=== PATIENT | male | born 1955 | race Caucasian/White ===

== ENCOUNTER 2023-02-08 12:35 | Outpatient (OUT) | payer OTHER, SELFPAY ==
--- NOTE | 2023-02-08 13:04 | P.CN_ITS ---
Consult Note: HPI Data of Consult Patient: known to practice within the last 3 years Requesting Physician: Karen Castro NP Primary Care Provider: JESÚS GUZMAN Consult Narrative Reason for consult: 3 month follow up Narrative: Erich Lopez a pleasant 67 year old male presents for follow up on chronic upper/mid back pain, has been utilizing tramadol and diclofenac for pain with mild relief. Today rating his pain 4/10 in left thoracic spine/paraspine. cc:: CC: Karen Castro NP Review of Systems ROS Status of ROS 10 or more systems reviewed and unremarkable except as noted in h istory and below Musculoskeletal Reports: back pain Exam Constitutional Documenting provider has reviewed patient's vital signs: yes Common normals: no apparent distress, average body habitus, oriented x3, healthy appearing, alert and well nourished General appearance: cooperative HENMT Common normals: normocephalic, hearing grossly normal bilaterally and moist oral mucous membranes Head and scalp: normocephalic Eye Common normals: PERRL Pupil: PERRL Neck & C-Spine Common normals: full ROM General: normal visual inspection Chest Common normals: inspection of chest normal Respiratory Common normals: normal respiratory effort, no retractions and no use of accessory muscles Back & Pelvis Thoracic spine/upper back: pain with ROM, paraspinal muscle tenderness and other soft tissue findings (trigger point) Other thoracic soft tissue findings laterality: left Lumbar spine/lower back: normal to inspection and lumbar ROM normal Sacroiliac joints: SI joints normal Extremity Common normals: normal to inspection, full ROM and no joint enlargement Neuro Common normals: oriented x3, CN's II-XII intact bilaterally, moves all extr emities, no focal motor deficits, no sensory deficits noted and deep tendon reflexes 2+ bilaterally Sensorium/orientation: alert Gait (neuro): normal gait Motor exam: strength 5/5 throughout and no movement abnormalities noted Other: denies numbness/tinging in upper extremities, no weakness Psych Common normals: mental status grossly normal, thought process normal, cooperative, affect normal, speech normal and activity/motor behavior normal Speech: normal speech Thought process: normal thought process Results Additional Findings Additional findings: I have checked an OARRS report on this patient today and there are no aberrancies noted in the prescribing history.?? A drug screen was completed and reviewed within the last year, and if there has not been a drug screen completed we ordered one today to monitor higher risk, state monitored pain medication use. Assessment and Plan Assessment and Plan (1) Chronic pain syndrome: (2) Thoracic spondylosis: Assessment and Plan: MRI from 2020 shows T3-4 disc bulging and T5-6 disc herniation, patient will think about JAMILAH for pain relief but has a surgical consult next week for pending hernia surgery. (3) Trigger point of thoracic region: Assessment and Plan: palpable trigger point in left thoracic spine, will plan on trigger point injection (4) Chronic prescription opiate use: Assessment and Plan: increase tramadol to 100mg ER BID PRN for pain, ok to take two of 50mg tablets up to BID PRN and refill next script early discussed and prescribed naloxone Plan f/u for TPI consider thoracic JAMILAH (t3-4 JAMILAH) follow up to discuss medication changes in 4-6 weeks
== END 2023-02-08 12:36 | disposition home or self-care (01) ==
PROVIDERS: Visit Provider Nurse Practitioner
DX: M47.814 Spondylosis without myelopathy or radiculopathy, thoracic region (principal); G89.4 Chronic pain syndrome; Z79.899 Other long term (current) drug therapy
CPT/HCPCS: G0463

== ENCOUNTER 2023-04-09 11:22 | Outpatient (OUT) | payer OTHER, SELFPAY ==
--- NOTE | 2023-04-09 11:39 | P.CN_ITS ---
Consult Note: HPI Data of Consult Patient: new to practice Consult date: 04/09/23 Requesting Physician: Mary Jane Gonzales MD Primary Care Provider: JESÚS GUZMAN Consult Narrative Reason for consult: midback pain Narrative: 67yom who presents for assessment. Notes persistence of pain throughout his midback region. Thoracic MRI reviewed from 2020, which shows multiple thoracic disc bulges with thecal sac impingement. Engages in provider directed home exercise program >6 weeks, with limited benefit. Has had trigger point injections in the past, with relief. Utilizes tramadol. Denies adverse medication side effects or loss of bowel or bladder control. cc:: CC: Mary Jane Gonzales MD Review of Systems ROS Status of ROS 10 or more systems reviewed and unremarkable except as noted in history and below Meds Home Medications and Allergies Home Medications Medication Instructions Recorded Confirmed Type naloxone 4 mg/actuation nasal 4 mg intranasal Q3M PRN opioid 02/08/23 Rx spray (Narcan) overdose #2 ea tramadol 100 mg capsule 100 mg PO BID PRN pain #60 caps 03/14/23 Rx 24h,extended release(25-75) tramadol 100 mg tablet,extended 100 mg PO DAILY #60 tabs 03/15/23 Rx release 24 hr Exam Narrative Exam Narrative: Psych-alert and oriented x 3. Attentive and appropriate, constitutionally normal, displays normal mood and affect per situation. There are no obvious deficits in memory, reasoning, or intellect.? Skin-no obvious rashes, bruising, erythema noted to the patient's area of pain.? Extremities- extremities are warm with minimal edema and palpable pulses. Thoracic -tenderness to palpation noted in the thoracic spine and paraspinal musculature. Pain is elicited with flexion, extension, and lateral rotation of the lumbar spine. Range of motion is diminished with these motions. Facet loading maneuvers are positive. Multiples trigger points expressed on palpation.? Sensory-no notable sensory deficits to touch or pinprick in all dermatomal distributions with the exception to decreased sensation to the left T5, 6, 7 dermatomal distribution? Coordination remains intact.? Gait remains non-antalgic. Assessment and Plan Assessment and Plan (1) Thoracic spondylosis: (2) Myofascial pain syndrome: (3) Disc displacement, thoracic: Plan 67yom who presents for assessment. Worsening midback pain, as noted. Imaging reviewed, as noted. Given the worsening of his symptoms, coupled with failure to respond to conservative measures, will have him update his thoracic MRI since his most recent was over 2.5 years ago. He is in agreement. Will proceed with thoracic trigger points, as well. Medications reviewed, no changes. Follow up after imaging. Procedure: Left parathoracic trigger point injection Medications: Bupivacaine 0.25% 6cc, kenalog 80mg Diagnosis: Thoracic myofascial pain syndrome I explained the details of the procedure to the patient including the risks, benefits and alternatives. We had an informed discussion and the patient verbalized understanding and signed the consent form. All questions were answered appropriately.? A time out was performed.The patient was identified, the chart was reviewed, and all allergies were confirmed.? Laterality was conducted and marked.? The left side of the thoracic spine was sterilely prepped times three using alcohol.? A 27 gauge 1 1/2 inch needle was used to inject a total of 6.0 mL of the above medication in the various palpated trigger points after negative a spiration for? heme, CSF, or other bodily fluid.?? Vital signs were monitored before, during, and after the procedure and remained stable at all points.? The patient was discharged with no complications.
== END 2023-04-09 11:23 | disposition home or self-care (01) ==
LOC: PM 11:22
PROVIDERS: Visit Provider Anesthesiology
DX: M47.814 Spondylosis without myelopathy or radiculopathy, thoracic region (principal); M51.24 Other intervertebral disc displacement, thoracic region; M79.18 Myalgia, other site
CPT/HCPCS: 20553

== ENCOUNTER 2023-04-24 13:21 | Outpatient (OUT) | payer OTHER, SELFPAY ==
--- NOTE | 2023-04-24 13:29 | MR_ITS ---
The [address] [address] Patient Name: DORY SCRUGGS MRN: [facility]:[id number] date: 1955 Sex: M Assigned Patient Location: MRI Current Patient Location: MRI Accession/Order Number: [id number] Exam Date: 04/24/2023 13:37 Report Date: 04/24/2023 15:38 At the request of: CONOR MARES Procedure: MR thoracic spine wo con MR thoracic spine wo con, 04/24/2023 1:37 PM EDT INDICATION: Thoracic Stenosis COMPARISON: There is no appropriate prior study for comparison. TECHNIQUE: Multiplanar, multisequential MRI images of thoracic spine were obtained without contrast. FINDINGS: There is normal physiologic thoracic kyphosis. The vertebral heights are preserved. The conus medullaris is at the level of L1. No signal abnormality within the spinal cord is noted. At the level of T3-T4, there is disc bulge. No neuroforaminal narrowing and mild canal stenosis. At the level of T5-T6, there is left lateral disc protrusion. No neuroforaminal narrowing and mild left canal stenosis. MR/MR thoracic spine wo con IMPRESSION: Mild degenerative changes of thoracic spine. Electronically authenticated by: SOPHY HERNANDEZ Date: 04/24/2023 15:38
== END 2023-04-24 13:22 | disposition home or self-care (01) ==
LOC: MRI 13:22
PROVIDERS: Visit Provider Anesthesiology
DX: M48.04 Spinal stenosis, thoracic region (principal)
CPT/HCPCS: 72146

== ENCOUNTER 2023-05-09 12:28 | Outpatient (OUT) | payer OTHER, SELFPAY ==
--- NOTE | 2023-05-09 12:36 | P.CN_ITS ---
Consult Note: HPI Data of Consult Patient: known to practice within the last 3 years Requesting Physician: Karen Castro NP Primary Care Provider: JESÚS GUZMAN Consult Narrative Reason for consult: f/u Narrative: Erich Lopez a pleasant 67 year old male presents for evaluation and management of upper back pain. Since last visit patient has had an MRI of thoracic spine which shows thoracic stenosis. Patient would like to discuss treatment options. cc:: CC: Karen Castro NP Review of Systems ROS Status of ROS 10 or more systems reviewed and unremarkable except as noted in history and below Musculoskeletal Reports: back pain Meds Home Medications and Allergies Home Medications Medication Instructions Recorded Confirmed Type naloxone 4 mg/actuation nasal 4 mg intranasal Q3M PRN opioid 02/08/23 Rx spray (Narcan) overdose #2 ea tramadol 100 mg capsule 100 mg PO BID PRN pain #60 caps 03/14/23 Rx 24h,extended release(25-75) tramadol 100 mg tablet,extended 100 mg PO DAILY #60 tabs 03/15/23 Rx release 24 hr tramadol 50 mg tablet 50 mg PO BID PRN pain #120 tabs 04/25/23 Rx Exam Constitutional Documenting provider has reviewed patient's vital signs: yes Common normals: no apparent distress, oriented x3, healthy appearing, alert and well nourished General appearance: cooperative HENMT Common normals: normocephalic, hearing grossly normal bilaterally and moist oral mucous membranes Head and scalp: normocephalic Eye Common normals: PERRL Pupil: PERRL Neck & C-Spine Common normals: full ROM General: normal visual inspection Chest Common normals: inspection of chest normal Respiratory Common normals: normal respiratory effort, no retractions and no use of accessory muscles Back & Pelvis Thoracic spine/upper back: ROM limited and pain with ROM Back image (male): 1. Extremity Common normals: normal to inspection and full ROM Neuro Common normals: oriented x3, CN's II-XII intact bilaterally, moves all extremities, no focal motor deficits, no sensory deficits noted and deep tendon reflexes 2+ bilaterally Sensorium/orientation: alert Motor exam: strength 5/5 throughout and no movement abnormalities noted Psych Common normals: mental status grossly normal, thought process normal, cooperativ e, affect normal, speech normal and activity/motor behavior normal Speech: normal speech Thought process: normal thought process Results Additional Findings Additional findings: I have checked an OARRS report on this patient today and there are no aberrancies noted in the prescribing history.?? A drug screen was completed and reviewed within the last year, and if there has not been a drug screen completed we ordered one today to monitor higher risk, state monitored pain medication use. As part of providing excellent, safe, comprehensive care, the following was completed at our patient's visit: 1. A medication reconciliation and review to ensure accurate knowledge of current/active medications, including asking our patients to inform us about any [id number] medications or herbal remedies/nutritional supplements/alternative remedies. 2. A review to specifically ensure our patients have had annual screening for: elevated body mass index (BMI), tobacco use, screening for depression, and screening for unhealthy alcohol use. When screening is concerning, patients are provided with education and the specific recommendation to discuss the concerni ng health issue and treatment options with their primary care provider. Assessment and Plan Assessment and Plan (1) Thoracic stenosis: (2) Disc displacement, thoracic: (3) Myofascial pain syndrome: (4) Chronic pain syndrome: (5) Chronic prescription opiate use: Assessment and Plan: I have refilled the patient's opioid prescriptions at the above noted dose and schedule.? I feel these medications are improving the patient's quality of life and allow them to tolerate activities of daily living as well as participate in recreational activity.? The patient does not report intolerable side effects. The patient is NOT opioid naive and non-pharmacologic and non-opioid treatment has failed to significantly relieve the patient's pain and improve functionality. The patient has a diagnosis that is related to a somatic or visceral pain etiology. ? ?? I reviewed with the patient the potential risks and side effects with the use of? opioid medications including but not limited to respiratory depression,? sedation, and even . I verified the patient has access to naloxone should? these effects occur. I advised the patient to avoid the use of any other? sedation substances including alcohol, THC, and benzodiazepines while? taking opioid medications due to the risk of compounding side effects and? detrimental outcomes. I reviewed the [employer], pain treatment agreement, urine? drug screen, and opioid start talking forms. The patient was advised to let? their family know they had Naloxone in case they would need to administer? the medication.? ?? A drug screen was completed within the last year, and no aberrancies were noted regarding their use of controlled substances. The patient understands they are subject to the terms and conditions of the pain contract that they have signed. ? ?? I have checked an OARRS report on this patient today and there are no aberrancies noted in the prescribing history.? Plan left T5-6 TFESI under fluoroscopy, discussed risks vs benefits all questions answered continue current medications f/u 2 weeks after JAMILAH
== END 2023-05-09 12:29 | disposition home or self-care (01) ==
LOC: PM 12:28
PROVIDERS: Visit Provider Nurse Practitioner
DX: M51.24 Other intervertebral disc displacement, thoracic region (principal); M48.04 Spinal stenosis, thoracic region; M79.18 Myalgia, other site; G89.4 Chronic pain syndrome; Z79.891 Long term (current) use of opiate analgesic
CPT/HCPCS: G0463

== ENCOUNTER 2023-05-28 09:46 | Day surgery (SDC) | payer OTHER, SELFPAY ==
[2023-05-28 10:43] VITALS: BP 147/71; PULSE 92; RESP 18; TEMP 36; O2SAT 99
[2023-05-28 11:22] VITALS: BP 150/67; PULSE 98; RESP 18; O2SAT 95
[2023-05-28] MEDS: BUPIVACAINE HCL 0.25% PF 25 MG/10 ML VIAL INJ (11:23)
[2023-05-28] MEDS: LIDOCAINE HCL 2% PF 100 MG/5 ML VIAL INJ (11:23)
[2023-05-28] MEDS: 0.9 % SODIUM CHLORIDE 10 ML INJ (11:23)
[2023-05-28] MEDS: DEXAMETHASONE SOD PHOS 10 MG/ML VIAL INJ (11:23)
--- NOTE | 2023-05-28 11:26 | P.ON_ITS ---
Date of procedure: 05/28/23 Pre-op diagnosis: M54.14 Post-op diagnosis: same as pre-op Procedure: Procedure: Left T5-6 transforaminal epidural steroid injection Medications: Bupivacaine 0.25% 2cc, dexamethasone 10mg The patient was seen and examined in the preoperative holding area.? Informed consent was obtained and placed on the chart.? Patient was brought to the medical procedure unit and placed in the prone position where a timeout was completed verifying the correct patient, procedure site, position, and planned special equipment using sterile aseptic technique.? Under direct fluoroscopic visualization a 25-gauge Quincke tipped spinal needle was advanced to the desig nated neural foramen where contrast dye was injected to show adequate spread.? The needle was inserted at level left T5-6. There was no evidence of vascular or adverse uptake.? Epidural spread was appreciated.? The above-mentioned injectate was then placed in a 1.5 mL aliquot preceded by negative aspiration.? The needle was removed.? The surgery site was covered.? Patient was taken to the postproc edural recovery area and monitored for an appropriate length of time before found suitable for discharge in the accompaniment of a responsible adult. Anesthesia: Local Surgeon: Mary Jane Gonzales Pathology: none sent Condition: stable Disposition: no change
[2023-05-28] MEDS: IOHEXOL 240 MG/ML - 10 ML VIAL INJ (11:27)
[2023-05-28 11:29] VITALS: BP 134/78; PULSE 92; RESP 18; O2SAT 98
== END 2023-05-28 11:31 | disposition home or self-care (01) ==
PROVIDERS: Visit Provider Anesthesiology
DX: M54.14 Radiculopathy, thoracic region (principal)
CPT/HCPCS: 64479; J1100; Q9966

== ENCOUNTER 2023-06-28 13:31 | Outpatient (OUT) | payer OTHER, SELFPAY ==
--- NOTE | 2023-06-28 15:09 | P.CN_ITS ---
Consult Note: HPI Data of Consult Patient: known to practice within the last 3 years Requesting Physician: Karen Castro NP Primary Care Provider: JESÚS GUZMAN Consult Narrative Reason for consult: f/u Narrative: Erich Lopez a pleasant 67 year old male presents for evaluation and management of left sided upper back pain. Patient has failed to respond to thermal facet RFAs at left T5,6 T7,8 and left t5,6 TFESI. Patient continues to have burning sharp pain at left T5,6,7 cc:: CC: Karen Castro NP Review of Systems 2 ROS0 Status of ROS 10 or more systems reviewed and unremark able except as noted in history and below Musculoskeletal Reports: back pain Meds Home Medications and Allergies Home Medications Medication Instructions Recorded Confirmed Type tramadol 100 mg capsule 100 mg PO BID PRN pain #60 caps 03/14/23 05/28/23 Rx 24h,extended release(25-75) atorvastatin 80 mg tablet (Lipitor) 80 mg PO DAILY 05/22/23 05/28/23 History lisinopril 2.5 mg tablet 2.5 mg PO DAILY 05/22/23 05/28/23 History tamsulosin 0.4 mg capsule (Flomax) 0.4 mg PO DAILY 05/28/23 05/28/23 History tramadol 50 mg tablet 50 mg PO BID PRN pain #120 tabs 06/13/23 Rx Allergies Allergy/AdvReac Type Severity Reaction Status Date / Time Penicillins Allergy Verified 05/28/23 10:36 Exam Constitutional Documenting provider has reviewed patient's vital signs: yes Common normals: no apparent distress, oriented x3, healthy appearing, alert and well nourished General appearance: cooperative HENMT Common normals: normocephalic, hearing grossly normal bilaterally and moist oral mucous membranes Head and scalp: normocephalic Eye Common normals: PERRL Pupil: PERRL Neck & C-Spine Common normals: full ROM General: normal visual inspection Chest Common normals: inspection of chest normal Respiratory Common normals: normal respiratory effort, no retractions and no use of accessory muscles Back & Pelvis Thoracic spine/upper back: ROM limited and pain with ROM Back image (male): 2 1. Extremity Common normals: normal to inspection and full ROM Neuro Common normals: oriented x3, CN's II-XII intact bilaterally, moves all extremities, no focal motor deficits, no sensory deficits noted and deep tendon reflexes 2+ bilaterally Sensorium/orientation: alert Motor exam: strength 5/5 throughout and no movement abnormalities noted Psych Common normals: mental status grossly normal, thought process normal, cooperative, affect normal, speech normal and activity/motor behavior normal Speech: normal speech Thought process: normal thought process Assessment and Plan Assessment and Plan (1) Thoracic neuritis: (2) Thoracic stenosis: (3) Disc displacement, thoracic: (4) Myofascial pain syndrome: (5) Thoracic spondylosis: (6) Chronic prescription opiate use: Assessment and Plan: I feel these medications are improving the patient's quality of life and allow them to tolerate activities of daily living as well as participate in recreational activity.? The patient does not report intolerable side effects. The patient is NOT opioid naive and non-pharmacologic and non-opioid treatment has failed to significantly relieve the patient's pain and improve functionality. The patient has a diagnosis that is related to a somatic or visceral pain etiology. ? ?? I reviewed with the patient the potential risks and side effects with the use of? opioid medications including but not limited to respiratory depression,? sedation, and even . I verified the patient has access to naloxone should? these effects occur. I advised the patient to avoid the use of any other? sedation substances including alcohol, THC, and benzodiazepines while? taking opioid medications due to the risk of compounding side effects and? detrimental outcomes. I reviewed the [employer], pain treatment agreement, urine? drug screen, and opioid start talking forms. The patient was advised to let? their family know they had Naloxone in case they would need to administer? the medication.? ?? A drug screen was completed within the last year, and no aberrancies were noted regarding their use of controlled substances. The patient understands they are subject to the terms and conditions of the pain contract that they have signed. ? ?? I have checked an OARRS report on this patient today and there are no aberrancies noted in the prescribing history.? Plan left t5,6,7 intercostal nerve block under fluoroscopy start amitripyline 10mg daily continue tramadol 100mg BID PRN moderate to severe pain utox today f/u 1-2 weeks after injection
== END 2023-06-28 13:32 | disposition home or self-care (01) ==
LOC: PM 13:31
PROVIDERS: Visit Provider Nurse Practitioner
DX: M54.14 Radiculopathy, thoracic region (principal); M48.04 Spinal stenosis, thoracic region; M51.24 Other intervertebral disc displacement, thoracic region; M79.18 Myalgia, other site; M47.814 Spondylosis without myelopathy or radiculopathy, thoracic region; Z79.891 Long term (current) use of opiate analgesic
CPT/HCPCS: G0463

== ENCOUNTER 2023-07-09 06:38 | Day surgery (SDC) | payer OTHER, SELFPAY ==
--- OUTSIDE RECORDS SUMMARY | 2023-07-09 06:41 | XMS_ITS | CCD ---
Author Name Unknown Address [id number] [place] [address] Organization [facility] Care Team Providers Care Utility Lineman Name Role Phone Sushil Valentine Unavailable EDWARDS ., CYRIL Consulting Unavailable ROSIPKO, JESÚS Primary Care Unavailable BERGER ., DR MARCY Blanc Admitting Unavailable BERGER ., DR MARCY Blacn Attending Unavailable GIEDRAITIS, ANDRIUS Admitting Unavailable GIEDRAITIS, ANDRIUS Attending Unavailable ROSIPKO, JESÚS Primary Care Unavailable ROSIPKO, JESÚS Primary Care Unavailable EDWARDS ., CYRIL Attending Unavailable EDWARDS ., CYRIL Admitting Unavailable EDWARDS ., CYRIL Consulting Unavailable ROSIPKO, JESÚS Primary Care Unavailable BERGER ., DR MARCY Blanc Consulting Unavailable BERGER ., DR MARCY Blanc Attending Unavailable BERGER ., DR MARCY Blanc Admitting Unavailable PIERCE COLLINS Consulting Unavailable EDWARDS ., CYRIL Consulting Unavailable ROSIPKO, JESÚS Primary Care Unavailable BERGER ., DR MARCY Blanc Attending Unavailable BERGER ., DR MARCY Blanc Admitting Unavailable EDWARDS ., CYRIL Consulting Unavailable ROSIPKO, JESÚS Primary Care Unavailable BERGER ., DR MARCY Blanc Admitting Unavailable BERGER ., DR MARCY Blanc Attending Unavailable Christian TAPIA, Mary Jane Rust Attending Unavailable Christian TAPIA, Mary Jane Rust Attending Unavailable SERA MCDOWELL I Referring Unavailable NO PCP, NO PCP Primary Care Unavailable Allergies Allergy Classification Reported Allergen(s) Allergy Type Date of Onset Reaction(s) Facility (3 sources) Penicillin G Drug Allergy Unknown [facility] Other (1 source) Penicillin Drug Allergy [facility] Repository (1 source) Penicillins; Translations: [PENICILLINS] Propensity to adverse reactions to drug (disorder) 7 [facility] Repository Medications Current Medications Medication Drug Class(es) Dates Sig (Normalized) Sig (Original) Aspirin (3 sources) Platelet Aggregation Inhibitor, Nonsteroidal Anti-inflammatory Drug Aspirin 325 mg Active atorvastatin 80 mg oral tablet (2 sources) HMG-CoA Reductase Inhibitor take 1 tablet by mouth every twenty-four hours Atorvastatin Calcium 80 MG 1 tablet Orally Once a day Active hydroCHLOROthiazide 12.5 mg / lisinopril 20 mg oral tablet (2 sources) Thiazide Diuretic, Angiotensin Converting Enzyme Inhibitor take 1 tablet by mouth every twenty-four hours Lisinopril-hydroCH LOROthiazide 20-12.5 MG 1 tablet Orally Once a day Active Lisinopril (1 source) Angiotensin Converting Enzyme Inhibitor Lisinopril Active traMADol hydrochloride 50 mg oral tablet (2 sources) Opioid Agonist take 1 tablet by mouth every twenty-four hours traMADol HCl 50 MG 1 tablet as needed Orally Once a day Active Problems Active Problems Problem Classification Problem Date Documented Date Episodic/Chronic Abdominal hernia (2 sources) Hiatal hernia; Translations: [Diaphragmatic hernia without obstruction or gangrene] Episodic Diverticulosis and diverticulitis (2 sources) Diverticular disease of colon; Translations: [Diverticulosis of intestine, part unspecified, without perforation or abscess without bleeding] Chronic Hemorrhoids (2 sources) Hemorrhoids; Translations: [Unspecified hemorrhoids] Episodic Other disorders of stomach and duodenum (4 sources) Other diseases of stomach and duodenum; Translations: [Gastric wall thickening] Onset: 05-16-2021 Resolved: 05-16-2021 Episodic Other nervous system disorders (1 source) Other chronic pain; Translations: [OTHER CHRONIC PAIN] Onset: 03-03-2022 Chronic Other non-traumatic joint disorders (4 sources) Pain in left shoulder; Translations: [PAIN IN LEFT SHOULDER] Onset: 07-27-2022 Episodic Other nutritional; endocrine; and metabolic disorders (3 sources) Abnormal weight loss; Translations: [Abnormal weight loss] Episodic Other screening for suspected conditions (not mental disorders or infectious disease) (1 source) Encounter for screening for malignant neoplasm of prostate; Translations: [Encounter for screening for malignant neoplasm of prostate] Onset: 07-04-2023 Episodic Spondylosis; intervertebral disc disorders; other back problems (11 sources) Spondylosis without myelopathy or radiculopathy, thoracic region; Translations: [Other intervertebral disc degeneration, thoracic region] Onset: 11-15-2021 Chronic Substance-related disorders (1 source) Nicotine dependence, cigarettes, uncomplicated; Translations: [NICOTINE DEPEND CIGARETTES UNCOMP] Onset: 11-17-2021 Chronic Unclassified (1 source) LOW BACK PAIN, UNSPECIFIED; Translations: [LOW BACK PAIN, UNSPECIFIED] Onset: 03-03-2022 Past or Other Problems Problem Classification Problem Date Documented Da te Episodic/Chronic Other connective tissue disease (1 source) Muscle wasting and atrophy, not elsewhere classified, unspecified site; Translations: [MUSCLE WASTING ATROPHY NEC UNS SITE] Onset: 11-17-2021 Episodic Other nutritional; endocrine; and metabolic disorders (3 sources) Abnormal weight loss Onset: 05-16-2021 Resolved: 12-28-2021 Episodic Spondylosis; intervertebral disc disorders; other back problems (1 source) Pain in thoracic spine; Translations: [PAIN IN THORACIC SPINE] Onset: 05-30-2022 Episodic Results Test Name Value Interpretation Reference Range Facility Prostate specific Ag [Mass/V ol]on 07-04-2023 PROSTATIC SPEC ANT 3.72 ng/mL Normal 0.00-4.00 [facility] Comment on above: Result Comment: The method used for this test is [employer] DXI chemiluminescent immunoassay. Values obtained by different assay methods cannot be used interchangeably. Performed By: #### 2 [id number] #### [facility] ([id number]) [address] [place] [address], [address] [place] [address] [facility] 06-02-2021 L ----- Specimen: [id number] Received: 06/02/21 Status: JANEBear Lexa Num: [id number] Spec Type: Surgical Subm Dr: Sushil Valentine MD Tissues: A Duodenum - Biopsy (DUODENAL) B Stomach - Biopsy/Polyp (ANTRUM) C Colon Biopsy (COLITIS BX) Procedures: HE Stain/6, Gross/Micro L4/3 Patient Age/Sex Location Account Attending Physician Efraín Lopez /[facility] [id number] Sushil Valentine MD SPEC NUM: [id number] RECD: 06/02/21 STATUS: ELI LEXA NUM: [id number] JABIER: 06/02/21- [facility] DR: Sushil Valentine MD ENTERED: 06/02/21-[address] [facility] [address]: DARREL TYPE: Surgical DEPT: S ORDERED: HE Stain/6, Gross/Micro L4/3 ORDERED: HE Stain/6, Gross/Micro L4/3 Pathological Diagnosis A. Duodenum, biopsy: - Small intestinal mucosa showing no specific pathologic changes - Preserved villous and crypt architecture - Negative for active B. Stomach, antrum, biopsy: - Mild chronic inactive gastritis - Negative for H. pylori microorganisms C. Colon, biopsy: - Colonic mucosa showing no specific pathologic changes - Negative for microscopic colitis Clinical Information Weight loss, gastric wall thickening Gross Description A. Received in 10% neutral buffered formalin labeled with the patient's name, number and duodenal rule out sprue are 2 go tissue fragments, 0.3 cm each. Entirely submitted in one cassette labeled A1. (SM/JS) B. Received in 10% neutral buffered formalin labeled with the patient's name, number and Specimen: [id number] Received: 06/02/21 Status: ELI Lindquist Num: [id number] Spec Type: Surgical Subm Dr: Sushil Valentine MD Tissues: A Duodenum - Biopsy (DUODENAL) B Stomach - Biopsy/Polyp (ANTRUM) C Colon Biopsy (COLITIS BX) Procedures: HE Stain/6, Gross/Micro L4/3 Patient: JessicaEfraín Jensen [id number] (Continued) Specimen: [id number] Received: 06/02/21 (Continued) Gross Description (Continued) Signed (signature on file) Marcia Knight MD 06/03/21 1726 Specimen: [id number] Received: 06/02/21 Status: ELI Lindquist Num: [id number] Spec Type: Surgical Subm Dr: Sushil Valentine MD Tissues: A Duodenum - Biopsy (DUODENAL) B Stomach - Biopsy/Polyp (ANTRUM) C Colon Biopsy (COLITIS BX) Procedures: HE Stain/6, Gross/Micro L4/3 Patient: Efraín Lopez [id number] (Continued) Specimen: [id number] Received: 06/02/21 (Continued) Gross Description (Continued) antrum rule out H. pylori is a 0.3 cm go tissue fragment. Entirely submitted in one cassette labeled B1. (ATIF/EMERSON) C. Received in 10% neutral buffered formalin labeled with the patient's name, number and biopsies rule out microscopic colitis are 2 go tissue fragments, 0.1 cm and 0.2 cm. Entirely submitted in one cassette labeled C1. (ATIF/[place]ERSON) Microscopic Description A. Two glass slides with H E stained material have been examined. The microscopic findings support the above pathologic diagnosis. B. Two glass slides with H E stained material have been examined. The microscopic findings support the above pathologic diagnosis. Immunohistochemical stains for AE1/AE3 and H. pylori, with appropriate controls, have been requested and examined after reviewing the H E sections. AE1/AE3 is negative for carcinoma cells. H. pylori stain is negative for microorganisms. C. Two glass slides with H E stained material have been examined. The microscopic findings support the above pathologic diagnosis. [id number] The use of one or more reagents in the above tests is regulated as an analyte specific reagent (ASR). The performance characteristics were determined by the Laboratory of [facility]. Immunohistochemistry assays have not been validated on decalcified tissue. Results should be interpreted with caution given the possibility of false negative results on decalcified specimens. They have not been cleared by the US Food and Drug Administration. The FDA has determined that such (more content not included)... Normal [facility] Ammoniaon 05-31-2021 Ammonia (P) [Mass/Vol] ug/dL Low 11-35 [facility] Comment on above: Result Comment: PERF ORMED BY: [place] [address] PATHOLOGIST EARLY [employer]ILDHOOD MARCIA KNIGHT M.D. Performed By: #### A MM, PT, CMP, CBC #### [address] COVID-19 FRon 05-31-2021 SARS-CoV-2 (COVID-19) RNA JESSE+probe Ql (Unsp spec) Negative Normal Negative [facility] Comment on above: Order Comment: Healt hcare Worker?: N Result Comment: Testing for SARS-CoV-2 by RT-PCR This test was developed and its performance characteristics determined by [employer] and validated at the [facility]. This test has not been FDA cleared or approved. This test has been authorized by FDA under an Emergency Use Authorization (EUA). This test has been validated in accordance with the FDA's Guidance Document (Policy for Diagnostics Testing in Laboratories Certified to Perform High Complexity Testing under CLIA prior to Emergency Use Authorization for Coronavirus Disease-2019 during the Public Health Emergency) issued on September 25, 2019. This test is only authorized for the duration of time the declaration that circumstances exist justifying the authorization of the emergency use of in vitro diagnostic tests for detection of SARS-CoV-2 virus and/or diagnosis of COVID-19 infection under section 564(b)(1) of the Act, 21 U.S.C. 360bbb-3(b)(1), unless the authorization is terminated or revoked sooner. PERFORMED BY: [place] [address] PATHOLOGIST [employer]AR[employer]IL[employer] MARCIA KNIGHT M.D. Performed By: #### C OVID 19 [facility] #### [address] Complete Blood Count Auto Di ffon 05-31-2021 Basophils (Bld) [#/Vol] 0.0 10*3/uL Normal 0.0-0.2 [facility] Comment on above: Result Comment: PERF ORMED BY: [place] [address] PATHOLOGIST EARLY [employer]ILDH[employer] MARCIA KNIGHT M.D. Performed By: #### A MM, PT, CMP, CBC #### [address] Basophils/100 WBC (Bld) 0.4 % Normal . [facility] Comment on above: Performed By: #### A MM, PT, CMP, CBC #### [address] Eosinophils (Bld) [#/Vol] 0.1 10*3/uL Normal 0.0-0.45 [facility] Comment on above: Performed By: #### A MM, PT, CMP, CBC #### [address] Eosinophils/100 WBC (Bld) 1.1 % Normal . [facility] Comment on above: Performed By: #### A MM, PT, CMP, CBC #### [address] Erythrocyte distribution width (RBC) [Ratio] 14.3 % Normal 12.0-14.8 [facility] Comment on above: Performed By: #### A MM, PT, CMP, CBC #### [address] Hematocrit (Bld) [Volume fraction] 42.5 % Normal 38.8-50.0 [facility] Comment on above: Performed By: #### A MM, PT, CMP, CBC #### [address] Hemoglobin (Bld) [Mass/Vol] 14.1 g/dL Normal 13.0-17.0 [facility] Comment on above: Performed By: #### A MM, PT, CMP, CBC #### [address] Lymphocytes (Bld) [#/Vol] 1.4 10*3/uL Normal 1.00-4.8 [facility] Comment on above: Performed By: #### A MM, PT, CMP, CBC #### [address] Lymphocytes/100 WBC (Bld) 17.3 % Normal . [facility] Comment on above: Performed By: #### A MM, PT, CMP, CBC #### [address] MCH (RBC) [Entitic mass] 29.6 pg Normal 27.5-35.2 [facility] Comment on above: Performed By: #### A MM, PT, CMP, CBC #### [address] MCV (RBC) [Entitic vol] 89.1 fL Normal 83.5-101 [facility] Comment on above: Performed By: #### A MM, PT, CMP, CBC #### [address] Mean Corpuscular HGB Conc 33.2 g/dL Normal 32.5-35.6 [facility] Comment on above: Performed By: #### A MM, PT, CMP, CBC #### [facility] [address] Monocytes (Bld) [#/Vol] 0.7 10*3/uL Normal 0.0-0.8 [facility] Comment on above: Performed By: #### A MM, PT, CMP, CBC #### [facility] [address] Monocytes/100 WBC (Bld) 9.2 % Normal . [facility] Comment on above: Performed By: #### A MM, PT, CMP, CBC #### [address] Neutrophils (Bld) [#/Vol] 5.8 10*3/uL Normal 1.8-7.7 [facility] Comment on above: Performed By: #### A MM, PT, CMP, CBC #### [address] Neutrophils/100 WBC (Bld) 72.0 % Normal . [facility] Comment on above: Performed By: #### A MM, PT, CMP, CBC #### [place] [address] [place] Nucleated RBC/100 WBC (Bld) [Ratio] 0.0 % Normal 0-0.5 [facility] Comment on above: Performed By: #### A MM, PT, CMP, CBC #### [place] [address] [place] Platelet mean volume (Bld) [Entitic vol] 7.8 fL Normal 6.6-10.1 [facility] Comment on above: Performed By: #### A MM, PT, CMP, CBC #### [facility] [address] [place] [address] [place] Platelets (Bld) [#/Vol] 194 10*3/uL Normal 150-450 [facility] Comment on above: Performed By: #### A MM, PT, CMP, CBC #### [place] [address] [place] RBC (Bld) [#/Vol] 4.77 10*6/uL Normal 3.90-5.60 [facility] Comment on above: Performed By: #### A MM, PT, CMP, CBC #### [address] WBC (Bld) [#/Vol] 8.0 10*3/uL Normal 4.5-11.0 [facility] Comment on above: Performed By: #### A MM, PT, CMP, CBC #### [address] Comprehensive Metabolic Pane amor 05-31-2021 Albumin [Mass/Vol] 4.1 g/dL Normal 3.2-5.5 [facility] Comment on above: Performed By: #### A MM, PT, CMP, CBC #### [address] Albumin/Globulin [Mass ratio] 1.5 {ratio} Normal [facility] Comment on above: Performed By: #### A MM, PT, CMP, CBC #### [address] ALP [Catalytic activity/Vol] 70 U/L Normal 32-92 [facility] Comment on above: Result Comment: PERF ORMED BY: [place] [address] PATHOLOGIST EARLY [employer]ILDHO[employer] MARCIA KNIGHT M.D. Performed By: #### A MM, PT, CMP, CBC #### [address] ALT [Catalytic activity/Vol] 22 U/L Normal 10-60 [facility] Comment on above: Performed By: #### A MM, PT, CMP, CBC #### [address] AST [Catalytic activity/Vol] 20 U/L Normal 10-42 [facility] Comment on above: Performed By: #### A MM, PT, CMP, CBC #### [address] Bilirubin [Mass/Vol] 0.9 mg/dL Normal 0.3-1.2 [facility] Comment on above: Performed By: #### A MM, PT, CMP, CBC #### [address] Calcium [Mass/Vol] 9.5 mg/dL Normal 8.2-10.2 [facility] Comment on above: Performed By: #### A MM, PT, CMP, CBC #### [address] Chloride [Moles/Vol] 102 mmol/L Normal 95-114 [facility] Comment on above: Performed By: #### A MM, PT, CMP, CBC #### [address] CO2 [Moles/Vol] 23.2 mmol/L Normal 22.0-30.0 [facility] Comment on above: Performed By: #### A MM, PT, CMP, CBC #### [address] Creatinine [Mass/Vol] 0.91 mg/dL Normal 0.64-1.27 [facility] Comment on above: Performed By: #### A MM, PT, CMP, CBC #### [address] Estimated GFR ( Corinne > 60 [facility] Comment on above: Result Comment: GFR estimated reference range: According to KDOQI guidelines, <60 ml/min/1.73m2 is sufficient to diagnose a patient with chronic kidney disease. Performed By: #### A MM, PT, CMP, CBC #### [address] Estimated GFR (Non- Am > 60 [facility] Comment on above: Performed By: #### A MM, PT, CMP, CBC #### [address] Globulin (S) [Mass/Vol] 2.8 g/dL Normal [facility] Comment on above: Performed By: #### A MM, PT, CMP, CBC #### [facility] [address] Glucose [Mass/Vol] 101 mg/dL High 70-100 [facility] Comment on above: Result Comment: [facility] Glucose Reference Range is dependent on time and content of last meal. Glucose of more than 200 mg/dL in a nonstressed, ambulatory subject supports the diagnosis of Diabetes Mellitus. ADA recommended reference range Performed By: #### A MM, PT, CMP, CBC #### [address] Potassium [Moles/Vol] 4.2 mmol/L Normal 3.5-5.1 [facility] Comment on above: Performed By: #### A MM, PT, CMP, CBC #### [address] Protein [Mass/Vol] 6.9 g/dL Normal 6.1-7.9 [facility] Comment on above: Performed By: #### A MM, PT, CMP, CBC #### [address] Sodium [Moles/Vol] 136 mmol/L Normal 136-146 [facility] Comment on above: Performed By: #### A MM, PT, CMP, CBC #### [address] Urea nitrogen [Mass/Vol] 15 mg/dL Normal 9-23 [facility] Comment on above: Performed By: #### A MM, PT, CMP, CBC #### [place] [address] [place] Prothrombin Time INRon 05-31 INR Coag (PPP) [Relative time] 1.0 {INR} Normal [facility] Comment on above: Result Comment: INR Therapeutic Range A) Pre- and Peroperative OAT started two weeks before surgery. NOT HIP SURGERY: 1.5 - 2.5 HIP SURGERY: 2 - 3 B) Primary and secondary prevention of venous THROMBOSIS: 2 - 3 C) Active venous thrombosis, pulmonary embolism and prevention of recurrent venous thrombosis: 2 - 3 D) Prevention of arterial thromboembolism including patients with mechanical heart valves: 3 - 4.5 PERFORMED BY: [place] [address] PATHOLOGIST EAR[employer]IL[employer] MARCIA KNIGHT M.D. Performed By: #### A MM, PT, CMP, CBC #### [facility] [address] [place] [address] PT Coag (PPP) [Time] 10.8 s Normal 9.0-12.9 [facility] Comment on above: Performed By: #### A MM, PT, CMP, CBC #### [facility] [address] [place] [address] US liveron 05-31-2021 liver [facility] [place] [address] [place] [address] Ultrasound Report Signed Patient: Efraín Lopez MR#: [id number] : 1955 Acct:[id number] Age/Sex: 65 / M ADM Date: 05/31/21 Loc: Room: Type: [facility] Attending Dr: Sushil Valentine MD Ordering Provider: Sushil Valentine MD Date of Service: 05/31/21 US/US liver: abnormal weight loss,gastric wall thickening Copies to: Sushil Valentine MD LIMITED ABDOMINAL ULTRASOUND - liver CLINICAL HISTORY: Abnormal weight loss. Gastric wall thickening COMPARISON: None The gallbladder is physiologically distended without shadowing calculi, wall thickening or pericholecystic fluid. No intra- or extrahepatic biliary dilatation is evident. The common duct is slightly prominent measuring 6 mm. It is not imaged in its entirety. The liver is normal in echogenicity. No intrahepatic masses are seen. There is appropriate hepatopetal flow within the main portal vein. The pancreas shows no significant sonographic abnormality. Cursory evaluation of the right kidney reveals no hydronephrosis or fluid within Whittington's pouch. Right renal cysts are present with the largest measuring 7.7 cm in greatest dimension US/US liver IMPRESSION: NO CHOLELITHIASIS OR HEPATIC ABNORMALITIES. BORDERLINE PROMINENT COMMON DUCT, UNCERTAIN ETIOLOGY AND SIGNIFICANCE. RIGHT RENAL CYST. Impression dictated by: Marilee Ramirez M.D.05/31/2021 2:24 PM Dictation Location: [facility] Tech: Sophie El Transcribed By: MARCUS 05/31/21 142 Dictated By: Marilee Ramirez MD 05/31/21 142 Signed By: 05/31/21 1424 [facility] Vital Signs Date Time Vital Sign Value Performing Clinician Facility 12-28-2021 12:00-0400 Body height 182.88 cm Sushil Valentine Other [facility] Other 12-28-2021 12:00-0400 Body mass index (BMI) [Ratio] 20.34 kg/m2 Sushil Valentine Other [facility] Other 12-28-2021 12:00-0400 Body weight 68.04 kg Sushil Valentine Other [facility] Other 12-28-2021 12:00-0400 Diastolic blood pressure 71 mm[Hg] Sushil Valentine Other [facility] Other 12-28-2021 12:00-0400 Systolic blood pressure 133 mm[Hg] Sushil Valentine Other [facility] Other 09-27-2021 16:00-0400 Body height 182.88 cm Sushil Valentine Other [facility] Other 09-27-2021 16:00-0400 Body mass index (BMI) [Ratio] 20.34 kg/m2 Sushil Valentine Other [facility] Other 09-27-2021 16:00-0400 Body weight 68.04 kg Sushil Valentine Other [facility] Other 09-27-2021 16:00-0400 Diastolic blood pressure 91 mm[Hg] Sushil Valentine Other [facility] Other 09-27-2021 16:00-0400 Respiratory rate 18 /min Sushil Valentine Other [facility] Other 09-27-2021 16:00-0400 SaO2% (BldA) [Mass fraction] 96 % Sushil Valentine Other [facility] Other 09-27-2021 16:00-0400 Systolic blood pressure 158 mm[Hg] Sushil Valentine Other [facility] Other 05-16-2021 10:30-0500 Body weight 69.4 kg Sushil Valentine Other [facility] Other Encounters Encounter Date Encounter Type Care Provider Facility Start: 07-04-2023 End: 07-05-2023 ambulatory SERA be Start: 05-28-2023 End: 05-29-2023 ambulatory Mary Jane Gonzales MD Facility: [facility] Start: 04-09-2023 End: 04-10-2023 ambulatory Mary Jane Gonzales MD Facility: [facility] Start: 11-10-2022 ambulatory ANDRIUS CHRISTIAN Thompson lity:[facility] Start: 07-27-2022 End: 07-28-2022 ambulatory JESÚS GUZMAN Facility:[facility] Start: 06-27-2022 End: 06-27-2022 ambulatory JESÚS GUZMAN Facility:[facility] Start: 05-25-2022 End: 05-26-2022 ambulatory CYRIL EDWARDS . Facility:[facility] Start: 02-23-2022 End: 02-24-2022 ambulatory CYRIL EDWARDS . Facility:[facility] Start: 12-28-2021 End: 12-28-2021 ambulatory Sushil Valentine Other [facility] Other Start: 12-28-2021 Office outpatient visit 15 minutes Sushil Beardack [facility] Start: 11-15-2021 End: 11-16-2021 ambulatory CYRIL EDWARDS . Facility: Start: 09-27-2021 End: 09-27-2021 ambulatory Sushil Valentine Other [facility] Other Start: 09-27-2021 Office outpatient visit 15 minutes Sushil Serge [facility] Start: 05-16-2021 End: 05-16-2021 ambulatory Sushil Valentine Other [facility] Other Start: 05-16-2021 Office outpatient ne w 45 minutes Suhsil Serge [facility] Payers Date Payer Category Payer Medicare 2020 Unknown [id number] 2020 Unknown [id number] 1958 [facility] [id number] 1955 Unknown [id number] 2.16.84 [id number] 1955 Unknown [id number] 2.16.84 [id number] 1955 Unknown [id number] 2.16.84 [id number] 1955 Unknown [id number] 2.16.84 [id number] 1955 Unknown [id number] 2.16.84 [id number] 1955 Unknown [id number] 2.16.84 [id number] 1955 Unknown [id number] 1955 Unknown [id number] 2.16. [id number] 1955 Unknown [id number] Social History Date Type Detail Facility Sex Assigned At [facility] Consultation note 05-25-2022 Note Date & Type Note Facility 05-25-2022 Note CONSULTATION CONSULTATION DATE: 05/25/2022 HISTORY OF PRESENT ILLNESS: This is a 66-year-old gentleman returning to the [facility] for a three month follow up for his thoracic pain. The patient was last seen on 02/23/2022 which, at that time, he was started on Mobic 15 mg daily. He is currently on tramadol 50 mg t.i.d. The patient had had thoracic medial branch blocks successfully in the past to T5, T6 and T7, T8. However, patient's insurance company at that time denied thoracic radiofrequency ablations. The patient's most recent MRI from July of 2020 shows, at the level of T5 and T6 a focal left parricidal disc herniation which focally effaces the left ventral subarachnoid space. 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 The repeated motions of his upper arms greatly increase his pain. At rest, his pain is 4/10. At work, with movement, his pain will get up to a 9/10. Patient describes that lifting, evening hours and any arm use increases his pain. He denies any vasomotor changes to his upper extremities. Patient's REVIEW OF SYSTEMS / PAST MEDICAL HISTORY / ALLERGIES and IMAGES have been reviewed and noted on the chart. PHYSICAL EXAM: VITAL SIGNS: Blood pressure 129/71, heart rate is 76. Temperature is 97.8. He is 6 and weighs 74.2 kg. GENERAL APPEARANCE: Pleasant, appropriate, no acute distress. 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 Spinal axial pain is reproduced along direct compression along the thoracic facets of T5, T6, T7, T8. Fullness palpated along the facets indicative of facet arthropathy, thoracic spondylosis. Thoracic trapezius muscles are non-spasmodic. MUSCULOSKELETAL: Bilateral upper extremities - Motor is 5/5 with no vasomotor deficits. NEUROLOGICAL: Radicular sensory is intact. +1 bilateral brachioradialis reflexes. DIAGNOSIS: Thoracic spondylosis, thoracic pain, thoracic degenerative disc disease, T5-T6 disc herniation. PLAN: We will again resubmit for radiofrequency ablations starting on the left, subsequently move to the right of T5, T6, T7, T8. We will discontinue the Mobic and start the patient on diclofenac 75 mg b.i.d. U-Tox was collected in the clinic today. Patient agrees to move forward with the procedure, will be followed in the clinic thereafter. [facility] Consultation note 02-23-2022 Note Date & Type Note Facility 02-23-2022 Note CONSULTATION CONSULTATION DATE: 02/23/2022 HISTORY OF PRESENT ILLNESS: This is a 66-year-old gentleman returning to the clinic for a three month follow up for his chronic thoracic pain. The patient had successful medial branch blocks in the past, but due to insurance restrictions, he is unable to move forward with an RFA; therefore, we are medically managing him at this time. He takes tramadol 50 mg t.i.d. which is beneficial to him. Today, he reports his pain 2/10, but states he has been taking it easy with no overt exertion. Activities such as twisting, pushing, pulling, turning, stairs, bending, housework and lifting aggravate his pain. He does not use heat or use. He denies any radicular pain or vasomotor changes. He does take a multivitamin at home. Patient's REVIEW OF SYSTEMS / PAST MEDICAL HISTORY / ALLERGIES and IMAGES have been reviewed and they are noted on the chart. PHYSICAL EXAM: VITAL SIGNS: Blood pressure 148/73, heart rate is 64. Temperature is 98.2. He is 6' tall and weighs 158 pounds. GENERAL APPEARANCE: Pleasant, appropriate, no acute distress. FOCUSED EXAM - BACK: Patient does have an upright kyphotic posture. Reproduction of the spinal axial pain noted to direct compression along the posterior elements of the thoracic facets of T5, T6 and T7, T10. Intercostal pain is noted to compression as well to the left. Paravertebral muscles are taut. MUSCULOSKELETAL: Motor is intact to bilateral upper extremities, 4/5, with good muscle tone. Lower extremities slight muscle atrophy. Patient does not use an assistive device to ambulate. 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 Intact bilateral brachioradialis and triceps reflexes. DIAGNOSIS: Thoracic spondylosis, thoracic degenerative disc disease and chronic lower back pain. PLAN: We will send a refill for tramadol 50 mg t.i.d. He is currently not on any NSAIDs. So, therefore, we will start him on Mobic 15 mg daily. Education was given to the benefits use of heat, as well as multivitamin and magnesium. Patient agrees with the plan of care. Will be followed up in three months' time unless otherwise indicated. [facility] Evaluation note 12-28-2021 Note Date & Type Note Facility 12-28-2021 Evaluation note Encounter Date Diagnosis Assessment Notes Dec, Abnormal weight loss (ICD-10 - R63.4) PT ADVISED TO INCREASE PROTEIN RTO 6 MONTHS [facility] Consultation note 11-15-2021 Note Date & Type Note Facility 11-15-2021 Note CONSULTATION CONSULTATION DATE: 11/15/2021 CHIEF COMPLAINT: Mid back pain. HISTORY OF PRESENT ILLNESS: This is a 65-year-old gentleman who has thoracic pain, thoracic degenerative disc disease, thoracic spondylosis. 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 Unfortunately, [place] will not allow us to proceed with a therapeutic rhizotomy radiofrequency ablation. The patient reports a 2-3/10 pain, a burning sensation. Pushing/pulling activities, standing, walking, lifting aggravate the patient's pain as does bending. The patient is currently managing with tramadol 50 mg two tablets in the morning. He states that he has decreased and takes only two tablets at day. The patient's PAST MEDICAL HISTORY / SURGICAL HISTORY / REVIEW OF SYSTEMS are noted on the chart, along with the MEDICATION LIST / ALLERGIES and RADIOLOGICAL IMAGES. PHYSICAL EXAMINATION GENERAL: Upon physical examination, this is a pleasant, cooperative gentleman, who is accompanied by his . VITAL SIGNS: Stable at 127/57 with a heart rate of 69. At a height of 6', the patient weighs 69 kg. FOCUSED EVALUATION: The patient still has discomfort along the thoracic region. Extension, compression does aggravate; however, also mitigates the patient's pain symptomatology. No hyperpathia, allodynia is noted along the anterior chest wall. The patient is a smoker. IMPRESSION: Current working diagnosis on the patient is thoracic pain, thoracic degenerative disc disease, thoracic spondylosis, tobacco usage, muscle atrophy. PLAN: We will refill the patient's tramadol to 50 mg b.i.d. The patient is to perform extension exercises. The patient is to continue with the Ensure t.i.d. and encouragement was given with regards to decreasing his tobacco usage. The patient and his understand and will be following up in three months. [facility] Signed and Approved by: DR MARCY BERGER . 11/29/2021 11:41:00 [facility] Evaluation note 09-27-2021 Note Date & Type Note Facility 09-27-2021 Evaluation note Encounter Date Diagnosis Assessment Notes Sep, Abnormal weight loss (ICD-10 - R63.4) INCREASE PROTEIN TO 80 GRAMS DAILY DRINK ENSURE/BOOST 3-4 TIMES A DAY RTO 3 MONTHS [facility] Evaluation note 05-16-2021 Note Date & Type Note Facility 05-16-2021 Evaluation note Encounter Date Diagnosis Assessment Notes Apr, Abnormal weight loss (ICD-10 - R63.4) PATIENT STATES 20 POUND WEIGHT LOSS IN 4-6 MONTHS Apr, Gastric wall thickening (ICD-10 - K31.89) [facility] Other History general Narrative - Reported Note Date & Type Note Facility History general Narrative - Reported Type Surgical History hernia [facility] Other History general Narrative - Reported Note Date & Type Note Facility History general Narrative - Reported Type Medical History Hypertension Medical History hyperlipidemia Surgical History hernia [facility] Other Summary Purpose Family History No Family History Records FoundNo Family History Records FoundNo Family History Records FoundNo Family History Records Found Advance Directives No Advanced Directives Records FoundNo Advanced Directives Records FoundNo Advanced Directives Records FoundNo Advanced Directives Records Found Additional Source Comments (unrecognized sect ion and content) No Status Records FoundNo Status Records FoundNo Status Records FoundNo Status Records Found INFORMATION SOURCE (unrecogn ized section and content) DATE CREATED AUTHOR 09/12/2021 [facility] DATE CREATED AUTHOR AUTHOR'S ORGANIZ ATION 10/23/2022 [facility] DATE CREATED AUTHOR AUTHOR'S ORGANIZ ATION 06/08/[address] [facility] DATE CREATED AUTHOR AUTHOR'S ORGANIZ ATION 07/08/2023 [facility] REASON FOR VISIT (unrecogniz ed section and content) Patient referred here by Beth Keller for abnormal weight loss, gastric wall thickening.PT HERE FOR 3 MONTH FOLLOW UP TO ABNORMAL WEIGHT LOSS. PATIENT WAS TO HAVE LABS INCREASE PROTETIN, (LABS IN CHART FOR REVIEW)Patient here for 3 month Follow up to Abnormal weight loss. Patient was to have labs, increase protein FOR RECORDS PERTAINING TO PATIENTS WHO ARE OR HAVE BEEN ENROLLED IN A CHEMICAL DEPENDENCY/SUBSTANCEABUSE PROGRAM, SOME INFORMATION MAY BE OMITTED. This clinical summary was aggregated from multiple sources. Caution should be exercised in using it in the provision of clinical care. This summary normalizes information from multiple sources, and as a consequence, information in this document may materially change the coding, format and clinical context of patient data. In addition, data may be omitted in some cases. CLINICAL DECISIONS SHOULD BE BASED ON THE PRIMARY CLINICAL RECORDS. [employer] provides no warranty or guarantee of the accuracy or completeness of information in this document.
[2023-07-09 07:02] VITALS: BP 117/57; PULSE 99; RESP 16; TEMP 36.5; O2SAT 99
[2023-07-09 07:59] VITALS: BP 157/74; PULSE 92; RESP 18; O2SAT 98
[2023-07-09 08:03] VITALS: BP 158/67; PULSE 85; RESP 18; O2SAT 97
--- NOTE | 2023-07-09 08:04 | W.PM.PROCNOT ---
Date of procedure: 07/09/23 Pre-op diagnosis: Intercostal neuralgia Post-op diagnosis: same as pre-op Procedure: Procedure: Left T5, 6, 7 intercostal nerve block Medications: Bupivacaine 0.25% 8cc, kenalog 80mg After informed consent was obtained, the patient was brought to the medical procedures unit and placed in the prone position.? A timeout was completed verifying the correct patient, procedure site, position, and special equipment.? The left T5 rib was contacted with the needle tip 1 cm lateral to the costotransverse junction and the needle tip was walked caudally.? Omnipaque dye was injected to show adequate spread.? The above-mentioned injectate was placed in 2 mL aliquots and the procedure was repeated at left T6, T7 ribs.? The patient tolerated the procedures well and was found suitable for discharge in the accompaniment of a responsible adult. Anesthesia: Local Surgeon: Mary Jane Gonzales Pathology: none sent Condition: stable Disposition: no change
[2023-07-09] MEDS: IOHEXOL 240 MG/ML - 10 ML VIAL 12 MG INJ (08:05)
[2023-07-09] MEDS: TRIAMCINOLONE ACETONIDE 40 MG/ML VIAL INJ (08:06)
[2023-07-09] MEDS: LIDOCAINE HCL 2% PF 100 MG/5 ML VIAL 2 ML INJ (08:06)
[2023-07-09] MEDS: BUPIVACAINE HCL 0.25% PF 25 MG/10 ML VIAL 9 ML INJ (08:06)
== END 2023-07-09 08:11 | disposition home or self-care (01) ==
PROVIDERS: Visit Provider Anesthesiology
DX: G58.0 Intercostal neuropathy (principal)
CPT/HCPCS: 64420; 64421; J0665; J3301; Q9966

== ENCOUNTER 2023-07-19 13:34 | Outpatient (OUT) | payer OTHER, SELFPAY ==
--- OUTSIDE RECORDS SUMMARY | 2023-07-19 13:38 | XMS_ITS | CCD ---
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 Name Role Phone Sushil Valentine Unavailable EDWARDS ., CYRIL Consulting Unavailable ROSIPKO, JESÚS Primary Care Unavailable BERGER ., DR MARCY Blanc Admitting Unavailable BERGER ., DR MARCY Blanc Attending Unavailable GIEDRAITIS, ANDRIUS Admitting Unavailable GIEDRAITIS, [...] BERGER ., DR MARCY Blanc Attending Unavailable SERA MCDOWELL I Referring Unavailable NO PCP, NO PCP Primary Care Unavailable Gipierceitis , Mary Jane Rust Attending Unavailable Gieditis , Mary Jane Rust Attending Unavailable Gieditis , Mary Jane Rust Attending Unavailable Allergies Allergy Classification Reported Allergen(s) Allergy Type Date of Onset Reaction(s) Facility (3 sources) Penicillin G Drug Allergy Unknown [facility] Other (1 source) Penicillin Drug Allergy [facility] Repository (1 source) Penicillins; Translations: [PENICILLINS] Propensity to adverse reactions to drug (disorder) [facility] Repository Medications Current Medications Medication Drug [...] PROSTATIC SPEC ANT 3.72 ng/mL Normal 0.00-4.00 [facility] Comment on above: Result Comment: The method used for this test is [employer] DXI chemiluminescent immunoassay. Values obtained by different assay methods cannot be used interchangeably. Performed By: #### 2 [id number] #### [facility] ([id number]) [address] [place] [address], [address] [place] [address] [facility] 06-02-2021 L ----- Specimen: [id number] Received: 06/02/21 Status: ELI Lindquist Num: [id number] Spec Type: Surgical Subm Dr: Sushil Valentine MD Tissues: A Duodenum - Biopsy (DUODENAL) B Stomach - Biopsy/Polyp (ANTRUM) C Colon Biopsy (COLITIS BX) Procedures: HE Stain/6, Gross/Micro L4/3 Patient Age/Sex Location Account Attending Physician Efraín Lopez/Chavez [id number] Sushil Valentine MD SPEC NUM: [id number] RECD: 06/02/21 STATUS: ELI LINDQUIST NUM: [id number] JABIER: 06/02/21- DR: Sushil Valentine MD ENTERED: 06/02/21-1249 [facility] DR: DARREL TYPE: Surgical DEPT: S ORDERED: [...] with the patient's name, number and Specimen: [id number] Received: 06/02/21 Status: ELI Lindquist Num: [id number] Spec Type: Surgical Subm Dr: Sushil Valentine MD Tissues: A Duodenum - Biopsy (DUODENAL) B Stomach - Biopsy/Polyp (ANTRUM) C Colon Biopsy (COLITIS BX) Procedures: HE Stain/6, Gross/Micro L4/3 Patient: JessicaEfraín Mikey [id number] (Continued) Specimen: [id number] Received: 06/02/21 (Continued) Gross Description (Continued) Signed (signature on file) Marcia Knight MD 06/03/21 1726 Specimen: [id number] Received: 06/02/21 Status: ELI Lindquist Num: [id number] Spec Type: Surgical Subm Dr: Sushil Valentine MD Tissues: A Duodenum - Biopsy (DUODENAL) B Stomach - Biopsy/Polyp (ANTRUM) C Colon Biopsy (COLITIS BX) Procedures: HE Stain/6, Gross/Micro L4/3 Patient: Efraín Lopez [id number] (Continued) Specimen: [id number] Received: 06/02/21 (Continued) Gross Description (Continued) antrum rule out H. pylori is a 0.3 cm go tissue fragment. Entirely submitted in one cassette labeled B1. (ATIF/[place]) C. Received in 10% neutral buffered formalin labeled with the patient's name, number and biopsies rule out microscopic colitis are 2 go tissue fragments, 0.1 cm and 0.2 cm. Entirely submitted in one cassette labeled C1. (SM/JS) Microscopic Description A. Two glass slides with [...] microscopic findings support the above pathologic diagnosis. [id number], [id number] The use of one or more reagents in the above tests is regulated as an analyte specific reagent (ASR). The performance characteristics were determined by the [facility] of [facility]. Immunohistochemistry assays have not been validated on decalcified tissue. Results should be interpreted with caution given the possibility of false negative results on decalcified specimens. They have not been cleared by the [place] Food and Drug Administration. The FDA has determined that such (more content not included)... Normal [facility] Ammoniaon 05-31-2021 Ammonia (P) [Mass/Vol] ug/dL Low 11-35 [facility] Comment on above: Result Comment: PERF ORMED BY: [place] [address] PATHOLOGIST SMASHER MARCIA KNIGHT M.D. Performed By: #### A MM, PT, CMP, CBC #### [address] COVID-19 FRMCon 05-31-2021 SARS-CoV-2 (COVID-19) RNA JESSE+probe Ql (Unsp spec) Negative Normal Negative [facility] Comment on above: Order Comment: Healt hcare Worker?: N Result Comment: Testing for SARS-CoV-2 by RT-PCR This test was developed and its performance characteristics determined by [employer] ([employer]) and validated at the [facility]. This test has not been FDA cleared [...] is terminated or revoked sooner. PERFORMED BY: [place] [address] PATHOLOGIST SMASHER MARCIA KNIGHT M.D. Performed By: #### C OVID 19 [place] #### [address] Complete Blood Count Auto Di ffon 05-31-2021 Basophils (Bld) [#/Vol] 0.0 10*3/uL Normal 0.0-0.2 [facility] Comment on above: Result Comment: PERF ORMED BY: [place] [address] PATHOLOGIST SMASHER MARCIA KNIGHT M.D. Performed By: #### A MM, PT, CMP, CBC #### [address] Basophils/100 WBC (Bld) 0.4 % Normal . [facility] Comment on above: Performed By: #### A MM, PT, CMP, CBC #### [facility] [address] [place] [address] [place] Eosinophils (Bld) [#/Vol] 0.1 10*3/uL Normal 0.0-0.45 [facility] Comment on above: Performed By: #### A MM, PT, CMP, CBC #### [address] Eosinophils/100 WBC (Bld) 1.1 % Normal . [facility] Comment on above: Performed By: #### A MM, PT, CMP, CBC #### [facility] [address] Erythrocyte distribution width (RBC) [Ratio] 14.3 % Normal 12.0-14.8 [facility] Comment on above: Performed By: #### A MM, PT, CMP, CBC #### [facility] [address] Hematocrit (Bld) [Volume fraction] 42.5 % Normal 38.8-50.0 [facility] Comment on above: Performed By: #### A MM, PT, CMP, CBC #### [address] Hemoglobin (Bld) [Mass/Vol] 14.1 g/dL Normal 13.0-17.0 [facility] Comment on above: Performed By: #### A MM, PT, CMP, CBC #### [address] Lymphocytes (Bld) [#/Vol] 1.4 10*3/uL Normal 1.00-4.8 [facility] Comment on above: Performed By: #### A MM, PT, CMP, CBC #### [address] Lymphocytes/100 WBC (Bld) 17.3 % Normal . [facility] Comment on above: Performed By: #### A MM, PT, CMP, CBC #### [address] MCH (RBC) [Entitic mass] 29.6 pg Normal 27.5-35.2 [facility] Comment on above: Performed By: #### A MM, PT, CMP, CBC #### [address] MCV (RBC) [Entitic vol] 89.1 fL Normal 83.5-101 [facility] Comment on above: Performed By: #### A MM, PT, CMP, CBC #### [address] Mean Corpuscular HGB Conc 33.2 g/dL Normal 32.5-35.6 [facility] Comment on above: Performed By: #### A MM, PT, CMP, CBC #### [facility] [address] [place] [address] Monocytes (Bld) [#/Vol] 0.7 10*3/uL Normal 0.0-0.8 [facility] Comment on above: Performed By: #### A MM, PT, CMP, CBC #### [address] Monocytes/100 WBC (Bld) 9.2 % Normal . [facility] Comment on above: Performed By: #### A MM, PT, CMP, CBC #### [address] Neutrophils (Bld) [#/Vol] 5.8 10*3/uL Normal 1.8-7.7 [facility] Comment on above: Performed By: #### A MM, PT, CMP, CBC #### [address] Neutrophils/100 WBC (Bld) 72.0 % Normal . [facility] Comment on above: Performed By: #### A MM, PT, CMP, CBC #### [address] Nucleated RBC/100 WBC (Bld) [Ratio] 0.0 % Normal 0-0.5 [facility] Comment on above: Performed By: #### A MM, PT, CMP, CBC #### [address] Platelet mean volume (Bld) [Entitic vol] 7.8 fL Normal 6.6-10.1 [facility] Comment on above: Performed By: #### A MM, PT, CMP, CBC #### [address] Platelets (Bld) [#/Vol] 194 10*3/uL Normal 150-450 [facility] Comment on above: Performed By: #### A MM, PT, CMP, CBC #### [place] [address] [place] RBC (Bld) [#/Vol] 4.77 10*6/uL Normal 3.90-5.60 [facility] Comment on above: Performed By: #### A MM, PT, CMP, CBC #### [facility] [address] WBC (Bld) [#/Vol] 8.0 10*3/uL Normal 4.5-11.0 [facility] Comment on above: Performed By: #### A MM, PT, CMP, CBC #### [address] Comprehensive Metabolic Pane amor 05-31-2021 Albumin [Mass/Vol] 4.1 g/dL Normal 3.2-5.5 [facility] Comment on above: Performed By: #### A MM, PT, CMP, CBC #### [address] Albumin/Globulin [Mass ratio] 1.5 {ratio} Normal [facility] Comment on above: Performed By: #### A MM, PT, CMP, CBC #### [address] ALP [Catalytic activity/Vol] 70 U/L Normal 32-92 [facility] Comment on above: Result Comment: PERF ORMED BY: [place] [address] PATHOLOGIST SMASHER MARCIA KNIGHT M.D. Performed By: #### A MM, PT, CMP, CBC #### [address] ALT [Catalytic activity/Vol] 22 U/L Normal 10-60 [facility] Comment on above: Performed By: #### A MM, PT, CMP, CBC #### [address] AST [Catalytic activity/Vol] 20 U/L Normal 10-42 [facility] Comment on above: Performed By: #### A MM, PT, CMP, CBC #### [address] [place] [address] [place] Bilirubin [Mass/Vol] 0.9 mg/dL Normal 0.3-1.2 [facility] Comment on above: Performed By: #### A MM, PT, CMP, CBC #### [facility] [address] Calcium [Mass/Vol] 9.5 mg/dL Normal 8.2-10.2 [facility] Comment on above: Performed By: #### A MM, PT, CMP, CBC #### [address] Chloride [Moles/Vol] 102 mmol/L Normal 95-114 [facility] Comment on above: Performed By: #### A MM, PT, CMP, CBC #### [address] CO2 [Moles/Vol] 23.2 mmol/L Normal 22.0-30.0 [facility] Comment on above: Performed By: #### A MM, PT, CMP, CBC #### [address] Creatinine [Mass/Vol] 0.91 mg/dL Normal 0.64-1.27 [facility] Comment on above: Performed By: #### A MM, PT, CMP, CBC #### [address] Estimated GFR ( Corinne > 60 Normal [facility] Comment on above: Result Comment: GFR estimated reference range: According to KDOQI guidelines, <60 ml/min/1.73m2 is sufficient to diagnose a patient with chronic kidney disease. Performed By: #### A MM, PT, CMP, CBC #### [facility] [address] [place] [address] Estimated GFR (Non- Am > 60 Normal [facility] Comment on above: Performed By: #### A MM, PT, CMP, CBC #### [place] [address] [place] Globulin (S) [Mass/Vol] 2.8 g/dL Normal [facility] Comment on above: Performed By: #### A MM, PT, CMP, CBC #### [facility] [address] Glucose [Mass/Vol] 101 mg/dL High 70-100 [facility] Comment on above: Result Comment: [facility] Glucose Reference Range is dependent on time and content of last meal. Glucose of more than 200 mg/dL in a nonstressed, ambulatory subject supports the diagnosis of Diabetes Mellitus. ADA recommended reference range Performed By: #### A MM, PT, CMP, CBC #### [facility] [address] Potassium [Moles/Vol] 4.2 mmol/L Normal 3.5-5.1 [facility] Comment on above: Performed By: #### A MM, PT, CMP, CBC #### [facility] [address] Protein [Mass/Vol] 6.9 g/dL Normal 6.1-7.9 [facility] Comment on above: Performed By: #### A MM, PT, CMP, CBC #### [facility] [address] Sodium [Moles/Vol] 136 mmol/L Normal 136-146 [facility] Comment on above: Performed By: #### A MM, PT, CMP, CBC #### [facility] [address] [place] [address] [place] Urea nitrogen [Mass/Vol] 15 mg/dL Normal 9-23 [facility] Comment on above: Performed By: #### A MM, PT, CMP, CBC #### [facility] [address] [place] [address] [place] Prothrombin Time INRon 05-31 INR Coag (PPP) [Relative time] 1.0 {INR} Normal [facility] Comment on above: Result Comment: INR Therapeutic [...] heart valves: 3 - 4.5 PERFORMED BY: [place] [address] PATHOLOGIST SMASHER MARCIA KNIGHT M.D. Performed By: #### A MM, PT, CMP, CBC #### [facility] [address] [place] [address] PT Coag (PPP) [Time] 10.8 s Normal 9.0-12.9 [facility] Comment on above: Performed By: #### A MM, PT, CMP, CBC #### [address] [place] liveron 05-31-2021 liver [facility] [place] [address] [place] [address] Ultrasound Report Signed Patient: Efraín Lopez MR#: [id number] : 1955 Acct:[id number] Age/Sex: 65 / M ADM Date: 05/31/21 Loc: Room: Type: [facility] Attending Dr: Sushil Valentine MD Ordering Provider: [...] Marilee Ramirez M.D.05/31/2021 2:24 PM Dictation Location: [place] [address] Tech: Sophie El Transcribed By: MACRUS 05/31/21 142 Dictated By: Marilee Ramirez MD 05/31/211420 Signed By: 05/31/21 1424 [facility] Vital Signs Date Time Vital Sign Value Performing Clinician Facility 12-28-2021 12:00-0400 Body height 182.88 cm Sushil Valentine Other [facility] Other 12-28-2021 12:00-0400 Body mass index (BMI) [Ratio] 20.34 kg/m2 Sushil Valentine Other [facility] Other 12-28-2021 12:00-0400 Body weight 68.04 kg Sushil Valentine Other [facility] Other 12-28-2021 12:00-0400 Diastolic blood pressure 71 mm[Hg] Sushil Valentine Other [facility] Other 12-28-2021 12:00-0400 Systolic blood pressure 133 mm[Hg] Sushil Valentine Other [facility] Other 09-27-2021 16:00-0400 Body height 182.88 cm Sushil Valentine Other [facility] Other 09-27-2021 16:00-0400 Body mass index (BMI) [Ratio] 20.34 kg/m2 Sushil Valentine Other [facility] Other 09-27-2021 16:00-0400 Body weight 68.04 kg Sushil Valentine Other [facility] Other 09-27-2021 16:00-0400 Diastolic blood pressure 91 mm[Hg] Sushil Valentine Other [facility] Other 09-27-2021 16:00-0400 Respiratory rate 18 /min Sushil Valentine Other [facility] Other 09-27-2021 16:00-0400 SaO2% (BldA) [Mass fraction] 96 % Sushil Valentine Other [facility] Other 09-27-2021 16:00-0400 Systolic blood pressure 158 mm[Hg] Sushil Valentine Other [facility] Other 05-16-2021 10:30-0500 Body weight 69.4 kg Sushil Valentine Other [facility] Other Encounters Encounter Date Encounter Type Care Provider Facility Start: 07-09-2023 End: 07-10-2023 ambulatory Mary Jane Gonzales MD [facility]: [facility] Start: 07-04-2023 End: 07-05-2023 ambulatory SERA be Start: 05-28-2023 End: 05-29-2023 ambulatory Mary Jane Gonzales MD Facility: [facility] Start: 04-09-2023 End: 04-10-2023 ambulatory Mary Jane Gonzales MD Facility: [facility] Start: 11-10-2022 ambulatory CARYUS SUZAN [facility] Start: 07-27-2022 End: 07-28-2022 ambulatory JESÚS GUZMAN Facility:[facility] Start: 06-27-2022 End: 06-27-2022 ambulatory JESÚS GUZMAN Facility:[facility] Start: 05-25-2022 End: 05-26-2022 ambulatory CYRIL Otero Facility:[facility] Start: 02-23-2022 End: 02-24-2022 ambulatory CYRIL EDWARDS . Facility:[facility] Start: 12-28-2021 End: 12-28-2021 ambulatory Sushil Valentine Other [facility] Other Start: 12-28-2021 Office outpatient visit 15 minutes Sushil Valentine [facility] Start: 11-15-2021 End: 11-16-2021 ambulatory CYRIL EDWARDS . Facility:[facility] Start: 09-27-2021 End: 09-27-2021 ambulatory Sushil Valentine Other [facility] Other Start: 09-27-2021 Office outpatient visit 15 minutes Sushil Valentine [facility] Start: 05-16-2021 End: 05-16-2021 ambulatory Sushil Valentine Other [facility] Other Start: 05-16-2021 Office outpatient ne w 45 minutes Sushil Valentine [facility] Payers Date Payer Category Payer Medicare 2020 Unknown [id number] 2020 Unknown [id number] [facility] [id number] 1955 Unknown [id number] .16.84 [id number] 1955 Unknown [id number] .16.84 0.1.267743.3.579.2.593 1955 Unknown [id number] .16.84 [id number] 1955 Unknown [id number] .16.84 0.1.822095.3.579.2.593 1955 Unknown [id number] .16.84 [id number] 1956 Unknown [id number] 2.16.84 0.1.706881.3.579.2.593 1955 Unknown [id number] 2.16.84 0.1.455342.3.579.2.1286 1955 Unknown [id number] 2.16. [id number] 1955 Unknown [id number] 2.16. [id number] 1955 Unknown [id number] 2.16. [id number] Social History Date Type Detail Facility Sex Assigned At [facility] Other Consultation note 05-25-2022 Note Date & [...] subarachnoid space. 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 The repeated motions of his upper [...] be followed in the clinic thereafter. [facility] Consultation note 02-23-2022 Note Date & Type [...] three months' time unless otherwise indicated. [facility] Evaluation note 12-28-2021 Note Date & Type Note Facility 12-28-2021 Evaluation note Encounter Date Diagnosis Assessment Notes Dec, Abnormal weight loss (ICD-10 - R63.4) PT ADVISED TO INCREASE PROTEIN RTO 6 MONTHS [facility] Other Consultation note 11-15-2021 Note Date & Type Note Facility 11-15-2021 Note CONSULTATION CONSULTATION DATE: 11/15/2021 CHIEF COMPLAINT: Mid back pain. HISTORY OF PRESENT ILLNESS: This is a 65-year-old gentleman who has thoracic pain, thoracic degenerative disc disease, thoracic spondylosis. 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 Unfortunately, [place] will not allow us to proceed with [...] will be following up in three months. [facility] Signed and Approved by: DR MARCY BERGER . 11/29/2021 11:41:00 [facility] Evaluation note 09-27-2021 Note Date & Type Note Facility 09-27-2021 Evaluation note Encounter Date Diagnosis Assessment Notes Sep, Abnormal weight loss (ICD-10 - R63.4) INCREASE PROTEIN TO 80 GRAMS DAILY DRINK ENSURE/BOOST 3-4 TIMES A DAY RTO 3 MONTHS [facility] Other Evaluation note 05-16-2021 Note Date & Type Note Facility 05-16-2021 Evaluation note Encounter Date Diagnosis Assessment Notes Apr, Abnormal weight loss (ICD-10 - R63.4) PATIENT STATES 20 POUND WEIGHT LOSS IN 4-6 MONTHS Apr, Gastric wall thickening (ICD-10 - K31.89) [facility] Other History general Narrative - Reported Note Date & Type Note Facility History general Narrative - Reported Type Surgical History hernia [facility] Other History general Narrative - Reported Note Date & Type Note Facility History general Narrative - Reported Type Medical History Hypertension Medical History hyperlipidemia Surgical History hernia [facility] Other Summary Purpose Family History No Family [...] section and content) DATE CREATED AUTHOR 09/12/2021 [facility] DATE CREATED AUTHOR AUTHOR'S ORGANIZ ATION 10/23/2022 [facility] DATE CREATED AUTHOR AUTHOR'S ORGANIZ ATION 07/08/2023 [facility] DATE CREATED AUTHOR AUTHOR'S ORGANIZ ATION 07/18/2023 [facility] REASON FOR VISIT (unrecogniz ed section [...] BE BASED ON THE PRIMARY CLINICAL RECORDS. [facility]. provides no warranty or guarantee of the accuracy or completeness of information in this document.
--- NOTE | 2023-07-19 14:07 | PM.CN ---
Consult Note: HPI Data of Consult Patient: known to practice within the last 3 years Requesting Physician: Karen Castro NP Primary Care Provider: JESÚS GUZMAN Consult Narrative Reason for consult: f/u Narrative: Erich Lopez a pleasant 67 year old male presents for evaluation and management of left sided upper back pain. Patient reporting pain 1-2/10 sore, very tolerable at this time. Recent left T5 T6 intercostal nerve block providing 50% ongoing improvement in pain. Patient finding benefit to current medication regimen, no side effects with amitriptyline 10mg and tramadol 50-100mg BID PRN pain cc:: CC: Karen Castro NP Review of Systems ROS Status of ROS 10 or more systems reviewed and unremarkable except as noted in history and below Musculoskeletal Reports: back pain [facility] Medical History (Updated 07/05/23 @ 08:52 by Lisset Martinez) Low back pain ?M54.50 - Low back pain, unspecified (ICD-10) High cholesterol ?E78.00 - Pure hypercholesterolemia, unspecified (ICD-10) Hypertension ?I10 - Essential (primary) hypertension (ICD-10) Surgical History H/O hernia repair ?Z98.890 - Other specified postprocedural states (ICD-10) ?Z87.19 - Personal history of other diseases of the digestive system (ICD-10) Meds Home Medications and Allergies Home Medications Medication Instructions Recorded Confirmed Type tramadol 100 mg capsule 100 mg PO BID PRN pain #60 caps 03/14/23 07/09/23 Rx 24h,extended release(25-75) atorvastatin 80 mg tablet (Lipitor) 80 mg PO DAILY 05/22/23 07/09/23 History lisinopril 2.5 mg tablet 2.5 mg PO DAILY 05/22/23 07/09/23 History tamsulosin 0.4 mg capsule (Flomax) 0.4 mg PO DAILY 05/28/23 07/09/23 History tramadol 50 mg tablet 50 mg PO BID PRN pain #120 tabs 06/13/23 07/09/23 Rx Allergies Allergy/AdvReac Type Severity Reaction Status Date / Time Penicillins Allergy Verified 07/09/23 07:00 Exam Constitutional Documenting provider has reviewed patient's vital signs: yes Common normals: no apparent distress, oriented x3, healthy appearing, alert and well nourished General appearance: cooperative HENOK Common normals: normocephalic, hearing grossly normal bilaterally and moist oral mucous membranes Head and scalp: normocephalic Eye Common normals: PERRL Pupil: PERRL Neck & C-Spine Common normals: full ROM General: normal visual inspection Chest Common normals: inspection of chest normal Respiratory Common normals: normal respiratory effort, no retractions and no use of accessory muscles Back & Pelvis Thoracic spine/upper back: thoracic ROM normal Other: mild pain in left thoracic spine Extremity Common normals: normal to inspection and full ROM Neuro Common normals: oriented x3, CN's II-XII intact bilaterally, moves all extremities, no focal motor deficits, no sensory deficits noted and deep tendon reflexes 2+ bilaterally Sensorium/orientation: alert Motor exam: strength 5/5 throughout and no movement abnormalities noted Psych Common normals: mental status grossly normal, thought process normal, cooperative, affect normal, speech normal and activity/motor behavior normal Speech: normal speech Thought process: normal thought process Assessment and Plan Assessment and Plan (1) Thoracic neuritis: (2) Thoracic stenosis: (3) Disc displacement, thoracic: (4) Myofascial pain syndrome: (5) Thoracic spondylosis: (6) Chronic prescription opiate use: Assessment and Plan: I feel these medications are improving the patient's quality of life and allow them to tolerate activities of daily living as well as participate in recreational activity.? The patient does not report intolerable side effects. The patient is NOT opioid naive and non-pharmacologic and non-opioid treatment has failed to significantly relieve the patient's pain and improve functionality. The patient has a diagnosis that is related to a somatic or visceral pain etiology. ? ?? I reviewed with the patient the potential risks and side effects with the use of? opioid medications including but not limited to respiratory depression,? sedation, and even . I verified the patient has access to naloxone should? these effects occur. I advised the patient to avoid the use of any other? sedation substances including alcohol, THC, and benzodiazepines while? taking opioid medications due to the risk of compounding side effects and? detrimental outcomes. I reviewed the [employer], pain treatment agreement, urine? drug screen, and opioid start talking forms. The patient was advised to let? their family know they had Naloxone in case they would need to administer? the medication.? ?? A drug screen was completed within the last year, and no aberrancies were noted regarding their use of controlled substances. The patient understands they are subject to the terms and conditions of the pain contract that they have signed. ? ?? I have checked an [place] report on this patient today and there are no aberrancies noted in the prescribing history.? Plan update UTOX today continue current medications, tolerating well without side effect f/u 3 months, sooner if needed
== END 2023-07-19 13:35 | disposition home or self-care (01) ==
LOC: PM 13:34
PROVIDERS: Visit Provider Nurse Practitioner
DX: M47.24 Other spondylosis with radiculopathy, thoracic region (principal); M48.04 Spinal stenosis, thoracic region; M51.14 Intervertebral disc disorders with radiculopathy, thoracic region; M79.18 Myalgia, other site; Z79.899 Other long term (current) drug therapy
CPT/HCPCS: G0463

== ENCOUNTER 2023-10-11 12:49 | Outpatient (OUT) | payer OTHER, SELFPAY ==
--- OUTSIDE RECORDS SUMMARY | 2023-10-11 13:12 | XMS_ITS | CCD ---
Author Organization [facility] Care Team Providers Care Pellet Post Inspector Name Role Phone Sushil Valentine Unavailable EDWARDS [...] NO PCP, NO PCP Primary Care Unavailable Christian TAPIA, Mary Jane Rust Attending Unavailable Christian TAPIA, Andleonora Rust Attending Unavailable Christian TAPIA, Andleonora Rust Attending Unavailable No Pcp, No Pcp Primary Care Provider Unavailabl e Allergies Allergy Classification Reported Allergen(s) Allergy Type Date of Onset Reaction(s) Facility (3 sources) Penicillin G Drug Allergy Unknown [facility] Other (1 source) Penicillin Drug Allergy [facility] Repository (2 sources) Penicillins; Translations: [PENICILLINS] Propensity to adverse reactions to drug (disorder) 7 Hives [facility] Medications Current Medications Medication Drug Class(es) Dates Sig (Normalized) Sig (Original) aspirin 325 mg oral tablet (4 sources) Platelet Aggregation Inhibitor, Nonsteroidal Anti-inflammatory Drug take 1 tablet by mouth in the morning aspirin 325 mg tablet Take 1 tablet (325 mg total) by mouth in the morning. 0 Active Aspirin 325 mg A ctive atorvastatin 80 mg oral tablet (3 sources) HMG-CoA Reductase Inhibitor take 1 tablet by mouth in the morning atorvastatin (LIPITOR) 80 mg tablet Take 1 tablet (80 mg total) by mouth in the morning. 0 Active hydroCHLOROthiazide 12.5 mg / lisinopril 20 mg oral tablet (3 sources) Thiazide Diuretic, Angiotensin Converting Enzyme Inhibitor take 1 tablet by mouth once in the morning lisinopril-hydrochlo rothiazide (PRINZIDE,ZESTORETIC ) 20-12.5 mg per tablet Take 1 tablet by mouth in the morning. 0 Active take 1 tablet by silvio th every twenty-four hours Lisinopril-hydroCHLOROthiazide 20-12.5 M G 1 tablet Orally Once a day Active Lisinopril (1 source) Angiotensin Converting Enzyme Inhibitor Lisinopril Active naloxone hydrochloride 40 mg/ml nasal spray (1 source) Opioid Antagonist Start: 3 naloxone (NARCAN) 4 mg/actuation spray,non-aerosol nasal spray Please see attached for detailed directions 0 02/08/2023 Active tamsulosin hydrochloride 0.4 mg oral capsule (2 sources) alpha-Adrenergic Dominick Start: 3 End: 4 take 1 capsule by mouth once daily tamsulosin (FLOMAX) 0.4 mg capsule TAKE 1 CAPSULE (0.4 MG TOTAL) BY MOUTH NIGHTLY FOR 180 DAYS. 90 capsule 1 09/26/2023 03/24/2024 Active traMADol hydrochloride 50 mg oral tablet (3 sources) Opioid Agonist take 1 tablet by mouth three times daily as needed for pain traMADoL (ULTRAM) 50 mg tablet Take 1 tablet (50 mg total) by mouth 3 (three) times a day as needed for pain. 0 Active take 1 tablet by silvio th every twenty-four hours traMADol HCl 50 MG 1 tablet as needed Orally Once a day Active Problems Active Problems Problem Classification Problem Date Documented Date Episodic/Chronic Abdominal hernia (2 sources) Hiatal hernia; Translations: [Diaphragmatic hernia without obstruction or gangrene] Episodic Diverticulosis and diverticulitis (2 sources) Diverticular disease of colon; Translations: [Diverticulosis of intestine, part unspecified, without perforation or abscess without bleeding] Chronic Essential hypertension (1 source) Essential hypertension; Translations: [Essential (primary) hypertension] Onset: 08-22-2021 03-10-2023 Chronic Hemorrhoids (2 sources) Hemorrhoids; Translations: [Unspecified hemorrhoids] Episodic Occlusion or stenosis of precerebral arteries (1 source) Bilateral stenosis of carotid arteries; Translations: [Occlusion and stenosis of bilateral carotid arteries] Onset: 01-31-2021 01-31-2021 Chronic Other disorders of stomach and duodenum (4 [...] thoracic region] Onset: 11-15-2021 Chronic Substance-related disorders (2 sources) Nicotine dependence, cigarettes, uncomplicated; Translations: [Cigarette smoker ] Onset: 08-22-2021 08-22-2021 Chronic Unclassified (1 source) LOW BACK PAIN, UNSPECIFIED; Translations: [LOW BACK PAIN, UNSPECIFIED] Onset: 03-03-2022 Past or Other Problems Problem Classification Problem Date Documented Date Episodic/Chronic Abdominal pain (1 source) Postoperative abdominal pain; Translations: [Unspecified abdominal pain] Onset: 03-10-2023 03-10-2023 Episodic Acute and unspecified renal failure (1 source) Acute renal failure syndrome; Translations: [Acute kidney failure, unspecified] Onset: 03-10-2023 03-10-2023 Episodic Genitourinary symptoms and ill-defined conditions (1 source) Retention of urine; Translations: [Retention of urine, unspecified] Onset: 03-10-2023 04-18-2023 Episodic Mood disorders (1 source) Mood disorders Onset: 03-10-2023 03-10-2023 Other circulatory disease (1 source) Carotid bruit; Translations: [Other specified symptoms and signs involving the circulatory and respiratory systems] Onset: 01-31-2021 01-31-2021 Episodic Other connective tissue disease (1 source) Muscle [...] PROSTATIC SPEC ANT 3.72 ng/mL Normal 0.00-4.00 [facility] Comment on above: Result Comment: The method used for this test is Paul Johnny DXI chemiluminescent immunoassay. Values obtained by different assay methods cannot be used interchangeably. Performed By: #### 2 [id number] #### [facility] ([id number]) [address] [place] [address], [address] [place] [address] Brent 06-02-2021 L ----- Specimen: [id number] Received: 06/02/21 Status: ELI Lindquist Num: [id number] Spec Type: Surgical Subm Dr: Sushil Valentine MD Tissues: A Duodenum - Biopsy (DUODENAL) B Stomach - Biopsy/Polyp (ANTRUM) C Colon Biopsy (COLITIS BX) Procedures: HE Stain/6, Gross/Micro L4/3 Patient Age/Sex Location Account Attending Physician Efraín Lopez/Chavez [id number] Sushil Valentine MD SPEC NUM: [id number] RECD: 06/02/21 STATUS: ELI ESTRADABetty NUM: [id number] JABIER: 06/02/21- DR: Sushil Valentine MD ENTERED: 06/02/21-[address]: SPEC TYPE: Surgical DEPT: S ORDERED: HE Stain/6, [...] Entirely submitted in one cassette labeled A1. (ATIF/EMERSON) B. Received in 10% neutral buffered formalin labeled with the patient's name, number and Specimen: [id number] Received: 06/02/21 Status: ELI Estradabetty Num: [id number] Spec Type: Surgical Subm Dr: Sushil Valentine MD Tissues: A Duodenum - Biopsy (DUODENAL) B Stomach - Biopsy/Polyp (ANTRUM) C Colon Biopsy (COLITIS BX) Procedures: HE Stain/6, Gross/Micro L4/3 Patient: Efraín Lopez [id number] (Continued) Specimen: [id number] Received: 06/02/21 (Continued) Gross Description (Continued) Signed (signature on file) Marcia Knight MD 06/03/21 1726 Specimen: [id number] Received: 06/02/21 Status: ELI Lindquist Num: [id number] Spec Type: Surgical Subm Dr: Sushil Valentine MD Tissues: A Duodenum - Biopsy (DUODENAL) B Stomach - Biopsy/Polyp (ANTRUM) C Colon Biopsy (COLITIS BX) Procedures: HE Stain/6, Gross/Micro L4/3 Patient: Efraín Lopez [id number] (Continued) Specimen: [id number] Received: 06/02/21 (Continued) Gross Description (Continued) antrum [...] microscopic findings support the above pathologic diagnosis. [id number], [id number] The use of one or more reagents in the above tests is regulated as an analyte specific reagent (ASR). The performance characteristics were determined by the Laboratory of [facility]. Immunohistochemistry assays have not been validated on decalcified tissue. Results should be interpreted with caution given the possibility of false negative results on decalcified specimens. They have not been cleared by the [place] Food and Drug Administration. The FDA has determined that such (more content not included)... Normal [facility] Ammoniaon 05-31-2021 Ammonia (P) [Mass/Vol] ug/dL Low 11-35 [facility] Comment on above: Result Comment: PERF ORMED BY: [place] [address] PATHOLOGIST MACHINE SAND MIXER MARCIA KNIGHT M.D. Performed By: #### A MM, PT, CMP, CBC #### [address] COVID-19 FRMCon 05-31-2021 SARS-CoV-2 (COVID-19) RNA JESSE+probe Ql (Unsp spec) Negative Normal Negative [facility] Comment on above: Order Comment: Healt hcare Worker?: N Result Comment: Testing for SARS-CoV-2 by RT-PCR This test was developed and its performance characteristics determined by [employer] ([facility]) and validated at the [facility]. This test has not been FDA [...] is terminated or revoked sooner. PERFORMED BY: [place] [address] PATHOLOGIST MACHINE SAND MIXER MARCIA KNIGHT M.D. Performed By: #### C OVID 19 [facility] #### [address] Complete Blood Count Auto Di ffon 05-31-2021 Basophils (Bld) [#/Vol] 0.0 10*3/uL Normal 0.0-0.2 [facility] Comment on above: Result Comment: PERF ORMED BY: [place] [address] PATHOLOGIST MACHINE SAND MIXER MARCIA KNIGHT M.D. Performed By: #### A MM, PT, CMP, CBC #### [address] Basophils/100 WBC (Bld) 0.4 % Normal . [facility] Comment on above: Performed By: #### A MM, PT, CMP, CBC #### [place] [address] [place] Eosinophils (Bld) [#/Vol] 0.1 10*3/uL Normal 0.0-0.45 [facility] Comment on above: Performed By: #### A MM, PT, CMP, CBC #### [address] Eosinophils/100 WBC (Bld) 1.1 % Normal . [facility] Comment on above: Performed By: #### A MM, PT, CMP, CBC #### [address] Erythrocyte distribution width (RBC) [Ratio] 14.3 % Normal 12.0-14.8 [facility] Comment on above: Performed By: #### A MM, PT, CMP, CBC #### [address] Hematocrit (Bld) [Volume fraction] 42.5 % Normal 38.8-50.0 [facility] Comment on above: Performed By: #### A MM, PT, CMP, CBC #### [address] Hemoglobin (Bld) [Mass/Vol] 14.1 g/dL Normal 13.0-17.0 [facility] Comment on above: Performed By: #### A MM, PT, CMP, CBC #### [address] Lymphocytes (Bld) [#/Vol] 1.4 10*3/uL Normal 1.00-4.8 [facility] Comment on above: Performed By: #### A MM, PT, CMP, CBC #### [address] Lymphocytes/100 WBC (Bld) 17.3 % Normal . [facility] Comment on above: Performed By: #### A MM, PT, CMP, CBC #### [address] MCH (RBC) [Entitic mass] 29.6 pg Normal 27.5-35.2 [facility] Comment on above: Performed By: #### A MM, PT, CMP, CBC #### [address] MCV (RBC) [Entitic vol] 89.1 fL Normal 83.5-101 [facility] Comment on above: Performed By: #### A MM, PT, CMP, CBC #### [address] Mean Corpuscular HGB Conc 33.2 g/dL Normal 32.5-35.6 [facility] Comment on above: Performed By: #### A MM, PT, CMP, CBC #### [place] [address] [place] Monocytes (Bld) [#/Vol] 0.7 10*3/uL Normal 0.0-0.8 [facility] Comment on above: Performed By: #### A MM, PT, CMP, CBC #### [place] [address] [place] Monocytes/100 WBC (Bld) 9.2 % Normal . [facility] Comment on above: Performed By: #### A MM, PT, CMP, CBC #### [address] Neutrophils (Bld) [#/Vol] 5.8 10*3/uL Normal 1.8-7.7 [facility] Comment on above: Performed By: #### A MM, PT, CMP, CBC #### [place] [address] [place] Neutrophils/100 WBC (Bld) 72.0 % Normal . [facility] Comment on above: Performed By: #### A MM, PT, CMP, CBC #### [place] [address] [place] Nucleated RBC/100 WBC (Bld) [Ratio] 0.0 % Normal 0-0.5 [facility] Comment on above: Performed By: #### A MM, PT, CMP, CBC #### [place] [address] [place] Platelet mean volume (Bld) [Entitic vol] 7.8 fL Normal 6.6-10.1 [facility] Comment on above: Performed By: #### A MM, PT, CMP, CBC #### [place] [address] [place] Platelets (Bld) [#/Vol] 194 10*3/uL Normal 150-450 [facility] Comment on above: Performed By: #### A MM, PT, CMP, CBC #### [address] RBC (Bld) [#/Vol] 4.77 10*6/uL Normal 3.90-5.60 [facility] Comment on above: Performed By: #### A MM, PT, CMP, CBC #### [address] WBC (Bld) [#/Vol] 8.0 10*3/uL Normal 4.5-11.0 [facility] Comment on above: Performed By: #### A MM, PT, CMP, CBC #### [address] Comprehensive Metabolic Pane brent 05-31-2021 Albumin [Mass/Vol] 4.1 g/dL Normal 3.2-5.5 [facility] Comment on above: Performed By: #### A MM, PT, CMP, CBC #### [address] Albumin/Globulin [Mass ratio] 1.5 {ratio} Normal [facility] Comment on above: Performed By: #### A MM, PT, CMP, CBC #### [address] ALP [Catalytic activity/Vol] 70 U/L Normal 32-92 [facility] Comment on above: Result Comment: PERF ORMED BY: [place] [address] PATHOLOGIST MACHINE SAND MIXER MARCIA KNIGHT M.D. Performed By: #### A MM, PT, CMP, CBC #### [address] ALT [Catalytic activity/Vol] 22 U/L Normal 10-60 [facility] Comment on above: Performed By: #### A MM, PT, CMP, CBC #### [address] AST [Catalytic activity/Vol] 20 U/L Normal 10-42 [facility] Comment on above: Performed By: #### A MM, PT, CMP, CBC #### [address] Bilirubin [Mass/Vol] 0.9 mg/dL Normal 0.3-1.2 [facility] Comment on above: Performed By: #### A MM, PT, CMP, CBC #### [address] Calcium [Mass/Vol] 9.5 mg/dL Normal 8.2-10.2 [facility] Comment on above: Performed By: #### A MM, PT, CMP, CBC #### [address] Chloride [Moles/Vol] 102 mmol/L Normal 95-114 [facility] Comment on above: Performed By: #### A MM, PT, CMP, CBC #### [address] CO2 [Moles/Vol] 23.2 mmol/L Normal 22.0-30.0 [facility] Comment on above: Performed By: #### A MM, PT, CMP, CBC #### [address] Creatinine [Mass/Vol] 0.91 mg/dL Normal 0.64-1.27 [facility] Comment on above: Performed By: #### A MM, PT, CMP, CBC #### [address] Estimated GFR ( Corinne > 60 Normal [facility] Comment on above: Result Comment: GFR estimated reference range: According to KDOQI guidelines, <60 ml/min/1.73m2 is sufficient to diagnose a patient with chronic kidney disease. Performed By: #### A MM, PT, CMP, CBC #### [address] Estimated GFR (Non- Am > 60 Normal [facility] Comment on above: Performed By: #### A MM, PT, CMP, CBC #### [address] [place] [address] [place] Globulin (S) [Mass/Vol] 2.8 g/dL Normal [facility] Comment on above: Performed By: #### A MM, PT, CMP, CBC #### [address] Glucose [Mass/Vol] 101 mg/dL High 70-100 [facility] Comment on above: Result Comment: Pfeifer Glucose Reference Range is dependent on time and content of last meal. Glucose of more than 200 mg/dL in a nonstressed, ambulatory subject supports the diagnosis of Diabetes Mellitus. ADA recommended reference range Performed By: #### A MM, PT, CMP, CBC #### [address] Potassium [Moles/Vol] 4.2 mmol/L Normal 3.5-5.1 [facility] Comment on above: Performed By: #### A MM, PT, CMP, CBC #### [address] Protein [Mass/Vol] 6.9 g/dL Normal 6.1-7.9 [facility] Comment on above: Performed By: #### A MM, PT, CMP, CBC #### [address] Sodium [Moles/Vol] 136 mmol/L Normal 136-146 [facility] Comment on above: Performed By: #### A MM, PT, CMP, CBC #### [address] Urea nitrogen [Mass/Vol] 15 mg/dL Normal 9-23 [facility] Comment on above: Performed By: #### A MM, PT, CMP, CBC #### [place] [address] [place] Prothrombin Time INRon 05-31 INR Coag (PPP) [Relative time] 1.0 {INR} Normal [facility] Comment on above: Result Comment: INR [...] heart valves: 3 - 4.5 PERFORMED BY: [place] [address] PATHOLOGIST MACHINE SAND MIXER MARCIA KNIGHT M.D. Performed By: #### A MM, PT, CMP, CBC #### [facility] [address] [place] [address] PT Coag (PPP) [Time] 10.8 s Normal 9.0-12.9 [facility] Comment on above: Performed By: #### A MM, PT, CMP, CBC #### [place] [id number] [facility] US liveron 05-31-[address] [facility] [place] [address] [place] [address] Ultrasound Report Signed Patient: Efraín Lopez MR#: [id number] : 1955 Acct:[id number] Age/Sex: 65 / M ADM Date: 05/31/21 Loc: Room: Type: [facility] Attending Dr: Sushil Valentine MD Ordering Provider: [...] Marilee Ramirez M.D.05/31/2021 2:24 PM Dictation Location: [place] [address] Tech: Sophie El Transcribed By: MARCUS 05/31/21 142 Dictated By: Marilee Ramirez MD 05/31/211420 Signed By: 05/31/21 142 [facility] Vital Signs Date Time Vital Sign Value Performing Clinician Facility 12-28-2021 12:00-0400 Body height 182.88 cm Sushil Valentine Other [facility] Other 12-28-2021 12:00-0400 Body mass index (BMI) [Ratio] 20.34 kg/m2 Sushil Valentine Other [facility] Other 12-28-2021 12:00-0400 Body weight 68.04 kg Sushil Valentine Other [facility] Other 12-28-2021 12:00-0400 Diastolic blood pressure 71 mm[Hg] Sushil Valentine Other [facility] Other 12-28-2021 12:00-0400 Systolic blood pressure 133 mm[Hg] Sushil Valentine Other [facility] Other 09-27-2021 16:00-0400 Body height 182.88 cm Sushil Valentine Other [facility] Other 09-27-2021 16:00-0400 Body mass index (BMI) [Ratio] 20.34 kg/m2 Sushil Valentine Other [facility] Other 09-27-2021 16:00-0400 Body weight 68.04 kg Sushil Valentine Other [facility] Other 09-27-2021 16:00-0400 Diastolic blood pressure 91 mm[Hg] Sushil Valentine Other [facility] Other 09-27-2021 16:00-0400 Respiratory rate 18 /min Sushil Valentine Other [facility] Other 09-27-2021 16:00-0400 SaO2% (BldA) [Mass fraction] 96 % Sushil Valentine Other [facility] Other 09-27-2021 16:00-0400 Systolic blood pressure 158 mm[Hg] Sushil Valentine Other [facility] Other 05-16-2021 10:30-0500 Body weight 69.4 kg Sushil Valentine Other [facility] Other Encounters Encounter Date Encounter Type Care Provider Facility Start: 09-26-2023 Ary yun PA Work Phone: [facility] Start: 07-09-2023 End: 07-10-2023 ambulatory Mary Jane Gonzales MD Facility: [facility] Start: 07-04-2023 End: 07-05-2023 ambulatory SERA be Start: 05-28-2023 End: 05-29-2023 ambulatory Mary Jane Gonzales MD Facility: [facility] Start: 04-09-2023 End: 04-10-2023 ambulatory Andlanceus Barrera Gonzales MD Facility: [facility] Start: 11-10-2022 ambulatory ANDRIUS GIEDRAITIS Faci lity:[facility] Start: 07-27-2022 End: 07-28-2022 ambulatory JESÚS ROSIPKO Facility:[facility] Start: 06-27-2022 End: 06-27-2022 ambulatory JESÚS DICKERSONIPKO Facility:[facility] Start: 05-25-2022 End: 05-26-2022 ambulatory CYRIL EDWARDS . Facility:[facility] Start: 02-23-2022 End: 02-24-2022 ambulatory CYRIL EDWARDS . Facility:[facility] Start: 12-28-2021 End: 12-28-2021 ambulatory Sushil Valentine Other [facility] Other Start: 12-28-2021 Office outpatient visit 15 minutes Sushil Serge [facility] Start: 11-15-2021 End: 11-16-2021 ambulatory CYRIL EDWARDS . Facility:[facility] Start: 09-27-2021 End: 09-27-2021 ambulatory Sushil Valentine Other [facility] Other Start: 09-27-2021 Office outpatient visit 15 minutes Sushil Riceormack [facility] Start: 05-16-2021 End: 05-16-2021 ambulatory Sushil Valentine Other [facility] Other Start: 05-16-2021 Office outpatient ne w 45 minutes Sushil Serge [facility] Procedures Date Procedure Procedure Detail Performing Clinician Start: 03-10-2023 Adult depression screening assessment Sera SHEARER Work Phone: Plan of Treatment Date Care Activity Detail Author Start: 04-18-2024 Adult BMI Screening Adult BMI Screening [facility] Start: 04-18-2024 Tobacco Screening Tobacco Screening [facility] Start: 04-15-2024 End: 04-15-2024 Patient encounter procedure 04/15/2024 2:45 PM EDT Office Visit [facility] [address] [place] [id number] Paul Gordon MD [address] [place] [id number] [facility] Start: 03-10-2024 Depression Screening Depression Screening [facility] Start: 02-24-2024 Influenza vaccination Influenza Vaccine [facility] Start: 04-22-2023 Administration of varicella zoster vaccine Zoster (Shingles) Vaccine (2 of 2) [facility] Start: 02-23-2023 COVID-19 Vaccine ( season) COVID-19 Vaccine () [facility] Start: 2021 Fall Risk Screening Fall Risk Screening [facility] Start: 12-15-1975 DTaP,Tdap and Td Vaccines (1 - Tdap) DTaP,Tdap and Td Vaccines (1 - Tdap) [facility] Start: 1955 Medicare Annual Wellness Visit Medicare Annual Wellness Visit [facility] Start: 1955 Tobacco Counseling Tobacco Counseling [facility] Immunizations Immunization Date Immunization Notes Care Provider Fa cility 02-25-2023 influenza virus vaccine, unspecified formulation Sera SHEARER Work Phone: [facility] 02-25-2023 zoster vaccine, unspecified formulation Sera SHEARER Work Phone: [facility] Payers Date Payer Category Payer Medicare 2021 Unknown [employer]AGE [id number] 2021-Present [phone] [address] [place] [address] [id number] 2020 Unknown [id number] 2020 Unknown [id number] 1958 Rust [id number] 1955 Unknown [id number] .593 1955 Unknown [id number] .593 1955 Unknown [id number] [id number] .593 1955 Unknown [id number] [id number] .593 1955 Unknown [id number] [id number] .593 1955 Unknown [id number] [id number] .593 1955 Unknown [id number] [id number] .1286 1955 Unknown [id number] [id number] .196 1955 Unknown [id number] [id number] .196 1955 Unknown [id number] .196 Social History Date Type Detail Facility Start: 03-10-2023 End: 04-16-2023 Sex Assigned At [facility] Start: 02-14-2023 Tobacco smoking stat [facility] Smokes tobacco daily [facility] History of tobacco use Cigarette Smoker P [facility] Start: 02-14-2023 End: 03-10-2023 Cigarettes smoked current (pack per day) - Reported 1 [facility] Start: 02-14-2023 Tobacco use and exposure Smoke less tobacco non-user [facility] Start: 04-18-2023 Alcohol intake Ex-drinker (finding) [facility] Do you belong to any clubs or organizations such as episcopalian groups, unions, fraternal or athletic groups, or school groups? Yes [facility] Are you now , , , , never or living with a partner? [facility] How often to you hav e a drink containing alcohol? 4 or more times a week [facility] How many standard dr inks containing alcohol do you have on a typical day? 3 or 4 [facility] How often do you hav e 6 or more drinks on 1 occasion? Never [facility] How hard is it for y ou to pay for the very basics like food, housing, medical care, and heating Not hard at all [facility] Do you feel stress - tense, restless, nervous, or anxious, or unable to sleep at night because your mind is troubled all the time - these days [OSQ] Not at all [facility] Start: 1955 Sex Assigned At Not on file P xiao qu wu you [facility] Medical Equipment Procedure Code Equipment Code Equipment Origin al Text Equipment Identifier Dates Mesh 1in Med Pp Srgpro Nabsb Knit Plg Srg Strl Clr Hrn Rpl [id number] - Ssm-02 - [id number])[facility]-02, [id number] [facility] Start: 03-06-2023 Consultation note 05-25-2022 Note Date & Type [...] subarachnoid space. 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 The [...] be followed in the clinic thereafter. [facility] Consultation note 02-23-2022 Note Date & Type [...] three months' time unless otherwise indicated. [facility] Evaluation note 12-28-2021 Note Date & Type Note Facility 12-28-2021 Evaluation note Encounter Date Diagnosis Assessment Notes Dec, Abnormal weight loss (ICD-10 - R63.4) PT ADVISED TO INCREASE PROTEIN RTO 6 MONTHS [facility] Other Consultation note 11-15-2021 Note Date & Type Note Facility 11-15-2021 Note CONSULTATION CONSULTATION DATE: 11/15/2021 CHIEF COMPLAINT: Mid back pain. HISTORY OF PRESENT ILLNESS: This is a 65-year-old gentleman who has thoracic pain, thoracic degenerative disc disease, thoracic spondylosis. 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 Unfortunately, [facility] will not allow us to proceed with [...] will be following up in three months. [facility] Signed and Approved by: DR MARCY BERGER . 11/29/2021 11:41:00 [facility] Evaluation note 09-27-2021 Note Date & Type Note Facility 09-27-2021 Evaluation note Encounter Date Diagnosis Assessment Notes Sep, Abnormal weight loss (ICD-10 - R63.4) INCREASE PROTEIN TO 80 GRAMS DAILY DRINK ENSURE/BOOST 3-4 TIMES A DAY RTO 3 MONTHS [facility] Other Evaluation note 05-16-2021 Note Date & Type Note Facility 05-16-2021 Evaluation note Encounter Date Diagnosis Assessment Notes Apr, Abnormal weight loss (ICD-10 - R63.4) PATIENT STATES 20 POUND WEIGHT LOSS IN 4-6 MONTHS Apr, Gastric wall thickening (ICD-10 - K31.89) [facility] Other History general Narrative - Reported Note Date & Type Note Facility History general Narrative - Reported Type Surgical History hernia [facility] Other History general Narrative - Reported Note Date & Type Note Facility History general Narrative - Reported Type Medical History Hypertension Medical History hyperlipidemia Surgical History hernia [facility] Other Instructions Note Date & Type Note Facility Instructions Not on filedocumented in this en counter [facility] Summary Purpose Family History No Family History Records FoundNo Family History Records FoundNo Family History Records FoundNo Family History Records Found Advance Directives Documents on File Type Date Recorded 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 Expl anation Durable Power of Veneer Drier Tailer 03/28/2023 12:39 PM Living Will 03/28/2023 12:38 PM Latest Code Status on File Code Status Date Activated Date Inactivated Comments Full Code 03/10/2023 8:50 AM 03/10/2023 5:50 PM Additional Source Comments (unrecognized sect ion and content) No Status Records FoundNo Status Records FoundNo Status Records FoundNo Status Records Found INFORMATION SOURCE (unrecogn ized section and content) DATE CREATED AUTHOR 09/12/2021 [facility] DATE CREATED AUTHOR AUTHOR'S ORGANIZ ATION 10/23/2022 [facility] DATE CREATED AUTHOR AUTHOR'S ORGANIZ ATION 07/08/2023 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 [employer] provides no warranty or guarantee of the accuracy or completeness of information in this document.
--- NOTE | 2023-10-11 13:36 | PM.CN ---
Consult Note: HPI Data of Consult Patient: known to practice within the last 3 years Requesting Physician: Karen Castro NP Primary Care Provider: JESÚS GUZMAN Consult Narrative Reason for consult: f/u Narrative: Erich Lopez a pleasant 67 year old male presents for evaluation and management of left sided upper back pain. Patient reporting pain 4/10 sore. Previous left T5 T6 intercostal nerve block improved pain for 3 weeks per pt. Patient stopped amitriptyline 10mg as he did not find benefit. Continues to utilize tramadol 50-100mg BID PRN moderate to severe pain without side effects. cc:: CC: Karen Castro NP Review of Systems ROS Status of ROS 10 or more systems reviewed and unremarkable except as noted in history and below Musculoskeletal Reports: back pain PFSH PFS Medical History (Updated 07/05/23 @ 08:52 by Lisset Martinez) Low back pain ?M54.50 - Low back pain, unspecified (ICD-10) High cholesterol ?E78.00 - Pure hypercholesterolemia, unspecified (ICD-10) Hypertension ?I10 - Essential (primary) hypertension (ICD-10) Surgical History H/O hernia repair ?Z98.890 - Other specified postprocedural states (ICD-10) ?Z87.19 - Personal history of other diseases of the digestive system (ICD-10) Meds Home Medications and Allergies Home Medications ?Medication ?Instructions ?Recorded ?Confirmed ?Type tramadol 100 mg capsule 100 mg PO BID PRN pain #60 caps 03/14/23 07/09/23 Rx 24h,extended release(25-75) atorvastatin 80 mg tablet (Lipitor) 80 mg PO DAILY 05/22/23 07/09/23 History lisinopril 2.5 mg tablet 2.5 mg PO DAILY 05/22/23 07/09/23 History tamsulosin 0.4 mg capsule (Flomax) 0.4 mg PO DAILY 05/28/23 07/09/23 History tramadol 50 mg tablet 50 mg PO BID PRN pain #120 tabs 06/13/23 07/09/23 Rx Allergies Allergy/AdvReac Type Severity Reaction Status Date / Time Penicillins Allergy Verified 07/09/23 07:00 Exam Constitutional Documenting provider has reviewed patient's vital signs: yes Common normals: no apparent distress, oriented x3, healthy appearing, alert and well nourished General appearance: cooperative HENMT Common normals: normocephalic, hearing grossly normal bilaterally and moist oral mucous membranes Head and scalp: normocephalic Eye Common normals: PERRL Pupil: PERRL Neck & C-Spine Common normals: full ROM General: normal visual inspection Chest Common normals: inspection of chest normal Respiratory Common normals: normal respiratory effort, no retractions and no use of accessory muscles Back & Pelvis Thoracic spine/upper back: thoracic ROM normal and pain with ROM Other: mild pain in left thoracic spine Extremity Common normals: normal to inspection and full ROM Neuro Common normals: oriented x3, CN's II-XII intact bilaterally, moves all extremities, no focal motor deficits, no sensory deficits noted and deep tendon reflexes 2+ bilaterally Sensorium/orientation: alert Motor exam: strength 5/5 throughout and no movement abnormalities noted Psych Common normals: mental status grossly normal, thought process normal, cooperative, affect normal, speech normal and activity/motor behavior normal Speech: normal speech Thought process: normal thought process Assessment and Plan Assessment and Plan (1) Thoracic neuritis: (2) Thoracic stenosis: (3) Disc displacement, thoracic: (4) Myofascial pain syndrome: (5) Thoracic spondylosis: (6) Chronic prescription opiate use: Assessment and Plan: I feel these medications are improving the patient's quality of life and allow them to tolerate activities of daily living as well as participate in recreational activity.? The patient does not report intolerable side effects. The patient is NOT opioid naive and non-pharmacologic and non-opioid treatment has failed to significantly relieve the patient's pain and improve functionality. The patient has a diagnosis that is related to a somatic or visceral pain etiology. ? ?? I reviewed with the patient the potential risks and side effects with the use of? opioid medications including but not limited to respiratory depression,? sedation, and even . I verified the patient has access to naloxone should? these effects occur. I advised the patient to avoid the use of any other? sedation substances including alcohol, THC, and benzodiazepines while? taking opioid medications due to the risk of compounding side effects and? detrimental outcomes. I reviewed the HAND SHOE CUTTER, pain treatment agreement, urine? drug screen, and opioid start talking forms. The patient was advised to let? their family know they had Naloxone in case they would need to administer? the medication.? The patient was advised that U.S. Food and Drug Administration (FDA) is warning that respiratory depression may occur in patients using gabapentin (Neurontin, Gralise, Horizant) or pregabalin (Lyrica, Lyrica CR) who have respiratory risk factors. These include the use of opioid pain medicines and other drugs that depress the central nervous system, and conditions such as chronic obstructive pulmonary disease (COPD) that reduce lung function. The elderly are also at higher risk.? ?? A drug screen was completed within the last year, and no aberrancies were noted regarding their use of controlled substances. The patient understands they are subject to the terms and conditions of the pain contract that they have signed. ? ?? I have checked an OARRS report on this patient today and there are no aberrancies noted in the prescribing history.? Plan patient stopped nortriptyline 10mg as he did not find benefit start gabapentin 300mg HS 1 month supply, pt to call to discuss response continue tramadol 50-100mg BID PRN moderate to severe pain f/u 3 months
== END 2023-10-11 12:50 | disposition home or self-care (01) ==
LOC: PM 12:50
PROVIDERS: Visit Provider Nurse Practitioner
DX: M47.24 Other spondylosis with radiculopathy, thoracic region (principal); M48.04 Spinal stenosis, thoracic region; M51.14 Intervertebral disc disorders with radiculopathy, thoracic region; M79.18 Myalgia, other site; Z79.899 Other long term (current) drug therapy
CPT/HCPCS: G0463

== ENCOUNTER 2024-01-09 13:19 | Outpatient (OUT) | payer OTHER, SELFPAY ==
--- NOTE | 2024-01-09 13:29 | P.CN_ITS ---
Consult Note: HPI Data of Consult Patient: known to practice within the last 3 years Requesting Physician: Karen Castro NP Primary Care Provider: JESÚS GUZMAN Consult Narrative Reason for consult: f/u Narrative: Erich Lopez a pleasant 67 year old male presents for evaluation and management of left sided upper back pain. Patient reporting pain 4/10 stinging burning. Previous left T5 T6 intercostal nerve block improved pain >50% for 3 weeks per pt.Patient stopped amitriptyline 10mg as he did not find benefit. Continues to utilize tramadol 50-100mg BID PRN moderate to severe pain without side effects. At last visit we started gabapentin 300mg HS which pt thought caused blurred vision so we stopped, however pt continues to have blurred vision and is going to see his eye dr. cc:: CC: Karen Castro NP Review of Systems ROS Status of ROS 10 or more systems reviewed and unremark able except as noted in history and below Musculoskeletal Reports: back pain PFSH PFS Medical History (Updated 07/05/23 @ 08:52 by Lisset Martinez) Low back pain ?M54.50 - Low back pain, unspecified (ICD-10) High cholesterol ?E78.00 - Pure hypercholesterolemia, unspecified (ICD-10) Hypertension ?I10 - Essential (primary) hypertension (ICD-10) Surgical History H/O hernia repair ?Z98.890 - Other specified postprocedural states (ICD-10) ?Z87.19 - Personal history of other diseases of the digestive system (ICD-10) Meds Home Medications and Allergies Home Medications ?Medication ?Instructions ?Recorded ?Confirmed ?Type tramadol 100 mg capsule 100 mg PO BID PRN pain #60 caps 03/14/23 07/09/23 Rx 24h,extended release(25-75) atorvastatin 80 mg tablet (Lipitor) 80 mg PO DAILY 05/22/23 07/09/23 History lisinopril 2.5 mg tablet 2.5 mg PO DAILY 05/22/23 07/09/23 History tamsulosin 0.4 mg capsule (Flomax) 0.4 mg PO DAILY 05/28/23 07/09/23 History tramadol 50 mg tablet 50 mg PO BID PRN pain #120 tabs 06/13/23 07/09/23 Rx tramadol 50 mg tablet 100 mg (2 x 50 mg) PO BID PRN pain 10/17/23 Rx #120 tabs tramadol 50 mg tablet 100 mg (2 x 50 mg) PO BID PRN pain 11/21/23 Rx #120 tabs tramadol 50 mg tablet 100 mg (2 x 50 mg) PO BID PRN pain 12/26/23 Rx #120 tabs Allergies Allergy/AdvReac Type Severity Reaction Status Date / Time Penicillins Allergy Verified 07/09/23 07:00 Exam Constitutional Documenting provider has reviewed patient's vital signs: yes Common normals: no apparent distress, oriented x3, healthy appearing, alert and well nourished General appearance: cooperative HENMT Common normals: normocephalic, hearing grossly normal bilaterally and moist oral mucous membranes Head and scalp: normocephalic Eye Common normals: PERRL Pupil: PERRL Neck & C-Spine Common normals: full ROM General: normal visual inspection Chest Common normals: inspection of chest normal Respiratory Common normals: normal respiratory effort, no retractions and no use of accessory muscles Back & Pelvis Thoracic spine/upper back: thoracic ROM normal and pain with ROM Other: mild pain in left thoracic spine Extremity Common normals: normal to inspection and full ROM Neuro Common normals: oriented x3, CN's II-XII intact bilaterally, moves all extremities, no focal motor deficits, no sensory deficits noted and deep tendon reflexes 2+ bilaterally Sensorium/orientation: alert Motor exam: strength 5/5 throughout and no movement abnormalities noted Psych Common normals: mental status grossly normal, thought process normal, cooperative, affect normal, speech normal and activity/motor behavior normal Speech: normal speech Thought process: normal thought process Results Additional Findings Additional findings: If on a controlled substance or opioids, I have checked an [place]ARRS report on this patient and there are no aberrancies noted in the prescribing history.??If on a controlled substance or opioid a drug screen was completed and reviewed within the last year, and if there has not been a drug screen completed we ordered one today to monitor higher risk, state monitored pain medication use. As part of providing excellent, safe, comprehensive care, the following was completed at our patient's visit: 1. A medication reconciliation and review to ensure accurate knowledge of current/active medications, including asking our patients to inform us about any [id number] medications or herbal remedies/nutritional supplements/alternative remedies. 2. A review to specifically ensure our patients have had annual screening for screening for depression, screening for tobacco use, and screening for unhealthy alcohol use. For concerning screenings had a discussion with the patient, provided patient education, and recommended follow-up with primary care provider when appropriate. If patient noted with a risk of falling, they received education on strength, gait, and balance training to prevent future risk of falling. Assessment and Plan Assessment and Plan (1) Thoracic neuritis: (2) Thoracic stenosis: (3) Disc displacement, thoracic: (4) Myofascial pain syndrome: (5) Thoracic spondylosis: (6) Chronic prescription opiate use: Assessment and Plan: I feel these medications are improving the patient's quality of life and allow them to tolerate activities of daily living as well as participate in recreational activity.? The patient does not report intolerable side effects. The patient is NOT opioid naive and non-pharmacologic and non-opioid treatment has failed to significantly relieve the patient's pain and improve functionality. The patient has a diagnosis that is related to a somatic or visceral pain etiology. ? ?? I reviewed with the patient the potential risks and side effects with the use of? opioid medications including but not limited to respiratory depression,? sedation, and even . I verified the patient has access to naloxone should? these effects occur. I advised the patient to avoid the use of any other? sedation substances including alcohol, THC, and benzodiazepines while? taking opioid medications due to the risk of compounding side effects and? detrimental outcomes. I reviewed the INSURANCE LICENSING SUPERVISOR, pain treatment agreement, urine? drug screen, and opioid start talking forms. The patient was advised to let? their family know they had Naloxone in case they would need to administer? the medication.? The patient was advised that U.S. Food and Drug Administration (FDA) is warning that respiratory depression may occur in patients using gabapentin (Neurontin, Gralise, Horizant) or pregabalin (Lyrica, Lyrica CR) who have respiratory risk factors. These include the use of opioid pain medicines and other drugs that depress the central nervous system, and conditions such as chronic obstructive pulmonary disease (COPD) that reduce lung function. The elderly are also at higher risk.? ?? A drug screen was completed within the last year, and no aberrancies were noted regarding their use of controlled substances. The patient understands they are subject to the terms and conditions of the pain contract that they have signed. ? ?? I have checked an OARRS report on this patient today and there are no aberrancies noted in the prescribing history.? Plan patient stopped nortriptyline 10mg as he did not find benefit restart gabapentin 300mg HS 1 month supply, pt to call to discuss response. we will increase to BID if tolerating well but no improvement continue tramadol 50-100mg BID PRN moderate to severe pain f/u 3 months
== END 2024-01-09 13:20 | disposition home or self-care (01) ==
LOC: PM 13:19
PROVIDERS: Visit Provider Nurse Practitioner
DX: M54.14 Radiculopathy, thoracic region (principal); M47.814 Spondylosis without myelopathy or radiculopathy, thoracic region; M51.24 Other intervertebral disc displacement, thoracic region; M79.18 Myalgia, other site; M48.04 Spinal stenosis, thoracic region; Z79.891 Long term (current) use of opiate analgesic
CPT/HCPCS: G0463

== ENCOUNTER 2024-04-23 14:13 | Outpatient (OUT) | payer OTHER, SELFPAY ==
--- OUTSIDE RECORDS SUMMARY | 2024-04-23 14:24 | XMS_ITS | CCD ---
Author Organization [facility] Care Team Providers Care Customer Support Associate Name Role Phone Sushil Valentine Unavailable [phone] EDWARDS ., CYRIL Consulting Unavailable ROSIPKO, JESÚS Primary Care Unavailable BERGER ., DR MARCY Blanc Admitting Unavailable BERGER ., DR MARCY Blanc Attending Unavailable GIEDRAITIS, ANDRI Admitting Unavailable GIEDRAITIS, ANDFLAQUITO Attending Unavailable ROSIPKO, JESÚS Primary Care Unavailable [...] BERGER ., DR MARCY Blanc Attending Unavailable Gimargarito TAPIA, Mary Jane Rust Attending Unavailable Christian TAPIA, Mary Jane Rust Attending Unavailable Gimargarito TAPIA, Mary Jane Rust Attending Unavailable No Pcp, No Pcp Primary Care Provider Unavailabl e Alfred, Jesús K Unavailable Unavailable Shona Elliott MD Primary Care Provider Pump EQUIP TECH, Angeles Unavailable Unavailable Shona Elliott MD Primary Care Provider Shona Elliott MD Primary Care Provider Lluvia RN, Crystal Unavailable PUMP, ANGELES Attending Unavailable PUMP, ANGELES Referring Unavailable PUMP, ANGELES Referring Unavailable PUMP, ANGELES Attending Unavailable PUMP, ANGELES Attending Unavailable CARLI STEWART Attending Unavailable CARLI STEWART Attending Unavailable SERA MCDOWELL I Referring Unavailable NO PCP, NO PCP Primary Care Unavailable SHONA ELLIOTT Primary Care Unavailable FARRUKH PHELAN Attending Unavailable SHONA ELLIOTT Primary Care Unavailable CHARIS MARIE Attending Unavailable HELDER WILDER Admitting Unavailable CARDIOLOGY, [facility] Consulting Unavailable SERA MCDOWELL I Referring Unavailable SHONA ELLIOTT Primary Care Unavailable ROB SHARMA Attending Unavailable ROB SHARMA Referring Unavailable SHONA ELLIOTT B Primary Care Unavailable SHONA ELLIOTT B Referring Unavailable EARL, SHONA Rose Primary Care Unavailable Allergies Allergy Classification Reported Allergen(s) Allergy Type Date of Onset Reaction(s) Facility (5 sources) Penicillin G Drug Allergy 3 Unknown [facility] (1 source) Penicillin Drug Allergy [facility] Repository (5 sources) Penicillins; Translations: [PENICILLINS] Propensity to adverse reactions to drug 7 Hives, Other (See Comments) [facility] Medications Current Medications Medication Drug Class(es) Dates Sig (Normalized) Sig (Original) apixaban 5 mg oral tablet (5 sources) Factor Xa Inhibitor Start: 03-23-2024 take 1 tablet by mouth in the morning, then take 1 tablet by mouth at bedtime apixaban (ELIQUIS) 5 mg tablet Take 1 tablet (5 mg total) by mouth in the morning and 1 tablet (5 mg total) before bedtime. 60 tablet 03/23/2024 Active aspirin 325 mg oral tablet (4 sources) Platelet Aggregation Inhibitor, Nonsteroidal Anti-inflammatory Drug take 1 tablet by mouth in the morning aspirin 325 mg tablet Take 1 tablet (325 mg total) by mouth in the morning. 0 Active Aspirin 325 mg A ctive atorvastatin 80 mg oral tablet (8 sources) HMG-CoA Reductase Inhibitor Start: 02-20-2024 take 1 tablet by mouth once daily atorvastatin (Lipitor) 80 MG tablet Indications: Mixed hyperlipidemia (CMS/HCC) TAKE 1 TABLET BY MOUTH EVERY DAY 90 tablet 3 02/20/2024 Active cholecalciferol 0.05 mg oral tablet (4 sources) Vitamin D take 1 tablet by mouth in the morning cholecalciferol, vitamin D3, 2,000 units tablet Take 1 tablet (2,000 Units total) by mouth in the morning. Active take 1 tablet by mouth once galilea y cholecalciferol (Vitamin D-3) 50 MCG (1999 UT) tablet Take 2,000 Units by mouth Daily Active gabapentin 300 mg oral capsule (4 sources) Anti-epileptic Agent Start: 01-09-2024 take 1 capsule by mouth once daily at bedtime gabapentin (Neurontin) 300 MG capsule TAKE 1 CAPSULE BY MOUTH EVERYDAY AT BEDTIME 01/09/2024 Active hydroCHLOROthiazide 12.5 mg / lisinopril 20 mg oral tablet (5 sources) Thiazide Diuretic, Angiotensin Converting Enzyme Inhibitor Start: 02-20-2024 take 1 tablet by mouth once daily lisinopril-hydro CHLOROthiazide 20-12.5 MG tablet Indications: Primary hypertension (CMS/HCC) TAKE 1 TABLET BY MOUTH EVERY DAY 90 tablet 3 02/20/2024 Active take 1 tablet by silvio th once in the morning lisinopril-hydrochlorothiazide (PRINZIDE ,ZESTORETIC) 20-12.5 mg per tablet Take 1 tablet by mouth in the morning. 0 Active take 1 tablet by silvio th every twenty-four hours Lisinopril-hydroCHLOROthiazide 20-12.5 M G 1 tablet Orally Once a day Active Lisinopril (1 source) Angiotensin Converting Enzyme Inhibitor Lisinopril Active metoprolol tartrate 25 mg oral tablet (4 sources) beta-Adrenergic Dominick Start: 4 End: 4 take 1 tablet by mouth in the morning, then take 1 tablet by mouth at bedtime metoprolol tartrate (LOPRESSOR) 25 mg tablet Take 1 tablet (25 mg total) by mouth in the morning and 1 tablet (25 mg total) before bedtime. Do all this for 30 days. 60 tablet 03/23/2024 04/22/2024 Active naloxone hydrochloride 40 mg/ml nasal spray (1 source) Opioid Antagonist Start: 3 naloxone (NARCAN) 4 mg/actuation spray,non-aerosol nasal spray Please see attached for detailed directions 0 02/08/2023 Active tamsulosin hydrochloride 0.4 mg oral capsule (7 sources) alpha-Adrenergic Dominick Start: 3 End: 4 take 1 capsule by mouth once daily tamsulosin (FLOMAX) 0.4 mg capsule Take 1 capsule (0.4 mg total) by mouth nightly. 90 capsule 3 04/15/2024 Active traMADol hydrochloride 50 mg oral tablet (8 sources) Opioid Agonist take 1 tablet by mouth three times daily as needed for pain traMADoL (ULTRAM) 50 mg tablet Take 1 tablet (50 mg total) by mouth 3 (three) times a day as needed for pain. Active take 1 tablet by silvio th every twenty-four hours traMADol HCl 50 MG 1 tablet as needed Orally Once a day Active Problems Active Problems Problem Classification Problem Date Documented Da te Episodic/Chronic Abdominal hernia (2 sources) Hiatal hernia; Translations: [Diaphragmatic hernia without obstruction or gangrene] Episodic Adjustment disorders (2 sources) Family tension; Translations: [Reaction to severe stress, unspecified] Onset: 12-27-2022 12-27-2022 Chronic Cardiac dysrhythmias (6 sources) Atrial flutter; Translations: [Unspecified atrial flutter] Onset: 03-22-2024 03-24-2024 Chronic Chronic kidney disease (5 sources) Chronic kidney disease stage 3A ; Translations: [Stage 3a chronic kidney disease (HCC)] Onset: 12-27-2022 12-27-2022 Chronic Conduction disorders (3 sources) Right bundle branch block; Translations: [Unspecified right bundle-branch block] Onset: 03-24-2024 03-24-2024 Chronic Coronary atherosclerosis and other heart disease (3 sources) Calcification of coronary artery; Translations: [Atherosclerotic heart disease of [place] coronary artery without angina pectoris] Onset: 03-24-2024 03-24-2024 Chronic Disorders of lipid metabolism (5 sources) Mixed hyperlipidemia; Translations: [Mixed hyperlipidemia] Onset: 12-27-2022 12-27-2022 Chronic Diverticulosis and diverticulitis (4 sources) Diverticular disease of colon; Translations: [Diverticulosis of intestine, part unspecified, without perforation or abscess without bleeding] Onset: 12-27-2022 12-27-2022 Chronic Essential hypertension (6 sources) Essential hypertension; Translations: [Essential (primary) hypertension] Onset: 08-22-2021 03-10-2023 Chronic Hemorrhoids (2 sources) Hemorrhoids; Translations: [Unspecified hemorrhoids] Episodic Nonspecific chest pain (7 sources) Chest pain; Translations: [Chest pain, unspecified] Onset: 03-21-2024 03-22-2024 Episodic Occlusion or stenosis of precerebral arteries (6 sources) Bilateral stenosis of carotid arteries; Translations: [Occlusion and stenosis of bilateral carotid arteries] Onset: 01-31-2021 01-31-2021 Chronic Other disorders of stomach and duodenum (4 sources) Other diseases of stomach and duodenum; Translations: [Gastric wall thickening] Onset: 05-16-2021 Resolved: 05-16-2021 Episodic Other lower respiratory disease (3 sources) Nodule of lung; Translations: [Solitary pulmonary nodule] Onset: 03-24-2024 03-24-2024 Episodic Other male genital disorders (2 sources) Male erectile dysfunction, unspecified; Translations: [Impotence of organic origin] Onset: 12-27-2022 12-27-2022 Chronic Other nervous system disorders (1 source) Other chronic pain; Translations: [OTHER CHRONIC PAIN] Onset: 03-03-2022 Chronic Other non-traumatic joint disorders (4 sources) Pain in left shoulder; Translations: [PAIN IN LEFT SHOULDER] Onset: 07-27-2022 Episodic Other nutritional; endocrine; and metabolic disorders (3 sources) Abnormal weight loss; Translations: [Abnormal weight loss] Episodic Other screening for suspected conditions (not mental disorders or infectious disease) (7 sources) Full blood count abnormal; Translations: [Other specified abnormal findings of blood chemistry] Onset: 12-27-2022 12-27-2022 Episodic Spondylosis; intervertebral disc disorders; other back problems (15 sources) Spondylosis without myelopathy or radiculopathy, thoracic region; Translations: [Other intervertebral disc degeneration, thoracic region] Onset: 11-15-2021 Chronic Substance-related disorders (7 sources) Nicotine dependence, cigarettes, uncomplicated; Translations: [Cigarette smoker ] Onset: 08-22-2021 08-22-2021 Chronic Unclassified (1 source) LOW BACK PAIN, UNSPECIFIED; Translations: [LOW BACK PAIN, UNSPECIFIED] Onset: 03-03-2022 Past or Other Problems Problem Classification Problem Date Documented Date Episodic/Chronic Abdominal pain (6 sources) Postoperative abdominal pain; Translations: [Unspecified abdominal pain] Onset: 03-10-2023 Resolved: 11-21-2023 03-10-2023 Episodic Acute and unspecified renal failure (6 sources) Acute renal failure syndrome; Translations: [Acute kidney failure, unspecified] Onset: 03-10-2023 Resolved: 11-21-2023 03-10-2023 Episodic Diabetes mellitus without complication (7 sources) Hyperglycemia; Translations: [Hyperglycemia, unspecified] Onset: 12-27-2022 12-27-2022 Episodic Genitourinary symptoms and ill-defined conditions (7 sources) Retention of urine; Translations: [Retention of urine, unspecified] Onset: 03-10-2023 Resolved: 11-21-2023 04-18-2023 Episodic Mood disorders (4 sources) Mood disorders Onset: 03-10-2023 03-10-2023 Other and unspecified benign neoplasm (2 sources) Polyp ; Translations: [Benign neoplasm, unspecified site] Onset: 12-27-2022 12-27-2022 Episodic Other and unspecified benign neoplasm (1 source) Tubular adenoma ; Translations: [Benign neoplasm, unspecified site] Onset: 12-27-2022 04-23-2024 Episodic Other circulatory disease (6 sources) Carotid bruit; Translations: [Other specified symptoms and signs involving the circulatory and respiratory systems] Onset: 01-31-2021 01-31-2021 Episodic Other connective tissue disease (1 source) Muscle wasting and atrophy, not elsewhere classified, unspecified site; Translations: [MUSCLE WASTING ATROPHY NEC UNS SITE] Onset: 11-17-2021 Episodic Other diseases of kidney and ureters (2 sources) Cyst of kidney; Translations: [Cyst of kidney, acquired] Onset: 12-27-2022 12-27-2022 Episodic Other disorders of stomach and duodenum (2 sources) Disorder of stomach; Translations: [Other diseases of stomach and duodenum] Onset: 12-27-2022 12-27-2022 Episodic Other nervous system disorders (2 sources) Carpal tunnel syndrome of right wrist; Translations: [Carpal tunnel syndrome, right upper limb] Onset: 12-27-2022 Resolved: 11-21-2023 11-21-2023 Chronic Other nutritional; endocrine; and metabolic disorders (3 sources) Abnormal weight loss Onset: 05-16-2021 Resolved: 12-28-2021 Episodic Other nutritional; endocrine; and metabolic disorders (2 sources) Unexplained weight loss ; Translations: [Abnormal weight loss] Onset: 12-27-2022 Resolved: 11-21-2023 11-21-2023 Episodic Other screening for suspected conditions (not mental disorders or infectious disease) (2 sources) Radiology result abnormal; Translations: [Abnormal findings on diagnostic imaging of other specified body structures] Onset: 12-27-2022 Resolved: 01-10-2024 01-10-2024 Chronic Spondylosis; intervertebral disc disorders; other back problems (3 sources) Pain in thoracic spine; Translations: [Spasm of back muscles] Onset: 05-30-2022 12-27-2022 Episodic Viral infection (2 sources) Disease caused by 2019-nCoV; Translations: [COVID-19] Onset: 12-27-2022 Resolved: 11-21-2023 11-21-2023 Episodic Results Test Name Value Interpretation Reference Range Facility US RETROPERITONEAL COMPLETEo n 04-22-2024 US RETROPERITONEAL COMPLETE US RETROPERITONEAL COMPLETE US RETROPERITONEAL COMPLETE Clinical history:Abnormal finding on diagnostic imaging of right kidney renal mass. Abnormal CT Comparison: None. Findings: Real-time sonographic evaluation of the kidneys and bladder performed. ] Measures 11.8 x 9.8 x 6.8 cm. Left kidney measures 11.2 x 6.0 x 6.8 cm. No renal collecting system dilatation. There is a right renal cyst measuring 1.0 x 1.8 x 2.4 cm with a single thin septation. The spleen is noted to have multiple calcified granulomas. Urinary bladder is unremarkable. 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 No additional follow-up imaging recommended. No renal collecting system dilatation. Finalized by Scooter Hector MD on 04/22/2024 3:42 PM Normal [facility] Prostate specific Ag [Mass/V ol]on 04-12-2024 PROSTATIC SPEC ANT 4.57 ng/mL High 0.00-4.00 [facility] Comment on above: Result Comment: The method used for this test is Paul Johnny DXI chemiluminescent immunoassay. Values obtained by different assay methods cannot be used interchangeably. Performed By: #### 2 857-1 ####[facility] ([id number] [facility], [address] [place] [address] CBC AND AUTO DIFFon 03-23-20 24 ABSOLUTE BASOPHIL 0.0 X10E9/L Normal 0.0-0.2 [facility] Comment on above: Performed By: #### C DENA CBCA, ####[facility] ([id number])[address] [place] [address] [place] [address] ABSOLUTE NEUTROPHIL 5.6 X10E9/L Normal 1.5-6.6 [facility] Comment on above: Performed By: #### C DENA CBCMikey, ####[facility] ([id number])[address] [place] [address] 481[address] Basophils/100 WBC (Bld) 0.5 % Normal [facility] Comment on above: Performed By: #### C DENA CBCMikey, ####[facility] ([id number])[address] [place] [address] Eosinophils (Bld) [#/Vol] 0.2 10*3/uL Normal 0.0-0.4 [facility] Comment on above: Performed By: #### C DENA CBCMikey, ####[facility] ([id number])[address] [place] [address] 92313 Eosinophils/100 WBC (Bld) 2.0 % Normal [facility] Comment on above: Performed By: #### C DENA CBCMikey, ####[facility] ([id number])[address] [place] [address] Erythrocyte distribution width (RBC) [Ratio] 14.7 % Normal 11.5-15.0 [facility] Comment on above: Performed By: #### C DENA CBCA, ####[facility] ([id number])[address] [place] [address] 10209 Hematocrit (Bld) [Volume fraction] 32.6 % Low 39-49 [facility] Comment on above: Performed By: #### C DENA, CBCA, ####[facility] ([id number])[address] [place] [address] Hemoglobin (Bld) [Mass/Vol] 11.1 g/dL Low 13.0-17.0 [facility] Comment on above: Performed By: #### C DENA, CBCA, ####[facility] ([id number])[address] [place] [address] 24933 Lymphocytes (Bld) [#/Vol] 1.2 10*3/uL Normal 1.0-3.5 [facility] Comment on above: Performed By: #### C DENA, CBCA, ####[facility] ([id number])[address] [place] [address] 82953 Lymphocytes/100 WBC (Bld) 15.3 % Normal [facility] Comment on above: Performed By: #### C DENA, CBCA, ####[facility] ([id number])[address] [place] [address]80 MCH (RBC) [Entitic mass] 29.3 pg Normal 27-34 [facility] Comment on above: Performed By: #### C DENA, CBCA, ####[facility] ([id number])[address] [place] [address] 60679 MCHC (RBC) [Mass/Vol] 33.9 g/dL Normal 32-36 [facility] Comment on above: Performed By: #### C DENA, CBCA, ####[facility] ([id number])[address] [place] [address]3685 MCV (RBC) [Entitic vol] 86 fL Normal 80-100 [facility] Comment on above: Performed By: #### C DENA, CBCA, ####[facility] ([id number])[address] [place] [address] 57198 Monocytes (Bld) [#/Vol] 1.0 10*3/uL High 0-0.9 [facility] Comment on above: Performed By: #### C DENA, CBCA, ####[facility] ([id number])[address] [place] [address] 69951 Monocytes/100 WBC (Bld) 12.7 % Normal [facility] Comment on above: Performed By: #### C DENA, CBCA, ####[facility] ([id number])[address] [place] [address] 63066 Neutrophils/100 WBC (Bld) 69.5 % Normal [facility] Comment on above: Performed By: #### C DENA, CBCA, ####[facility] ([id number])[address] [place] [address] [place] [address] Platelet mean volume (Bld) [Entitic vol] 9.6 fL Normal 7-12 [facility] Comment on above: Performed By: #### C DENA, CBCA, ####[facility] ([id number])[address] [place] [address] Platelets (Bld) [#/Vol] 126 10*3/uL Low 150-450 [facility] Comment on above: Performed By: #### C DENA, CBCA, ####[facility] ([id number])[address] [place] [address] 65418 RBC COUNT 3.78 X10E12/L Low 4.10-5.70 [facility] Comment on above: Performed By: #### C DENA, CBCA, ####[facility] ([id number])[address] [place] [address] [place] [address] WBC (Bld) [#/Vol] 8.1 10*3/uL Normal 4.0-11.0 [facility] Comment on above: Performed By: #### C PATRICK FERNANDES, ####[facility] ([id number])[address] [place] [address] [place] [address] COMPREHENSIVE METABOLIC PANE Brent 03-23-2024 Albumin [Mass/Vol] 3.5 g/dL Normal 3.2-5.3 [facility] Comment on above: Performed By: #### C PATRICK FERNANDES, ####[facility] ([id number])[address] [place] [address] [place] [address] ALP [Catalytic activity/Vol] 68 U/L Normal 39-130 [facility] Comment on above: Performed By: #### C PATRICK FERNANDES, ####[facility] ([id number])[address] [place] [address] 61572 ALT [Catalytic activity/Vol] 17 U/L Normal 0-40 [facility] Comment on above: Performed By: #### C PATRICK FERNANDES, ####[facility] ([id number])[address] [place] [address] 72845 Anion gap [Moles/Vol] 9 mmol/L Normal 5-15 [facility] Comment on above: Performed By: #### C PATRICK FERNANDES, ####[facility] ([id number])[address] [place] [address] 37184 AST [Catalytic activity/Vol] 16 U/L Normal 0-41 [facility] Comment on above: Performed By: #### C PATRICK FERNANDES, ####[facility] ([id number])[address] [place] [address] 68545 Bilirubin [Mass/Vol] 0.9 mg/dL Normal 0.3-1.2 [facility] Comment on above: Performed By: #### C PATRICK FERNANDES, ####[facility] ([id number])[address] [place] [address] 58916 Calcium [Mass/Vol] 9.0 mg/dL Normal 8.5-10.5 [facility] Comment on above: Performed By: #### C PATRICK FERNANDES, ####[facility] ([id number])[address] [place] [address] 54482 Chloride [Moles/Vol] 107 mmol/L Normal 98-109 [facility] Comment on above: Performed By: #### C PATRICK FERNANDES, ####[facility] ([id number])[address] [place] [address] 00552 CO2 [Moles/Vol] 22 mmol/L Normal 22-32 [facility] Comment on above: Performed By: #### C PATRICK FERNANDES, ####[facility] ([id number])[address] [place] [address] 73969 Creatinine [Mass/Vol] 1.09 mg/dL Normal 0.70-1.20 [facility] Comment on above: Result Comment: METH OD TRACEABLE TO IDMS STANDARD Performed By: #### C PATRICK FERNANDES, ####[facility] ([id number])[address] [place] [address] 09381 GFR/1.73 sq M.predicted among non-blacks MDRD (S/P/Bld) [Vol rate/Area] 74 mL/min/{1.73_m2} Normal >59 [facility] Comment on above: Result Comment: Reported eGFR is based on the CKD-EPI 2020 equation that does not use a race coefficient. Performed By: #### C PATRICK FERNANDES, ####[facility] ([id number])[address] [place] [address], [place] [address] Glucose [Mass/Vol] 105 mg/dL High 65-99 [facility] Comment on above: Performed By: #### C PATRICK FERNANDES, ####[facility] ([id number])[address] [place] [address] [place] [address] Potassium [Moles/Vol] 4.2 mmol/L Normal 3.5-5.0 [facility] Comment on above: Performed By: #### C PATRICK FERNANDES, ####[facility] ([id number])[address] [place] [address] 11032 Protein [Mass/Vol] 6.4 g/dL Normal 6.0-8.0 [facility] Comment on above: Performed By: #### C PATRICK FERNANDES, ####[facility] ([id number])[address] [place] [address] [place] [address] Sodium [Moles/Vol] 138 mmol/L Normal 134-146 [facility] Comment on above: Performed By: #### C PATRICK FERNANDES, ####[facility] ([id number])[address] [place] [address] [place] [address] Urea nitrogen [Mass/Vol] 35 mg/dL High 5-27 [facility] Comment on above: Performed By: #### C PATRICK FERNANDES, ####[facility] ([id number])[address] [place] [address] [place] [address] MAGNESIUMon 03-23-2024 Magnesium [Mass/Vol] 2.0 mg/dL Normal 1.8-2.6 [facility] Comment on above: Performed By: #### C PATRICK FERNANDES, ####[facility] ([id number])[address] [place] [address] CBC AND AUTO DIFFon 03-22-20 24 ABSOLUTE BASOPHIL 0.0 X10E9/L Normal 0.0-0.2 [facility] Comment on above: Performed By: #### 1 23-9, 3040-3, CMP, 48649-4, CBCA #### [facility] ([id number]) [address] [place] [address] ABSOLUTE NEUTROPHIL 8.1 X10E9/L High 1.5-6.6 [facility] Comment on above: Performed By: #### 1 9122-9, 0-3, [facility], 08129-1, CBCA #### [facility] ([id number]) [address] [place] [address] 67061 Basophils/100 WBC (Bld) 0.1 % Normal [facility] Comment on above: Performed By: #### 1 9122-9, 0-3, [facility], 06849-9, CBCA #### [facility] ([id number]) [address] [place] [address] 24321 Eosinophils (Bld) [#/Vol] 0.0 10*3/uL Normal 0.0-0.4 [facility] Comment on above: Performed By: #### 1 9122-9, 3040-3, [facility], 15468-0, CBCA #### [facility] ([id number]) [address] [place] [address]806 Eosinophils/100 WBC (Bld) 0.1 % Normal [facility] Comment on above: Performed By: #### 1 9122-9, 3040-3, [facility], 21088-4, CBCA #### [facility] ([id number]) [address] [place] [address] 65555 Erythrocyte distribution width (RBC) [Ratio] 14.6 % Normal 11.5-15.0 [facility] Comment on above: Performed By: #### 1 9122-9, 3040-3, CMP, 97424-6, CBCA #### [facility] ([id number]) [address] [place] [address] 10577 Hematocrit (Bld) [Volume fraction] 35.7 % Low 39-49 [facility] Comment on above: Performed By: #### 1 9122-9, 3040-3, CMP, 84867-5, CBCA #### [facility] ([id number]) [address] [place] [address] 75586 Hemoglobin (Bld) [Mass/Vol] 12.1 g/dL Low 13.0-17.0 [facility] Comment on above: Performed By: #### 1 9122-9, 3040-3, CMP, 96566-1, CBCA #### [facility] ([id number]) [address] [place] [address] 48762 Lymphocytes (Bld) [#/Vol] 0.9 10*3/uL Low 1.0-3.5 [facility] Comment on above: Performed By: #### 1 9122-9, 3040-3, [facility], 09947-5, CBCA #### [facility] ([id number]) [address] [place] [address] 70435 Lymphocytes/100 WBC (Bld) 8.9 % Normal [facility] Comment on above: Performed By: #### 1 9122-9, 3040-3, CMP, 58330-7, CBCA #### [facility] ([id number]) [address] [place] [address] 66239 MCH (RBC) [Entitic mass] 29.3 pg Normal 27-34 [facility] Comment on above: Performed By: #### 1 9122-9, 3040-3, CMP, 55764-9, CBCA #### [facility] ([id number]) [address] [place] [address] 25082 MCHC (RBC) [Mass/Vol] 34.0 g/dL Normal 32-36 [facility] Comment on above: Performed By: #### 1 9123-9, 3040-3, CMP, 96814-5, CBCA #### [facility] ([id number]) [address] [place] [address] 91584 MCV (RBC) [Entitic vol] 86 fL Normal 80-100 [facility] Comment on above: Performed By: #### 1 9123-9, 3040-3, CMP, 50197-3, CBCA #### [facility] ([id number]) [address] [place] [address] 93741 Monocytes (Bld) [#/Vol] 1.3 10*3/uL High 0-0.9 [facility] Comment on above: Performed By: #### 1 23-9, 3040-3, CMP, 42782-5, CBCA #### [facility] ([id number]) [address] [place] [address] 15763 Monocytes/100 WBC (Bld) 12.8 % Normal [facility] Comment on above: Performed By: #### 1 9123-9, 3040-3, CMP, 64673-3, CBCA #### [facility] ([id number]) [address] [place] [address] 48585 Neutrophils/100 WBC (Bld) 78.1 % Normal [facility] Comment on above: Performed By: #### 1 9123-9, 3040-3, CMP, 68346-5, CBCA #### [facility] ([id number]) [address] [place] [address] 23420 Platelet mean volume (Bld) [Entitic vol] 9.3 fL Normal 7-12 [facility] Comment on above: Performed By: #### 1 9123-9, 3040-3, CMP, 03326-5, CBCA #### [facility] ([id number]) [address] [place] [address] 00660 Platelets (Bld) [#/Vol] 141 10*3/uL Low 150-450 [facility] Comment on above: Performed By: #### 1 23-9, 3040-3, CMP, 58270-4, CBCA #### [facility] ([id number]) [address] [place] [address] 25013 RBC COUNT 4.14 X10E12/L Normal 4.10-5.70 [facility] Comment on above: Performed By: #### 1 23-9, 3040-3, CMP, 06771-3, CBCA #### [facility] ([id number]) [address] [place] [address] 81845 WBC (Bld) [#/Vol] 10.4 10*3/uL Normal 4.0-11.0 [facility] Comment on above: Performed By: #### 1 23-9, 3040-3, CMP, 74506-8, CBCA #### [facility] ([id number]) [address] [place] [address] 15305 COMPREHENSIVE METABOLIC PANE Brent 03-22-2024 Albumin [Mass/Vol] 4.3 g/dL Normal 3.2-5.3 [facility] Comment on above: Performed By: #### 1 9123-9, 3040-3, CMP, 90152-0, CBCA #### [facility] ([id number]) [address] [place] [address] 35940 ALP [Catalytic activity/Vol] 87 U/L Normal 39-130 [facility] Comment on above: Performed By: #### 1 9123-9, 3040-3, CMP, 65565-8, CBCA #### [facility] ([id number]) [address] [place] [address] 23995 ALT [Catalytic activity/Vol] 20 U/L Normal 0-40 [facility] Comment on above: Performed By: #### 1 9122-9, 3040-3, CMP, 77123-3, CBCA #### [facility] ([id number]) [address] [place] [address] 03128 Anion gap [Moles/Vol] 9 mmol/L Normal 5-15 [facility] Comment on above: Performed By: #### 1 9122-9, 3040-3, CMP, 95595-2, CBCA #### [facility] ([id number]) [address] [place] [address] 84162 AST [Catalytic activity/Vol] 19 U/L Normal 0-41 [facility] Comment on above: Performed By: #### 1 9122-9, 3040-3, CMP, 68592-6, CBCA #### [facility] ([id number]) [address] [place] [address] 11722 Bilirubin [Mass/Vol] 0.9 mg/dL Normal 0.3-1.2 [facility] Comment on above: Performed By: #### 1 9122-9, 3040-3, CMP, 70632-5, CBCA #### [facility] ([id number]) [address] [place] [address] 71207 Calcium [Mass/Vol] 9.5 mg/dL Normal 8.5-10.5 [facility] Comment on above: Performed By: #### 1 91-9, 3040-3, CMP, 68453-9, CBCA #### [facility] ([id number]) [address] [place] [address] 14761 Chloride [Moles/Vol] 105 mmol/L Normal 98-109 [facility] Comment on above: Performed By: #### 1 9123-9, 3040-3, [facility], 10486-5, CBCA #### [facility] ([id number]) [address] [place] [address] 90091 CO2 [Moles/Vol] 23 mmol/L Normal 22-32 [facility] Comment on above: Performed By: #### 1 9122-9, 0-3, [facility], 26744-3, CBCA #### [facility] ([id number]) [address] [place] [address] 41402 Creatinine [Mass/Vol] 1.25 mg/dL High 0.70-1.20 [facility] Comment on above: Result Comment: METH OD TRACEABLE TO IDMS STANDARD Performed By: #### 1 9122-9, 0-3, [facility], 23226-4, CBCA #### [facility] ([id number]) [address] [place] [address] 20838 GFR/1.73 sq M.predicted among non-blacks MDRD (S/P/Bld) [Vol rate/Area] 63 mL/min/{1.73_m2} Normal >59 [facility] Comment on above: Result Comment: Reported eGFR is based on the CKD-EPI 2020 equation that does not use a race coefficient. Performed By: #### 1 91-9, 0-3, [facility], 97545-1, CBCA #### [facility] ([id number]) [address] [place] [address] 94017 Glucose [Mass/Vol] 118 mg/dL High 65-99 [facility] Comment on above: Performed By: #### 1 91-9, 3040-3, [facility], 93073-5, CBCA #### [facility] ([id number]) [address] [place] [address] 45307 Potassium [Moles/Vol] 4.2 mmol/L Normal 3.5-5.0 [facility] Comment on above: Performed By: #### 1 9123-9, 3040-3, CMP, 52596-0, CBCA #### [facility] ([id number]) [address] [place] [address] 46665 Protein [Mass/Vol] 7.3 g/dL Normal 6.0-8.0 [facility] Comment on above: Performed By: #### 1 9123-9, 3040-3, CMP, 00286-7, CBCA #### [facility] ([id number]) [address] [place] [address] 25015 Sodium [Moles/Vol] 137 mmol/L Normal 134-146 [facility] Comment on above: Performed By: #### 1 9123-9, 3040-3, CMP, 39523-2, CBCA #### [facility] ([id number]) [address] [place] [address] 82944 Urea nitrogen [Mass/Vol] 41 mg/dL High 5-27 [facility] Comment on above: Performed By: #### 1 9123-9, 3040-3, CMP, 47228-9, CBCA #### [facility] ([id number]) [address] [place] [address]A CHESTon 03-22-[address] CTA CHEST CLINICAL INFORMATION: Acute aortic syndrome (AAS) suspected; chest pain, smoker new afib COMPARISON: Chest radiograph obtained yesterday. PROCEDURE: Routine CT pulmonary angiogram obtained after the uncomplicated intravenous administration of contrast. 3-D maximum intensity projection coronal and sagittal reformatted images generated and reviewed. All CT scans at this facility use dose modulation, iterative reconstruction, and/or weight based dosing when appropriate to reduce radiation dose to as low as reasonably achievable. FINDINGS: Centrilobular emphysema with scarring. There are right lung pulmonary nodules measuring up to 4 mm, twelve-month follow-up CT could be performed, given patient's history of smoking CT lung screening could be helpful. No effusions. Abnormal appearance of the right kidney with possible collecting system dilatation, consider ultrasound. Severe atherosclerotic calcifications in the aorta without dissection or aneurysm. Severe coronary artery calcifications. 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 This is incompletely assessed. No definite acute pulmonary embolism, pulmonary arteries are of normal caliber. No lymphadenopathy. Calcified lymph nodes. Degenerative changes. IMPRESSION: * No evidence of acute aortic abnormality. * No visualized acute pulmonary embolism. * Emphysematous changes and pulmonary nodules as above. * Please see above for further details and additional follow-up recommendations. Finalized by Costa Arthur MD on 03/22/2024 11:33 AM Normal [facility] LIPASEon 03-22-2024 Lipase [Catalytic activity/Vol] 24 U/L Normal 17-40 [facility] Comment on above: Performed By: #### 1 9123-9, 3040-3, CMP, 24239-0, CBCA #### [facility] ([id number]) [address] [place] [address] 22046 MAGNESIUMon 03-22-2024 Magnesium [Mass/Vol] 1.9 mg/dL Normal 1.8-2.6 [facility] Comment on above: Performed By: #### 1 9123-9, 3040-3, CMP, 99236-0, CBCA ####[facility] ([id number])[address] [place] [address] 91931 SARS/FLU A+B/RSV by NAAT/Mol ecularon 03-22-2024 SARS/FLU A+B/RSV by NAAT/Molecular FLU A PCR Negative (qualifier value) FLU B PCR Negative (qualifier value) RSV by PCR Negative (qualifier value) SARS CoV 2 Not detected (qualifier value) NOTE The Xpert Xpress SARS-CoV-2/Flu/RSV Plus test is a rapid, multiplexed real-time RT-PCR test intended for the simultaneous qualitative detection and differentiation of SARS-CoV-2, influenza A, influenza B and respiratory syncytial virus (RSV) viral RNA from individuals suspected of respiratory viral infection consistent with COVID-19 by their healthcare provider. This test has not been validated in asymptomatic patients. The Xpert Xpress SARS-CoV-2 test is intended for use by qualified and trained operators who are performing tests using either [employer] or [email or web address] systems and is limited to laboratories that meet the CLIA requirements to perform high and moderate complexity tests. The Xpert Xpress SARS-CoV-2/Flu/RSV Plus is only for use under the Food and Drug Administration's Emergency Use Authorization. Results are for the simultaneous detection and differentiation of SARS-CoV-2, influenza A, influenza B and RSV nucleic acids in clinical specimens. SARS-CoV-2, influenza A, influenza B and RSV RNA identified by this test are generally detectable in upper respiratory samples during the acute phase of infection. Positive results are indicative of the presence of the identified virus, but do not rule out bacterial infection or co-infection with other pathogens not detected by this test. Clinical correlation with patient history and other diagnostic information is necessary to determine patient infection status. The agent detected may not be the definite cause of disease. Negative results do not preclude SARS-CoV-2, influenza A, influenza B and RSV infection and should not be used as the sole basis for treatment or other patient management decisions. Negative results must be combined with clinical observations, patient history and epidemiological information. An Invalid result may occur with specimen-associated inhibition unable to be resolved with specimen repeat. Fact Sheet for Healthcare Providers: https://www.fda.gov/medi a/741038/download Fact Sheet for Patients: https://www.fda.gov/medi a/351460/download Normal [facility] Comment on above: Performed By: #### C OVFLR ####[facility] ([id number])[address] [place] [address] 99102 Troponin I.cardiac High sens itivity method [Mass/Vol]on 03-22-2024 1 HOUR TROP I, HIGH SENSITIVITY 5 ng/L Normal <21 [facility] Comment on above: Performed By: #### 8 9579-7 ####[facility] ([id number])[address] [place] [address] 65518 TROPONIN I, HIGH SENSITIVITY 4 ng/L Normal <21 [facility] Comment on above: Performed By: #### 1 9123-9, 3040-3, CMP, 24477-6, CBCA ####[facility] ([id number])[address] [place] [address] 02031 BASIC METABOLIC PANLon 03-21 Anion gap [Moles/Vol] 8 mmol/L Normal 5-15 [facility] Comment on above: Performed By: #### [place], 75805-4, 86406-2, CBCA #### [facility] ([id number]) [address] [place] [address] 09470 Calcium [Mass/Vol] 9.1 mg/dL Normal 8.5-10.5 [facility] Comment on above: Performed By: #### [place], 65829-9, 74824-3, CBCA #### [facility] ([id number]) [address] [place] [address] 04647 Chloride [Moles/Vol] 104 mmol/L Normal 98-109 [facility] Comment on above: Performed By: #### [place], 17908-8, 17522-4, CBCA #### [facility] ([id number]) [address] [place] [address] 46314 CO2 [Moles/Vol] 24 mmol/L Normal 22-32 [facility] Comment on above: Performed By: #### [place], 93801-0, 24651-2, CBCA #### [facility] ([id number]) [address] [place] [address] 58592 Creatinine [Mass/Vol] 1.51 mg/dL High 0.70-1.20 [facility] Comment on above: Result Comment: METH OD TRACEABLE TO IDMS STANDARD Performed By: #### [place], 28705-7, 33563-9, CBCA #### [facility] ([id number]) [address] [place] [address] 55346 GFR/1.73 sq M.predicted among non-blacks MDRD (S/P/Bld) [Vol rate/Area] 50 mL/min/{1.73_m2} Low >59 [facility] Comment on above: Result Comment: Reported eGFR is based on the CKD-EPI 2020 equation that does not use a race coefficient. Performed By: #### B DENA, 95740-6, 79899-0, CBCA #### [facility] ([id number]) [address] [place] [address] 83919 Glucose [Mass/Vol] 110 mg/dL High 65-99 [facility] Comment on above: Performed By: #### Rose FERNANDES, 33931-5, 39420-5, CBCA #### [facility] ([id number]) [address] [place] [address] 09867 Potassium [Moles/Vol] 4.2 mmol/L Normal 3.5-5.0 [facility] Comment on above: Performed By: #### Rose FERNANDES, 53760-6, 50535-3, CBCA #### [facility] ([id number]) [address] [place] [address] 94278 Sodium [Moles/Vol] 136 mmol/L Normal 134-146 [facility] Comment on above: Performed By: #### Rose FERNANDES, 96727-9, 93030-5, CBCA #### [facility] ([id number]) [address] [place] [address] 24766 Urea nitrogen [Mass/Vol] 52 mg/dL High 5-27 [facility] Comment on above: Performed By: #### Rose FERNANDES, 46169-8, 43973-8, CBCA #### [facility] ([id number]) [address] [place] [address] 05127 CBC AND AUTO DIFFon 03-21-20 24 ABSOLUTE BASOPHIL 0.0 X10E9/L Normal 0.0-0.2 [facility] Comment on above: Performed By: #### B DENA, 67505-6, 12012-3, CBCA #### [facility] ([id number]) [address] [place] [address] 70833 ABSOLUTE NEUTROPHIL 5.5 X10E9/L Normal 1.5-6.6 [facility] Comment on above: Performed By: #### Rose FERNANDES, 29479-1, 31756-5, CBCA #### [facility] ([id number]) [address] [place] [address] 14842 Basophils/100 WBC (Bld) 0.3 % Normal [facility] Comment on above: Performed By: #### Rose FERNANDES, 03959-4, 40309-6, CBCA #### [facility] ([id number]) [address] [place] [address] 05226 Eosinophils (Bld) [#/Vol] 0.3 10*3/uL Normal 0.0-0.4 [facility] Comment on above: Performed By: #### Rose FERNANDES, 04185-5, 34374-8, CBCA #### [facility] ([id number]) [address] [place] [address] 63969 Eosinophils/100 WBC (Bld) 3.1 % Normal [facility] Comment on above: Performed By: #### B DENA, 60141-7, 90087-0, CBCA #### [facility] ([id number]) [address] [place] [address] 36532 Erythrocyte distribution width (RBC) [Ratio] 14.5 % Normal 11.5-15.0 [facility] Comment on above: Performed By: #### B DENA, 23610-6, 14254-4, CBCA #### [facility] ([id number]) [address] [place] [address] 12341 Hematocrit (Bld) [Volume fraction] 32.6 % Low 39-49 [facility] Comment on above: Performed By: #### B DENA, 07272-4, 32075-9, CBCA #### [facility] ([id number]) [address] [place] [address] 63117 Hemoglobin (Bld) [Mass/Vol] 11.1 g/dL Low 13.0-17.0 [facility] Comment on above: Performed By: #### Rose FERNANDES, 44891-1, 67908-4, CBCA #### [facility] ([id number]) [address] [place] [address] 57147 Lymphocytes (Bld) [#/Vol] 1.6 10*3/uL Normal 1.0-3.5 [facility] Comment on above: Performed By: #### Rose FERNANDES, 08393-1, 76923-0, CBCA #### [facility] ([id number]) [address] [place] [address] 36056 Lymphocytes/100 WBC (Bld) 19.1 % Normal [facility] Comment on above: Performed By: #### Rose FERNANDES, 95385-1, 58944-3, CBCA #### [facility] ([id number]) [address] [place] [address] 72373 MCH (RBC) [Entitic mass] 29.7 pg Normal 27-34 [facility] Comment on above: Performed By: #### B DENA, 59846-3, 86191-3, CBCA #### [facility] ([id number]) [address] [place] [address] 51573 MCHC (RBC) [Mass/Vol] 34.2 g/dL Normal 32-36 [facility] Comment on above: Performed By: #### Rose FERNANDES, 04324-5, 91882-8, CBCA #### [facility] ([id number]) [address] [place] [address], [place] [address] MCV (RBC) [Entitic vol] 87 fL Normal 80-100 [facility] Comment on above: Performed By: #### Rose FERNANDES, 78885-3, 25786-8, CBCA #### [facility] ([id number]) [address] [place] [address] 68378 Monocytes (Bld) [#/Vol] 1.1 10*3/uL High 0-0.9 [facility] Comment on above: Performed By: #### Rose FERNANDES, 62664-3, 55975-5, CBCA #### [facility] ([id number]) [address] [place] [address] 76633 Monocytes/100 WBC (Bld) 13.1 % Normal [facility] Comment on above: Performed By: #### Rose FERNANDES, 80757-5, 72826-5, CBCA #### [facility] ([id number]) [address] [place] [address] 65801 Neutrophils/100 WBC (Bld) 64.4 % Normal [facility] Comment on above: Performed By: #### Rose FERNANDES, 03585-5, 80325-4, CBCA #### [facility] ([id number]) [address] [place] [address] 54922 Platelet mean volume (Bld) [Entitic vol] 9.4 fL Normal 7-12 [facility] Comment on above: Performed By: #### Rose FERNANDES, 81263-5, 16011-5, CBCA #### [facility] ([id number]) [address] [place] [address] 23386 Platelets (Bld) [#/Vol] 140 10*3/uL Low 150-450 [facility] Comment on above: Performed By: #### Rose FERNANDES, 34360-4, 44557-3, CBCA #### [facility] ([id number]) [address] [place] [address] 46670 RBC COUNT 3.75 X10E12/L Low 4.10-5.70 [facility] Comment on above: Performed By: #### B DENA, 29967-4, 28010-9, CBCA #### [facility] ([id number]) [address] [place] [address] 75882 WBC (Bld) [#/Vol] 8.6 10*3/uL Normal 4.0-11.0 [facility] Comment on above: Performed By: #### B DENA, 83981-5, 43854-0, CBCA #### [facility] ([id number]) [address] [place] [address] 50178 Fibrin D-dimer DDU (PPP) [Ma ss/Vol]on 03-21-2024 D DIMER 187 ng/mL DDU Normal <255 [facility] Comment on above: Result Comment: Results <255 ng/mL DDU: The presence of a VTE can safely be excluded with a negative D-Dimer result and Wells score. A negative result doesn't exclude the possibility of DIC. The test be repeated along with other diagnostic tests if the patient's symptoms persist or worsen. [email or web address] Performed By: #### B DENA, 97374-0, 38060-6, CBCA #### [facility] ([id number]) [address] [place] [address] 52823 Troponin I.cardiac High sens itivity method [Mass/Vol]on 03-21-2024 1 HOUR TROP I, HIGH SENSITIVITY 4 ng/L Normal <21 [facility] Comment on above: Performed By: #### 8 9579-7 #### [facility] ([id number]) [address] [place] [address] 42327 TROPONIN I, HIGH SENSITIVITY 5 ng/L Normal <21 [facility] Comment on above: Performed By: #### B , 71104-3, 33162-5, CBCA #### [facility] ([id number]) [address] [place] [address], [place] [address] XR CHEST 1 VWon 03-21-2024 XR CHEST 1 VW XR CHEST 1 VW XR CHEST 1 VW HISTORY: Chest pain COMPARISON: None FINDINGS: Patient is rotated to the left. Perceived dextroconvex thoracic curvature possibly secondary to positioning. Multilevel thoracic spinal degenerative change. No pleural effusion, pneumothorax, or focal consolidative process. Cardiomediastinal silhouette appears nonenlarged. IMPRESSION: * No evidence for acute pulmonary process. Approved by Resident: Micheal Valladares MD on 03/21/2024 8:19 PM I, Andrea Thapa MD have personally reviewed the image(s) and agree with and/or edited the report Finalized by Andrea Thapa MD on 03/21/2024 8:51 PM Normal [facility] CT LUNG SCREENING LOW DOSEon 12-06-2023 CT LUNG SCREENING LOW DOSE This is a summary report. The complete report is available in the patient's medical record. If you cannot access the medical record, please contact the sending organization for a detailed fax or copy. LOW DOSE CT IMAGING OF THE CHEST WITHOUT INTRAVENOUS CONTRAST MEDIUM. HISTORY: Tobacco use. TECHNICAL FACTORS: Without IV contrast axial helical 1.25mm slice thickness low dose images of the chest performed for lung cancer screening. FINDINGS: No suspicious lung nodule, mass, or consolidation. No pleural or pericardial effusion. 2 mm calcified granuloma right lower lobe superior segment. Severe centrilobular emphysema. No pleural plaques. No significant mediastinal or hilar lymphadenopathy. Densely calcified 8 mm subcarinal lymph node. IMPRESSION: Lung Rads: LUNGRADS 2 - Benign Several mm calcified granulomas right lower lobe, left upper lobe. Follow-up Recommendation: LDCT 1 Year Lung Rads categories Category 0: Incomplete Additional Imaging Categories 1 & 2: Negative/Benign Continue annual screening Category 3: Probable benign 6 month f/u CT Chest wo Category 3s: Clinically significant or potentially clinically significant findings Category 4A/B Suspicious 4A: [address] Chest wo; PET/CT when > 8mm solid nodule component exists 4B: Chest w/ contrast; PET/CT and/or biopsy All CT scans at this facility use dose modulation, iterative reconstruction, and/or weight based dosing when appropriate to reduce radiation dose to as low as reasonably achievable. TRANSCRIBED BY: ELECTRONICALLY SIGNED BY: David Bowen MD Normal Not Available [facility] US ABDOMINAL AORTA ANUE RYSM AAA SCREENINGon 12-06-2023 VAS US ABDOMINAL AORTA ANUERYSM AAA SCREENING FINDINGS: Proximal Aorta 1.4 x 2.8 cm Mid Aorta 1.8 x 2.3 cm Distal Aorta 1.9 x 2.5 cm Right Common Iliac 12 x 13 mm Left Common Iliac 10 x 13 mm No aneurysmal dilatation is identified. No neighboring fluid collections are seen. IMPRESSION: No significant aneurysmal formation. TRANSCRIBED BY: ELECTRONICALLY SIGNED BY: David Bowen MD Normal Not Available [facility] US CAROTID ARTERY DUPLE X BILATERALon 12-06-2023 [facility] US CAROTID ARTERY DUPLEX BILATERAL FINDINGS: Right (% stenosis) Left (% stenosis) 103 normal ICA Peak Systolic Velocity (cm/sec) 0.8 ICA/CCA Systolic Ratio Left (% stenosis) 101 normal ICA Peak Systolic Velocity (cm/sec) 0.9 ICA/CCA Systolic Ratio BILATERAL CAROTID SYSTEMS: Diffuse heterogeneous, soft echogenic plaque throughout both common carotid bulb and proximal internal and external carotid arteries. intimal thickening and plaque formation is present No significant stenosis is present based on visual inspection or velocity and ratio values. Both vertebral arteries have normal cephalad-directed flow. IMPRESSION: Estimated range of stenosis*: Mild, not hemodynamically significant. *COMMENT: These estimates represent a median value within a 95% confidence interval range. They represent percent diameter ICA stenosis derived from regression curve analysis using the NASCET method and Doppler ultrasound velocities. Please note with high-grade stenosis (greater than 95%), an actual reduction in velocity will occur. Reference: David Barrera. carotid ultrasound, in RAD CLIN NA, 39 (3), Oct, 2000. TRANSCRIBED BY: ELECTRONICALLY SIGNED BY: David Bowen MD Normal Not Available Prostate specific Ag [Mass/V ol]on 07-04-2023 PROSTATIC SPEC ANT 3.72 ng/mL Normal 0.00-4.00 [facility] Comment on above: Result Comment: The method used for this test is [employer] DXI chemiluminescent immunoassay. Values obtained by different assay methods cannot be used interchangeably. Performed By: #### 2 [id number] #### [facility] ([id number]) [address], [address] [place] [address] Brent 06-02-2021 L ---- Specimen: [id number] Received: 06/02/21 Status: ELI Lindquist Num: [id number] Spec Type: Surgical Subm Dr: Sushil Valentine MD Tissues: A Duodenum - Biopsy (DUODENAL) B Stomach - Biopsy/Polyp (ANTRUM) C Colon Biopsy (COLITIS BX) Procedures: HE Stain/6, Gross/Micro L4/3 Patient Age/Sex Location Account Attending Physician Efraín Lopez/Chavez [id number] Sushil Valentine MD SPEC NUM: [id number] RECD: 06/02/21 STATUS: ELI LINDQUIST NUM: [id number] JABIER: 06/02/21- DR: Sushil Valentine MD ENTERED: 06/02/21 [facility] DR: SPEC TYPE: Surgical DEPT: S ORDERED: [...] with the patient's name, number and Specimen: [id number] Received: 06/02/21 Status: ELI Lindquist Num: [id number] Spec Type: Surgical Subm Dr: Sushil Valentine MD Tissues: A Duodenum - Biopsy (DUODENAL) B Stomach - Biopsy/Polyp (ANTRUM) C Colon Biopsy (COLITIS BX) Procedures: HE Stain/6, Gross/Micro L4/3 Patient: JessicaEfraín Jensen [id number] (Continued) Specimen: [id number] Received: 06/02/21 (Continued) Gross Description (Continued) Signed (signature on file) Marcia Knight MD 06/03/21 1726 Specimen: [id number] Received: 06/02/21 Status: ELI Lindquist Num: [id number] Spec Type: Surgical Subm Dr: Sushil Valentine MD Tissues: A Duodenum - Biopsy (DUODENAL) B Stomach - Biopsy/Polyp (ANTRUM) C Colon Biopsy (COLITIS BX) Procedures: HE Stain/6, Gross/Micro L4/3 Patient: Efraín Lopez [id number] (Continued) Specimen: [id number] Received: 06/02/21 (Continued) Gross Description (Continued) antrum rule out H. pylori is a 0.3 cm go tissue fragment. Entirely submitted in one cassette labeled B1. (/) C. Received in 10% neutral buffered formalin labeled with the patient's name, number and biopsies rule out microscopic colitis are 2 go tissue fragments, 0.1 cm and 0.2 cm. Entirely submitted in one cassette labeled C1. (/JS) Microscopic Description A. Two glass slides with [...] microscopic findings support the above pathologic diagnosis. 24156, 89134 The use of one or more reagents in the above tests is regulated as an analyte specific reagent (ASR). The performance characteristics were determined by the Laboratory of [facility]. Immunohistochemistry assays have not been validated on decalcified tissue. Results should be interpreted with caution given the possibility of false negative results on decalcified specimens. They have not been cleared by the [place] Food and Drug Administration. The FDA has determined that such (more content not included)... Normal [facility] Ammoniaon 05-31-2021 Ammonia (P) [Mass/Vol] ug/dL Low 11-35 [facility] Comment on above: Result Comment: PERF ORMED BY: [facility] [place] [address] PATHOLOGIST MUCK FARMER MARCIA KNIGHT M.D. Performed By: #### A MM, PT, CMP, CBC #### [facility] [address] [id number] [facility] COVID-19 FRon 05-31-2021 SARS-CoV-2 (COVID-19) RNA JESSE+probe Ql (Unsp spec) Negative Normal Negative [facility] Comment on above: Order Comment: Healt hcare Worker?: N Result Comment: Testing for SARS-CoV-2 by RT-PCR This test was developed and its performance characteristics determined by [employer]) and validated at the [facility]. This test has not been FDA [...] is terminated or revoked sooner. PERFORMED BY: [place] [address] PATHOLOGIST MUCK FARMER MARCIA KNIGHT M.D. Performed By: #### C OVID 19 [facility] [place] #### [place] [id number] [facility] Complete Blood Count Auto Di ffon 05-31-2021 Basophils (Bld) [#/Vol] 0.0 10*3/uL Normal 0.0-0.2 [facility] Comment on above: Result Comment: PERF ORMED BY: [place] [address] PATHOLOGIST MUCK FARMER MARCIA KNIGHT M.D. Performed By: #### A MM, PT, CMP, CBC #### [facility] [address] [place] [address] [place] Basophils/100 WBC (Bld) 0.4 % Normal . [facility] Comment on above: Performed By: #### A MM, PT, CMP, CBC #### [facility] [address] Eosinophils (Bld) [#/Vol] 0.1 10*3/uL Normal 0.0-0.45 [facility] Comment on above: Performed By: #### A MM, PT, CMP, CBC #### [place] [address] [place] Eosinophils/100 WBC (Bld) 1.1 % Normal . [facility] Comment on above: Performed By: #### A MM, PT, CMP, CBC #### [address] Erythrocyte distribution width (RBC) [Ratio] 14.3 % Normal 12.0-14.8 [facility] Comment on above: Performed By: #### A MM, PT, CMP, CBC #### [address] Hematocrit (Bld) [Volume fraction] 42.5 % Normal 38.8-50.0 [facility] Comment on above: Performed By: #### A MM, PT, CMP, CBC #### [place] [address] [place] Hemoglobin (Bld) [Mass/Vol] 14.1 g/dL Normal 13.0-17.0 [facility] Comment on above: Performed By: #### A MM, PT, CMP, CBC #### [facility] [address] [place] [address] [place] Lymphocytes (Bld) [#/Vol] 1.4 10*3/uL Normal 1.00-4.8 [facility] Comment on above: Performed By: #### A MM, PT, CMP, CBC #### [place] [address] [place] Lymphocytes/100 WBC (Bld) 17.3 % Normal . [facility] Comment on above: Performed By: #### A MM, PT, CMP, CBC #### [address] MCH (RBC) [Entitic mass] 29.6 pg Normal 27.5-35.2 [facility] Comment on above: Performed By: #### A MM, PT, CMP, CBC #### [address] MCV (RBC) [Entitic vol] 89.1 fL Normal 83.5-101 [facility] Comment on above: Performed By: #### A MM, PT, CMP, CBC #### [address] Mean Corpuscular HGB Conc 33.2 g/dL Normal 32.5-35.6 [facility] Comment on above: Performed By: #### A MM, PT, CMP, CBC #### [address] Monocytes (Bld) [#/Vol] 0.7 10*3/uL Normal 0.0-0.8 [facility] Comment on above: Performed By: #### A MM, PT, CMP, CBC #### [address] Monocytes/100 WBC (Bld) 9.2 % Normal . [facility] Comment on above: Performed By: #### A MM, PT, CMP, CBC #### [address] Neutrophils (Bld) [#/Vol] 5.8 10*3/uL Normal 1.8-7.7 [facility] Comment on above: Performed By: #### A MM, PT, CMP, CBC #### [address] Neutrophils/100 WBC (Bld) 72.0 % Normal . [facility] Comment on above: Performed By: #### A MM, PT, CMP, CBC #### [address] Nucleated RBC/100 WBC (Bld) [Ratio] 0.0 % Normal 0-0.5 [facility] Comment on above: Performed By: #### A MM, PT, CMP, CBC #### [address] Platelet mean volume (Bld) [Entitic vol] 7.8 fL Normal 6.6-10.1 [facility] Comment on above: Performed By: #### A MM, PT, CMP, CBC #### [address] Platelets (Bld) [#/Vol] 194 10*3/uL Normal 150-450 [facility] Comment on above: Performed By: #### A MM, PT, CMP, CBC #### [address] RBC (Bld) [#/Vol] 4.77 10*6/uL Normal 3.90-5.60 [facility] Comment on above: Performed By: #### A MM, PT, CMP, CBC #### [address] WBC (Bld) [#/Vol] 8.0 10*3/uL Normal 4.5-11.0 [facility] Comment on above: Performed By: #### A MM, PT, CMP, CBC #### [address] Comprehensive Metabolic Pane brent 05-31-2021 Albumin [Mass/Vol] 4.1 g/dL Normal 3.2-5.5 [facility] Comment on above: Performed By: #### A MM, PT, CMP, CBC #### [address] Albumin/Globulin [Mass ratio] 1.5 {ratio} Normal [facility] Comment on above: Performed By: #### A MM, PT, CMP, CBC #### [address] ALP [Catalytic activity/Vol] 70 U/L Normal 32-92 [facility] Comment on above: Result Comment: PERF ORMED BY: [place] [address] PATHOLOGIST MUCK FARMER MARCIA KNIGHT M.D. Performed By: #### A MM, PT, CMP, CBC #### [facility] [address] [place] [address] [place] ALT [Catalytic activity/Vol] 22 U/L Normal 10-60 [facility] Comment on above: Performed By: #### A MM, PT, CMP, CBC #### [facility] [address] AST [Catalytic activity/Vol] 20 U/L Normal 10-42 [facility] Comment on above: Performed By: #### A MM, PT, CMP, CBC #### [facility] [address] [place] [address] Bilirubin [Mass/Vol] 0.9 mg/dL Normal 0.3-1.2 [facility] Comment on above: Performed By: #### A MM, PT, CMP, CBC #### [facility] [address] [place] [address] [place] Calcium [Mass/Vol] 9.5 mg/dL Normal 8.2-10.2 [facility] Comment on above: Performed By: #### A MM, PT, CMP, CBC #### [facility] [address] [place] [address] [place] Chloride [Moles/Vol] 102 mmol/L Normal 95-114 [facility] Comment on above: Performed By: #### A MM, PT, CMP, CBC #### [facility] [address] [place] [address] [place] CO2 [Moles/Vol] 23.2 mmol/L Normal 22.0-30.0 [facility] Comment on above: Performed By: #### A MM, PT, CMP, CBC #### [facility] [address] [place] [address] [place] Creatinine [Mass/Vol] 0.91 mg/dL Normal 0.64-1.27 [facility] Comment on above: Performed By: #### A MM, PT, CMP, CBC #### [facility] [address] Estimated GFR ( Corinne > 60 Normal [facility] Comment on above: Result Comment: GFR estimated reference range: According to KDOQI guidelines, <60 ml/min/1.73m2 is sufficient to diagnose a patient with chronic kidney disease. Performed By: #### A MM, PT, CMP, CBC #### [address] Estimated GFR (Non- Am > 60 Normal [facility] Comment on above: Performed By: #### A MM, PT, CMP, CBC #### [address] Globulin (S) [Mass/Vol] 2.8 g/dL Normal [facility] Comment on above: Performed By: #### A MM, PT, CMP, CBC #### [address] Glucose [Mass/Vol] 101 mg/dL High 70-100 [facility] Comment on above: Result Comment: [place] Glucose Reference Range is dependent on time and content of last meal. Glucose of more than 200 mg/dL in a nonstressed, ambulatory subject supports the diagnosis of Diabetes Mellitus. ADA recommended reference range Performed By: #### A MM, PT, CMP, CBC #### [address] Potassium [Moles/Vol] 4.2 mmol/L Normal 3.5-5.1 [facility] Comment on above: Performed By: #### A MM, PT, CMP, CBC #### [address] Protein [Mass/Vol] 6.9 g/dL Normal 6.1-7.9 [facility] Comment on above: Performed By: #### A MM, PT, CMP, CBC #### [address] Sodium [Moles/Vol] 136 mmol/L Normal 136-146 [facility] Comment on above: Performed By: #### A MM, PT, CMP, CBC #### [facility] [address] [place] [address] Urea nitrogen [Mass/Vol] 15 mg/dL Normal 9-23 [facility] Comment on above: Performed By: #### A MM, PT, CMP, CBC #### [facility] [address] [place] [address] Prothrombin Time INRon 05-31 INR Coag (PPP) [Relative time] 1.0 {INR} Normal [facility] Comment on above: Result Comment: INR [...] heart valves: 3 - 4.5 PERFORMED BY: [place] [address] PATHOLOGIST MUCK FARMER MARCIA KNIGHT M.D. Performed By: #### A MM, PT, CMP, CBC #### [address] PT Coag (PPP) [Time] 10.8 s Normal 9.0-12.9 [facility] Comment on above: Performed By: #### A MM, PT, CMP, CBC #### [address] US liveron 05-31-2021 US liver [facility] [place] [address] Ultrasound Report Signed Patient: Efraín Lopez MR#: [id number] : 1955 Acct:[id number] Age/Sex: 65 / M ADM Date: 05/31/21 Loc: Room: Type: [facility] CLI Attending Dr: Sushil Valentine MD Ordering Provider: [...] Marilee Ramirez M.D.05/31/2021 2:24 PM Dictation Location: [place] [address] Tech: Sophie El Transcribed By: MARCUS 05/31/21 1424 Dictated By: Marilee Ramirez MD 05/31/21 142 Signed By: 05/31/21 1424 [facility] Vital Signs Date Time Vital Sign Value Performing Clinician Facility 04-15-2024 14:35-0400 Body height 182.9 cm Luanne Gordon MD Work Phone: [facility] 04-15-2024 14:35-0400 Body mass index (BMI) [Ratio] 20.07 kg/m2 Luanne Gordon MD Work Phone: [facility] 04-15-2024 14:35-0400 Body weight 67.13 kg Luanne Gordon MD Work Phone: [facility] 04-15-2024 14:35-0400 Diastolic blood pressure 74 mm[Hg] Luanne Gordon MD Work Phone: [facility] 04-15-2024 14:35-0400 Heart rate 102 /min Luanne Gordon MD Work Phone: [facility] 04-15-2024 14:35-0400 Systolic blood pressure 120 mm[Hg] Luanne Gordon MD Work Phone: [employer] 12-28-2021 12:00-0400 Body height 182.88 cm Sushil Serge Other [employer] Other 12-28-2021 12:00-0400 Body mass index (BMI) [Ratio] 20.34 kg/m2 Sushil Serge Other [employer] Other 12-28-2021 12:00-0400 Body weight 68.04 kg Sushil Serge Other [employer] Other 12-28-2021 12:00-0400 Diastolic blood pressure 71 mm[Hg] Sushil Valentine Other [employer] Other 12-28-2021 12:00-0400 Systolic blood pressure 133 mm[Hg] Sushil Serge Other [employer] Other 09-27-2021 16:00-0400 Body height 182.88 cm Sushil Serge Other [employer] Other 09-27-2021 16:00-0400 Body mass index (BMI) [Ratio] 20.34 kg/m2 Sushil Serge Other [employer] Other 09-27-2021 16:00-0400 Body weight 68.04 kg Sushil Valentine Other [employer] Other 09-27-2021 16:00-0400 Diastolic blood pressure 91 mm[Hg] Sushil Valentine Other [employer] Other 04-05-2022 16:00-0400 Respiratory rate 18 /min Sushil Valentine Other [employer] Other 09-27-2021 16:00-0400 SaO2% (BldA) [Mass fraction] 96 % Sushil Valentine Other [employer] Other 09-27-2021 16:00-0400 Systolic blood pressure 158 mm[Hg] Sushil Valentine Other [employer] Other 05-16-2021 10:30-0500 Body weight 69.4 kg Sushil Valentine Other [employer] Other Encounters Encounter Date Encounter Type Care Provider Facility Start: 04-23-2024 End: 04-23-2024 Chart abstracting Arnoldo Sorenson MD Work Phone: [facility] Start: 04-22-2024 End: 04-22-2024 ambulatory SHONA ELLIOTT [facility] Start: 04-15-2024 End: 04-15-2024 Office outpatient visit 25 minutes Luanne Gordon MD Work Phone: [facility] Comment on above: Elevated PSA (Primar y Dx); Urinary retention Start: 04-14-2024 End: 04-14-2024 Bamboo flowsheet Carli Stewart EQUIP TECH Work Phone: [facility] Start: 04-14-2024 End: 04-14-2024 Bamboo flowsheet Carli Stewart EQUIP TECH Work Phone: [facility] Start: 04-14-2024 End: 04-14-2024 ambulatory CARLI STEWART Not Available Start: 04-12-2024 End: 04-12-2024 ambulatory SERA MCDOWELL [facility] Start: 04-11-2024 End: 04-11-2024 Telephone encounter Rhiannon Mansfield LPN [facility] Start: 03-31-2024 End: 03-31-2024 Telephone encounter Shona Elliott MD Work Phone: [facility] Start: 03-24-2024 End: 03-24-2024 ambulatory CARLI STEWART Not Available Start: 03-22-2024 End: 03-23-2024 ambulatory SHONA ELLIOTT [facility] Start: 03-21-2024 End: 03-21-2024 [facility] Start: 02-11-2024 End: 02-11-2024 ambulatory ANGELES PUMP Not Available Start: 01-10-2024 End: 01-10-2024 ambulatory ANGELES PUMP Not Available Start: 12-06-2023 End: 12-06-2023 ambulatory ANGELES PUMP Not Available Start: 11-21-2023 End: 11-21-2023 ambulatory ANGELES PUMP Not Available Start: 09-26-2023 Refill Sera SHEARER Work Phone: [facility] Start: 07-09-2023 End: 07-10-2023 ambulatory Bangus Shandaytsolitario Gonzales MD Facility: [facility] Start: 07-04-2023 End: 07-04-2023 ambulatory SERA MCDOWELL [facility] Start: 05-28-2023 End: 05-29-2023 ambulatory Bangus Shandaytautas Christian TAPIA Facility: [facility] Start: 04-09-2023 End: 04-10-2023 ambulatory Andlanecus Shandaytautas Jhonnyitis Facility:[facility] Start: 11-10-2022 ambulatory ANDRIUS GIEDRAITIS Jay lity:[facility] Start: 07-27-2022 End: 07-28-2022 ambulatory JESÚS SIMON Facility:[facility] Start: 06-27-2022 End: 06-27-2022 ambulatory JESÚS SIMON Facility:[facility] Start: 05-25-2022 End: 05-26-2022 ambulatory CYRIL Otero Facility:[facility] Start: 02-23-2022 End: 02-24-2022 ambulatory CYRIL EDWARDS . Facility:[facility] Start: 12-28-2021 End: 12-28-2021 ambulatory Sushil Valentine Other [employer] Other Start: 12-28-2021 Office outpatient visit 15 minutes Sushil Valentine [facility] Start: 11-15-2021 End: 11-16-2021 ambulatory CYRIL EDWARDS . Facility:[facility] Start: 09-27-2021 End: 09-27-2021 ambulatory Sushil Valentine Other [employer] Other Start: 09-27-2021 Office outpatient visit 15 minutes Sushil Serge [facility] Start: 05-16-2021 End: 05-16-2021 ambulatory Sushil Valentine Other [employer] Other Start: 05-16-2021 Office outpatient ne w 45 minutes Sushil Valentine [facility] G[facility] Procedures Date Procedure Procedure Detail Performing Clinician Start: 03-10-2023 Adult depression scr eening assessment Sera SHEARER Work Phone: Start: 05-31-2017 Colonoscopy Shona del real MD Work Phone: Plan of Treatment Date Care Activity Detail Author Start: 05-31-2027 Screening for malignant neoplasm of colon [facility] Start: 04-15-2025 Adult BMI Screening Adult BMI Screening [facility] Start: 04-15-2025 Tobacco Screening Tobacco Screening [facility] Start: 03-22-2025 Adult BMI Screening Adult BMI Screening [facility] Start: 03-22-2025 Tobacco Screening Tobacco Screening [facility] Start: 02-14-2025 Screening for malignant neoplasm of colon [facility]OB[facility] Start: 01-09-2025 Medicare Annual Wellness (AWV) Medicare Annual Wellness (AWV) [facility] Start: 06-10-2024 End: 06-10-2024 Patient encounter procedure 06/10/2024 1:45 PM EST Office Visit [facility] [address] [address] Luanne Gordon MD [address] [place] [address] [facility] Start: 05-16-2024 End: 04-15-2025 Prostatic specific antigen, diagnostic Prostatic specific antigen, diagnostic Lab Routine Elevated PSA Expected: 05/16/2024 (Approximate), Expires: 04/15/2025 [facility] Work Phone: Comment on above: Expected: 05/16/2024 (Approximate), Expi res: 04/15/2025 Start: 05-01-2024 End: 05-01-2024 Patient encounter procedure 05/01/2024 9:45 AM EST Office Visit [facility] [address] [place] [address] Farrukh Phelan MD [address] [place] [address] Arnoldo Sorenson MD [address] [place] [address] [facility] Start: 04-22-2024 End: 04-22-2024 Patient encounter procedure 04/22/2024 8:30 AM EDT Appointment [facility] [address] [place] [id number] Rob Sharma, HOG WORKER-NETWORK AND THREAT SUPPORT SPECIALIST [address] [place] [address] [facility] Start: 04-18-2024 Adult BMI Screening Adult BMI Screening [facility] Start: 04-18-2024 Tobacco Screening Tobacco Screening [facility] Start: 04-15-2024 End: 04-15-2024 Patient encounter procedure 04/15/2024 2:45 PM EDT [facility] [address] [place] [address] [place] [address] Luanne Gordon MD [facility] [place] [address] [facility] Start: 04-14-2024 End: 04-14-2024 Patient encounter procedure [facility] Comment on above: Atrial flutter, unspecified type (CMS/HC C) (Primary Dx); Primary hypertension (CMS/HCC); Coronary artery calcification (CMS/HCC); Stage 3a chronic kidney disease (HCC) (CMS/HCC); Mixed hyperlipidemia (CMS/HCC); RBBB (right bundle branch block); Pulmonary nodule, right; Cigarette smoker; Abnormal complete blood count; Bilateral carotid artery stenosis; Hyperglycemia Start: 03-10-2024 Depression Screening [facility] Start: 02-24-2024 COVID-19 Vaccine ( season) COVID-19 Vaccine ( season) [facility] Start: 02-24-2024 COVID-19 Vaccine ( season) COVID-19 Vaccine ( season) [facility] Start: 02-24-2024 Influenza vaccination [facility] Start: 04-22-2023 Administration of varicella zoster vaccine Zoster (Shingles) Vaccine (2 of 2) [facility] Start: 02-23-2023 COVID-19 Vaccine ( season) COVID-19 Vaccine ( season) [facility] Start: 2021 Abdominal aortic aneurysm screening Abdominal Aortic Aneurysm (AAA) Screen [facility] Start: 2021 Fall Risk Screening Fall Risk Screening [facility] [employer] s tem Start: 12-15-1975 DTaP,Tdap and Td Vaccines (1 - Tdap) DTaP,Tdap and Td Vaccines (1 - Tdap) [facility] Start: 1955 Medicare Annual Wellness Visit Medicare Annual Wellness Visit [facility] Start: 1955 Screening for malignant neoplasm of colon [facility] Start: 1955 Tobacco Counseling Tobacco Counseling [facility] tem Immunizations Immunization Date Immunization Notes Care Provider Emre marte 01-10-2024 Pneumococcal Conjuga te PCV 20 Shona Elliott MD Work Phone: [facility] 02-25-2023 Influenza, Seasonal, Quadrivalent, Adjuvanted Shona Elliott MD Work Phone: [facility] 02-25-2023 zoster vaccine recombinant Shona Elliott MD Work Phone: [facility] 02-25-2023 influenza virus vaccine, unspecified formulation Sera SHEARER Work Phone: [facility] 02-25-2023 zoster vaccine, unspecified formulation Sera SHEARER Work Phone: [facility] 04-23-2022 Influenza, Seasonal, Quadrivalent, Adjuvanted Shona Elliott MD Work Phone: [facility] 04-28-2021 influenza, injectabl e, quadrivalent, preservative free Shona Elliott MD Work Phone: [facility] 10-12-2020 Pfizer Purple Cap SARS-CoV-2 Vaccination Shona Elliott MD Work Phone: [facility] 09-20-2020 Pfizer Purple Cap SARS-CoV-2 Vaccination Shona Elliott MD Work Phone: [facility] 05-05-2020 influenza, injectabl e, quadrivalent, preservative free Shona Elliott MD Work Phone: [facility] Payers Date Payer Category Payer Medicare 2021 Medicare (Managed Care) [employer] [id number] 2021 Medicare HMO [employer] M [employer] ADVANTAGE [id number] 2021 Unknown [id number] [id number]. [id number] 2020 Unknown [id number] 2.16.840.1.045906.19 2020 Unknown [id number] 1959 Blue Cross Blue Shield [id number] 2.16.840.1.838768.19 1955 Unknown [id number] 2.16.840.1.296441.3.579. 2.593 1956 Unknown [id number] 2.16.840.1.268666.3.579. 2.593 1956 Unknown [id number] 2.16.840.1.207068.3.579. 2.593 1956 Unknown [id number] 2.16.840.1.732826.3.579. 2.593 1956 Unknown [id number] 2.16.840.1.145762.3.579. 2.593 1956 Unknown [id number] 2.16.840.1.408030.3.579. 2.593 1956 Unknown [id number] 2.16.840.1.418840.3.579. 2.196 1956 Unknown [id number] 2.16.840.1.574515.3.579. 2.196 1956 Unknown [id number] 2.16.840.1.694661.3.579. 2.196 1956 Unknown [id number] 2.16.840.1.806278.3.579. 2.1258 1956 Unknown [id number] 2.16.840.1.343407.3.579. 2.1258 1956 Unknown [id number] 2.16.840.1.029582.3.579. 2.1258 1956 Unknown [id number] 2.16.840.1.915924.3.579. 2.1258 1956 Unknown [id number] 2.16840.1.981615.3.579. 2.1258 1956 Unknown [id number] 2.16840.1.226178.3.579. 2.1258 1956 Unknown [id number] 2.16840.1.980488.3.579. 2.1258 1956 Unknown [id number] 2.16840.1.824806.3.579. 2.1258 1956 Unknown [id number] 2.16840.1.462843.3.579. 2.128 1956 Unknown [id number] 2.16840.1.480570.3.579. 2.1285 1956 Unknown [id number] 2.16840.1.378122.3.579. 2.1285 1956 Unknown [id number] 2.16840.1.214257.3.579. 2.1285 1956 Unknown [id number] 2.16840.1.399710.3.579. 2.1285 1956 Unknown [id number] 2.16.840.1.829830.3.579. 2.1286 Social History Date Type Detail Facility Start: 03-10-2023 End: 04-15-2024 Sex Assigned At [facility] Start: 06-25-1979 End: 03-22-2024 Tobacco smoking status NHIS Smokes tobacco daily [facility] Start: 06-25-1974 History of tobacco use Cigarette Smo ker [facility] Start: 02-14-2023 End: 03-10-2023 Cigarettes smoked current (pack per day) - Reported 1 [facility] Start: 02-14-2023 End: 03-22-2024 Tobacco use and exposure Smokeless tobacco non-user [facility] Start: 04-18-2023 End: 04-15-2024 Alcohol intake Ex-drinker (finding) [facility] Do you belong to any clubs or organizations such as adventist groups, unions, fraternal or athletic groups, or school groups? Yes [facility] Are you now , , , , never or living with a partner? [facility] How often to you hav e a drink containing alcohol? 4 or more times a week [facility] How many standard dr inks containing alcohol do you have on a typical day? 3 or 4 [facility] How often do you hav e 6 or more drinks on 1 occasion? Never [facility] How hard is it for y ou to pay for the very basics like food, housing, medical care, and heating Not hard at all [facility] Do you feel stress - tense, restless, nervous, or anxious, or unable to sleep at night because your mind is troubled all the time - these days [OSQ] Not at all [facility] Start: 1955 Sex Assigned At Not on file [facility] History of tobacco use Passive smoker [facility] Within the last year , have you been afraid of your partner or ex-partner? No [facility] How often to you hav e a drink containing alcohol? Monthly or less [facility] How many standard dr inks containing alcohol do you have on a typical day? 1 or 2 [facility] (I/We) worried whealeksandar er (my/our) food would run out before (I/we) got money to buy more. Never true [facility] Start: 12-25-2022 Tobacco Comment Smokes 5 mins after waking up [facility] Start: 12-25-2022 Alcohol Comment caffeine: 1-2 cups per day [facility] Start: 01-28-2015 Sex Male (finding) [facility] Medical Equipment Procedure Code Equipment Code Equipment Origin al Text Equipment Identifier Dates Mesh 1in Med Pp Srgpro Nabsb Knit Plg Srg Strl Clr Hrn Rpl [id number] - [id number] - [id number])[facility], [id number] [facility] Start: 03-06-2023 Clinical Notes 05-16-2021 to 04-15-2024 Luanne Gordon MD - 04/15/2024 2:45 PM EDTAddendum Note - Luanne Gordon MD - 04/15/2024 2:45 PM EDTAddendum Note - Luanne Gordon MD - 04/15/2024 2:45 PM EDT Note Date & Type Note Facility 04-15-2024 History of Presen t illness Narrative Images from the original note were not included. [address] [place] [id number] Patient: Erich Jensen August Date of : 1955 Encounter Date: 04/15/2024 History of Present Illness: The patient is a 68 y.o. male, an established patient, and is here for follow-up. He previously saw our PA after having urinary retention after hernia surgery in 2022. He is maintained on tamsulosin. Had passed a void trial. Reports he is continuing to do well with the use of the medication. He had a normal PSA as outlined below. A routine PSA was checked and found to be just above normal at 4.57. No family history of prostate issues. No UTIs.. Summary of old records: Urinalysis today: No results for input(s): EXTPOCURCO , EXTPOCURCH , EXTPOCAPP , EXTPOCURBS , EXTPOCURBIL , EXTPOCUKET , EXTPOCUSPG , EXTPOCUHGB , EXTPOCUPRO , EXTPOCUURO , EXTPOCULEU , EXTPOCUNIT , EXTPOCUWBC , EXTPOCUBLD , EXTPOCURBC , EXTPOCUCRY , EXTPOCUBAC , EXTPOCUTREP , EXTPOCUPH in the last 72 hours. Last BUN and creatinine: Lab Results Component Value Date BUN 35 (H) 03/23/2024 Lab Results Component Value Date CREATININE 1.09 03/23/2024 Last PSA: Lab Results Component Value Date PSA 4.57 (H) 04/12/2024 PSA 3.72 07/04/2023 PSA 3.6 10/03/2014 No results found for: PROSTATICSP Additional Lab/Culture results: None Imaging Reviewed during this Office Visit: None (Results were independently reviewed by physician and radiology report verified) Past Medical, Family, and Social History Update: The following portions of the patient's history were reviewed and updated as appropriate: allergies, current medications, past family history, past medical history, past social history, past surgical history and problem list. Past Medical History: Diagnosis Date Back pain Hyperlipidemia Hypertension Visual impairment glasses Past Surgical History: Procedure Laterality Date COLONOSCOPY AND POLYPECTOMY 05/31/2017 Performed by Brennan Ball MD at [facility] HERNIA REPAIR Right inguinal REPAIR HERNIA INGUINAL Left 03/06/2023 Performed by Scooter Ortez DO at [facility] Family History Problem Relation Age of Onset Heart disease Mother No Known Problems Father Current Outpatient Medications Medication Sig Dispense Refill apixaban (ELIQUIS) 5 mg tablet Take 1 tablet (5 mg total) by mouth in the morning and 1 tablet (5 mg total) before bedtime. 60 tablet 0 atorvastatin (LIPITOR) 80 mg tablet Take 1 tablet (80 mg total) by mouth nightly. cholecalciferol, vitamin D3, 2,000 units tablet Take 1 tablet (2,000 Units total) by mouth in the morning. gabapentin (NEURONTIN) 300 mg capsule Take 1 capsule (300 mg total) by mouth once daily at bedtime. metoprolol tartrate (LOPRESSOR) 25 mg tablet Take 1 tablet (25 mg total) by mouth in the morning and 1 tablet (25 mg total) before bedtime. Do all this for 30 days. 60 tablet 0 tamsulosin (FLOMAX) 0.4 mg capsule Take 1 capsule (0.4 mg total) by mouth nightly. traMADoL (ULTRAM) 50 mg tablet Take 1 tablet (50 mg total) by mouth 3 (three) times a day as needed for pain. No current facility-administered medications for this visit. (All medications reviewed and updated by provider since last office visit or hospitalization) Allergies: Penicillins Tobacco History: Social History Tobacco Use Smoking Status Every Day Current packs/day: 1.00 Average packs/day: 1 pack/day for 79.8 years (79.8 ttl pk-yrs) Types: Cigarettes Start date: 1979 Smokeless Tobacco Never (If patient a smoker, smoking cessation counseling offered) Social History: Social History Substance and Sexual Activity Alcohol Use Not Currently Alcohol/week: 27.0 standard drinks of alcohol Types: 27 Cans of beer per week Review of Systems: General: Negative for chills and fever. Cardiovascular: Negative for chest pain and shortness of breath. Gastrointestinal: Negative for constipation, diarrhea, nausea, and vomitting. Physical Exam: BP 120/74 Pulse 102 Ht 182.9 cm (6') Wt 67.1 kg (148 lb) BMI 20.07 kg/m Assessment and Plan: Nader was seen today for follow-up. Diagnoses and all orders for this visit: Elevated PSA Urinary retention Problem List Genitourinary Urinary retention Overview 03/21/23: Retention following left inguinal hernia repair. We will continue with Flomax, could increased to 0.8 mg if needed. Void trial next week. Doing well on Flomax 0.4 mg nightly. Other Elevated PSA - Primary Overview 04/15/2024: Elevated PSA of 4.57. Discussed findings with he and his . Plan to recheck his PSA in about a month. If it remains elevated would recommend 3 antonio MRI to evaluate for targetable lesions. Follow-up: Luanne Gordon MD This note was created with the assistance of a speech recognition program. While intending to generate a timely document that accurately reflects the content of the visit, no guarantee can be provided that every grammatical or spelling mistake has been or will be identified or corrected. Thank you for your understanding. documented in this encounter [facility] 04-15-2024 Miscellaneous Notes Addended by: LUANNE GORDON on: 04/15/2024 02:48 PM Modules accepted: Orders documented in this encounter [facility] 04-15-2024 Note Addended by: LUANNE EDMONDSON on: 04/15/2024 02:48 PM Modules accepted: Orders [facility] 04-11-2024 Miscellaneous Notes Formattin g of this note might be different from the original. Contacted the Pt. To remind him to get his PSA drawn for his appt with MD Brien on Sunday. Pt. Stated he would get that done. documented in this encounter [facility] 04-11-2024 Telephone encount er Note Contacted the Pt. To remind him to get his PSA drawn for his appt with MD Brien on Sunday. Pt. Stated he would get that done. [facility] 03-31-2024 Telephone encount er Note Patient left a voicemail saying he forgot to take his heart medication today at 9am and wants to know if he should take it now, or if he will be ok to skip today and take it tomorrow. Please advise. Thank you [facility] 03-31-2024 Miscellaneous Notes Formattin g of this note might be different from the original. Patient left a voicemail saying he forgot to take his heart medication today at 9am and wants to know if he should take it now, or if he will be ok to skip today and take it tomorrow. Please advise. Thank you documented in this encounter [facility] 05-25-2022 Note CONSULTATION CONSULTATION DATE: 05/25/2022 HISTORY [...] subarachnoid space. 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 The repeated motions of his upper [...] be followed in the clinic thereafter. [facility] 02-23-2022 Note CONSULTATION CONSULTATION DATE: 02/23/2022 HISTORY [...] three months' time unless otherwise indicated. [facility] 12-28-2021 Evaluation note Encounter Date Diagnosis Assessment Notes Dec, Abnormal weight loss (ICD-10 - R63.4) PT ADVISED TO INCREASE PROTEIN RTO 6 MONTHS [employer] Other 05-24-2022 NoteCONSULTATION CONSULTATION DATE: 11/15/2021 CHIEF COMPLAINT: Mid back pain. HISTORY OF PRESENT ILLNESS: This is a 65-year-old gentleman who has thoracic pain, thoracic degenerative disc disease, thoracic spondylosis. 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 Unfortunately, [place] will not allow us to proceed with [...] will be following up in three months. [facility] Signed and Approved by: DR MARCY BERGER . 11/29/2021 11:41:00[facility]04-05-2022 Evaluation note* Encounter Date Diagnosis Assessment Notes Treatment Notes Treatment Clinical Notes Sep, Abnormal weight loss (ICD-10 - R63.4) INCREASE PROTEIN TO 80 GRAMS DAILY DRINK ENSURE/BOOST 3-4 TIMES A DAY RTO 3 MONTHS [employer] Other 11-22-2021 Evaluation note* Encounter Date Diagnosis Assessment Notes Treatment Notes Treatment Clinical Notes Apr, Abnormal weight loss (ICD-10 - R63.4) PATIENT STATES 20 POUND WEIGHT LOSS IN 4-6 MONTHS Apr, Gastric wall thickening (ICD-10 - K31.89) [facility] Other Evaluation note* Diagnosis Urinary retention- Primary Unspecified retention of urine Urinary retention- Primary Unspecified retention of urine Prostate cancer screening Special screening for malignant neoplasm of prostate Elevated PSA- Primary Elevated prostate specific antigen (PSA) Urinary retention Unspecified retention of urine [facility]* Type Description Date Surgical History hernia [facility] Other History general Narrative - Reported* Type Description Date Medical History Hypertension Medical History hyperlipidemia Surgical History hernia [facility] Other InstructionsNot on filedocumented in this encounter [facility] filedocumented in this encounter [facility] filedocumented in this encounter [facility] filedocumented in this encounter [facility] Summary Purpose Family History No Family History Records FoundNo Family History Records FoundNo Family History Records FoundNo Family History Records FoundNo Family History Records Found Advance Directives Documents on File Type Date 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 03/28/2023 12:39 PM Living Will 03/28/2023 12:38 PM Latest Code Status on File Code Status Date Activated Date Inactivated Comments Full Code 03/10/2023 8:50 AM 03/10/2023 5:50 PM Date Activated Date Inactivated Comments 03/22/2024 1:08 PM 03/23/2024 3:16 PM Date Activated Date Inactivated Comments 03/10/2023 8:50 AM 03/10/2023 5:50 PM Additional Source Comments (unrecognized sect ion and content) No Status Records FoundNo Status Records FoundNo Status Records FoundNo Status Records FoundNo Status Records Found INFORMATION SOURCE (unrecogn ized section and content) DATE CREATED AUTHOR 09/12/2021 [facility] DATE CREATED AUTHOR AUTHOR'S ORGANIZ ATION 10/23/[address] [facility] DATE CREATED AUTHOR AUTHOR'S ORGANIZ ATION 07/18/2023 [facility] DATE CREATED AUTHOR AUTHOR'S ORGANIZ ATION 04/16/2024 [facility] EPIC DATE CREATED AUTHOR AUTHOR'S ORGANIZ ATION 04/23/2024 [facility] REASON FOR VISIT (unrecogniz ed section and content) Reason Comments Med Refill Reason Comments Follow-up Care Teams (unrecognized sec tion and content) Customer Support Associate Relationship Specialty Start Date End Date No Pcp, [place] [address] PCP - General Family Medicine 07/04/23 Customer Support Associate Relationship Specialty Start Date End Date Jesús Simon PCP - [facility] 11/23/21 Shona Elliott MD [address] [facility] [place] [address] PCP - General Family Medicine 11/21/23 Angeles Montes NP [address] [place] [address] Family Medicine 11/21/23 Customer Support Associate Relationship Specialty Start Date End Date Shona Elliott MD [address] [facility] [place] [address] PCP - General Family Medicine 03/21/24 Customer Support Associate Relationship Specialty Start Date End Date Jesús Simon PCP - [facility] 11/23/21 Shona Elliott MD [address] [facility] [place] [address] PCP - General Family Medicine 11/21/23 Angeles Montes NP [address] [place] [address] Family Medicine 11/21/23 Nasrin Teixeira, RN [address] [place] [address] Registered Nurse Family Medicine 03/31/24 Customer Support Associate Relationship Specialty Start Date End Date Shona Elliott MD [address] [place] [address] PCP - General Family Medicine 03/21/24 Customer Support Associate Relationship Specialty Start Date End Date Shona Elliott MD [address] [facility] [place], [place] [id number] PCP - General Family Medicine 03/21/24 FOR RECORDS PERTAINING TO PATIENTS WHO ARE [...] BE BASED ON THE PRIMARY CLINICAL RECORDS. [facility]. provides no warranty or guarantee of the accuracy or completeness of information in this document.
--- NOTE | 2024-04-23 14:56 | P.CN_ITS ---
Consult Note: HPI Data of Consult Patient: known to practice within the last 3 years Requesting Physician: Karen Castro NP Primary Care Provider: JESÚS GUZMAN Consult Narrative Reason for consult: f/u Narrative: Erich Lopez a pleasant 67 year old male presents for evaluation and management of left sided upper back pain. Patient reporting pain 1/10 stinging burning. Previous left T5 T6 intercostal nerve block improved pain >50% for 3 weeks per pt. Patient restarted amitriptyline 10mg HS. Continues to utilize tramadol 50- 100mg BID PRN moderate to severe pain without side effects. utilizing gabapentin 300mg HS with benefit. now on eliquis cannot take NSAIDs. cc:: CC: Karen Castro NP Review of Systems ROS Status of ROS 10 or more systems reviewed and unremark able except as noted in history and below Musculoskeletal Reports: back pain PFSH PFS Medical History (Updated 07/05/23 @ 08:52 by Lisset Martinez) Low back pain ?M54.50 - Low back pain, unspecified (ICD-10) High cholesterol ?E78.00 - Pure hypercholesterolemia, unspecified (ICD-10) Hypertension ?I10 - Essential (primary) hypertension (ICD-10) Surgical History H/O hernia repair ?Z98.890 - Other specified postprocedural states (ICD-10) ?Z87.19 - Personal history of other diseases of the digestive system (ICD-10) Meds Home Medications and Allergies Home Medications ?Medication ?Instructions ?Recorded ?Confirmed ?Type tramadol 100 mg capsule 100 mg PO BID PRN pain #60 caps 03/14/23 07/09/23 Rx 24h,extended release(25-75) atorvastatin 80 mg tablet (Lipitor) 80 mg PO DAILY 05/22/23 07/09/23 History lisinopril 2.5 mg tablet 2.5 mg PO DAILY 05/22/23 07/09/23 History tamsulosin 0.4 mg capsule (Flomax) 0.4 mg PO DAILY 05/28/23 07/09/23 History tramadol 50 mg tablet 50 mg PO BID PRN pain #120 tabs 06/13/23 07/09/23 Rx tramadol 50 mg tablet 100 mg (2 x 50 mg) PO BID PRN pain 10/17/23 Rx #120 tabs tramadol 50 mg tablet 100 mg (2 x 50 mg) PO BID PRN pain 11/21/23 Rx #120 tabs tramadol 50 mg tablet 100 mg (2 x 50 mg) PO BID PRN pain 12/26/23 Rx #120 tabs gabapentin 300 mg capsule 300 mg PO DAILY 01/09/24 01/09/24 History tramadol 50 mg tablet 100 mg (2 x 50 mg) PO BID PRN pain 02/05/24 Rx #120 tabs gabapentin 300 mg capsule 300 mg PO .qhs #30 caps 03/12/24 Rx tramadol 50 mg tablet 100 mg (2 x 50 mg) PO BID PRN pain 03/12/24 Rx #120 tabs Allergies Allergy/AdvReac Type Severity Reaction Status Date / Time Penicillins Allergy Verified 07/09/23 07:00 Exam Constitutional Documenting provider has reviewed patient's vital signs: yes Common normals: no apparent distress, oriented x3, healthy appearing, alert and well nourished General appearance: cooperative HENMT Common normals: normocephalic, hearing grossly normal bilaterally and moist oral mucous membranes Head and scalp: normocephalic Eye Common normals: PERRL Pupil: PERRL Neck & C-Spine Common normals: full ROM General: normal visual inspection Chest Common normals: inspection of chest normal Respiratory Common normals: normal respiratory effort, no retractions and no use of accessory muscles Back & Pelvis Thoracic spine/upper back: thoracic ROM normal and pain with ROM Other: mild pain in left thoracic spine Extremity Common normals: normal to inspection and full ROM Neuro Common normals: oriented x3, CN's II-XII intact bilaterally, moves all extremities, no focal motor deficits, no sensory deficits noted and deep tendon reflexes 2+ bilaterally Sensorium/orientation: alert Motor exam: strength 5/5 throughout and no movement abnormalities noted Psych Common normals: mental status grossly normal, thought process normal, cooperative, affect normal, speech normal and activity/motor behavior normal Speech: normal speech Thought process: normal thought process Results Additional Findings Additional findings: If on a controlled substance or opioids, I have checked an OARRS report on this patient and there are no aberrancies noted in the prescribing history.??If on a controlled substance or opioid a drug screen was completed and reviewed within the last year, and if there has not been a drug screen completed we ordered one today to monitor higher risk, state monitored pain medication use. As part of providing excellent, safe, comprehensive care, the following was completed at our patient's visit: 1. A medication reconciliation and review to ensure accurate knowledge of current/active medications, including asking our patients to inform us about any [id number]-nkp-[id number] medications or herbal remedies/nutritional supplements/alternative remedies. 2. A review to specifically ensure our patients have had annual screening for screening for depression, screening for tobacco use, and screening for unhealthy alcohol use. For concerning screenings had a discussion with the patient, provided patient education, and recommended follow-up with primary care provider when appropriate. If patient noted with a risk of falling, they received education on strength, gait, and balance training to prevent future risk of falling. Assessment and Plan Assessment and Plan (1) Thoracic neuritis: (2) Thoracic stenosis: (3) Disc displacement, thoracic: (4) Myofascial pain syndrome: (5) Thoracic spondylosis: (6) Chronic prescription opiate use: Assessment and Plan: continues to report moderate benefit and functional improvement without side effects. LANIE 26% Plan continue current medications f/u 3 months
== END 2024-04-23 14:14 | disposition home or self-care (01) ==
LOC: PM 14:13
PROVIDERS: Visit Provider Nurse Practitioner
DX: M54.14 Radiculopathy, thoracic region (principal); M48.04 Spinal stenosis, thoracic region; M51.24 Other intervertebral disc displacement, thoracic region; M79.18 Myalgia, other site; Z79.891 Long term (current) use of opiate analgesic
CPT/HCPCS: G0463

== ENCOUNTER 2024-07-23 14:01 | Outpatient (OUT) | payer MEDICARE, SELFPAY ==
--- NOTE | 2024-07-23 14:26 | P.CN_ITS ---
Consult Note: HPI Data of Consult Patient: known to practice within the last 3 years Requesting Physician: Karen Castro NP Primary Care Provider: JESÚS GUZMAN Consult Narrative Reason for consult: f/u Narrative: Erich Lopez a pleasant 67 year old male presents for evaluation and management of left sided upper back pain. Patient reporting pain 2-3/10 aching, increasing to 5-6/10. pt utilizing gabapentin 300mg HS< amitriptyline 10mg once daily, and tramadol 50-100mg BID PRN moderate to severe pain. Pain well controlled since last visit, functional score stable at 26%. denies falls or injury. continues to f/u with cardiology, on eliquis cannot take NSAIDs. cc:: CC: Karen Castro NP Review of Systems ROS Status of ROS 10 or more systems reviewed and unremark able except as noted in history and below Musculoskeletal Reports: [facility] Medical History (Updated 07/05/23 @ 08:52 by Lisset Martinez) Low back pain ?M54.50 - Low back pain, unspecified (ICD-10) High cholesterol ?E78.00 - Pure hypercholesterolemia, unspecified (ICD-10) Hypertension ?I10 - Essential (primary) hypertension (ICD-10) Surgical History H/O hernia repair ?Z98.890 - Other specified postprocedural states (ICD-10) ?Z87.19 - Personal history of other diseases of the digestive system (ICD-10) Meds Home Medications and Allergies Home Medications ?Medication ?Instructions ?Recorded ?Confirmed ?Type atorvastatin 80 mg tablet (Lipitor) 80 mg PO DAILY 05/22/23 07/09/23 History lisinopril 2.5 mg tablet 2.5 mg PO DAILY 05/22/23 07/09/23 History tamsulosin 0.4 mg capsule (Flomax) 0.4 mg PO DAILY 05/28/23 07/09/23 History gabapentin 300 mg capsule 300 mg PO .hs #30 caps 05/14/24 Rx tramadol 50 mg tablet See Rx Instructions .Route 05/14/24 Rx .COMPLEX PRN pain #120 tabs naloxone 4 mg/actuation nasal 4 mg intranasal Q3M PRN opioid 05/16/24 Rx spray (Narcan) overdose #2 ea tramadol 50 mg tablet 100 mg (2 x 50 mg) PO BID PRN pain 06/12/24 Rx #120 tabs gabapentin 300 mg capsule 300 mg PO .hs #30 caps 07/14/24 Rx tramadol 50 mg tablet See Rx Instructions .Route 07/14/24 Rx .COMPLEX PRN pain #120 tabs Allergies Allergy/AdvReac Type Severity Reaction Status Date / Time Penicillins Allergy Verified 07/09/23 07:00 Exam Constitutional Documenting provider has reviewed patient's vital signs: yes Common normals: no apparent distress, oriented x3, healthy appearing, alert and well nourished General appearance: cooperative HENMT Common normals: normocephalic, hearing grossly normal bilaterally and moist oral mucous membranes Head and scalp: normocephalic Eye Common normals: PERRL Pupil: PERRL Neck & C-Spine Common normals: full ROM General: normal visual inspection Chest Common normals: inspection of chest normal Respiratory Common normals: normal respiratory effort, no retractions and no use of accessory muscles Back & Pelvis Thoracic spine/upper back: pain with ROM, thoracic spinal tenderness and paraspinal muscle tenderness; no paraspinal muscle spasm Neuro Common normals: oriented x3, CN's II-XII intact bilaterally, moves all extremities, no focal motor deficits, no sensory deficits noted and deep tendon reflexes 2+ bilaterally Sensorium/orientation: alert Motor exam: strength 5/5 throughout and no movement abnormalities noted Psych Common normals: mental status grossly normal, thought process normal, cooperative, affect normal, speech normal and activity/motor behavior normal Speech: normal speech Thought process: normal thought process Results Additional Findings Additional findings: If on a controlled substance or opioids, I have checked an OARRS report on this patient and there are no aberrancies noted in the prescribing history.??If on a controlled substance or opioid a drug screen was completed and reviewed within the last year, and if there has not been a drug screen completed we ordered one today to monitor higher risk, state monitored pain medication use. As part of providing excellent, safe, comprehensive care, the following was completed at our patient's visit: 1. A medication reconciliation and review to ensure accurate knowledge of current/active medications, including asking our patients to inform us about any [id number] medications or herbal remedies/nutritional supplements/alt ernative remedies. 2. A review to specifically ensure our patients have had annual screening for screening for depression, screening for tobacco use, and screening for unhealthy alcohol use. For concerning screenings had a discussion with the patient, provided patient education, and recommended follow-up with primary care provider when appropriate. If patient noted with a risk of falling, they received education on strength, gait, and balance training to prevent future risk of falling. Portions of this note may have been carried over from the previous visit and updated as appropriate. Please note this office utilizes paper charting in addition to the electronic medical record. A list of current medications, vitals, and PMH is available there as the clinical staff outside of myself do not have access to [employer] charting during the clinic day operations. As part of providing quality comprehensive care the current medications, vitals, and PMH were reviewed in the paper chart. Assessment and Plan Assessment and Plan (1) Thoracic neuritis: (2) Thoracic spondylosis: (3) Chronic prescription opiate use: Assessment and Plan: I feel these medications are improving the patient's quality of life and allow them to tolerate activities of daily living as well as participate in recreational activity.? The patient does not report intolerable side effects. The patient is NOT opioid naive and non-pharmacologic and non-opioid treatment has failed to significantly relieve the patient's pain and improve functionality. The patient has a diagnosis that is related to a somatic or visceral pain etiology. ? ?? I reviewed with the patient the potential risks and side effects with the use of? opioid medications including but not limited to respiratory depression,? sedation, and even . Within the last 12 months I have verified the patient has access to naloxone should? these effects occur. The patient was advised to let? their family know they had Naloxone in case they would need to administer? the medication. I advised the patient to avoid the use of any other? sedation substances including alcohol, THC, and benzodiazepines while? taking opioid medications due to the risk of compounding side effects and? detrimental outcomes. within the last 12 months I have reviewed the SHOT CORE DRILL OPERATOR HELPER, pain treatment agreement and urine drug screen.? ?? A drug screen was completed within the last year, and no aberrancies were noted regarding their use of controlled substances. The patient understands they are subject to the terms and conditions of the pain contract that they have signed. ? ?? I have checked an OARRS report on this patient today and there are no aberrancies noted in the prescribing history.? Plan continue current medications, risks vs benefits reviewed and denies side effects continue HEP as tolerated ASSEMBLER SKYLIGHTS reviewed and signed, update UDS f/u 3 months, sooner if needed
--- OUTSIDE RECORDS SUMMARY | 2024-07-23 14:26 | XMS_ITS | CCD ---
Author Organization [facility] Care Team Providers Care House Detective Name Role Phone Sushil Sorto Unavailable [phone] EDWARDS ., CYRIL Consulting Unavailable ROSIPKO, JESÚS [...] ., DR MARCY Blanc Admitting Unavailable PIERCE CLOLINS Consulting Unavailable EDWARDS ., CYRIL Consulting Unavailable ROSIPKO, JESÚS Primary Care Unavailable BERGER ., DR MARCY Blanc Attending Unavailable BERGER ., DR MARCY Blanc Admitting Unavailable EDWARDS ., CYRIL Consulting Unavailable ROSIPKO, JESÚS Primary Care Unavailable BERGER ., DR MARCY Blanc Admitting Unavailable BERGER ., DR MARCY Blanc Attending Unavailable Gimargarito TAPIA, Mary Jane Rust Attending Unavailable Christian TAPIA, Andleonora Rust Attending Unavailable Gimargarito TAPIA, Andleonora Rust Attending Unavailable No Pcp, No Pcp Primary Care Provider Unavailabl e Jesús Simon Unavailable Unavailable Shona Elliott MD Primary Care Provider Pump WIND [employer]URBINE PERFORMANCE ENGINEER, Angeles Unavailable Unavailable Shona Elliott MD Primary Care Provider Shona Elliott MD Primary Care Provider Lluvia RN, Crystal Unavailable Alfred WIND TURBINE PERFORMANCE ENGINEERJesús Unavailable DESIREE NIEVES Attending Unavailable FARRUKH PHELAN Referring Unavailable WONDERLY, SHONA B Primary Care Unavailable PUMP, ANGELES Attending Unavailable PUMP, ANGELES Referring Unavailable PUMP, ANGELES Referring Unavailable PUMP, ANGELES Attending Unavailable PUMP, ANGELES Attending Unavailable CARLI STEWART Attending Unavailable CARLI STEWART Attending Unavailable PASCALE NAVARRO Attending Unavailable SERA MCDOWELL I Referring Unavailable NO PCP, NO PCP Primary Care Unavailable WONDERLY, SHONA B Primary Care Unavailable GOLFARRUKH ALVARADO Attending Unavailable WONDERLY, SHONA B Primary Care Unavailable CHRAIS MARIE Attending Unavailable HELDER WILDER Admitting Unavailable CARDIOLOGY, [facility] Consulting Unavailable SERA MCDOWELL I Referring Unavailable WONDERLY, SHONA B Primary Care Unavailable ROB SAAVEDRA Attending Unavailable ROB SAAVEDRA Referring Unavailable WONDERLY, SHONA B Primary Care Unavailable WONDERLY, SHONA B Referring Unavailable WONDERLY, SHONA B Primary Care Unavailable DESIREE NIEVES Referring Unavailable WONDERLY, SHONA B Primary Care Unavailable DESIREE NIEVES Attending Unavailable VIKYDESIREE Blanc Referring Unavailable WONDERLY, SHONA B Primary Care Unavailable VIKYDESIREE Blanc Attending Unavailable VIKYDESIREE Blanc Referring Unavailable WONDERLY, SHONA B Primary Care Unavailable VIKYDESIREE Blanc Attending Unavailable VIKYDESIREE Blanc Referring Unavailable WONDERLY, SHONA B Primary Care Unavailable SHAKIR SMITH Attending Unavailable WONDERLY, SHONA B Referring Unavailable WONDERLY, SHONA B Primary Care Unavailable WONDERLY, SHONA B Primary Care Unavailable ALTHEA HE Attending Unavailable ASHLEY DURAN Attending Unavailable WONDERLY, SHONA B Referring Unavailable WONDERLY, SHONA B Primary Care Unavailable TEE DODSON Attending Unavailable WONDERLY, SHONA B Referring Unavailable WONDERLY, SHONA B Primary Care Unavailable Wonderly Shona TAPIA Primary Care Provider Allergies Allergy Classification Reported Allergen(s) Allergy Type Date of Onset Reaction(s) Facility (19 sources) Penicillin G Drug Allergy 3 Unknown [facility] Healthcare (1 source) Penicillin Drug Allergy [facility] Repository (16 sources) Penicillins; Translations: [PENICILLINS] Propensity to adverse reactions to drug 7 Hives, Other (See Comments) [facility] Medications Current Medications Medication Drug Class(es) Dates Sig (Normalized) Sig (Original) apixaban 5 mg oral tablet (20 sources) Factor Xa Inhibitor Start: 03-23-2024 End: 05-19-2024 take 1 tablet by mouth in the morning apixaban (Eliquis) 5 MG tablet Take 5 mg by mouth in the morning and 5 mg in the evening. 03/23/2024 Active atorvastatin 80 mg oral tablet (20 sources) HMG-CoA Reductase Inhibitor Start: 02-23-2023 End: 02-20-2024 take 1 tablet by mouth once daily atorvastatin (Lipitor) 80 MG tablet Indications: Mixed hyperlipidemia (CMS/HCC) TAKE 1 TABLET BY MOUTH EVERY DAY 90 tablet 3 02/20/2024 Active cholecalciferol 0.05 mg oral tablet (20 sources) Vitamin D take 1 tablet by mouth once daily cholecalciferol (Vitamin D-3) 50 MCG (2000 UT) tablet Take 2,000 Units by mouth Daily Active take 1 tablet by mouth in the mo rning cholecalciferol, vitamin D3, 2,000 units tablet Take 1 tablet (2,000 Units total) by mouth in the morning. Active gabapentin 300 mg oral capsule (20 sources) Anti-epileptic Agent Start: 01-09-2024 take 1 capsule by mouth once daily at bedtime gabapentin (Neurontin) 300 MG capsule TAKE 1 CAPSULE BY MOUTH EVERYDAY AT BEDTIME 01/09/2024 Active hydroCHLOROthiazide 12.5 mg / lisinopril 20 mg oral tablet (14 sources) Thiazide Diuretic, Angiotensin Converting Enzyme Inhibitor Start: 02-23-2023 End: 04-14-2024 take 1 tablet by mouth once daily [...] Active metoprolol tartrate 25 mg oral tablet (20 sources) beta-Adrenergic Ari Start: End: take 1 tablet by mouth in the morning metoprolol tartrate (Lopressor) 25 MG tablet Take 25 mg by mouth in the morning and 25 mg in the evening. 05/19/2024 Active Start: 03-23-2024 End: 04-22-2024 take 1 tablet by mouth in the morning metoprolol tartrate (Lopressor) 25 MG tablet Take 25 mg by mouth in the morning and 25 mg in the evening. 03/23/2024 04/22/2024 naloxone hydrochloride 40 mg/ml nasal spray (1 source) Opioid Antagonist Start: 02-08-2023 naloxone (NARCAN) 4 mg/actuation spray,non-aerosol nasal spray Please see attached for detailed directions 0 02/08/2023 Active tamsulosin hydrochloride 0.4 mg oral capsule (20 sources) alpha-Adrenergic Air Start: 09-26-2023 End: 03-24-2024 take 1 capsule by mouth every twenty-four hours at bedtime tamsulosin (Flomax) 0.4 MG 24 hr capsule Take 0.4 mg by mouth at bedtime 09/26/2023 03/24/2024 Active Start: 04-04-2023 End: 04-15-2024 take 1 capsule by mouth once daily tamsulosin (Flomax) 0.4 MG 24 hr capsule TAKE 1 CAPSULE BY MOUTH NIGHTLY FOR 180 DAYS. 01/02/2024 Active traMADol hydrochloride 50 mg oral tablet (20 sources) Opioid Agonist take 1 tablet by mouth three times daily as needed traMADol (Ultram) 50 MG tablet Take 50 mg by mouth 3 (three) times a day as needed. Active take 1 tablet by silvio th every twenty-four hours traMADol HCl 50 MG 1 tablet as needed Orally Once a day Active Completed/Discontinued Medications Medication Drug Class(es) Dates Sig (Normalized) Sig (Original) aspirin 325 mg oral tablet (10 sources) Platelet Aggregation Inhibitor, Nonsteroidal Anti-inflammatory Drug End: 03-24-2024 aspirin 325 MG tablet 1 (one) time each day at the same time 03/24/2024 Discontinued (Stop taking at discharge) Aspirin 325 mg A ctive Problems Active Problems Problem Classification Problem Date Documented Da te Episodic/Chronic Abdominal hernia (12 sources) Hiatal hernia; Translations: [Diaphragmatic hernia without obstruction or gangrene] Onset: 04-23-2024 04-23-2024 Episodic Adjustment disorders (16 sources) Family tension; Translations: [Reaction to severe stress, unspecified] Onset: 12-27-2022 12-27-2022 Chronic Cardiac dysrhythmias (20 sources) Atrial flutter; Translations: [Unspecified atrial flutter] Onset: 03-22-2024 03-24-2024 Chronic Chronic kidney disease (20 sources) Chronic kidney disease stage 3A ; Translations: [Stage 3a chronic kidney disease (HCC)] Onset: 12-27-2022 12-27-2022 Chronic Chronic kidney disease (1 source) Chronic kidney disease; Translations: [Chronic kidney disease, stage 3a] Onset: 03-22-2024 Chronic obstructive pulmonary disease and bronchiectasis (2 sources) Pulmonary emphysema; Translations: [Other emphysema] 07-23-2024 Chronic Conduction disorders (20 sources) Right bundle branch block; Translations: [Unspecified right bundle-branch block] Onset: 03-24-2024 03-24-2024 Chronic Coronary atherosclerosis and other heart disease (20 sources) Calcification of coronary artery; Translations: [Atherosclerotic heart disease of [place] coronary artery without angina pectoris] Onset: 03-24-2024 03-24-2024 Chronic Diabetes mellitus without complication (20 sources) Hyperglycemia; Translations: [Hyperglycemia, unspecified] Onset: 12-27-2022 12-27-2022 Episodic Disorders of lipid metabolism (20 sources) Mixed hyperlipidemia; Translations: [Mixed hyperlipidemia] Onset: 12-27-2022 12-27-2022 Chronic Diverticulosis and diverticulitis (20 sources) Diverticular disease of colon; Translations: [Diverticulosis of intestine, part unspecified, without perforation or abscess without bleeding] Onset: 12-27-2022 12-27-2022 Chronic Essential hypertension (20 sources) Essential hypertension; Translations: [Essential (primary) hypertension] Onset: 08-22-2021 03-10-2023 Chronic Hemorrhoids (10 sources) Hemorrhoids; Translations: [Unspecified hemorrhoids] Onset: 04-23-2024 04-23-2024 Episodic Occlusion or stenosis of precerebral arteries (20 sources) Bilateral stenosis of carotid arteries; Translations: [Occlusion and stenosis of bilateral carotid arteries] Onset: 01-31-2021 1 Chronic Other and unspecified benign neoplasm (20 sources) Tubular adenoma ; Translations: [Benign neoplasm, unspecified site] Onset: 12-27-2022 04-23-2024 Episodic Other diseases of kidney and ureters (18 sources) Cyst of kidney; Translations: [Cyst of kidney, acquired] Onset: 12-27-2022 12-27-2022 Episodic Other disorders of stomach and duodenum (4 sources) Other diseases of stomach and duodenum; Translations: [Gastric wall thickening] Onset: 05-16-2021 Resolved: 05-16-2021 Episodic Other lower respiratory disease (20 sources) Nodule of lung; Translations: [Solitary pulmonary nodule] Onset: 03-24-2024 03-24-2024 Episodic Other male genital disorders (18 sources) Male erectile dysfunction, unspecified; Translations: [Impotence [...] conditions (not mental disorders or infectious disease) (20 sources) Full blood count abnormal; Translations: [Other specified abnormal findings of blood chemistry] Onset: 12-27-2022 12-27-2022 Episodic Spondylosis; intervertebral disc disorders; other back problems (20 sources) Spondylosis without myelopathy or radiculopathy, thoracic region; Translations: [Other intervertebral disc degeneration, thoracic region] Onset: 11-15-2021 Chronic Substance-related disorders (20 sources) Nicotine dependence, cigarettes, uncomplicated; Translations: [Cigarette smoker ] Onset: 08-22-2021 08-22-2021 Chronic Unclassified (1 source) LOW BACK PAIN, UNSPECIFIED; Translations: [LOW BACK PAIN, UNSPECIFIED] Onset: 03-03-2022 Past or Other Problems Problem Classification Problem Date Documented Date Episodic/Chronic Abdominal pain (20 sources) Postoperative abdominal pain; Translations: [Unspecified abdominal pain] Onset: 03-10-2023 Resolved: 11-21-2023 03-10-2023 Episodic Acute and unspecified renal failure (20 sources) Acute renal failure syndrome; Translations: [Acute kidney failure, unspecified] Onset: 03-10-2023 Resolved: 11-21-2023 03-10-2023 Episodic Deficiency and other anemia (1 source) Iron deficiency anemia secondary to inadequate dietary iron intake; Translations: [Other iron deficiency anemias] 02-18-2024 Episodic Genitourinary symptoms and ill-defined conditions (20 sources) Retention of urine; Translations: [Retention of urine, unspecified] Onset: 03-10-2023 Resolved: 11-21-2023 04-18-2023 Episodic Mood disorders (13 sources) Mood disorders Onset: 03-10-2023 03-10-2023 Nonspecific chest pain (20 sources) Chest pain; Translations: [Chest pain, unspecified] Onset: 03-21-2024 03-22-2024 Episodic Other and unspecified benign neoplasm (8 sources) Polyp ; Translations: [Benign neoplasm, unspecified site] Onset: 12-27-2022 12-27-2022 Episodic Other circulatory disease (20 sources) Carotid bruit; Translations: [Other specified symptoms and signs involving the circulatory and respiratory systems] Onset: 01-31-2021 01-31-2021 Episodic Other connective tissue disease (1 source) Muscle wasting and atrophy, not elsewhere classified, unspecified site; Translations: [MUSCLE WASTING ATROPHY NEC UNS SITE] Onset: 11-17-2021 Episodic Other disorders of stomach and duodenum (16 sources) Disorder of stomach; Translations: [Other diseases of stomach and duodenum] Onset: 12-27-2022 12-27-2022 Episodic Other nervous system disorders (16 sources) Carpal tunnel syndrome of right wrist; Translations: [Carpal tunnel syndrome, right upper limb] Onset: 12-27-2022 Resolved: 11-21-2023 11-21-2023 Chronic Other nutritional; endocrine; and metabolic disorders (3 sources) Abnormal weight loss Onset: 05-16-2021 Resolved: 12-28-2021 Episodic Other nutritional; endocrine; and metabolic disorders (16 sources) Unexplained weight loss ; Translations: [Abnormal weight loss] Onset: 12-27-2022 Resolved: 11-21-2023 11-21-2023 Episodic Other nutritional; endocrine; and metabolic disorders (2 sources) Weight loss; Translations: [Abnormal weight loss] 02-11-2024 Episodic Other screening for suspected conditions (not mental disorders or infectious disease) (16 sources) Radiology result abnormal; Translations: [Abnormal findings on diagnostic imaging of other specified body structures] Onset: 12-27-2022 Resolved: 01-10-2024 01-10-2024 Chronic Spondylosis; intervertebral disc disorders; other back problems (17 sources) Pain in thoracic spine; Translations: [Spasm of back muscles] Onset: 05-30-2022 12-27-2022 Episodic Viral infection (16 sources) Disease caused by 2019-nCoV; Translations: [COVID-19] Onset: 12-27-2022 Resolved: 11-21-2023 11-21-2023 Episodic Results Test Name Value Interpretation Reference Range Facility HbA1c (Bld) [Mass fraction]o n 07-22-2024 [facility] - Hematology and Cell countson 07-22-2024 HbA1c (Bld) [Mass fraction] 6.1 % [facility] POCT EKGon 07-02-2024 [facility] POCT EKGon 06-26-2024 [facility] CBC AND AUTO DIFFon 06-15-20 ABSOLUTE BASOPHIL 0.1 X10E9/L Normal 0.0-0.2 [facility] Comment on above: Performed By: #### C JASKARAN, 28260-7, BMP, 90920-0 #### [facility] ([id number]) [address] [place] [address] 74867 ABSOLUTE NEUTROPHIL 8.9 X10E9/L High 1.5-6.6 [facility] Comment on above: Performed By: #### C JASKARAN, 14151-5, BMP, 37746-9 #### [facility] ([id number]) [address] [place] [address] 73673 Basophils/100 WBC (Bld) 0.7 % Normal [facility] Comment on above: Performed By: #### C BCA, 18623-6, BMP, 04011-0 #### [facility] ([id number]) [address] [place] [address] 02892 Eosinophils (Bld) [#/Vol] 0.0 10*3/uL Normal 0.0-0.4 [facility] Comment on above: Performed By: #### Nasima JESSICA, 53768-3, BMP, 77479-7 #### [facility] ([id number]) [address] [place] [address] 01958 Eosinophils/100 WBC (Bld) 0.3 % Normal [facility] Comment on above: Performed By: #### Nasima JESSICA, 87477-2, BMP, 88966-1 #### [facility] ([id number]) [address] [place] [address] 38141 Erythrocyte distribution width (RBC) [Ratio] 14.4 % Normal 11.5-15.0 [facility] Comment on above: Performed By: #### Nasima JESSICA, 98398-0, BMP, 85097-8 #### [facility] ([id number]) [address] [place] [address] 44743 Hematocrit (Bld) [Volume fraction] 39.7 % Normal 39-49 [facility] Comment on above: Performed By: #### Nasima JESSICA, 48674-6, BMP, 38559-4 #### [facility] ([id number]) [address] [place] [address] 25289 Hemoglobin (Bld) [Mass/Vol] 13.5 g/dL Normal 13.0-17.0 [facility] Comment on above: Performed By: #### Nasima JESSICA, 56593-5, BMP, 89632-0 #### [facility] ([id number]) [address] [place] [address] 70562 Lymphocytes (Bld) [#/Vol] 0.8 10*3/uL Low 1.0-3.5 [facility] Comment on above: Performed By: #### Nasima JESSICA, 98174-0, BMP, 82432-1 #### [facility] ([id number]) [address] [place] [address] 20866 Lymphocytes/100 WBC (Bld) 7.0 % Normal [facility] Comment on above: Performed By: #### Nasima JESSICA, 28760-5, BMP, 90377-1 #### [facility] ([id number]) [address] [place] [address] 72592 MCH (RBC) [Entitic mass] 29.2 pg Normal 27-34 [facility] Comment on above: Performed By: #### Nasima JESSICA, 76829-5, BMP, 75758-5 #### [facility] ([id number]) [address] [place] [address] 40493 MCHC (RBC) [Mass/Vol] 34.1 g/dL Normal 32-36 [facility] Comment on above: Performed By: #### Nasima JESSICA, 47898-0, BMP, 04407-3 #### [facility] ([id number]) [address] [place] [address] 08601 MCV (RBC) [Entitic vol] 86 fL Normal 80-100 [facility] Comment on above: Performed By: #### Nasima JESSICA, 06889-0, BMP, 62121-4 #### [facility] ([id number]) [address] [place] [address] 12705 Monocytes (Bld) [#/Vol] 1.2 10*3/uL High 0-0.9 [facility] Comment on above: Performed By: #### Nasima JESSICA, 52815-8, BMP, 96996-3 #### [facility] ([id number]) [address] [place] [address] 87753 Monocytes/100 WBC (Bld) 10.7 % Normal [facility] Comment on above: Performed By: #### Nasima JESSICA, 73316-6, BMP, 01703-3 #### [facility] ([id number]) [address] [place] [address] 47813 Neutrophils/100 WBC (Bld) 81.3 % Normal [facility] Comment on above: Performed By: #### Nasima JESSICA, 05186-9, BMP, 24017-2 #### [facility] ([id number]) [address] [place] [address] 27264 Platelet mean volume (Bld) [Entitic vol] 9.1 fL Normal 7-12 [facility] Comment on above: Performed By: #### Nasima JESSICA, 09237-7, BMP, 73546-5 #### [facility] ([id number]) [address] [place] [address] 47477 Platelets (Bld) [#/Vol] 165 10*3/uL Normal 150-450 [facility] Comment on above: Performed By: #### Nasima JESSICA, 13236-7, BMP, 80036-8 #### [facility] ([id number]) [address] [place] [address] 18289 RBC COUNT 4.64 X10E12/L Normal 4.10-5.70 [facility] Comment on above: Performed By: #### Nasima JESSICA, 84350-7, BMP, 08592-7 #### [facility] ([id number]) [address] [place] [address] 04631 WBC (Bld) [#/Vol] 11.0 10*3/uL Normal 4.0-11.0 [facility] Comment on above: Performed By: #### Nasima JESSICA, 12758-3, BMP, 93160-8 #### [facility] ([id number]) [address] [place] [address] 31115 COMPREHENSIVE METABOLIC PANE [facility] 06-15-2024 Albumin [Mass/Vol] 3.8 g/dL Normal 3.2-5.3 [facility] Comment on above: Performed By: #### Nasima JESSICA, 17019-9, BMP, 85609-6 #### [facility] ([id number]) [address] [place] [address] 22799 ALP [Catalytic activity/Vol] 70 U/L Normal 39-130 [facility] Comment on above: Performed By: #### Nasima JESSICA, 30608-6, BMP, 84077-2 #### [facility] ([id number]) [address] [place] [address] 42847 ALT [Catalytic activity/Vol] 18 U/L Normal 0-40 [facility] Comment on above: Performed By: #### Nasima JESSICA, 31948-4, BMP, 33035-4 #### [facility] ([id number]) [address] [place] [address] 18078 Anion gap [Moles/Vol] 12 mmol/L Normal 5-15 [facility] Comment on above: Performed By: #### Nasima JESSICA, 70371-7, BMP, 67641-6 #### [facility] ([id number]) [address] [place] [address] 07541 AST [Catalytic activity/Vol] 19 U/L Normal 0-41 [facility] Comment on above: Performed By: #### Nasima JESSICA, 55104-7, BMP, 12552-7 #### [facility] ([id number]) [address] [place] [address] 01826 Bilirubin [Mass/Vol] 0.8 mg/dL Normal 0.3-1.2 [facility] Comment on above: Performed By: #### Nasima JESSICA, 63758-9, BMP, 70689-0 #### [facility] ([id number]) [address] [place] [address] 48461 Calcium [Mass/Vol] 8.7 mg/dL Normal 8.5-10.5 [facility] Comment on above: Performed By: #### C JASKARAN, 28102-4, BMP, 09305-4 #### [facility] ([id number]) [address] [place] [address] 26782 Chloride [Moles/Vol] 103 mmol/L Normal 98-109 [facility] Comment on above: Performed By: #### C JASKARAN, 59572-4, BMP, 45798-1 #### [facility] ([id number]) [address] [place] [address] 33757 CO2 [Moles/Vol] 21 mmol/L Low 22-32 [facility] Comment on above: Performed By: #### C JASKARAN, 70186-0, BMP, 04745-3 #### [facility] ([id number]) [address] [place] [address] 15073 Creatinine [Mass/Vol] 1.09 mg/dL Normal 0.70-1.20 [facility] Comment on above: Result Comment: METH OD TRACEABLE TO IDMS STANDARD Performed By: #### C JASKARAN, 19881-6, BMP, 29790-2 #### [facility] ([id number]) [address] [place] [address] 20665 GFR/1.73 sq M.predicted among non-blacks MDRD (S/P/Bld) [Vol rate/Area] 74 mL/min/{1.73_m2} Normal >59 [facility] Comment on above: Result Comment: Reported eGFR is based on the CKD-EPI 2020 equation that does not use a race coefficient. Performed By: #### C JASKARAN, 72687-5, BMP, 85699-9 #### [facility] ([id number]) [address] [place] [address] 63438 Glucose [Mass/Vol] 129 mg/dL High 65-99 [facility] Comment on above: Performed By: #### C BCA, 06936-7, BMP, 77910-4 #### [facility] ([id number]) [address] [place] [address] 06791 Potassium [Moles/Vol] 3.9 mmol/L Normal 3.5-5.0 [facility] Comment on above: Performed By: #### C BCA, 27937-0, BMP, 31835-7 #### [facility] ([id number]) [address] [place] [address] 47250 Protein [Mass/Vol] 7.1 g/dL Normal 6.0-8.0 [facility] Comment on above: Performed By: #### C BCA, 55501-2, BMP, 46924-4 #### [facility] ([id number]) [address] [place] [address] 84128 Sodium [Moles/Vol] 136 mmol/L Normal 134-146 [facility] Comment on above: Performed By: #### C BCA, 91944-5, BMP, 64046-9 #### [facility] ([id number]) [address] [place] [address] 40013 Urea nitrogen [Mass/Vol] 26 mg/dL Normal 5-27 [facility] Comment on above: Performed By: #### C BCA, 63509-2, BMP, 03518-7 #### [facility] ([id number]) [address] [place] [address] 91110 MAGNESIUMon 06-15-2024 Magnesium [Mass/Vol] 1.9 mg/dL Normal 1.8-2.6 [facility] Comment on above: Performed By: #### C BCA, 12668-3, BMP, 27224-3 #### [facility] ([id number]) [address] [place] [address] 93957 Troponin I.cardiac High sens itivity method [Mass/Vol]on 06-15-2024 1 HOUR TROP I, HIGH SENSITIVITY 3 ng/L Normal <21 [facility] Comment on above: Performed By: #### C JASKARAN, 53914-3, BMP, 49260-8 #### [facility] ([id number]) [address] [place] [address] 47910 TROPONIN I, HIGH SENSITIVITY 3 ng/L Normal <21 [facility] Comment on above: Performed By: #### C JASKARAN, 40949-3, BEHZAD, 30255-2 #### [facility] ([id number]) [address] [place] [address] 76366 XR CHEST 1 VWon 06-15-2024 XR CHEST 1 VW XR CHEST 1 VW XR CHEST 1 VW 06/15/2024 6:23 AM INDICATION: chest pain COMPARISON: 03/21/2024 TECHNIQUE: AP portable upright view the chest was obtained. FINDINGS: The lungs are clear. There is no pneumothorax. There is no pleural effusion. The cardiomediastinal silhouette is unremarkable. No acute osseous abnormalities. IMPRESSION: No acute cardiopulmonary process. Finalized by Scooter Moore on 06/15/2024 6:29 AM Normal [facility] Prostate specific Ag [Mass/V ol]on 05-15-2024 PROSTATIC SPEC ANT 3.30 ng/mL Normal 0.00-4.00 [facility] Comment on above: Result Comment: The method used for this test is Paul Johnny DXI chemiluminescent immunoassay. Values obtained by different assay methods cannot be used interchangeably. Performed By: #### C JASKARAN, 67233-1, BEHZAD, 38491-9 #### [facility] ([id number]) [address] [place] [address] 38568 THYROID PROFILEon 05-15-2024 Free T4 [Mass/Vol] 0.80 ng/dL Normal 0.61-1.60 [facility] Comment on above: Performed By: #### C JASKARAN, 61996-1, BMP, 09226-7 #### [facility] ([id number]) [address] [place] [address] 99093 TSH 1.90 uIU/mL Normal 0.49-4.67 [facility] Comment on above: Performed By: #### C BCA, 49542-8, BMP, 24253-9 #### [facility] ([id number]) [address] [place] [address] US RETROPERITONEAL COMPLETEo n 04-22-2024 US RETROPERITONEAL [...] Hector MD on 04/22/2024 3:42 PM Normal [facility] Prostate specific Ag [Mass/V ol]on 04-12-2024 PROSTATIC SPEC ANT 4.57 ng/mL High 0.00-4.00 [facility] Comment on above: Result Comment: The method used for this test is Paul Beaumont DXI chemiluminescent immunoassay. Values obtained by different assay methods cannot be used interchangeably. Performed By: #### 2 857-1 ####[facility] ([id number])[address], [address] [place] [address] 27519 CBC AND AUTO DIFFon 03-23-20 24 ABSOLUTE BASOPHIL 0.0 X10E9/L Normal 0.0-0.2 [facility] Comment on above: Performed By: #### 1 9123-9, CBCA, CMP ####[facility] ([id number])[address], [place] [address] ABSOLUTE NEUTROPHIL 5.6 X10E9/L Normal 1.5-6.6 [facility] Comment on above: Performed By: #### 1 9123-9, CBCA, CMP ####[facility] ([id number])[address] [place] [address] 47451 Basophils/100 WBC (Bld) 0.5 % Normal [facility] Comment on above: Performed By: #### 1 9123-9, CBCA, CMP ####[facility] ([id number])[address] [place] [address] 43633 Eosinophils (Bld) [#/Vol] 0.2 10*3/uL Normal 0.0-0.4 [facility] Comment on above: Performed By: #### 1 9123-9, CBCA, CMP ####[facility] ([id number])[address] [place] [address] 51066 Eosinophils/100 WBC (Bld) 2.0 % Normal [facility] Comment on above: Performed By: #### 1 9123-9, CBCA, CMP ####[facility] ([id number])[address] [place] [address] 01078 Erythrocyte distribution width (RBC) [Ratio] 14.7 % Normal 11.5-15.0 [facility] Comment on above: Performed By: #### 1 9123-9, CBCA, CMP ####[facility] ([id number])[address] [place] [address] 42774 Hematocrit (Bld) [Volume fraction] 32.6 % Low 39-49 [facility] Comment on above: Performed By: #### 1 9123-9, CBCA, CMP ####[facility] ([id number])[address] [place] [address] 07813 Hemoglobin (Bld) [Mass/Vol] 11.1 g/dL Low 13.0-17.0 [facility] Comment on above: Performed By: #### 1 9123-9, CBCA, CMP ####[facility] ([id number])[address] [place] [address] 08070 Lymphocytes (Bld) [#/Vol] 1.2 10*3/uL Normal 1.0-3.5 [facility] Comment on above: Performed By: #### 1 9123-9, CBCA, CMP ####[facility] ([id number])[address] [place] [address] 98243 Lymphocytes/100 WBC (Bld) 15.3 % Normal [facility] Comment on above: Performed By: #### 1 9123-9, CBCA, CMP ####[facility] ([id number])[address] [place] [address] 90742 MCH (RBC) [Entitic mass] 29.3 pg Normal 27-34 [facility] Comment on above: Performed By: #### 1 9123-9, CBCA, CMP ####[facility] ([id number])[address] [place] [address] 73577 MCHC (RBC) [Mass/Vol] 33.9 g/dL Normal 32-36 [facility] Comment on above: Performed By: #### 1 9123-9, CBCA, CMP ####[facility] ([id number])[address] [place] [address] 33646 MCV (RBC) [Entitic vol] 86 fL Normal 80-100 [facility] Comment on above: Performed By: #### 1 9123-9, CBCA, CMP ####[facility] ([id number])[address] [place] [address] 13891 Monocytes (Bld) [#/Vol] 1.0 10*3/uL High 0-0.9 [facility] Comment on above: Performed By: #### 1 9123-9, CBCA, CMP ####[facility] ([id number])[address] [place] [address] 91261 Monocytes/100 WBC (Bld) 12.7 % Normal [facility] Comment on above: Performed By: #### 1 9123-9, CBCA, CMP ####[facility] ([id number])[address] [place] [address] 45874 Neutrophils/100 WBC (Bld) 69.5 % Normal [facility] Comment on above: Performed By: #### 1 9123-9, CBCA, CMP ####[facility] ([id number])[address] [place] [address] 80255 Platelet mean volume (Bld) [Entitic vol] 9.6 fL Normal 7-12 [facility] Comment on above: Performed By: #### 1 9123-9, CBCA, CMP ####[facility] ([id number])[address] [place] [address] 86560 Platelets (Bld) [#/Vol] 126 10*3/uL Low 150-450 [facility] Comment on above: Performed By: #### 1 9123-9, CBCA, CMP ####[facility] ([id number])[address] [place] [address] 14947 RBC COUNT 3.78 X10E12/L Low 4.10-5.70 [facility] Comment on above: Performed By: #### 1 9123-9, CBCA, CMP ####[facility] ([id number])[address] [place] [address] 52650 WBC (Bld) [#/Vol] 8.1 10*3/uL Normal 4.0-11.0 [facility] Comment on above: Performed By: #### 1 9123-9, CBCA, CMP ####[facility] ([id number])[address] [place] [address], [place] [address] COMPREHENSIVE METABOLIC PANE Brent 03-23-2024 Albumin [Mass/Vol] 3.5 g/dL Normal 3.2-5.3 [facility] Comment on above: Performed By: #### 1 9123-9, CBCA, CMP ####[facility] ([id number])[address] [place] [address] [place] [address] ALP [Catalytic activity/Vol] 68 U/L Normal 39-130 [facility] Comment on above: Performed By: #### 1 9123-9, CBCA, CMP ####[facility] ([id number])[address] [place] [address] 23260 ALT [Catalytic activity/Vol] 17 U/L Normal 0-40 [facility] Comment on above: Performed By: #### 1 9123-9, CBCA, CMP ####[facility] ([id number])[address] [place] [address] [place] [address] Anion gap [Moles/Vol] 9 mmol/L Normal 5-15 [facility] Comment on above: Performed By: #### 1 9123-9, CBCA, CMP ####[facility] ([id number])[address] [place] [address] 86820 AST [Catalytic activity/Vol] 16 U/L Normal 0-41 [facility] Comment on above: Performed By: #### 1 9123-9, CBCA, CMP ####[facility] ([id number])[address] [place] [address] 57852 Bilirubin [Mass/Vol] 0.9 mg/dL Normal 0.3-1.2 [facility] Comment on above: Performed By: #### 1 9123-9, CBCA, CMP ####[facility] ([id number])[address] [place] [address] 36574 Calcium [Mass/Vol] 9.0 mg/dL Normal 8.5-10.5 [facility] Comment on above: Performed By: #### 1 9123-9PATRICK, CMP ####[facility] ([id number])[address] [place] [address] 98552 Chloride [Moles/Vol] 107 mmol/L Normal 98-109 [facility] Comment on above: Performed By: #### 1 9123-9, PATRICK, CMP ####[facility] ([id number])[address] [place] [address] 85050 CO2 [Moles/Vol] 22 mmol/L Normal 22-32 [facility] Comment on above: Performed By: #### 1 9123-9PATRICK, CMP ####[facility] ([id number])[address] [place] [address] 65491 Creatinine [Mass/Vol] 1.09 mg/dL Normal 0.70-1.20 [facility] Comment on above: Result Comment: METH OD TRACEABLE TO IDMS STANDARD Performed By: #### 1 9123-9PATRICK, CMP ####[facility] ([id number])[address] [place] [address] 14869 GFR/1.73 sq M.predicted among non-blacks MDRD (S/P/Bld) [Vol rate/Area] 74 mL/min/{1.73_m2} Normal >59 [facility] Comment on above: Result Comment: Reported eGFR is based on the CKD-EPI 2021 equation that does not use a race coefficient. Performed By: #### 1 9123-9, PATRICK, CMP ####[facility] ([id number])[address] [place] [address] 48287 Glucose [Mass/Vol] 105 mg/dL High 65-99 [facility] Comment on above: Performed By: #### 1 9123-9, PATRICK, CMP ####[facility] ([id number])[address] [place] [address] 65317 Potassium [Moles/Vol] 4.2 mmol/L Normal 3.5-5.0 [facility] Comment on above: Performed By: #### 1 9123-9, CBCA, CMP ####[facility] ([id number])[address] [place] [address] 88367 Protein [Mass/Vol] 6.4 g/dL Normal 6.0-8.0 [facility] Comment on above: Performed By: #### 1 9123-9, CBCA, CMP ####[facility] ([id number])[address] [place] [address] 10099 Sodium [Moles/Vol] 138 mmol/L Normal 134-146 [facility] Comment on above: Performed By: #### 1 9123-9, CBCA, CMP ####[facility] ([id number])[address] [place] [address] 78174 Urea nitrogen [Mass/Vol] 35 mg/dL High 5-27 [facility] Comment on above: Performed By: #### 1 9123-9, CBCA, CMP ####[facility] ([id number])[address] [place] [address] 83044 MAGNESIUMon 03-23-2024 Magnesium [Mass/Vol] 2.0 mg/dL Normal 1.8-2.6 [facility] Comment on above: Performed By: #### 1 9123-9, CBCA, CMP ####[facility] ([id number])[address] [place] [address] 12002 CBC AND AUTO DIFFon 03-22-20 24 ABSOLUTE BASOPHIL 0.0 X10E9/L Normal 0.0-0.2 [facility] Comment on above: Performed By: #### C BCA, CMP, 3040-3, 77125-3, 02031-5 #### [facility] ([id number]) [address] [place] [address] 62351 ABSOLUTE NEUTROPHIL 8.1 X10E9/L High 1.5-6.6 [facility] Comment on above: Performed By: #### C BCA, CMP, 3040-3, 33979-6, 14622-2 #### [facility] ([id number]) [address] [place] [address] 53824 Basophils/100 WBC (Bld) 0.1 % Normal [facility] Comment on above: Performed By: #### C BCA, CMP, 3040-3, , 61034-8 #### [facility] ([id number]) [address] [place] [address] 89263 Eosinophils (Bld) [#/Vol] 0.0 10*3/uL Normal 0.0-0.4 [facility] Comment on above: Performed By: #### C BCA, CMP, 3040-3, , 09935-1 #### [facility] ([id number]) [address] [place] [address] 14948 Eosinophils/100 WBC (Bld) 0.1 % Normal [facility] Comment on above: Performed By: #### C BCA, CMP, 3040-3, , 15936-3 #### [facility] ([id number]) [address] [place] [address] 04873 Erythrocyte distribution width (RBC) [Ratio] 14.6 % Normal 11.5-15.0 [facility] Comment on above: Performed By: #### C BCA, CMP, 3040-3, , 73448-7 #### [facility] ([id number]) [address] [place] [address] 37525 Hematocrit (Bld) [Volume fraction] 35.7 % Low 39-49 [facility] Comment on above: Performed By: #### C BCA, CMP, 3040-3, 29493-1, 06740-3 #### [facility] ([id number]) [address] [place] [address] 28379 Hemoglobin (Bld) [Mass/Vol] 12.1 g/dL Low 13.0-17.0 [facility] Comment on above: Performed By: #### C BCA, CMP, 3040-3, 57667-4, 29995-7 #### [facility] ([id number]) [address] [place] [address] 20575 Lymphocytes (Bld) [#/Vol] 0.9 10*3/uL Low 1.0-3.5 [facility] Comment on above: Performed By: #### C BCA, CMP, 3040-3, , 71898-4 #### [facility] ([id number]) [address] [place] [address] 61443 Lymphocytes/100 WBC (Bld) 8.9 % Normal [facility] Comment on above: Performed By: #### C BCA, CMP, 3040-3, , 73087-3 #### [facility] ([id number]) [address] [place] [address] 88372 MCH (RBC) [Entitic mass] 29.3 pg Normal 27-34 [facility] Comment on above: Performed By: #### C BCA, CMP, 3040-3, , 83867-7 #### [facility] ([id number]) [address] [place] [address] 33139 MCHC (RBC) [Mass/Vol] 34.0 g/dL Normal 32-36 [facility] Comment on above: Performed By: #### C BCA, CMP, 3040-3, 53343-5, 47892-4 #### [facility] ([id number]) [address] [place] [address] [place] [address] MCV (RBC) [Entitic vol] 86 fL Normal 80-100 [facility] Comment on above: Performed By: #### C BCA, CMP, 3040-3, , 99815-0 #### [facility] ([id number]) [address] [place] [address] 54677 Monocytes (Bld) [#/Vol] 1.3 10*3/uL High 0-0.9 [facility] Comment on above: Performed By: #### C JASKARAN, CMP, 0-3, , 56618-2 #### [facility] ([id number]) [address] [place] [address] 05723 Monocytes/100 WBC (Bld) 12.8 % Normal [facility] Comment on above: Performed By: #### Nasima JESSICA, CMP, 0-3, , 81991-0 #### [facility] ([id number]) [address] [place] [address] 33980 Neutrophils/100 WBC (Bld) 78.1 % Normal [facility] Comment on above: Performed By: #### C JASKARAN, CMP, 0-3, , 18646-2 #### [facility] ([id number]) [address] [place] [address] [place] [address] Platelet mean volume (Bld) [Entitic vol] 9.3 fL Normal 7-12 [facility] Comment on above: Performed By: #### C BCA, CMP, 0-3, , 90704-3 #### [facility] ([id number]) [address] [place] [address] 97583 Platelets (Bld) [#/Vol] 141 10*3/uL Low 150-450 [facility] Comment on above: Performed By: #### C BCA, CMP, 3040-3, 44146-0, 20366-8 #### [facility] ([id number]) [address] [place] [address] 40499 RBC COUNT 4.14 X10E12/L Normal 4.10-5.70 [facility] Comment on above: Performed By: #### C BCA, CMP, 3040-3, 49047-3, 29205-2 #### [facility] ([id number]) [address] [place] [address] 94806 WBC (Bld) [#/Vol] 10.4 10*3/uL Normal 4.0-11.0 [facility] Comment on above: Performed By: #### C BCA, CMP, 3040-3, 14627-1, 38039-0 #### [facility] ([id number]) [address] [place] [address] 00123 COMPREHENSIVE METABOLIC PANE [facility] 03-22-2024 Albumin [Mass/Vol] 4.3 g/dL Normal 3.2-5.3 [facility] Comment on above: Performed By: #### C BCA, CMP, 3040-3, 73572-3, 85114-5 #### [facility] ([id number]) [address] [place] [address] 03859 ALP [Catalytic activity/Vol] 87 U/L Normal 39-130 [facility] Comment on above: Performed By: #### C BCA, CMP, 3040-3, 29103-7, 21629-3 #### [facility] ([id number]) [address] [place] [address] 08343 ALT [Catalytic activity/Vol] 20 U/L Normal 0-40 [facility] Comment on above: Performed By: #### C BCA, CMP, 3040-3, 08992-9, 78915-1 #### [facility] ([id number]) [address] [place] [address] Anion gap [Moles/Vol] 9 mmol/L Normal 5-15 [facility] Comment on above: Performed By: #### C BCA, CMP, 3040-3, , 51745-8 #### [facility] ([id number]) [address] [place] [address] 33974 AST [Catalytic activity/Vol] 19 U/L Normal 0-41 [facility] Comment on above: Performed By: #### C BCA, CMP, 3040-3, , 35700-7 #### [facility] ([id number]) [address] [place] [address] 07271 Bilirubin [Mass/Vol] 0.9 mg/dL Normal 0.3-1.2 [facility] Comment on above: Performed By: #### C BCA, CMP, 3040-3, , 50271-8 #### [facility] ([id number]) [address] [place] [address] 97802 Calcium [Mass/Vol] 9.5 mg/dL Normal 8.5-10.5 [facility] Comment on above: Performed By: #### C BCA, CMP, 3040-3, , 79758-6 #### [facility] ([id number]) [address] [place] [address] 72192 Chloride [Moles/Vol] 105 mmol/L Normal 98-109 [facility] Comment on above: Performed By: #### C BCA, CMP, 3040-3, , 58834-7 #### [facility] ([id number]) [address] [place] [address] 71530 CO2 [Moles/Vol] 23 mmol/L Normal 22-32 [facility] Comment on above: Performed By: #### C BCA, CMP, 3040-3, , 57724-4 #### [facility] ([id number]) [address] [place] [address] 77312 Creatinine [Mass/Vol] 1.25 mg/dL High 0.70-1.20 [facility] Comment on above: Result Comment: METH OD TRACEABLE TO IDMS STANDARD Performed By: #### C GIULIANA JESSICA, 3039-3, , 64610-9 #### [facility] ([id number]) [address] [place] [address] 77438 GFR/1.73 sq M.predicted among non-blacks MDRD (S/P/Bld) [Vol rate/Area] 63 mL/min/{1.73_m2} Normal >59 [facility] Comment on above: Result Comment: Reported eGFR is based on the CKD-EPI 2020 equation that does not use a race coefficient. Performed By: #### C GIULIANA JESSICA, 3, , 00499-1 #### [facility] ([id number]) [address] [place] [address] 93595 Glucose [Mass/Vol] 118 mg/dL High 65-99 [facility] Comment on above: Performed By: #### C GIULIANA JESSICA, 3039-08, , 38230-6 #### [facility] ([id number]) [address] [place] [address] 25991 Potassium [Moles/Vol] 4.2 mmol/L Normal 3.5-5.0 [facility] Comment on above: Performed By: #### C JASKARAN, CMP, 3, , 57826-4 #### [facility] ([id number]) [address] [place] [address] 11682 Protein [Mass/Vol] 7.3 g/dL Normal 6.0-8.0 [facility] Comment on above: Performed By: #### C JASKARAN CMP, 3040-3, 82285-1, 68849-4 #### [facility] ([id number]) [address] [place] [address] Sodium [Moles/Vol] 137 mmol/L Normal 134-146 [facility] Comment on above: Performed By: #### C BCA, CMP, 3040-3, 87197-5, 95587-0 #### [facility] ([id number]) [address] [place] [address] Urea nitrogen [Mass/Vol] 41 mg/dL High 5-27 [facility] Comment on above: Performed By: #### C BCA, CMP, 3040-3, 73510-0, 00102-0 #### [facility] ([id number]) [address] [place] [address] CT CTA CHESTon 03-22-2024 CT CTA CHEST [...] Arthur MD on 03/22/2024 11:33 AM Normal [facility] LIPASEon 03-22-2024 Lipase [Catalytic activity/Vol] 24 U/L Normal 17-40 [facility] Comment on above: Performed By: #### C BCA, CMP, 3040-3, 82096-0, 19510-8 #### [facility] ([id number]) [address] [place] [address] 14603 MAGNESIUMon 03-22-2024 Magnesium [Mass/Vol] 1.9 mg/dL Normal 1.8-2.6 [facility] Comment on above: Performed By: #### C BCA, CMP, 3040-3, 27272-9, 48584-6 ####[facility] ([id number])[address] [place] [address] 59614 SARS/FLU A+B/RSV by NAAT/Mol ecularon 03-22-2024 SARS/FLU [...] operators who are performing tests using either gumi or Protein [employer] systems and is limited to laboratories that [...] repeat. Fact Sheet for Healthcare Providers: https://www.fda.gov/medi a/576500/download Fact Sheet for Patients: https://www.fda.gov/medi a/401137/download Normal [facility] Comment on above: Performed By: #### C OVFLR ####[facility] ([id number])[address] [place] [address] 31205 Troponin I.cardiac High sens itivity method [Mass/Vol]on 03-22-2024 1 HOUR TROP I, HIGH SENSITIVITY 5 ng/L Normal <21 [facility] Comment on above: Performed By: #### 8 9579-7 ####[facility] ([id number])[address] [place] [address] 60841 TROPONIN I, HIGH SENSITIVITY 4 ng/L Normal <21 [facility] Comment on above: Performed By: #### C BCA, CMP, 3040-3, 32378-7, 00280-3 ####[facility] ([id number])[address] [place] [address] 81500 BASIC METABOLIC PANLon 03-21 Anion gap [Moles/Vol] 8 mmol/L Normal 5-15 [facility] Comment on above: Performed By: #### C BCA, 03460-6, BMP, 58721-3 #### [facility] ([id number]) [address] [place] [address] 40095 Calcium [Mass/Vol] 9.1 mg/dL Normal 8.5-10.5 [facility] Comment on above: Performed By: #### C BCA, 08607-8, BMP, 02022-6 #### [facility] ([id number]) [address] [place] [address] 57286 Chloride [Moles/Vol] 104 mmol/L Normal 98-109 [facility] Comment on above: Performed By: #### C BCA, 61908-5, BMP, 93903-1 #### [facility] ([id number]) [address] [place] [address] 25196 CO2 [Moles/Vol] 24 mmol/L Normal 22-32 [facility] Comment on above: Performed By: #### C BCA, 16687-5, BMP, 30215-9 #### [facility] ([id number]) [address] [place] [address] 01702 Creatinine [Mass/Vol] 1.51 mg/dL High 0.70-1.20 [facility] Comment on above: Result Comment: METH OD TRACEABLE TO IDMS STANDARD Performed By: #### C BCA, 82303-4, BMP, 20546-6 #### [facility] ([id number]) [address] [place] [address] 80955 GFR/1.73 sq M.predicted among non-blacks MDRD (S/P/Bld) [Vol rate/Area] 50 mL/min/{1.73_m2} Low >59 [facility] Comment on above: Result Comment: Reported eGFR is based on the CKD-EPI 2020 equation that does not use a race coefficient. Performed By: #### C BCA, 82747-2, BMP, 14077-4 #### [facility] ([id number]) [address] [place] [address] 88766 Glucose [Mass/Vol] 110 mg/dL High 65-99 [facility] Comment on above: Performed By: #### Nasima JESSICA, 10693-5, BMP, 13294-6 #### [facility] ([id number]) [address] [place] [address] 99569 Potassium [Moles/Vol] 4.2 mmol/L Normal 3.5-5.0 [facility] Comment on above: Performed By: #### Nasima JESSICA, 61204-5, BMP, 45507-4 #### [facility] ([id number]) [address] [place] [address] 66226 Sodium [Moles/Vol] 136 mmol/L Normal 134-146 [facility] Comment on above: Performed By: #### Nasima JESSICA, 26128-5, BMP, 25536-6 #### [facility] ([id number]) [address] [place] [address] 49191 Urea nitrogen [Mass/Vol] 52 mg/dL High 5-27 [facility] Comment on above: Performed By: #### Nasima JESSICA, 35292-7, BMP, 46018-1 #### [facility] ([id number]) [address] [place] [address] 72554 CBC AND AUTO DIFFon 03-21-20 24 ABSOLUTE BASOPHIL 0.0 X10E9/L Normal 0.0-0.2 [facility] Comment on above: Performed By: #### Nasima BCA, 83576-7, BMP, 39094-3 #### [facility] ([id number]) [address] [place] [address] 72201 ABSOLUTE NEUTROPHIL 5.5 X10E9/L Normal 1.5-6.6 [facility] Comment on above: Performed By: #### Nasima JESSICA, 44234-8, BMP, 83565-5 #### [facility] ([id number]) [address] [place] [address] 25373 Basophils/100 WBC (Bld) 0.3 % Normal [facility] Comment on above: Performed By: #### Nasima JESSICA, 15085-5, BMP, 02583-5 #### [facility] ([id number]) [address] [place] [address] 20720 Eosinophils (Bld) [#/Vol] 0.3 10*3/uL Normal 0.0-0.4 [facility] Comment on above: Performed By: #### Nasima JESSICA, 35616-5, BMP, 83682-0 #### [facility] ([id number]) [address] [place] [address] 54692 Eosinophils/100 WBC (Bld) 3.1 % Normal [facility] Comment on above: Performed By: #### Nasima JESSICA, 61429-6, BMP, 26322-9 #### [facility] ([id number]) [address] [place] [address] 93473 Erythrocyte distribution width (RBC) [Ratio] 14.5 % Normal 11.5-15.0 [facility] Comment on above: Performed By: #### Nasima JESSICA, 85913-1, BMP, 37685-8 #### [facility] ([id number]) [address] [place] [address] 56736 Hematocrit (Bld) [Volume fraction] 32.6 % Low 39-49 [facility] Comment on above: Performed By: #### Nasima JESSICA, 56921-1, BMP, 30240-9 #### [facility] ([id number]) [address] [place] [address] 17562 Hemoglobin (Bld) [Mass/Vol] 11.1 g/dL Low 13.0-17.0 [facility] Comment on above: Performed By: #### Nasima JESSICA, 59415-2, BMP, 79201-2 #### [facility] ([id number]) [address] [place] [address] 41029 Lymphocytes (Bld) [#/Vol] 1.6 10*3/uL Normal 1.0-3.5 [facility] Comment on above: Performed By: #### Nasima JESSICA, 78053-8, BMP, 54017-4 #### [facility] ([id number]) [address] [place] [address] 78087 Lymphocytes/100 WBC (Bld) 19.1 % Normal [facility] Comment on above: Performed By: #### Nasima JESSICA, 29849-4, BMP, 82446-9 #### [facility] ([id number]) [address] [place] [address] 98202 MCH (RBC) [Entitic mass] 29.7 pg Normal 27-34 [facility] Comment on above: Performed By: #### Nasima JESSICA, 50777-3, BMP, 11558-6 #### [facility] ([id number]) [address] [place] [address] 20309 MCHC (RBC) [Mass/Vol] 34.2 g/dL Normal 32-36 [facility] Comment on above: Performed By: #### Nasima JESSICA, 66633-7, BMP, 31097-8 #### [facility] ([id number]) [address] [place] [address] 65655 MCV (RBC) [Entitic vol] 87 fL Normal 80-100 [facility] Comment on above: Performed By: #### Nasima JESSICA, 53621-1, BMP, 52171-8 #### [facility] ([id number]) [address] [place] [address] 43328 Monocytes (Bld) [#/Vol] 1.1 10*3/uL High 0-0.9 [facility] Comment on above: Performed By: #### Nasima JESSICA, 16802-2, BMP, 37326-7 #### [facility] ([id number]) [address] [place] [address] 97427 Monocytes/100 WBC (Bld) 13.1 % Normal [facility] Comment on above: Performed By: #### Nasima JESSICA, 46037-5, BMP, 58923-2 #### [facility] ([id number]) [address] [place] [address] 12181 Neutrophils/100 WBC (Bld) 64.4 % Normal [facility] Comment on above: Performed By: #### Nasima JESSICA, 85828-0, BMP, 56073-6 #### [facility] ([id number]) [address] [place] [address] 49451 Platelet mean volume (Bld) [Entitic vol] 9.4 fL Normal 7-12 [facility] Comment on above: Performed By: #### Nasima JESSICA, 80732-1, BMP, 24825-9 #### [facility] ([id number]) [address] [place] [address] 93946 Platelets (Bld) [#/Vol] 140 10*3/uL Low 150-450 [facility] Comment on above: Performed By: #### Nasima JESSICA, 63375-1, BMP, 27214-4 #### [facility] ([id number]) [address] [place] [address] 06540 RBC COUNT 3.75 X10E12/L Low 4.10-5.70 [facility] Comment on above: Performed By: #### Nasima JESSICA, 06108-6, BMP, 57445-6 #### [facility] ([id number]) [address] [place] [address] 43315 WBC (Bld) [#/Vol] 8.6 10*3/uL Normal 4.0-11.0 [facility] Comment on above: Performed By: #### Nasima JESSICA, 07966-8, BMP, 00479-4 #### [facility] ([id number]) [address] [place] [address] 91984 Fibrin D-dimer DDU (PPP) [Ma ss/Vol]on 03-21-2024 D DIMER 187 ng/mL DDU Normal <255 [facility] Comment on above: Result Comment: Results <255 ng/mL DDU: The presence of a VTE can safely be excluded with a negative D-Dimer result and Wells score. A negative result doesn't exclude the possibility of DIC. The test be repeated along with other diagnostic tests if the patient's symptoms persist or worsen. [email or web address] Performed By: #### C JASKARAN, 37003-2, [facility], 50097-7 #### [facility] ([id number]) [address] [place] [address] 97225 Troponin I.cardiac High sens itivity method [Mass/Vol]on 03-21-2024 1 HOUR TROP I, HIGH SENSITIVITY 4 ng/L Normal <21 [facility] Comment on above: Performed By: #### 8 9579-7 #### [facility] ([id number]) [address] [place] [address] 05038 TROPONIN I, HIGH SENSITIVITY 5 ng/L Normal <21 [facility] Comment on above: Performed By: #### C JASKARAN, 96606-5, [facility], 97630-1 #### [facility] ([id number]) [address] [place] [address] 60187 XR CHEST 1 VWon 03-21-2024 XR CHEST [...] Valladares MD on 03/21/2024 8:19 PM I, Desiree Thapa MD have personally reviewed the image(s) and agree with and/or edited the report Finalized by Desiree Thapa MD on 03/21/2024 8:51 PM Normal [facility] Urinalysis macro (dipstick) panel (U)on 02-11-2024 Bilirubin, UA Negative Negative - 4(70) +++ mg/dL [facility] Blood, UA Positive Negative - 50 Yo/mcL [facility] Comment on above: trace Clarity, UA Clear [facility] Color, UA Yellow [facility] Glucose, UA Negative Negative - 2000(110) ++++ mg/dL [facility] Ketones, UA Negative Negative - 160(16) ++++ mg/dL [facility] Leukocytes, UA Negative Negative - 500+++ Abdulaziz/mcL [facility] Nitrite, UA Negative Negative - Positive [facility] pH, UA 5.0 5 - 9 [facility] Protein, UA Negative Negative - 2000(20) ++++ mg/dL [facility] Spec Grav, UA 1.015 1 - 1.03 [facility] Urobilinogen, UA 1.0 0.2 - 12 mg/dL [facility] CT LUNG SCREENING LOW DOSEon 12-06-2023 CT [...] BY: David Bowen MD Normal Not Available [facility] US ABDOMINAL AORTA ANUE RYSM AAA SCREENINGon 12-06-2023 [facility] US ABDOMINAL AORTA ANUERYSM AAA SCREENING FINDINGS: [...] BY: David Bowen MD Normal Not Available [facility] US CAROTID ARTERY DUPLE X BILATERALon 12-06-2023 [facility] US CAROTID ARTERY DUPLEX BILATERAL FINDINGS: Right [...] SPEC ANT 3.72 ng/mL Normal 0.00-4.00 [facility] Comment on above: Result Comment: The method used for this test is Paul Johnny DXI chemiluminescent immunoassay. Values obtained by different assay methods cannot be used interchangeably. Performed By: #### 2 857-1 #### [facility] ([id number]) [address], [address] [place] [address] [facility] 06-02-2021 L ---- Specimen: [id number] Received: 06/02/21 Status: ELI Lexa Num: [id number] Spec Type: Surgical Subm Dr: Sushil Sorto MD Tissues: A Duodenum - Biopsy (DUODENAL) B Stomach - Biopsy/Polyp (ANTRUM) C Colon Biopsy (COLITIS BX) Procedures: HE Stain/6, Gross/Micro L4/3 Patient Age/Sex Location Account Attending Physician Efraín Lopez/Chavez [id number] Sushil Sorto MD SPEC NUM: [id number] RECD: 06/02/21 STATUS: ELI NATALIE NUM: [id number] JABIER: 06/02/21 DR: Sushil Sorto MD ENTERED: 06/02/[address] [facility] [address]: SPEC TYPE: Surgical DEPT: S ORDERED: [...] with the patient's name, number and Specimen: [id number] Received: 06/02/21 Status: ELI Lexa Num: [id number] Spec Type: Surgical Subm Dr: Sushil Sorto MD Tissues: A Duodenum - Biopsy (DUODENAL) B Stomach - Biopsy/Polyp (ANTRUM) C Colon Biopsy (COLITIS BX) Procedures: HE Stain/6, Gross/Micro L4/3 Patient: Efraín Lopez [id number] (Continued) Specimen: [id number] Received: 06/02/21 (Continued) Gross Description (Continued) Signed (signature on file) Marcia Knight MD 06/03/21 1726 Specimen: [id number] Received: 06/02/21 Status: ELI Lindquist Num: [id number] Spec Type: Surgical Subm Dr: Sushil Sorto MD Tissues: A Duodenum - Biopsy (DUODENAL) B Stomach - Biopsy/Polyp (ANTRUM) C Colon Biopsy (COLITIS BX) Procedures: HE Stain/6, Gross/Micro L4/3 Patient: Efraín Lopez [id number] (Continued) Specimen: [id number] Received: 06/02/21 (Continued) Gross Description (Continued) antrum [...] microscopic findings support the above pathologic diagnosis. 90342, 83544 The use of one or more reagents in the above tests is regulated as an analyte specific reagent (ASR). The performance characteristics were determined by the [facility] of [facility]. Immunohistochemistry assays have not been validated on decalcified tissue. Results should be interpreted with caution given the possibility of false negative results on decalcified specimens. They have not been cleared by the [place] Food and Drug Administration. The FDA has determined that such (more content not included)... Normal [facility] Ammoniaon 05-31-2021 Ammonia (P) [Mass/Vol] ug/dL Low 11-35 [facility] Comment on above: Result Comment: PERF ORMED BY: [address] [place] [address] PATHOLOGIST FRONT OFFICE ATTENDANT MARCIA KNIGHT M.D. Performed By: #### A MM, PT, CMP, CBC #### [facility] [id number] [facility] COVID-19 FRMCon 05-31-2021 SARS-CoV-2 (COVID-19) RNA JESSE+probe Ql (Unsp spec) Negative Normal Negative [facility] Comment on above: Order Comment: Healt hcare Worker?: N Result Comment: Testing for SARS-CoV-2 by RT-PCR This test was developed and its performance characteristics determined by [employer] and validated at the [facility]. This test has not been FDA [...] is terminated or revoked sooner. PERFORMED BY: [facility] [address] [place] [address] PATHOLOGIST FRONT OFFICE ATTENDANT MARCIA KNIGHT M.D. Performed By: #### C OVID 19 [facility] #### [facility] [address] [place], [place] [id number] [facility] Complete Blood Count Auto Di ffon 05-31-2021 Basophils (Bld) [#/Vol] 0.0 10*3/uL Normal 0.0-0.2 [facility] Comment on above: Result Comment: PERF ORMED BY: [place] [address] PATHOLOGIST FRONT OFFICE ATTENDANT MARCIA KNIGHT M.D. Performed By: #### A MM, PT, CMP, CBC #### [address] Basophils/100 WBC (Bld) 0.4 % Normal . [facility] Comment on above: Performed By: #### A MM, PT, CMP, CBC #### [address] Eosinophils (Bld) [#/Vol] 0.1 10*3/uL Normal 0.0-0.45 [facility] Comment on above: Performed By: #### A MM, PT, CMP, CBC #### [address] Eosinophils/100 WBC (Bld) 1.1 % Normal . [facility] Comment on above: Performed By: #### A MM, PT, CMP, CBC #### [address] Erythrocyte distribution width (RBC) [Ratio] 14.3 % Normal 12.0-14.8 [facility] Comment on above: Performed By: #### A MM, PT, CMP, CBC #### [address] Hematocrit (Bld) [Volume fraction] 42.5 % Normal 38.8-50.0 [facility] Comment on above: Performed By: #### A MM, PT, CMP, CBC #### [address] Hemoglobin (Bld) [Mass/Vol] 14.1 g/dL Normal 13.0-17.0 [facility] Comment on above: Performed By: #### A MM, PT, CMP, CBC #### [address] Lymphocytes (Bld) [#/Vol] 1.4 10*3/uL Normal 1.00-4.8 [facility] Comment on above: Performed By: #### A MM, PT, CMP, CBC #### [address] Lymphocytes/100 WBC (Bld) 17.3 % Normal . [facility] Comment on above: Performed By: #### A MM, PT, CMP, CBC #### [facility] [address] MCH (RBC) [Entitic mass] 29.6 pg Normal 27.5-35.2 [facility] Comment on above: Performed By: #### A MM, PT, CMP, CBC #### [address] MCV (RBC) [Entitic vol] 89.1 fL Normal 83.5-101 [facility] Comment on above: Performed By: #### A MM, PT, CMP, CBC #### [address] Mean Corpuscular HGB Conc 33.2 g/dL Normal 32.5-35.6 [facility] Comment on above: Performed By: #### A MM, PT, CMP, CBC #### [place] [address] [place] Monocytes (Bld) [#/Vol] 0.7 10*3/uL Normal 0.0-0.8 [facility] Comment on above: Performed By: #### A MM, PT, CMP, CBC #### [place] [address] [place] Monocytes/100 WBC (Bld) 9.2 % Normal . [facility] Comment on above: Performed By: #### A MM, PT, CMP, CBC #### [place] [address] [place] Neutrophils (Bld) [#/Vol] 5.8 10*3/uL Normal 1.8-7.7 [facility] Comment on above: Performed By: #### A MM, PT, CMP, CBC #### [place] [address] [place] Neutrophils/100 WBC (Bld) 72.0 % Normal . [facility] Comment on above: Performed By: #### A MM, PT, CMP, CBC #### [address] Nucleated RBC/100 WBC (Bld) [Ratio] 0.0 % Normal 0-0.5 [facility] Comment on above: Performed By: #### A MM, PT, CMP, CBC #### [address] Platelet mean volume (Bld) [Entitic vol] 7.8 fL Normal 6.6-10.1 [facility] Comment on above: Performed By: #### A MM, PT, CMP, CBC #### [address] Platelets (Bld) [#/Vol] 194 10*3/uL Normal 150-450 [facility] Comment on above: Performed By: #### A MM, PT, CMP, CBC #### [address] RBC (Bld) [#/Vol] 4.77 10*6/uL Normal 3.90-5.60 [facility] Comment on above: Performed By: #### A MM, PT, CMP, CBC #### [address] WBC (Bld) [#/Vol] 8.0 10*3/uL Normal 4.5-11.0 [facility] Comment on above: Performed By: #### A MM, PT, CMP, CBC #### [address] Comprehensive Metabolic Pane brent 05-31-2021 Albumin [Mass/Vol] 4.1 g/dL Normal 3.2-5.5 [facility] Comment on above: Performed By: #### A MM, PT, CMP, CBC #### [address] Albumin/Globulin [Mass ratio] 1.5 {ratio} Normal [facility] Comment on above: Performed By: #### A MM, PT, CMP, CBC #### [facility] [address] ALP [Catalytic activity/Vol] 70 U/L Normal 32-92 [facility] Comment on above: Result Comment: PERF ORMED BY: [place] [address] PATHOLOGIST FRONT OFFICE ATTENDANT MARCIA KNIGHT M.D. Performed By: #### A MM, PT, CMP, CBC #### [facility] [address] ALT [Catalytic activity/Vol] 22 U/L Normal 10-60 [facility] Comment on above: Performed By: #### A MM, PT, CMP, CBC #### [address] AST [Catalytic activity/Vol] 20 U/L Normal 10-42 [facility] Comment on above: Performed By: #### A MM, PT, CMP, CBC #### [address] Bilirubin [Mass/Vol] 0.9 mg/dL Normal 0.3-1.2 [facility] Comment on above: Performed By: #### A MM, PT, CMP, CBC #### [place] [address] [place] Calcium [Mass/Vol] 9.5 mg/dL Normal 8.2-10.2 [facility] Comment on above: Performed By: #### A MM, PT, CMP, CBC #### [facility] [address] [place] [address] [place] Chloride [Moles/Vol] 102 mmol/L Normal 95-114 [facility] Comment on above: Performed By: #### A MM, PT, CMP, CBC #### [facility] [address] [place] [address] [place] CO2 [Moles/Vol] 23.2 mmol/L Normal 22.0-30.0 [facility] Comment on above: Performed By: #### A MM, PT, CMP, CBC #### [facility] [address] Creatinine [Mass/Vol] 0.91 mg/dL Normal 0.64-1.27 [facility] Comment on above: Performed By: #### A MM, PT, CMP, CBC #### [facility] [address] Estimated GFR ( Corinne > 60 Normal [facility] Comment on above: Result Comment: GFR estimated reference range: According to KDOQI guidelines, <60 ml/min/1.73m2 is sufficient to diagnose a patient with chronic kidney disease. Performed By: #### A MM, PT, CMP, CBC #### [facility] [address] Estimated GFR (Non- Am > 60 Normal [facility] Comment on above: Performed By: #### A MM, PT, CMP, CBC #### [facility] [address] Globulin (S) [Mass/Vol] 2.8 g/dL Normal [facility] Comment on above: Performed By: #### A MM, PT, CMP, CBC #### [address] Glucose [Mass/Vol] 101 mg/dL High 70-100 [facility] Comment on above: Result Comment: [place] Glucose Reference Range is dependent on time and content of last meal. Glucose of more than 200 mg/dL in a nonstressed, ambulatory subject supports the diagnosis of Diabetes Mellitus. ADA recommended reference range Performed By: #### A MM, PT, CMP, CBC #### [facility] [address] Potassium [Moles/Vol] 4.2 mmol/L Normal 3.5-5.1 [facility] Comment on above: Performed By: #### A MM, PT, CMP, CBC #### [facility] [address] Protein [Mass/Vol] 6.9 g/dL Normal 6.1-7.9 [facility] Comment on above: Performed By: #### A MM, PT, CMP, CBC #### [facility] [address] Sodium [Moles/Vol] 136 mmol/L Normal 136-146 [facility] Comment on above: Performed By: #### A MM, PT, CMP, CBC #### [facility] [address] Urea nitrogen [Mass/Vol] 15 mg/dL Normal 9-23 [facility] Comment on above: Performed By: #### A MM, PT, CMP, CBC #### [facility] [address] Prothrombin Time INRon 05-31 INR Coag (PPP) [Relative time] 1.0 {INR} Normal [facility] Comment on above: Result Comment: INR [...] heart valves: 3 - 4.5 PERFORMED BY: [place] [address] PATHOLOGIST FRONT OFFICE ATTENDANT MARCIA KNIGHT M.D. Performed By: #### A MM, PT, CMP, CBC #### [facility] [address] [place] [address] PT Coag (PPP) [Time] 10.8 s Normal 9.0-12.9 [facility] Comment on above: Performed By: #### A MM, PT, CMP, CBC #### [facility] [address] [place] [address] US liveron 05-31-2021 US liver [facility] Main [place] [address] [place] [address] Ultrasound Report Signed Patient: Efraín Lopez MR#: [id number] 353 : [id number] Acct:[id number] Age/Sex: 65 / M ADM Date: 05/31/21 Loc: Room: Type: [facility] Attending Dr: Sushil Sorto MD Ordering Provider: Sushil Sorto MD Date of Service: 05/31/21 US/US liver: abnormal weight loss,gastric wall thickening Copies to: Sushil Sorto MD LIMITED ABDOMINAL ULTRASOUND - liver CLINICAL [...] Marilee Ramirez M.D.05/31/2021 2:24 PM Dictation Location: [place] [address] Tech: Sophie Nikko Transcribed By: MARCUS 05/31/21 142 Dictated By: Marilee Ramirez MD 05/31/211420 Signed By: 05/31/21 1424 [facility] Vital Signs Date Time Vital Sign Value Performing Clinician Facility 07-22-2024 14:01-0500 Body mass index (BMI) [Ratio] 21.56 kg/m2 Carli Stewart NP Work Phone: [facility] 07-22-2024 14:01-0500 Body weight 69.13 kg Carli Stewart NP Work Phone: [facility] 07-22-2024 14:01-0500 Diastolic blood pressure 70 mm[Hg] Carli Stewart NP Work Phone: [facility] 07-22-2024 14:01-0500 Heart rate 88 /min Carli Stewart NP Work Phone: [facility] 07-22-2024 14:01-0500 Systolic blood pressure 124 mm[Hg] Carli Stewart LISBET Work Phone: [facility] 07-02-2024 07:24-0500 Body height 182.9 cm Tee Dodson ELECTRONIC TYPESETTING MACHINE OPERATOR-[employer] Work Phone: [facility] [email or web address] [facility] 07-02-2024 07:24-0500 Body mass index (BMI) [Ratio] 21.02 kg/m2 Tee Dodson ELECTRONIC TYPESETTING MACHINE OPERATOR-[employer] Work Phone: [facility] [email or web address] [facility] 07-02-2024 07:24-0500 Body weight 70.31 kg Tee Dodson ELECTRONIC TYPESETTING MACHINE OPERATOR-[employer] Work Phone: [facility] [email or web address] [facility] 07-02-2024 07:24-0500 Diastolic blood pressure 60 mm[Hg] Tee Dodson ELECTRONIC TYPESETTING MACHINE OPERATOR-[employer] Work Phone: [facility] [email or web address] [facility] 07-02-2024 07:24-0500 Heart rate 73 /min Tee Dodson ELECTRONIC TYPESETTING MACHINE OPERATOR-[employer] Work Phone: [facility] [email or web address] [facility] 07-02-2024 07:24-0500 SaO2% (BldA) [Mass fraction] 99 % Tee Dodson ELECTRONIC TYPESETTING MACHINE OPERATOR-[employer] Work Phone: [facility] [email or web address] [facility] 07-02-2024 07:24-0500 Systolic blood pressure 132 mm[Hg] Tee Dodson ELECTRONIC TYPESETTING MACHINE OPERATOR-[employer] Work Phone: [facility] [email or web address] [facility] 06-26-2024 14:44-0500 Body height 182.9 cm [facility] 06-26-2024 14:44-0500 Body mass index (BMI) [Ratio] 20.75 kg/m2 Ashley Duran [facility] 06-26-2024 14:44-0500 Body weight 69.4 kg Ashley [facility]an [facility] 06-26-2024 14:44-0500 Diastolic blood pressure 76 mm[Hg] Ashley Duran MD Work Phone: [facility] 06-26-2024 14:44-0500 Heart rate 90 /min Ashley Duran MD Work Phone: [facility] 06-26-2024 14:44-0500 SaO2% (BldA) [Mass fraction] 99 % Ashley Duran MD Work Phone: [facility] 06-26-2024 14:44-0500 Systolic blood pressure 126 mm[Hg] Ashley Duran MD Work Phone: [facility] 06-17-2024 08:54-0500 Heart rate 104 /min Pascale Navarro NP Work Phone: [facility] Comment on above: has not taken metoprolol yet this mello davies 06-17-2024 08:54-0500 SaO2% (BldA) [Mass fraction] 96 % Pascale Navarro NP Work Phone: [facility] Comment on above: on room air 06-17-2024 08:34-0500 Body mass index (BMI) [Ratio] 21.22 kg/m2 Pascale Navarro NP Work Phone: [facility] 06-17-2024 08:34-0500 Body weight 68.04 kg Pascale Navarro NP Work Phone: [facility] 06-17-2024 08:34-0500 Diastolic blood pressure 70 mm[Hg] Pascale Navarro [employer] PERFORMANCE ENGINEER Work Phone: [facility] 06-17-2024 08:34-0500 Systolic blood pressure 136 mm[Hg] Pascale Navarro NP Work Phone: [facility] 05-26-2024 11:45-0500 Body height 182.9 cm Shakir Smith MD Work Phone: [facility] 05-26-2024 11:45-0500 Body mass index (BMI) [Ratio] 20.86 kg/m2 Shakir Smith MD Work Phone: [facility] [email or web address] [facility] 05-26-2024 11:45-0500 Body weight 69.76 kg Shakir Smith MD Work Phone: [facility] [email or web address] [facility] 05-26-2024 11:45-0500 Diastolic blood pressure 78 mm[Hg] Shakir Smith MD Work Phone: [facility] 05-26-2024 11:45-0500 Heart rate 80 /min Shakir Smith MD Work Phone: [facility] 05-26-2024 11:45-0500 SaO2% (BldA) [Mass fraction] 100 % Shakir Smith MD Work Phone: [facility] 05-26-2024 11:45-0500 Systolic blood pressure 142 mm[Hg] Shakir Smith MD Work Phone: [facility] 05-02-2024 14:03-0500 Body mass index (BMI) [Ratio] 20.07 kg/m2 Desiree Nieves MD Work Phone: [facility] 05-02-2024 14:03-0500 Body weight 67.13 kg Desiree Nieves MD Work Phone: [facility] 05-02-2024 14:03-0500 Diastolic blood pressure 70 mm[Hg] Desiree Nieves MD Work Phone: [facility] [email or web address] [facility] 05-02-2024 14:03-0500 Heart rate 80 /min Desiree Nieves MD Work Phone: [facility] 05-02-2024 14:03-0500 Systolic blood pressure 120 mm[Hg] Desiree Nieves MD Work Phone: [facility] [email or web address] [facility] 04-15-2024 14:35-0400 Body height 182.9 cm Luanne Gordon MD Work Phone: [facility] [email or web address] [facility] 04-15-2024 14:35-0400 Body mass index (BMI) [Ratio] 20.07 kg/m2 Luanne Gordon MD Work Phone: [facility] 04-15-2024 14:35-0400 Body weight 67.13 kg Luanne Gordon MD Work Phone: [facility] 04-15-2024 14:35-0400 Diastolic blood pressure 74 mm[Hg] Luanne Gordon MD Work Phone: [facility] 04-15-2024 14:35-0400 Heart rate 102 /min Luanne Gordon MD Work Phone: [facility] 04-15-2024 14:35-0400 Systolic blood pressure 120 mm[Hg] Luanne Gordon MD Work Phone: [facility] 04-14-2024 13:05-0400 Body mass index (BMI) [Ratio] 20.99 kg/m2 Carli Terry [employer] PERFORMAN[employer] ENGINEER Work Phone: [facility] 04-14-2024 13:05-0400 Body weight 67.31 kg Carli Terry [employer] PERFORMANCE ENGINEER Work Phone: [facility] 04-14-2024 13:05-0400 Diastolic blood pressure 54 mm[Hg] Carli Terry [employer] PERFORMANCE ENGINEER Work Phone: [facility] 04-14-2024 13:05-0400 Heart rate 80 /min Carli Terry [employer] PERFORMANCE ENGINEER Work Phone: [facility] 04-14-2024 13:05-0400 Systolic blood pressure 110 mm[Hg] Carli Terry [employer] PERFORMANCE ENGINEER Work Phone: [facility] 03-24-2024 13:39-0400 Body mass index (BMI) [Ratio] 20.74 kg/m2 Carli Terry [employer] PERFORMANCE ENGINEER Work Phone: [facility] 03-24-2024 13:39-0400 Body weight 66.5 kg Carli Terry [employer] PERFORMANCE ENGINEER Work Phone: [facility] 03-24-2024 13:39-0400 Diastolic blood pressure 58 mm[Hg] Carli Terry [employer] PERFORMANCE ENGINEER Work Phone: [facility] 03-24-2024 13:39-0400 Heart rate 84 /min Carli Stewart [employer] PERFORMAN[employer] ENGINEER Work Phone: [facility] 03-24-2024 13:39-0400 SaO2% (BldA) [Mass fraction] 99 % Carli Stewart [employer] PERFORMAN[employer] ENGINEER Work Phone: [facility] Comment on above: room air, resting 03-24-2024 13:39-0400 Systolic blood pressure 106 mm[Hg] Carli Stewart [employer] PERFORMAN[employer] ENGINEER Work Phone: [facility] 02-11-2024 14:41-0400 Body mass index (BMI) [Ratio] 21.44 kg/m2 Angeles Pump [employer] PERFORMANCE ENGINEER Work Phone: [facility] 02-11-2024 14:41-0400 Body weight 68.77 kg Angeles Pump [employer] PERFORMANCE ENGINEER Work Phone: [facility] 02-11-2024 14:41-0400 Diastolic blood pressure 54 mm[Hg] Angeles Pump [employer] PERFORMANCE ENGINEER Work Phone: [facility] 02-11-2024 14:41-0400 Heart rate 80 /min Angeles Pump [employer] PERFORMANCE ENGINEER Work Phone: [facility] Comment on above: pulse irreg 02-11-2024 14:41-0400 Systolic blood pressure 104 mm[Hg] Angeles Pump [employer] PERFORMAN[employer] ENGINEER Work Phone: [facility] 12-28-2021 12:00-0400 Body height 182.88 cm Sushil Sorto Other [employer] Other 12-28-2021 12:00-0400 Body mass index (BMI) [Ratio] 20.34 kg/m2 Sushil Sorto Other [employer] Other 12-28-2021 12:00-0400 Body weight 68.04 kg Sushil Sorto Other [employer] Other 12-28-2021 12:00-0400 Diastolic blood pressure 71 mm[Hg] Sushil Sorto Other [employer] Other 12-28-2021 12:00-0400 Systolic blood pressure 133 mm[Hg] Sushil Sorto Other [employer] Other 09-27-2021 16:00-0400 Body height 182.88 cm Sushil Sorto Other [employer] Other 09-27-2021 16:00-0400 Body mass index (BMI) [Ratio] 20.34 kg/m2 Sushil Sorto Other [employer] Other 09-27-2021 16:00-0400 Body weight 68.04 kg Sushil Sorto Other [employer] Other 09-27-2021 16:00-0400 Diastolic blood pressure 91 mm[Hg] Sushil Sorto Other [employer] Other 09-27-2021 16:00-0400 Respiratory rate 18 /min Sushil Sorto Other [employer] Other 09-27-2021 16:00-0400 SaO2% (BldA) [Mass fraction] 96 % Sushil Sorto Other [employer] Other 09-27-2021 16:00-0400 Systolic blood pressure 158 mm[Hg] Sushil Serge Other [employer] Other 05-16-2021 10:30-0500 Body weight 69.4 kg Sushil Serge Other [employer] Other Encounters Encounter Date Encounter Type Care Provider Facility Start: 07-22-2024 End: 07-22-2024 Office outpatient visit 25 minutes Carli Stewart [employer] ENGINE[employer] Work Phone: [facility] Comment on above: Atrial flutter, unsp ecified type (CMS/HCC) (Primary Dx); Coronary artery calcification (CMS/HCC); Stage 3a chronic kidney disease (HCC) (CMS/HCC); Primary hypertension (CMS/HCC); Mixed hyperlipidemia (CMS/HCC); Other emphysema (CMS/HCC); RBBB (right bundle branch block); Prediabetes; Bilateral carotid artery stenosis; Degeneration of intervertebral disc of thoracolumbar region; Degeneration of intervertebral disc of lumbar region with discogenic back pain; Hyperglycemia; Tubular adenoma; Cigarette smoker; Abnormal complete blood count; Sigmoid diverticulosis; Other male erectile dysfunction; Renal cyst; Pulmonary nodule, right; Hiatal hernia Start: 07-02-2024 End: 07-02-2024 Office outpatient visit 25 minutes Tee STONE Work Phone: [facility] Comment on above: Typical atrial flutt er (CMS-HCC) (Primary Dx); RBBB (right bundle branch block); Stage 3a chronic kidney disease (CMS-HCC); Mixed hyperlipidemia Start: 07-02-2024 End: 07-02-2024 ambulatory TEE DODSON [facility] Start: 07-01-2024 End: 07-01-2024 [facility] Start: 06-26-2024 End: 06-26-2024 Office outpatient visit 15 minutes Ashley Duran MD Work Phone: [facility] Comment on above: Typical atrial flutt er ([facility]-HCC) (Primary Dx); Primary hypertension; Mixed hyperlipidemia Start: 06-26-2024 End: 06-26-2024 ambulatory ASHLEY DURAN [facility] Start: 06-24-2024 End: 06-24-2024 Telephone encounter Betty Rodriguez CMA [facility] Start: 06-17-2024 End: 06-17-2024 Bamboo flowsheet Pascale Navarro [employer] Work Phone: [facility] Start: 06-17-2024 End: 06-17-2024 Bamboo flowsheet Pascale Navarro [employer] PER[employer]MAN[employer] ENGINEER Work Phone: [facility] Start: 06-17-2024 End: 06-17-2024 Office outpatient visit 25 minutes Pascale Navarro [employer] ENGINEER Work Phone: [facility] Comment on above: Other chest pain (Pr imary Dx); Primary hypertension (CMS/HCC); Coronary artery calcification (CMS/HCC); Atrial flutter, unspecified type (CMS/HCC); Cigarette smoker; Mixed hyperlipidemia (CMS/HCC) Start: 06-17-2024 End: 06-17-2024 ambulatory PASCALE NAVARRO Not Available Start: 06-15-2024 End: 06-15-2024 Emergency department patient visit SHONA ELLIOTT [facility] Start: 06-02-2024 End: 07-11-2024 Telephone encounter Mandeep Carmona CMA [facility] Start: 05-26-2024 End: 05-26-2024 Office outpatient visit 25 minutes Shakir Smith MD Work Phone: [facility] Comment on above: Typical atrial flutt er (CMS-HCC) (Primary Dx); Coronary artery calcification; RBBB (right bundle branch block) Start: 05-26-2024 End: 05-26-2024 ambulatory SHAKIR SMITH [facility] Start: 05-21-2024 End: 05-21-2024 ambulatory [facility] Start: 05-21-2024 End: 05-21-2024 ambulatory [facility] Start: 05-19-2024 End: 05-19-2024 Refill Huyen Helms RN [facility] Comment on above: Med Refill Start: 05-15-2024 End: 05-15-2024 ambulatory [facility] Start: 05-02-2024 End: 05-02-2024 Office outpatient visit 15 minutes Farrukh Phelan MD Work Phone: [facility] Comment on above: Bilateral carotid ar sonali stenosis (Primary Dx); Atrial flutter, unspecified type (CMS-HCC) Start: 05-02-2024 End: 05-02-2024 ambulatory DESIREE NIEVES [facility] Start: 04-30-2024 End: 04-30-2024 Telephone encounter Natalie Rangel CMA [facility] Start: 04-23-2024 End: 04-23-2024 Chart abstracting Arnoldo Sorenson MD Work Phone: [facility] Start: 04-23-2024 End: 04-23-2024 Telephone encounter Carli Stewart NP Work Phone: [facility] Start: 04-22-2024 End: 04-22-2024 ambulatory SHONA ELLIOTT [facility] Start: 04-15-2024 End: 04-15-2024 Office outpatient visit 25 minutes Luanne Gordon MD Work Phone: [facility] Comment on above: Elevated PSA (Primar y Dx); Urinary retention Start: 04-14-2024 End: 04-14-2024 Bamboo flowsheet Carli Stewart [employer] PER[employer]MAN[employer] ENGINEER Work Phone: [facility] Start: 04-14-2024 End: 04-14-2024 Bamboo flowsheet Carli Stewart [employer] PERFORMAN[employer] ENGINEER Work Phone: [facility] Start: 04-14-2024 End: 04-14-2024 Office outpatient visit 25 minutes Carli Stewart NP Work Phone: [facility] Comment on above: Atrial flutter, unsp ecified type (CMS/HCC) (Primary Dx); Primary hypertension (CMS/HCC); Coronary artery calcification (CMS/HCC); Stage 3a chronic kidney disease (HCC) (CMS/HCC); Chest pain, unspecified type; Mixed hyperlipidemia (CMS/HCC); RBBB (right bundle branch block); Pulmonary nodule, right; Cigarette smoker; Abnormal complete blood count; Bilateral carotid artery stenosis; Hyperglycemia; Abnormal finding on diagnostic imaging of right kidney; Tubular adenoma Start: 04-14-2024 End: 04-14-2024 ambulatory CALRI STEWART Not Available Start: 04-12-2024 End: 04-12-2024 ambulatory SERA MCDOWELL [facility] Start: 04-11-2024 End: 04-11-2024 Telephone encounter Rhiannon Mansfield LPN [facility] Start: 03-31-2024 End: 03-31-2024 Telephone encounter Shona Elliott MD Work Phone: [facility] Start: 03-24-2024 End: 03-24-2024 Office outpatient visit 40 minutes Carli Stewart [employer] ENGINEER Work Phone: [facility] Comment on above: Atrial flutter, unsp ecified type (CMS/HCC) (Primary Dx); Chest pain, unspecified type; Primary hypertension (CMS/HCC); Coronary artery calcification (CMS/HCC); Mixed hyperlipidemia (CMS/HCC); Stage 3a chronic kidney disease (HCC) (CMS/HCC); Cigarette smoker; Bilateral carotid artery stenosis; Prediabetes; Pulmonary nodule, right; RBBB (right bundle branch block) Start: 03-24-2024 End: 03-24-2024 ambulatory CARLI STEWART Not Available Start: 03-22-2024 End: 03-23-2024 ambulatory [facility] Start: 03-21-2024 End: 03-21-2024 Emergency department patient visit [facility] Start: 02-20-2024 End: 02-20-2024 Refill Felisha Keller DO Work Phone: [facility] Comment on above: Mixed hyperlipidemia (CMS/HCC); Primary hypertension (CMS/HCC) Start: 02-18-2024 End: 02-18-2024 Orders Only Angeles Pump [employer] PERFORMAN[employer] ENGINEER Work Phone: [facility] Comment on above: Iron deficiency anem ia secondary to inadequate dietary iron intake (Primary Dx) Start: 02-11-2024 End: 02-11-2024 ambulatory ANGELES PUMP Not Available Start: 02-11-2024 End: 02-11-2024 Office outpatient visit 25 minutes Angeles Pump [employer] PER[employer]MAN[employer] ENGINEER Work Phone: [facility] Comment on above: Weight loss (Primary Dx); Abnormal complete blood count; Elevated PSA; Hematuria, unspecified type Start: 01-10-2024 End: 01-10-2024 ambulatory ANGELES PUMP Not Available Start: 12-06-2023 End: 12-06-2023 ambulatory ANGELES PUMP Not Available Start: 11-21-2023 End: 11-21-2023 ambulatory ANGELES PUMP Not Available Start: 09-26-2023 Refill Sera yun PA Work Phone: [facility] Start: 07-09-2023 End: 07-10-2023 ambulatory [facility] Start: 07-04-2023 End: 07-04-2023 ambulatory SERA MCDOWELL [facility] Start: 05-28-2023 End: 05-29-2023 ambulatory Mary Jane Gonzales MD [facility] Start: 04-09-2023 End: 04-10-2023 ambulatory Mary Jane Gonzales MD Facility:[facility] Start: 11-10-2022 ambulatory ANDRIUS GIEDRADYAN Faci lity:[facility] Start: 07-27-2022 End: 07-28-2022 ambulatory JESÚS SIMON Facility:[facility] Start: 06-27-2022 End: 06-27-2022 ambulatory JESÚS SIMON Facility:[facility] Start: 05-25-2022 End: 05-26-2022 ambulatory CYRIL EDWARDS . Facility:[facility] Start: 02-23-2022 End: 02-24-2022 ambulatory CYRIL EDWARDS . Facility:[facility] Start: 12-28-2021 End: 12-28-2021 ambulatory Sushil Sorto Other [employer] Other Start: 12-28-2021 Office outpatient vi sit 15 minutes Sushil Sorto [facility] Start: 11-15-2021 End: 11-16-2021 ambulatory CYRIL EDWARDS . Facility: Start: 09-27-2021 End: 09-27-2021 ambulatory Sushil Sorto Other [employer] Other Start: 09-27-2021 Office outpatient vi sit 15 minutes Sushil Beardack [facility] Start: 05-16-2021 End: 05-16-2021 ambulatory Sushil Sorto Other [employer] Other Start: 05-16-2021 Office outpatient ne w 45 minutes Sushil Sorto [facility] Procedures Date Procedure Procedure Detail Performing Clinician Start: 07-22-2024 Hemoglobin glycosyla afshan a1c Carli Stewart [employer] PER[employer] ENGINEER Work Phone: Start: 07-02-2024 Ecg routine ecg w/le ast 12 lds w/i&r Tee Dodson ELECTRONIC TYPESETTING MACHINE OPERATOR-[employer] Work Phone: Start: 06-26-2024 Ecg routine ecg w/le ast 12 lds w/i&r Ashley Duran MD Work Phone: Start: 05-26-2024 Follow-up visit Follow-up SHAKIR SMITH Start: 02-11-2024 Urnls dip stick/tabl et rgnt non-auto w/o micrscp Angeles Pump [employer] PER[employer]MAN[employer] ENGINEER Work Phone: Start: 03-10-2023 Adult depression scr eening assessment Sera SHEARER Work Phone: Start: 06-02-2021 Colonoscopy Carli Stewart NP Work Phone: Start: 05-31-2017 Colonoscopy Angeles Pump [employer] PER[employer]MANCE ENGINEER Work Phone: Plan of Treatment Date Care Activity Detail Author Start: 06-02-2031 Screening for malignant neoplasm of colon [facility] Start: 05-31-2027 Screening for malignant neoplasm of colon [facility] Start: 07-02-2025 Adult BMI Screening Adult BMI Screening [facility] Start: 07-02-2025 Tobacco Screening Tobacco Screening [facility] Start: 06-26-2025 Adult BMI Screening Adult BMI Screening [facility] Start: 06-26-2025 Tobacco Screening Tobacco Screening [facility] Start: 06-15-2025 Adult BMI Screening Adult BMI Screening [facility] Start: 06-15-2025 Tobacco Screening Tobacco Screening [facility] Start: 05-26-2025 Adult BMI Screening Adult BMI Screening [facility] Start: 05-26-2025 Tobacco Screening Tobacco Screening [facility] Start: 05-02-2025 Adult BMI Screening Adult BMI Screening [facility] Start: 04-15-2025 Adult BMI Screening Adult BMI Screening [facility] Start: 04-15-2025 Tobacco Screening Tobacco Screening [facility] Start: 04-14-2025 End: 04-14-2025 Patient encounter procedure 04/14/2025 2:15 PM EDT Office Visit [facility] [address] [place] [address] [place] [id number] Luanne Gordon MD [address] [place] [address] [facility] Start: 03-22-2025 Adult BMI Screening Adult BMI Screening [facility] Start: 03-22-2025 Tobacco Screening Tobacco Screening [facility] Start: 02-14-2025 Screening for malignant neoplasm of colon [facility] Start: 01-20-2025 End: 01-20-2025 Patient encounter procedure 01/20/2025 1:00 PM EDT Office Visit [facility] [address] [place] [address] Pascale Navarro NP [address] [place], [place] [id number] [facility] Start: 01-09-2025 Medicare Annual Wellness (AWV) Medicare Annual Wellness (AWV) [facility] Start: 08-12-2024 Influenza vaccination Influenza Vaccine (#1) [facility] Comment on above: Postponed from 02/24/2024 (Patient Refus ed) Start: 07-15-2024 End: 07-15-2024 Patient encounter procedure 07/15/2024 1:00 PM EST Office Visit [facility] [address] [place] [id number] Carli Stewart NP [address] [place] [facility] [place] [address] [facility] Start: 07-02-2024 End: 07-02-2024 Patient encounter procedure 07/02/2024 7:30 AM EST Office Visit [facility] [address] [place] [address] Tee Dodson, ELECTRONIC TYPESETTING MACHINE OPERATOR-[employer] [address] [place] [address] [facility] Start: 06-26-2024 End: 06-26-2024 Patient encounter procedure 06/26/2024 2:30 PM EST Office Visit [facility] [address] [place] [address] Ashley Duran MD [address] [place] [address] [facility] Start: 06-17-2024 End: 06-17-2024 Patient encounter procedure 06/17/2024 8:30 AM EST Office Visit [facility] [address] [place] [facility] [place] [phone] Pascale Navarro NP [address] [place] [facility] [place] [address] [facility] Comment on above: Arrived Start: 06-10-2024 End: 06-10-2024 Patient encounter procedure 06/10/2024 1:45 PM EST Office Visit [facility] [address] [place] [address] [place] [address] Luanne Gordon MD [address] [place], [place] [id number] [facility] Start: 05-21-2024 End: 05-21-2024 Patient encounter procedure [facility] Start: 05-16-2024 End: 04-15-2025 Prostatic specific antigen, diagnostic Prostatic specific antigen, diagnostic Lab Routine Elevated PSA Expected: 05/16/2024 (Approximate), Expires: 04/15/2025 [facility] Work Phone: Comment on above: Expected: 05/16/2024 (Approximate), Expi res: 04/15/2025 Start: 05-02-2024 End: 05-02-2025 NM Heart Perfusion W stress and W radionuclide IV Nuc stress [facility] Routine Atrial flutter, unspecified type ([facility]-HCC) Bilateral carotid artery stenosis Expected: 05/02/2024, Expires: 05/02/2025 [facility] Work Phone: Comment on above: Expected: 05/02/2024, Expires: Start: 05-01-2024 End: 05-01-2024 Patient encounter procedure 05/01/2024 9:45 AM EST Office Visit [facility] [address] [place] [address] Farrukh Phelan MD [address] [place] [address] Arnoldo Sorenson MD [address] [place] [address] [facility] Start: 04-22-2024 End: 04-22-2024 Patient encounter procedure 04/22/2024 8:30 AM EDT Appointment [facility] Cardi[facility] [address] [place] [address] Rob Saavedra, ELECTRONIC TYPESETTING MACHINE OPERATOR-[employer] [address] [place] [address] [facility] Start: 04-18-2024 Adult BMI Screening Adult BMI Screening [facility] Start: 04-18-2024 Tobacco Screening Tobacco Screening [facility] Start: 04-15-2024 End: 04-15-2024 Patient encounter procedure 04/15/2024 2:45 PM EDT Office Visit [facility] [address] [place] [address] [place] [address] Luanne Gordon MD [facility] [place] [address] [facility] Start: 04-14-2024 End: 04-14-2025 US Kidney US renal complete Imaging Routine Abnormal finding on diagnostic imaging of right kidney Expected: 04/14/2024, Expires: 04/14/2025 [employer] Work Phone: Comment on above: Expected: 04/14/2024, Expires: Start: 04-14-2024 End: 04-14-2024 Patient encounter procedure [facility] Comment on above: Atrial flutter, unspecified type (CMS/HC C) (Primary Dx); Primary hypertension (CMS/HCC); Coronary artery calcification (CMS/HCC); Stage 3a chronic kidney disease (HCC) (CMS/HCC); Mixed hyperlipidemia (CMS/HCC); RBBB (right bundle branch block); Pulmonary nodule, right; Cigarette smoker; Abnormal complete blood count; Bilateral carotid artery stenosis; Hyperglycemia Start: 03-20-2024 End: 02-17-2025 CBC W Auto Differential panel - Blood CBC and differential Lab Routine Iron deficiency anemia secondary to inadequate dietary iron intake Expected: 03/20/2024 (Approximate), Expires: 02/17/2025 [employer] Work Phone: Comment on above: Expected: 03/20/2024 (Approximate), Expi res: 02/17/2025 Start: 03-10-2024 Depression Screening Depression Screening [facility] Start: 02-24-2024 COVID-19 Vaccine ( season) COVID-19 Vaccine ( season) [facility] Start: 02-24-2024 COVID-19 Vaccine () COVID-19 Vaccine () [facility] Start: 02-24-2024 Influenza vaccination [facility] Start: 02-11-2024 End: 02-10-2025 Bacteria identified in Urine by Culture Urine culture (clean catch) Microbiology Routine Hematuria, unspecified type Expected: 02/11/2024 (Approximate), Expires: 02/10/2025 [facility] Comment on above: Expected: 02/11/2024 (Approximate), Expi res: 02/10/2025 Start: 02-11-2024 End: 02-10-2025 CBC W Auto Differential panel - Blood CBC and differential Lab Routine Weight loss Abnormal complete blood count Expected: 02/11/2024 (Approximate), Expires: 02/10/2025 [facility] Work Phone: Comment on above: Expected: 02/11/2024 (Approximate), Expi res: 02/10/2025 Start: 02-11-2024 End: 02-10-2025 Prostate specific Ag [Mass/volume] in Serum or Plasma PSA Lab Routine Elevated PSA Expected: 02/11/2024 (Approximate), Expires: 02/10/2025 [facility] Comment on above: Expected: 02/11/2024 (Approximate), Expi res: 02/10/2025 Start: 04-22-2023 Administration of varicella zoster vaccine Zoster (Shingles) Vaccine (2 of 2) [facility] Start: 02-23-2023 COVID-19 Vaccine ( season) COVID-19 Vaccine ( season) [facility] Start: 2021 Abdominal aortic aneurysm screening Abdominal Aortic Aneurysm (AAA) Screen [facility] Start: 2021 Fall Risk Screening Fall Risk Screening [facility] Start: 12-15-1975 DTaP,Tdap and Td Vaccines (1 - Tdap) DTaP,Tdap and Td Vaccines (1 - Tdap) [facility] Start: 1956 Medicare Annual Wellness Visit Medicare Annual Wellness Visit [facility] Start: 1955 Screening for malignant neoplasm of colon [facility] Start: 1956 Tobacco Counseling Tobacco Counseling [facility] End: 05-02-2025 Thyroid profile includes TSH FT4 Thyroid profile includes TSH FT4 Lab Routine Atrial flutter, unspecified type ([facility]-H[facility]) Bilateral carotid artery stenosis 1 Occurrences starting 05/02/2024 until 05/02/2025 [facility] Comment on above: 1 Occurrences starting 05/02/2024 until 05/02/2025 Immunizations Immunization Date Immunization Notes Care Provider Fa estuardo 01-10-2024 Pneumococcal Conjuga te PCV 20 [place] Pump [employer] Work Phone: [facility] 02-25-2023 Influenza, Seasonal, Quadrivalent, Adjuvanted [place] [employer] Work Phone: [facility] 02-25-2023 zoster vaccine recombinant [place] [employer] Work Phone: [facility] 02-25-2023 influenza virus vaccine, unspecified formulation Sera SHEARER Work Phone: [facility] 02-25-2023 zoster vaccine, unspecified formulation Sera SHEARER Work Phone: [facility] 04-23-2022 Influenza, Seasonal, Quadrivalent, Adjuvanted [place] [employer] Work Phone: [facility] 04-28-2021 influenza, injectabl e, quadrivalent, preservative free [place] [employer] Work Phone: [facility] 10-12-2020 Pfizer Purple Cap SARS-CoV-2 Vaccination [place] [employer] Work Phone: [facility] 09-20-2020 Pfizer Purple Cap SARS-CoV-2 Vaccination [place] [employer] Work Phone: [facility] 05-05-2020 influenza, injectabl e, quadrivalent, preservative free [place] [employer] Work Phone: [facility] Healthcare Payers Date Payer Category Payer Unknown [id number] 2022 Medicare 2021 Medicare (Managed Care) 1.2. [id number] 315 2021 Medicare HMO [id number] 2021 Unknown [id number]. [id number] 2020 Unknown [id number] 2.16.840 .1.460671.19 2020 Unknown [id number] 1959 Blue Cross Blue [facility] [id number] 2.16.840.1.049155.19 1956 Unknown [id number] 2.16.84 0.1.487595.3.579.2.593 1955 Unknown [id number] 2.16.84 0.1.164390.3.579.2.593 1956 Unknown [id number] 2.16.84 0.1.380867.3.579.2.593 1956 Unknown [id number] 2.16.84 0.1.541834.3.579.2.593 1956 Unknown [id number] 2.16.84 0.1.223209.3.579.2.593 1956 Unknown [id number] 2.16.84 0.1.039484.3.579.2.593 1956 Unknown [id number] 2.16. 840.1.853421.3.579.2.196 1956 Unknown [id number] 2.16. 840.1.523109.3.579.2.196 1956 Unknown [id number] 2.16. 840.1.956008.3.579.2.196 1956 Unknown [id number] 2.16.8 40.1.738039.3.579.2.1286 1956 Unknown [id number] 2.16.84 0.1.318186.3.579.2.9 1956 Unknown [id number] 2.16.84 0.1.039885.3.579.2.1259 1956 Unknown [id number] 2.16.84 0.1.536181.3.579.2.1258 1956 Unknown [id number] 2.16.84 0.1.725746.3.579.2.1258 1956 Unknown [id number] 2.16.84 0.1.525068.3.579.2.1258 1956 Unknown [id number] 2.16.84 0.1.028428.3.579.2.1259 1956 Unknown [id number] 2.16.84 0.1.533260.3.579.2.1258 1956 Unknown [id number] 2.16.84 0.1.172623.3.579.2.9 1956 Unknown [id number] 2.16.84 0.1.571112.3.579.2.1258 1956 Unknown [id number] 2.16. 840.1.106450.3.579.2.1286 1956 Unknown [id number] 2.16. 840.1.997287.3.579.2.128 1956 Unknown [id number] 2.16.8 40.1.963369.3.579.2.1286 1956 Unknown [id number] 2.16.8 40.1.102197.3.579.2.128 1956 Unknown [id number] 2.16.8 40.1.613545.3.579.2.1285 1956 Unknown [id number] 2.16.8 40.1.716299.3.579.2.1285 1956 Unknown [id number] 2.16.8 40.1.119528.3.579.2.1285 1956 Unknown [id number] 2.16.8 40.1.998494.3.579.2.128 1956 Unknown [id number] 2.16.8 40.1.089212.3.579.2.1285 1956 Unknown [id number] 2.16.8 40.1.259620.3.579.2.1285 1956 Unknown [id number] 2.16.8 40.1.257462.3.579.2.1285 1956 Unknown [id number] 2.16.8 40.1.057478.3.579.2.128 1956 Unknown [id number] 2.16.8 40.1.554650.3.579.2.1285 1956 Unknown [id number] 2.16.8 40.1.366266.3.579.2.1285 1956 Unknown [id number] 2.16.84 0.1.089627.3.579.2.1286 Social History Date Type Detail Facility Start: 12-27-2022 End: 03-10-2023 Sex Assigned At [facility] Start: 06-25-1974 End: 11-21-2023 Tobacco smoking status NHIS Smokes tobacco daily [facility] Start: 06-25-1974 History of tobacco use Cigarette Smo ker [facility] Start: 12-27-2022 End: 02-14-2023 Cigarettes smoked current (pack per day) - Reported 1 [facility] Start: 02-14-2023 End: 11-21-2023 Tobacco use and exposure Smokeless tobacco non-user [facility] Start: 04-18-2023 End: 07-22-2024 Alcohol intake Ex-drinker (finding) [facility] Do you belong to any clubs or organizations such as tenriism groups, unions, fraternal or athletic groups, or school groups? Yes [facility] Are you now , , , , never or living with a partner? [facility] How often to you hav e a drink containing alcohol? 4 or more times a week [facility] How many standard dr inks containing alcohol do you have on a typical day? 3 or 4 [facility] How often do you hav e 6 or more drinks on 1 occasion? Never [facility] How hard is it for y ou to pay for the very basics like food, housing, medical care, and heating Not hard at all [facility] Do you feel stress - tense, restless, nervous, or anxious, or unable to sleep at night because your mind is troubled all the time - these days [OSQ] Not at all [facility] Start: 1955 Sex Assigned At Not on file P [facility] History of tobacco use Passive smoker [facility] Within the last year , have you been afraid of your partner or ex-partner? No [facility] How often to you hav e a drink containing alcohol? Monthly or less [facility] How many standard dr inks containing alcohol do you have on a typical day? 1 or 2 [facility] (I/We) worried wheth er (my/our) food would run out before (I/we) got money to buy more. Never true [facility] Start: 12-25-2022 Tobacco Comment Smokes 5 mins after waking up [facility] Start: 12-25-2022 Alcohol Comment caffeine: 1-2 cups per day [facility] Start: 01-28-2015 Sex Male (finding) [facility] Medical Equipment Procedure Code Equipment Code Equipment Origin al Text Equipment Identifier Dates Mesh 1in Med Pp Srgpro Nabsb Knit Plg Srg Strl Clr Hrn Rpl [id number] - Ssm-02 - [id number])[facility]-02, [id number] FDA Start: 03-06-2023 Clinical Notes 05-16-2021 to 07-23-2024 Note Date & Type Note Facility 07-23-2024 Evaluation note Diagnosis Atrial flutter, unspecified type (CMS/HCC)- Primary Coronary artery calcification (CMS/HCC) Stage 3a chronic kidney disease (HCC) (CMS/HCC) Primary hypertension (CMS/HCC) Unspecified essential hypertension Mixed hyperlipidemia (CMS/HCC) Mixed hyperlipidemia Other emphysema (CMS/HCC) Other emphysema RBBB (right bundle branch block) Right bundle branch block Prediabetes Other abnormal glucose Bilateral carotid artery stenosis Occlusion and stenosis of carotid artery without mention of cerebral infarction Degeneration of intervertebral disc of thoracolumbar region Degeneration of intervertebral disc of lumbar region with discogenic back pain Hyperglycemia Other abnormal glucose Tubular adenoma Benign neoplasm of unspecified site Cigarette smoker Tobacco use disorder Abnormal complete blood count Other abnormal blood chemistry Sigmoid diverticulosis Other male erectile dysfunction Renal cyst Unspecified congenital cystic kidney disease Pulmonary nodule, right Other diseases of lung, not elsewhere classified Hiatal hernia Diaphragmatic hernia without mention of obstruction or gangrene documented in this encounter [id number] History of Present illness Narrative* Carli Stewart, [employer] - 07/22/2024 2:00 PM EST Images from the original note were not included. Subjective Patient ID: Erich Lopez is a 68 y.o. male who presents for Hypertension. Hypertension Associated symptoms include chest pain and shortness of breath. Pertinent negatives include no headaches. HPI: Was in the ER 06/15/24 with chest pain. See prior note. He saw Cardioogy 3 weeks ago, did EKGthen. They discussed doing an ablation.. Was told could be Jul or August when they do it. He has notheard from them about date yet. I enc him to call them if he doesn't hear anything by next week. Hehad a Gurinderiscan. No chest pain now but has occ. Slight fatigue. No SOB today, but occ when active. Still smoking 1PPD. Has thought about quitting, but not ready yet. Not taking Lisinopril-hydrochlorothiazide or Baby ASA anymore, he is taking Eliquis and Metoprolol. Also Gabapentin for nerves in my back . Tramadol usually just in AM from Pain Clinic-has appt today tomorrow. Pt rates pain 4-5/10 before Tramadol. 1-2/10 when good. Not watching sweets Review of Systems Constitutional: Positive for fatigue. Negative for appetite change, chills and fever. Slight fatigue depends on activity HENT: WNL Respiratory: Positive for cough and shortness of breath. Negative for chest tightness. Rare [employer] cough. See HPI Cardiovascular: Positive for chest pain. See See Gastrointestinal: Negative for abdominal pain and blood in stool. No change in bowels, no GERD Genitourinary: Negative for difficulty urinating and dysuria. Sees Urology yearly March, Flomax helps. PSA was good at last visit Musculoskeletal: Negative for arthralgias. Skin: Negative for rash. Neurological: Negative for dizziness, light-headedness and headaches. Psychiatric/Behavioral: Sleeping is good. Mood is ok 01/10/2024 3:27 PM 02/11/2024 2:41 PM 03/24/2024 1:39 PM 04/14/2024 1:05 PM 06/17/2024 8:34 AM 06/17/2024 8:54 AM 07/22/2024 2:01 PM Vitals BMI 20.62 kg/m2 21.44 kg/m2 20.74 kg/m2 20.99 kg/m2 21.22 kg/m2 21.56 kg/m2 BSA (m2) 1.81 m2 1.85 m2 1.82 m2 1.83 m2 1.84 m2 1.85 m2 Systolic 120 104 106 110 136 124 Diastolic 60 54 58 54 70 70 Heart Rate 68 80 84 80 84 104 88 SpO2 99 % 96 % Height (in) 5' 10.5 Weight (lb) 145.8 151.6 146.6 148.4 150 152.4 Visit Report Report Report Report Report Report Report Report Objective Physical Exam Vitals and nursing note reviewed. Constitutional: General: He is not in acute distress. HENT: Ears: Comments: Sl-mod cerumen, enc to have pt let the shower water get in ear and bend over Nose: Nose normal. No rhinorrhea. Mouth/Throat: Mouth: Mucous membranes are moist. Pharynx: Oropharynx is clear. No posterior oropharyngeal erythema. Eyes: Extraocular Movements: Extraocular movements intact. Neck: Vascular: No carotid bruit. Cardiovascular: Rate and Rhythm: Normal rate and regular rhythm. Comments: No edema Pulmonary: Effort: Pulmonary effort is normal. Breath sounds: Normal breath sounds. Comments: No cough during appt Abdominal: General: Bowel sounds are normal. Palpations: Abdomen is soft. Tenderness: There is no abdominal tenderness. Musculoskeletal: Comments: Normal gait Lymphadenopathy: Cervical: No cervical adenopathy. Skin: General: Skin is warm. Findings: No rash. Neurological: Mental Status: He is alert and oriented to person, place, and time. Psychiatric: Comments: Calm and cooperative, well groomed. Here alone today I have reviewed and reconciled the history and medication list with the patient today. Assessment/Plan Diagnoses and all orders for this visit: Atrial flutter, unspecified type (CMS/HCC) Comments: Sees Cardiology. On Eliquis. Echo 2023 Coronary artery calcification (CMS/HCC) Comments: Severve atheroscleroic calcifications in the aorta noted on CT Angiogram. Pt is on 80mg of statin, enc no smoking. Sees cardiology. Pt will call Cardiology next week if he doesn't hear about date forablation by then Stage 3a chronic kidney disease (HCC) (CMS/HCC) Comments: Last BUN 26, Crea 1.09, GFR 74 (was 74, 63, 50) Primary hypertension (CMS/HCC) Comments: lisinopril-HCTZ on hold Mixed hyperlipidemia (CMS/HCC) Comments: Last LDL 40 in December. On statin Other emphysema: (CMS/HCC): Noted on CT of lung RBBB (right bundle branch block) Comments: noted on EKG, sees [facility] Prediabetes Comments: Last Glucose 129 (prior 105, 118). HgbA1c 6.1 today (5.9- 6 months ago). Enc to watch sweets, starches Orders: - POCT glycosylated hemoglobin (Hb A1C) docked device Bilateral carotid artery stenosis Comments: 12/16 mild, no significant stenosis Degeneration of intervertebral disc of thoracolumbar region Comments: Sees Pain clinic. not too bad today Degeneration of intervertebral disc of lumbar region with discogenic back pain: Sees pain clinic Hyperglycemia: See above Tubular adenoma Comments: Last colonoscopy 2020- pt was told to repeat in 5 years Cigarette smoker Comments: strongly enc no smoking, pt not ready to quit Abnormal complete blood count: Recent CBC WML, except Neutrophls and monocytes sl elevated, lymphocytes sl decreased Sigmoid diverticulosis: No abdominal pain Other male erectile dysfunction Comments: Sees Urology Renal cyst: Sees Urology. Renal U/S 04/17 Pulmonary nodule, right: CT of lung 12/16 Hiatal hernia Pt prefers F/U 6 months for Medicare Wellness after 01/19/25-will plan to do lab at appt, sooner if concerns documented in this encounterColumbia Regional [id number] History of Present illness Narrative* Tee Dodson, [employer] - 07/02/2024 7:30 AM EST Erich Jensen August Date of visit: 07/02/2024 Date of : 1955 Age: 68 y.o. Patient Active Problem List Diagnosis Bilateral carotid artery stenosis Right carotid bruit Primary hypertension Cigarette smoker Postoperative abdominal pain Urinary retention Acute kidney injury (CMS-HCC) Chest pain Mixed hyperlipidemia Prediabetes Atrial flutter (CMS-HCC) Stage 3a chronic kidney disease (CMS-HCC) Elevated PSA Coronary artery calcification Pulmonary nodule, right RBBB (right bundle branch block) Tubular adenoma Allergies Allergen Reactions Penicillins Hives and Other (See Comments) Current Outpatient Medications Medication Sig Dispense Refill apixaban (ELIQUIS) 5 mg tablet Take 1 tablet (5 mg total) by mouth in the morning and 1 tablet (5 mg total) before bedtime. 180 tablet 1 atorvastatin (LIPITOR) 80 mg tablet Take 1 [...] 1 tablet (25 mg total) before bedtime. 180 tablet 2 tamsulosin (FLOMAX) 0.4 mg capsule Take 1 capsule (0.4 mg total) by mouth nightly. 90 capsule 3 traMADoL (ULTRAM) 50 mg tablet Take 1 tablet (50 mg total) by mouth 3 (three) times a day as neededfor pain. No current facility-administered medications for this visit. Chief Complaint Patient presents with Follow-up DISCUSS AFIB PER LLD AND S/P CDVN History of Present Illness Erich Lopez is a 68-year-old gentleman accompanied with his spouse today on follow-up post cardioversion for newly diagnosed atrial flutter. Prior testing including echocardiogram with the EF of 50-55%, mild MR, TR with RVSP of 4 1 mmHg, this was in March. Stress test in April noting moderate to large fixed defect apical to basal inferior/inferoseptal region. He was initially diagnosed with atrial flutter symptomatic with chest discomfort in April. Appropriately placed on beta-rai and blood thinner. This led to cardioversion 05/29/2024. Patient believes this may have lasted a week or so. He woke up 1 morning feeling palpitations/chest discomfort warranted revisit to the ER 06/15/2024. Patient states he received medications for rate control strategy. He had followed up last week with general cardiology noting atrial flutter on EKG. On follow-up today, discussion of recurrent rhythm and options including ablation. Patient is agreeable to ablation as more of a long-term fix for this rhythm issue though I did discuss potential of antiarrhythmics and repeat cardioversion. Patient understands there may be a delay in coordinating for ablation.Otherwise he is compliant to medications. I did advise him to take an additional beta-ari if henotices increased palpitations that have been sporadic. Past Medical History: Diagnosis Date Back pain Hyperlipidemia Hypertension Visual impairment glasses No data recorded No data recorded No data recorded Past Surgical History: Procedure Laterality Date COLONOSCOPY AND POLYPECTOMY 05/31/2017 Performed by Brennan Ball MD at [facility] HERNIA REPAIR Right inguinal REPAIR HERNIA INGUINAL Left 03/06/2023 Performed by Scooter Ortez DO at [facility] Family History Problem Relation Age of Onset Heart disease Mother No Known Problems Father Social History Socioeconomic History Marital status: Spouse name: Not on file Number of children: Not on file Years of education: Not on file Highest education level: Not on file Occupational History Not on file Tobacco Use Smoking status: Every Day Current packs/day: 1.00 Average packs/day: 1 pack/day for 80.0 years (80.0 ttl pk-yrs) Types: Cigarettes Start date: 1979 Smokeless tobacco: Never Vaping Use Vaping status: Never Used Substance and Sexual Activity Alcohol use: Not Currently Alcohol/week: 27.0 standard drinks of alcohol Types: 27 Cans of beer per week Drug use: Not Currently Sexual activity: Yes Partners: Female Other Topics Concern Caffeine Use Yes Social History Narrative Not on file Social Drivers of Health Financial Resource Strain: Low Risk (03/10/2023) Overall Financial Resource Strain (CARDIA) Difficulty of Paying Living Expenses: Not hard at all Food Insecurity: No Food Insecurity (07/02/2024) Hunger Screening Food Insecurity - Worry: Never True Food Insecurity - Inability: Never True Transportation Needs: No Transportation Needs (03/22/2024) PRAPARE - Transportation Lack of Transportation (Medical): No Lack of Transportation (Non-Medical): No Physical Activity: Sufficiently Active (03/10/2023) Exercise Vital Sign Days of Exercise per Week: 7 days Minutes of Exercise per Session: 30 min Stress: No Stress Concern Present (03/10/2023) [place] [employer] Occup[employer] - Occupational Stress Questionnaire Feeling of Stress : Not at all Social Connections: Moderately Integrated (03/10/2023) Social Connection and Isolation Panel [NHANES] Frequency of Communication with Friends and Family: Twice a week Frequency of Social Gatherings with Friends and Family: Twice a week Attends Christianity Services: Never Active Member of Clubs or Organizations: Yes Attends Club or Organization Meetings: Never Marital Status: Recent Concern: Social Connections - Moderately Isolated (12/27/2022) Received from [facility] Healthcare, [facility] Social Connection and Isolation Panel [NHANES] Frequency of Communication with Friends and Family: More than three times a week Frequency of Social Gatherings with Friends and Family: More than three times a week Attends Christianity Services: Never Active Member of Clubs or Organizations: No Attends Club or Organization Meetings: Never Marital Status: Interpersonal Safety: Not At Risk (03/22/2024) Humiliation, Afraid, Rape, and Kick questionnaire Fear of Current or Ex-Partner: No Emotionally Abused: No Physically Abused: No Sexually Abused: No Housing Instability: Low Risk (03/22/2024) Housing Instability Housing Instability: No Review of Systems Review of Systems Constitutional: Negative. HENT: Negative. Eyes: Negative. Respiratory: Negative. Hematologic/Lymphatic: Bruises/bleeds easily. Skin: Negative. Musculoskeletal: Negative. Gastrointestinal: Negative. Neurological: Negative. Psychiatric/Behavioral: Negative. Allergic/Immunologic: Negative. CARDIOVASCULAR: Please review HPI. Physical Examination General appearance: Alert, oriented and cooperative. In no acute distress. Skin: Warm and dry to touch. Head: Normocephalic, without obvious abnormality, atraumatic. Ears, Nose, Mouth, Throat: Throat clear without erythema or exudate. Dentition intact. Eyes: Conjunctivae unremarkable, EOM intact. Neck: No JVD, No carotid bruit. Neck supple, trachea midline. Respiratory: Clear to auscultation bilaterally, no use of accessory muscles. Cardiovascular: RRR with normal S1 and S2 with no murmurs. Gastrointestinal: Soft, non-tender. Bowel sounds normal. Musculoskeletal: No peripheral edema. Neurologic: Oriented to time, person and place, affect appropriate. No focal/major motor defects noted. Psychiatric: Appropriate mood, memory and judgement. VITAL SIGNS: BP 132/60 (BP Site: Left Arm, BP Postition: Sitting) Pulse 73 Ht 182.9 cm (6') Wt 70.3 kg (155 lb) SpO2 99% BMI 21.02 kg/m No orders of the defined types were placed in this encounter. There are no discontinued medications. IMPRESSIONS/PLAN 1. Typical atrial flutter (CMS-HCC) - POCT EKG 2. RBBB (right bundle branch block) 3. Stage 3a chronic kidney disease (CMS-HCC) 4. Mixed hyperlipidemia 1. Typical atrial flutter. Initially diagnosed in April. S/p cardioversion 05/29/2024. Recurrentrhythm. Pending coordination for ablation 2. EF 50-55% with mild MR, TR 3. Nuclear stress test with fixed defect. 4. Hyperlipidemia. Statin therapy continue 5. CKD stage 3 though his creatinine trend has improved over the last several months. Current creatinine 1.0 Pending plan for ablation Patient seen while Dr. Clark was immediately available in the office suite TODAYS ORDERS Orders Placed This Encounter Procedures POCT EKG FOLLOW UP Return for Next scheduled follow up post ablation. PCP: Shona Elliott MD Referring Physician: Shona Elliott MD [address] [place] [address] CHASE Holloway 07/02/24 0802 documented in this encounterCincinnati Children's Hospital Medical CenterSticher [facility] [id number] Instructions* Patient Instructions* Natalie Rangel [facility] - 07/02/2024 7:30 AM EST Are You Ready To Kick The Habit? Free Tobacco Cessation Resources [facility] Services [facility] provide all employees with free tobacco cessation services that include: Counseling to understand nicotine addiction Education about medications that can help you successfully quit Assistance with developing a plan to quit Call to set up an individual appointment or find out when group classes will be held: [facility]: [phone] [facility]: [phone] [facility]: [phone] [facility]: [phone] Quit Smoking Action Plan and Resources [facility] offers an eight-week, online smoking cessation plan to all [facility] employees, regardless of whether [employer] is your medical insurance provider. Go to [email or web address] and click the Health Risk Assessment and Resources link to get started. In the [employer] menu, click Action Plans instead of Health Risk Assessment to access the Quit Smoking Action Plan. Additional smoking cessation resources are also available to all [facility] employees on the [employer] web page at [email or web address]. [employer] Tobacco Cessation Program If [employer] is your medical insurance provider, there are more free resources available to you, including: No copays or deductibles on local tobacco cessation counseling services to help you quit Prescription assistance for tobacco cessation medications to help you quit For details about the tobacco cessation program available to [employer] members, go to www.[employer] (Search: Tobacco Cessation Program). [place] Tobacco Quit Line 7-880-BSOZ-NOW ( ) is a toll-free, telephonic service that helps [place] residents quit smoking and using tobacco. It is staffed by experts who tailor a quit plan for you and provide you with advice. [place] Tobacco Quit Line 5-008-VMRF-NOW ( ) is a toll-free, telephonic service that helps [place] residents quit smoking and using tobacco. It is staffed by experts who tailor a quit plan for you and provide you with advice. Two weeks of nicotine replacement therapy may be provided at no charge, if needed. Additional Resources These national organizations also offer free information and resources to help you quit tobacco: [place] [employer]--www.cancer.org/healthy/stayawayfromtobacco [place] Heart Association--www.heart.org (Search: Quit Smoking) Centers for Disease Control and Prevention--www.cdc.gov/tobacco [place] Lung Association--www.lungusa.org [facility] Miscellaneous Notes* Telephone Encounter - Natalie Rangel CMA - 07/01/2024 10:01 AM EST Left message for patient to remind them to bring their most current medication list with them to their appointment. documented in [facility] Telephone encounter Note* Telephone Encounter - Natalie Rangel CMA - 07/01/2024 10:01 AM EST Left message for patient to remind them to bring their most current medication list with them to their appointment. [facility]01-[facility] History of Present illness Narrative* Ashley Duran MD - 06/26/2024 2:30 PM EST Erich Jensen August Date of visit: 06/26/2024 Date of : 1955 Age: 68 y.o. Patient Active Problem List Diagnosis Bilateral carotid artery stenosis Right carotid bruit Primary hypertension Cigarette smoker Postoperative abdominal pain Urinary retention Acute kidney injury ([facility]) Chest pain Mixed hyperlipidemia Prediabetes Atrial flutter ([facility]) Stage 3a chronic kidney disease ([facility]) Elevated PSA Coronary artery calcification Pulmonary nodule, right RBBB (right bundle branch block) Tubular adenoma Allergies Allergen Reactions Penicillins Hives and Other (See Comments) Current Outpatient Medications Medication Sig Dispense Refill apixaban (ELIQUIS) 5 mg tablet Take 1 tablet (5 mg total) by mouth in the morning and 1 tablet (5 mg total) before bedtime. 180 tablet 1 atorvastatin (LIPITOR) 80 mg tablet Take 1 [...] 1 tablet (25 mg total) before bedtime. 180 tablet 2 tamsulosin (FLOMAX) 0.4 mg capsule Take 1 capsule (0.4 mg total) by mouth nightly. 90 capsule 3 traMADoL (ULTRAM) 50 mg tablet Take 1 tablet (50 mg total) by mouth 3 (three) times a day as neededfor pain. No current facility-administered medications for this visit. Chief Complaint Patient presents with Follow-up EST PT 1 MO CATH L/S RBP s/p cdvn 05/29 [facility] History of Present Illness I had the opportunity to meet this 68-year-old. He was hospitalized 05/29/2024 and underwent cardioversion EKG shows recurrence and per Dr. Viera's note 05/29/2024 he will return to EP to discuss ablation He was seen in the ER 06/15/2024 when he was awoken with chest pain. In the ER he was found to be in atrial flutter with rapid ventricular response and his symptoms improved He states that he is currently doing well. 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 He helps to care for his mother. He is unaccompanied today CV TESTING HISTORY: ECHO: Echo complete W/O contrast Result Date: 04/22/2024 Left Ventricle: Left ventricle appears normal in size. Systolic function is low normal with an ejection fraction of 50-55%. Unable to assess diastolic function due to atrial fibrillation/flutter. Right Ventricle: Right ventricular size appears normal. Systolic function is normal. Aortic Valve: The aortic valve is trileaflet. The leaflets exhibit focal thickening. There is no regurgitation or stenosis. Mitral Valve: Mitral valve structure is normal. The leaflets are mildly thickened. There is mild regurgitation. There is no evidence of mitral valve stenosis. Tricuspid Valve: There is mild regurgitation. There is no evidence of tricuspid valve stenosis. RVSP calculated at 41 mmHg. STRESS: Nuc stress Lexiscan Result Date: 05/21/2024 Baseline ECG indicates atrial flutter. There were no arrhythmias during stress. The stress ECG was negative. Perfusion Defect: There is a left ventricular function defect that is moderate to large insize with moderate reduction in uptake present in the apical to basal inferior and inferoseptal location(s) that is fixed. The defect appears to be infarction. Stress Function Comments: Stress ejection fraction is 55%. Perfusion Comments: Left ventricular perfusion is abnormal. Based on the perfusion study data, risk of cardiovascular events is intermediate risk. The study is consistent with myocardial infarction. HOLTER: No results found. CARDIAC CATH: No results found. CAROTID: Vas carotid duplex bilateral Result Date: 12/06/2023 FINDINGS: Right (% stenosis) Left (% stenosis) [...] Both vertebral arteries have normal cephalad-directed flow. Estimated range of stenosis*: Mild, not hemodynamically [...] BY: ELECTRONICALLY SIGNED BY: David Bowen MD CXR: X-ray chest 1 view Result Date: 06/15/2024 XR CHEST 1 VW 06/15/2024 6:23 AM INDICATION: chest pain COMPARISON: 03/21/2024 TECHNIQUE: AP portable upright view the chest was obtained. FINDINGS: The lungs are clear. There is no pneumothorax. There is no pleural effusion. The cardiomediastinal silhouette is unremarkable. No acute osseous abnormalities. IMPRESSION: No acute cardiopulmonary process. Finalized by Scooter Moore on 06/15/2024 6:29 AM Lipid Profile: Lab Results Component Value Date Cholesterol 135 (L) 05/02/2016 Cholesterol:HDL Ratio 2.6 05/02/2016 HDL 62 06/26/2015 HDL Cholesterol 51 05/02/2016 HDL interpretation 06/26/2015 RISK FAVORABLE AVERAGE INCREASED MEN >55 MG/DL 35-55 MG/DL < 35 MG/DL FEMALE >65 MG/DL 45-65 MG/DL < 45 MG/DL Triglycerides 75 05/02/2016 Triglycerides 66 06/26/2015 LDL 77 06/26/2015 LDL (calc) 69 05/02/2016 LDL interp 06/26/2015 RECOMMENDED: <130 MG/DL MODERATE RISK: 130-159 MG/DL HIGH RISK: >160 MG/DL No data recorded No data recorded No data recorded EK06/26/2024 Atrial flutter with right bundle-branch Past Medical History: Diagnosis Date Back pain Hyperlipidemia Hypertension Visual impairment glasses Past Surgical History: Procedure Laterality Date COLONOSCOPY AND POLYPECTOMY 05/31/2017 Performed by Brennan Ball MD at [facility] HERNIA REPAIR Right inguinal REPAIR HERNIA INGUINAL Left 03/06/2023 Performed by Scooter Ortez DO at [facility] Family History Problem Relation Age of Onset Heart disease Mother No Known Problems Father Social History Socioeconomic History Marital status: Spouse name: Not on file Number of children: Not on file Years of education: Not on file Highest education level: Not on file Occupational History Not on file Tobacco Use Smoking status: Every Day Current packs/day: 1.00 Average packs/day: 1 pack/day for 80.0 years (80.0 ttl pk-yrs) Types: Cigarettes Start date: 1979 Smokeless tobacco: Never Vaping Use Vaping status: Never Used Substance and Sexual Activity Alcohol use: Not Currently Alcohol/week: 27.0 standard drinks of alcohol Types: 27 Cans of beer per week Drug use: Not Currently Sexual activity: Yes Partners: Female Other Topics Concern Caffeine Use Yes Social History Narrative Not on file Social Drivers of Health Financial Resource Strain: Low Risk (03/10/2023) Overall Financial Resource Strain (CARDIA) Difficulty of Paying Living Expenses: Not hard at all Food Insecurity: No Food Insecurity (06/26/2024) Hunger Screening Food Insecurity - Worry: Never True Food Insecurity - Inability: Never True Transportation Needs: No Transportation Needs (03/22/2024) PRAPARE - Transportation Lack of Transportation (Medical): No Lack of Transportation (Non-Medical): No Physical Activity: Sufficiently Active (03/10/2023) Exercise Vital Sign Days of Exercise per Week: 7 days Minutes of Exercise per Session: 30 min Stress: No Stress Concern Present (03/10/2023) [place] of Occupational Health - Occupational Stress Questionnaire Feeling of Stress : Not at all Social Connections: Moderately Integrated (03/10/2023) Social Connection and Isolation Panel [NHANES] Frequency of Communication with Friends and Family: Twice a week Frequency of Social Gatherings with Friends and Family: Twice a week Attends Christianity Services: Never Active Member of Clubs or Organizations: Yes Attends Club or Organization Meetings: Never Marital Status: Recent Concern: Social Connections - Moderately Isolated (12/27/2022) Received from [facility], [facility] Social Connection and Isolation Panel [NHANES] Frequency of Communication with Friends and Family: More than three times a week Frequency of Social Gatherings with Friends and Family: More than three times a week Attends Christianity Services: Never Active Member of Clubs or Organizations: No Attends Club or Organization Meetings: Never Marital Status: Interpersonal Safety: Not At Risk (03/22/2024) Humiliation, Afraid, Rape, and Kick questionnaire Fear of Current or Ex-Partner: No Emotionally Abused: No Physically Abused: No Sexually Abused: No Housing Instability: Low Risk (03/22/2024) Housing Instability Housing Instability: No Review of Systems Review of Systems Constitutional: Negative. HENT: Negative. Eyes: Negative. Cardiovascular: Negative. Vascular: Negative. Respiratory: Negative. Endocrine: Negative. Hematologic/Lymphatic: Negative. Skin: Negative. Musculoskeletal: Positive for back pain. Gastrointestinal: Negative. Neurological: Negative. Psychiatric/Behavioral: Negative. Allergic/Immunologic: Negative. CARDIOVASCULAR: Please review HPI. Physical Examination General appearance: Alert, oriented and cooperative. In no acute distress. Pleasant Skin: Warm and dry to touch. Respiratory: Bilateral diminished Cardiovascular: Variable S1 Musculoskeletal: No peripheral edema. VITAL SIGNS: BP 126/76 (BP Site: Left Arm, BP Postition: Sitting) Pulse 90 Ht 182.9 cm (6') Wt 69.4 kg (153 lb) SpO2 99% BMI 20.75 kg/m No orders of the defined types were placed in this encounter. There are no discontinued medications. IMPRESSIONS/PLAN 1. Typical atrial flutter (CMS-HCC) - POCT EKG 2. Primary hypertension 3. Mixed hyperlipidemia 1. Atrial flutter recurrence after cardioversion in May --patient to follow with Dr. Viera to consider atrial flutter ablation 2. Primary hypertension 3. Tobacco use, cessation advised 4. Alcohol use, patient discontinued completely March 14, 2023 5. Fixed defect on stress test 04/2024 6. Low normal left ventricular systolic function on echocardiogram 03/2024 TODAYS ORDERS Orders Placed This Encounter Procedures POCT EKG FOLLOW UP Return for Dr Viera to consider atrial flutter ablation. PCP: Shona Elliott MD Referring Physician: Shona Elliott MD [address] [place] [address] documented in this encounterC[facility] Instructions* Patient Instructions* Betty RodriguezMACARIO - 06/26/2024 2:30 PM EST Are You Ready To Kick The Habit? Free Tobacco Cessation Resources [facility] Services [facility] [place] provide all employees with free tobacco cessation services that include: Counseling to understand nicotine addiction Education about medications that can help you successfully quit Assistance with developing a plan to quit Call to set up an individual appointment or find out when group classes will be held: [facility]: [phone] [facility]: [phone] [facility]: [phone] [facility]: [phone] Quit Smoking Action Plan and Resources [facility] offers an eight-week, online smoking cessation plan to all [facility] employees, regardless of whether [employer] is your medical insurance provider. Go to [email or web address] and click the Health Risk Assessment and Resources link to get started. In the [employer] menu, click Action Plans instead of Health Risk Assessment to access the Quit Smoking Action Plan. Additional smoking cessation resources are also available to all [facility] employees on the [employer] web page at [email or web address]. [employer] Tobacco Cessation Program If [employer] is your medical insurance provider, there are more free resources available to you, including: No copays or deductibles on local tobacco cessation counseling services to help you quit Prescription assistance for tobacco cessation medications to help you quit For details about the tobacco cessation program available to [employer] members, go to www.[employer].Sian's Plan (Search: Tobacco Cessation Program). [place] Tobacco Quit Line 4-145-DAUC-NOW ( ) is a toll-free, telephonic service that helps [place] residents quit smoking and using tobacco. It is staffed by experts who tailor a quit plan for you and provide you with advice. [place] Tobacco Quit Line 8-149-BYMF-NOW ( ) is a toll-free, telephonic service that helps [place] residents quit smoking and using tobacco. It is staffed by experts who tailor a quit plan for you and provide you with advice. Two weeks of nicotine replacement therapy may be provided at no charge, if needed. Additional Resources These national organizations also offer free information and resources to help you quit tobacco: [place] Cancer Society--www.cancer.org/healthy/stayawayfromtobacco [place] Heart Association--www.heart.org (Search: Quit Smoking) Centers for Disease Control and Prevention--www.cdc.gov/tobacco [place] Lung Association--www.lungusa.org documented in [facility] encounterC[facility] Miscellaneous Notes* Telephone Encounter - Betty Rodriguez CMA - 06/24/2024 9:46 AM EST Called patient to remind them to bring their most current copy of their medication list with them to their appt. Patient verbalizes understanding. documented in this encounterC[facility]12-[facility]-2024 Telephone encounter Note* Telephone Encounter - Betty Rodriguez CMA - 06/24/2024 9:46 AM EST Called patient to remind them to bring their most current copy of their medication list with them to their appt. Patient verbalizes understanding. [facility] [email or web address] [id number] History of Present illness Narrative* Pascale Navarro NP - 06/17/2024 8:30 AM EST Images from the original note were not included. Erich Lopez is a 68 y.o. male presents with chief complaint of ER Follow-up (Chest pain, doing good ) HPI: ER Follow-up Pertinent negatives include no abdominal pain, chest pain, chills, coughing, fatigue, fever, nausea, rash or vomiting. Patient presents to the office for HFU. He presented to the ER on 06/15 after being woken up with chest pain and SOB. Patient was put on 4L NC. EKG showed aflutter. Has been following with cardiologyroutinely and has an appointment on 06/26/24 for his afib. He is currently on eliquis. Labs were WNL other than glucose 129. Trops WNL. CXR negative. Cardizem given. Patient admits today chest pain does not seem as bad, maybe a 2. Pain was in the center of his chest. Pain felt worse with bending overor laying down. Used to have GERD but does not take medications for it now, has pepcid at home. Does not recall eating or drinking anything that could have triggered GERD. Has not drank alcohol in over a year. ER gave cardizem and tylenol IV. He does admit he feels like he had a virus a couple weeks ago, tested positive for covid around the same time he was in the ER. He does continue to smoke 1 pack of cigarettes per day. Per cardiology's recent note, he has high-degree of gut uptake on nuclear stress test. He denies concerns today. SUBJECTIVE: MEDICATIONS: Current Outpatient Medications Medication Instructions apixaban (ELIQUIS) 5 mg, 2 times daily atorvastatin (LIPITOR) 80 mg, Oral, Daily cholecalciferol (VITAMIN D-3) 2,000 Units, Daily gabapentin (Neurontin) 300 MG capsule TAKE 1 CAPSULE BY MOUTH EVERYDAY AT BEDTIME metoprolol tartrate (LOPRESSOR) 25 mg, 2 times daily tamsulosin (Flomax) 0.4 MG 24 hr capsule TAKE 1 CAPSULE BY MOUTH NIGHTLY FOR 180 DAYS. traMADol (ULTRAM) 50 mg, 3 times daily PRN ALLERGIES: Allergies Allergen Reactions Penicillin G Unknown History: Past Medical History: Diagnosis Date Abnormal radiographic examination 12/27/2022 Acute kidney injury (CMS/HCC) 03/10/2023 Adenomatous polyp Carpal tunnel syndrome of right wrist 12/27/2022 Cigarette smoker Colon polyps 2017 colon polyps Condyloma acuminata COPD (chronic obstructive pulmonary disease) (CMS/HCC) COVID-19 COVID-19 12/27/2022 degeneration of lumbar and thoracic , thoracolumbar intervertebral discs, with sciatica Diverticulosis Erectile dysfunction Gastric wall thickening Hemoglobin A1c above reference range History of alcoholism (CMS/HCC) 1987 Hypertension (CMS/[facility]) Low back pain Mixed hyperlipidemia (CMS/HCC) Postoperative abdominal pain 03/10/2023 Prediabetes Renal cyst, right Right carotid bruit Spasm of muscle of lower back Unexplained weight loss 12/27/2022 Urinary retention 03/10/2023 03/21/23: Retention following left inguinal hernia repair. We will continue with Flomax, could increased to 0.8 mg if needed. Void trial next week. 04/18/23: Doing well on Flomax 0.4 mg nightly. PVR 56. LING benign Last Assessment & Plan: He is unable to Past Surgical History: Procedure Laterality Date COLONOSCOPY 06/02/2021 Dr. Sorto COLONOSCOPY W/ POLYPECTOMY 05/2017 9adenomotous/repeat [address] ANGIOGRAM HEART CORONARY 03/22/2024 CT ANGIOGRAM TAVR 03/22/2024 EGD 06/02/2021 Dr. Sorto FINGER AMPUTATION 1983 Partial finger amputation-left third,work HERNIA REPAIR 2004 HERNIA REPAIR 02/2023 IR INJECTION EPIDURAL STEROID series of 3 - [id number] Family History Problem Relation Name Age of Onset Other (pacemaker) Mother Diabetes Mother Hypertension Mother Other (parkinsons disease) Father Dementia Father Diabetes Maternal Grandmother Colon cancer Maternal Grandfather Other (coronary stent) Paternal Grandmother Heart disease Paternal Grandmother Suicidality Mother's Brother Social History Socioeconomic History Marital status: Spouse name: Not on file Number of children: Not on file Years of education: Not on file Highest education level: Not on file Occupational History Not on file Tobacco Use Smoking status: Every Day Current packs/day: 1.00 Average packs/day: 1 pack/day for 50.0 years (50.0 ttl pk-yrs) Types: Cigarettes Start date: 1974 Passive exposure: Current Smokeless tobacco: Never Tobacco comments: Smokes 5 mins after waking up Vaping Use Vaping status: Never Used Substance and Sexual Activity Alcohol use: Not Currently Comment: caffeine: 1-2 cups per day Drug use: Never Sexual activity: Not on file Other Topics Concern Not on file Social History Narrative Not on file Social Drivers of Health Financial Resource Strain: Low Risk (03/10/2023) Received from [employer] [employer] Overall Financial Resource Strain (CARDIA) Difficulty of Paying Living Expenses: Not hard at all Food Insecurity: No Food Insecurity (06/15/2024) Received from [employer] [facility] Hunger Screening Within the past 12 months we worried whether our food would run out before we got money to buy more.: Never True Within the past 12 months the food we bought just didn't last and we didn't have money to get more.: Never True Transportation Needs: No Transportation Needs (03/22/2024) [facility] from [facility] PRAPARE - Transportation Lack of Transportation (Medical): No Lack of Transportation (Non-Medical): No Physical Activity: Sufficiently Active (03/10/2023) Received from [employer], [facility], [email or web address] [facility] Exercise Vital Sign Days of Exercise per Week: 7 days Minutes of Exercise per Session: 30 min Stress: No Stress Concern Present (03/10/2023) Received from [employer] [facility], [facility] [place] of [employer]ational Health - Occupational Stress Questionnaire Feeling of Stress : Not at all Social Connections: Moderately Integrated (03/10/2023) Received from [employer] [facility], [facility] Social Connection and Isolation Panel [NHANES] Frequency of Communication with Friends and Family: Twice a week Frequency of Social Gatherings with Friends and Family: Twice a week Attends Christianity Services: Never Active Member of Clubs or Organizations: Yes Attends Club or Organization Meetings: Never Marital Status: Recent Concern: Social Connections - Moderately Isolated (12/27/2022) Social Connection and Isolation Panel [NHANES] Frequency of Communication with Friends and Family: More than three times a week Frequency of Social Gatherings with Friends and Family: More than three times a week Attends Christianity Services: Never Active Member of Clubs or Organizations: No Attends Club or Organization Meetings: Never Marital Status: Intimate Partner Violence: Not At Risk (12/27/2022) Humiliation, Afraid, Rape, and Kick questionnaire Fear of Current or Ex-Partner: No Emotionally Abused: No Physically Abused: No Sexually Abused: No Housing Stability: Low Risk (03/22/2024) Received from [facility] Housing Instability Are you worried or concerned that in the next two months you may not have stable housing that you own, rent or stay in as a part of a household?: No I have reviewed and reconciled the history and medication list with the patient today. REVIEW OF SYMPTOMS: Review of Systems Constitutional: Negative for appetite change, chills, fatigue and fever. HENT: Negative. Respiratory: Negative for cough, shortness of breath and wheezing. Cardiovascular: Negative for chest pain and palpitations. Gastrointestinal: Negative for abdominal pain, constipation, diarrhea, nausea and vomiting. Musculoskeletal: Negative. Skin: Negative for color change, rash and wound. Psychiatric/Behavioral: Negative. OBJECTIVE: 11/21/2023 2:13 PM 01/10/2024 3:27 PM 02/11/2024 2:41 PM 03/24/2024 1:39 PM 04/14/2024 1:05 PM 06/17/2024 8:34 AM 06/17/2024 8:54 AM Vitals BMI 21.13 kg/m2 20.62 kg/m2 21.44 kg/m2 20.74 kg/m2 20.99 kg/m2 21.22 kg/m2 BSA (m2) 1.84 m2 1.81 m2 1.85 m2 1.82 m2 1.83 m2 1.84 m2 Systolic 120 120 104 106 110 136 Diastolic 62 60 54 58 54 70 Heart Rate 54 68 80 84 80 84 104 SpO2 99 % 96 % Height (in) 5' 10.5 5' 10.5 Weight (lb) 149.4 145.8 151.6 146.6 148.4 150 Visit Report Report Report Report Report Report Report Report Physical Exam Constitutional: General: He is not in acute distress. Appearance: Normal appearance. Cardiovascular: Rate and Rhythm: Regular rhythm. Tachycardia present. Heart sounds: Normal heart sounds. No murmur heard. Pulmonary: Effort: No respiratory distress. Breath sounds: Normal breath sounds. No wheezing or rhonchi. Abdominal: General: Bowel sounds are normal. There is no distension. Palpations: Abdomen is soft. Tenderness: There is no abdominal tenderness. Musculoskeletal: Right lower leg: No edema. Left lower leg: No edema. Skin: General: Skin is warm and dry. Findings: No erythema or rash. Neurological: Mental Status: He is alert. Psychiatric: Mood and Affect: Mood normal. Thought Content: Thought content normal. Judgment: Judgment normal. ASSESSMENT AND PLAN: Assessment/Plan Diagnoses and all orders for this visit: Other chest pain Primary hypertension (CMS/HCC) Coronary artery calcification (CMS/HCC) Atrial flutter, unspecified type (CMS/HCC) Cigarette smoker Mixed hyperlipidemia (CMS/HCC) -Reviewed ER documentation, labs and imaging. Patient does feel better compared to when he went to the ER. He has a follow up with cardiology on 06/26/24. Denies feeling SOB now. BP well controlled. Continue Eliquis as prescribed. Slightly tachycardic on exam but patient is currently taking his morning medications. Encouraged quitting smoking or cutting down. PVU. -Discussed possible heartburn/GERD with patient and recommend trying tums or pepcid that he has at home prior to seeing cardiology to see if this helps with his chest discomfort. Discussed avoiding triggers. -Continue statin. 30 minutes spent reviewing chart, assessing patient and documenting. Follow up if symptoms worsen or fail to improve, for Next scheduled follow-up. documented in this encounterColumbia Regional [id number] Miscellaneous Notes* Telephone Encounter - Mandeep Carmona CMA - 06/02/2024 1:[address] Gordon, Pt calls stating that he saw you on 04/15/24. He was told to recheck his PSA in a month, he did. His PSA value was within normal ranges - 3.30. He is scheduled to see you on 06/10/24. He wanted to know if he should still see you or if you just wanted to see him in a year (around 04/15/2025). Pleaseadvise, thank you [phone] * Telephone Encounter - Luanne Gordon MD - 06/02/2024 1:57 PM EST He doesn't need to come back in a month. Can see him next year * Telephone Encounter - Mandeep Carmona CMA - 06/02/2024 1:57 PM EST Thank you Dr. Gordon. Pt verbalized understanding and was transferred to scheduling to assist in rescheduling his appointment. [facility] Telephone encounter Note* Telephone Encounter - Mandeep Carmona CMA - 06/02/2024 1:[address] Gordon, Pt calls stating that he saw you on 04/15/24. He was told to recheck his PSA in a month, he did. His PSA value was within normal ranges - 3.30. He is scheduled to see you on 06/10/24. He wanted to know if he should still see you or if you just wanted to see him in a year (around 04/15/2025). Pleaseadvise, thank you [phone] [facility]12-09-2024 Telephone encounter Note* Telephone Encounter - Luanne Gordon MD - 06/02/2024 1:57 PM EST He doesn't need to come back in a month. Can see him next year [facility]12-09-2024 Telephone encounter Note* Telephone Encounter - Mandeep Carmona CMA - 06/02/2024 1:57 PM EST [address] you Dr. Gordon. Pt verbalized understanding and was transferred to scheduling to assist in rescheduling his appointment. [facility]12-02-2024 History of Present illness Narrative* Shakir Smith MD - 05/26/2024 12:00 PM EST Erich Jensen August Date of visit: 05/26/2024 Date of : 1955 Age: 68 y.o. Patient Active Problem List Diagnosis Bilateral carotid artery stenosis Right carotid bruit Primary hypertension Cigarette smoker Postoperative abdominal pain Urinary retention Acute kidney [facility] Chest pain Mixed hyperlipidemia Prediabetes Atrial flutter ([facility]) Stage 3a chronic kidney disease ([facility]) Elevated PSA Coronary artery calcification Pulmonary nodule, right RBBB (right bundle branch block) Tubular adenoma Allergies Allergen Reactions Penicillins Hives and Other (See Comments) Current Outpatient Medications Medication Sig Dispense Refill apixaban (ELIQUIS) 5 mg tablet Take 1 tablet (5 mg total) by mouth in the morning and 1 tablet (5 mg total) before bedtime. 180 tablet 1 atorvastatin (LIPITOR) 80 mg tablet Take 1 [...] 1 tablet (25 mg total) before bedtime. 180 tablet 2 tamsulosin (FLOMAX) 0.4 mg capsule Take 1 capsule (0.4 mg total) by mouth nightly. 90 capsule 3 traMADoL (ULTRAM) 50 mg tablet Take 1 tablet (50 mg total) by mouth 3 (three) times a day as neededfor pain. No current facility-administered medications for this visit. Chief Complaint Patient presents with Follow-up EST PT F/U ADD ON EARLY FOR ABN STRESS History of Present Illness 68-year-old male who presented with pleuritic chest pain, he actually thought he had pleurisy January 2024. He was found to be in atrial flutter rapid ventricular response. Rates have come down with rate control medications, he is asymptomatic A nuclear stress test was ordered, images were not very good with inferior gut activity, impossibleto say if the inferoseptal and inferior wall are normal or not He has no anginal complaints He has diffuse coronary calcifications, EF 50-55% Past Medical History: Diagnosis Date Back pain Hyperlipidemia Hypertension Visual impairment glasses No data recorded No data recorded No data recorded Past Surgical History: Procedure Laterality Date COLONOSCOPY AND POLYPECTOMY 05/31/2017 Performed by Brennan Ball MD at [facility] HERNIA REPAIR Right inguinal REPAIR HERNIA INGUINAL Left 03/06/2023 Performed by Scooter Ortez DO at [facility] Family History Problem Relation Age of Onset Heart disease Mother No Known Problems Father Social History Socioeconomic History Marital status: Spouse name: Not on file Number of children: Not on file Years of education: Not on file Highest education level: Not on file Occupational History Not on file Tobacco Use Smoking status: Every Day Current packs/day: 1.00 Average packs/day: 1 pack/day for 79.9 years (79.9 ttl pk-yrs) Types: Cigarettes Start date: 1979 Smokeless tobacco: Never Vaping Use Vaping status: Never Used Substance and Sexual Activity Alcohol use: Not Currently Alcohol/week: 27.0 standard drinks of alcohol Types: 27 Cans of beer per week Drug use: Not Currently Sexual activity: Yes Partners: Female Other Topics Concern Caffeine Use Yes Social History Narrative Not on file Social Drivers of Health Financial Resource Strain: Low Risk (03/10/2023) Overall Financial Resource Strain (CARDIA) Difficulty of Paying Living Expenses: Not hard at all Food Insecurity: No Food Insecurity (05/26/2024) Hunger Screening Food Insecurity - Worry: Never True Food Insecurity - Inability: Never True Transportation Needs: No Transportation Needs (03/22/2024) PRAPARE - Transportation Lack of Transportation (Medical): No Lack of Transportation (Non-Medical): No Physical Activity: Sufficiently Active (03/10/2023) Exercise Vital Sign Days of Exercise per Week: 7 days Minutes of Exercise per Session: 30 min Stress: No Stress Concern Present (03/10/2023) [place] [employer] - Occupational Stress Questionnaire Feeling of Stress : Not at all Social Connections: Moderately Integrated (03/10/2023) Social Connection and Isolation Panel [NHANES] Frequency of Communication with Friends and Family: Twice a week Frequency of Social Gatherings with Friends and Family: Twice a week Attends Christianity Services: Never Active Member of Clubs or Organizations: Yes Attends Club or Organization Meetings: Never Marital Status: Recent Concern: Social Connections - Moderately Isolated (12/27/2022) [facility] Social Connection and Isolation Panel [NHANES] Frequency of Communication with Friends and Family: More than three times a week Frequency of Social Gatherings with Friends and Family: More than three times a week Attends Christianity Services: Never Active Member of Clubs or Organizations: No Attends Club or Organization Meetings: Never Marital Status: Interpersonal Safety: Not At Risk (03/22/2024) Humiliation, Afraid, Rape, and Kick questionnaire Fear of Current or Ex-Partner: No Emotionally Abused: No Physically Abused: No Sexually Abused: No Housing Instability: Low Risk (03/22/2024) Housing Instability Housing Instability: No Review of Systems Review of Systems Constitutional: Negative. HENT: Negative. Eyes: Negative. Cardiovascular: Negative. Respiratory: Negative. Endocrine: Negative. Hematologic/Lymphatic: Negative. Skin: Negative. Musculoskeletal: Positive for back pain. Gastrointestinal: Negative. Genitourinary: Negative. Neurological: Negative. Psychiatric/Behavioral: Negative. Allergic/Immunologic: Negative. Vascular: Negative. CARDIOVASCULAR: Please review HPI. Physical Examination General appearance: Alert, oriented and cooperative. In no acute distress. Skin: Warm and dry to touch. Head: Normocephalic, without obvious abnormality, atraumatic. Ears, Nose, Mouth, Throat: Throat clear without erythema or exudate. Dentition intact. Eyes: Conjunctivae unremarkable, EOM intact. Neck: No JVD, No carotid bruit. Neck supple, trachea midline. Respiratory: Clear to auscultation bilaterally, no use of accessory muscles. Cardiovascular: RRR with normal S1 and S2 with no murmurs. Gastrointestinal: Soft, non-tender. Bowel sounds normal. Musculoskeletal: No peripheral edema. Neurologic: Oriented to time, person and place, affect appropriate. No focal/major motor defects noted. Psychiatric: Appropriate mood, memory and judgement. VITAL SIGNS: BP 142/78 (BP Site: Left Arm, BP Postition: Sitting) Pulse 80 Ht 182.9 cm (6') Wt 69.8 kg (153 lb 12.8 oz) SpO2 100% BMI 20.86 kg/m No orders of the defined types were placed in this encounter. There are no discontinued medications. IMPRESSIONS/PLAN 1. Typical atrial flutter (CMS-HCC) 2. Coronary artery calcification 3. RBBB (right bundle branch block) Impression Atrial flutter, typical mild left atrial enlargement, presented with pleurisy several months ago when he was diagnosed. His rates have come down and are controlled. High-degree of gut uptake on nuclear stress, impossible to clear the inferior wall of any defects however he has no angina normal ejection fraction and no wall motion abnormality on nuclear or echo. Tobacco abuse with findings compatible with emphysema Smoking cessation recommended He has been compliant with Eliquis for over a month, continue with 5 mg b.I.d. One time cardioversion is reasonable given this is a new diagnosis and only mild left atrial enlargement. Can consider ablation or antiarrhythmics down the road but again he is asymptomatic May proceed with CTA cores after rhythm control to completely exclude coronary disease TODAYS ORDERS No orders of the defined types were placed in this encounter. FOLLOW UP Return in about 4 weeks (around 06/23/2024). PCP: Shona Elliott MD Referring Physician: Shona Elliott MD [address] [place] [address] [facility] Instructions* Patient Instructions* Betty Rodriguez, GATEMAN - 05/26/2024 12:00 PM EST Are You Ready To Kick The Habit? Free Tobacco Cessation Resources [facility] Services [facility] [place] provide all employees with free tobacco cessation services that include: Counseling to understand nicotine addiction Education about medications that can help you successfully quit Assistance with developing a plan to quit Call to set up an individual appointment or find out when group classes will be held: [facility]: [phone] [facility]: [phone] [facility]: [phone] [facility]: [phone] Quit Smoking Action Plan and Resources [facility] offers an eight-week, online smoking cessation plan to all [facility] employees, regardless of whether [employer] is your medical insurance provider. Go to [email or web address] and click the Health Risk Assessment and Resources link to get started. In the [employer] menu, click Action Plans instead of Health Risk Assessment to access the Quit Smoking Action Plan. Additional smoking cessation resources are also available to all [facility] employees on the [employer]Oz[employer] web page at www.[email or web address]/quitsmoking. [employer] Tobacco Cessation Program If [employer] is your medical insurance provider, there are more free resources available to you, including: No copays or deductibles on local tobacco cessation counseling services to help you quit Prescription assistance for tobacco cessation medications to help you quit For details about the tobacco cessation program available to [employer] members, go to www.[employer].Sian's Plan (Search: Tobacco Cessation Program). [place] Tobacco Quit Line 4-658-NHUS-NOW ( ) is a toll-free, telephonic service that helps [place] residents quit smoking and using tobacco. It is staffed by experts who tailor a quit plan for you and provide you with advice. [place] Tobacco Quit Line 5-403-JBUR-NOW ( ) is a toll-free, telephonic service that helps [place] residents quit smoking and using tobacco. It is staffed by experts who tailor a quit plan for you and provide you with advice. Two weeks of nicotine replacement therapy may be provided at no charge, if needed. Additional Resources These national organizations also offer free information and resources to help you quit tobacco: [place] [employer]--www.cancer.org/healthy/stayawayfromtobacco [place] Heart Association--www.heart.org (Search: Quit Smoking) Centers for Disease Control and Prevention--www.cdc.gov/tobacco [place] Lung Association--www.lungusa.org documented in this [facility]11-25-2024 Miscellaneous Notes* Telephone Encounter - Huyen Helms RN - 05/19/2024 10:46 AM EST Last OV 05/02/24 Last CBC,CMP 03/23/24.slm documented in this [facility]11-25-2024 Telephone encounter Note* Telephone Encounter - Huyen Helms RN - 05/19/2024 10:46 AM EST Last OV 05/02/24 Last CBC,CMP 03/23/24.slm [facility]11-08-2024 History of Present illness Narrative* Desiree Nieves MD - 05/02/2024 2:15 PM EST Erich Jensen August Date of visit: 05/02/2024 Date of : 1955 Age: 68 y.o. Patient Active Problem List Diagnosis Bilateral carotid artery stenosis Right carotid bruit Primary hypertension Cigarette smoker Postoperative abdominal pain Urinary retention Acute kidney injury (CMS-HCC) Chest pain Mixed hyperlipidemia Prediabetes Atrial flutter [place] Stage 3a chronic kidney disease ([facility] Elevated PSA Coronary artery calcification Pulmonary nodule, right RBBB (right bundle branch block) Tubular adenoma Allergies Allergen Reactions Penicillins Hives and Other (See Comments) Current Outpatient Medications Medication Sig Dispense Refill [...] total) by mouth once daily at bedtime. tamsulosin (FLOMAX) 0.4 mg capsule Take 1 capsule (0.4 mg total) by mouth nightly. 90 capsule 3 traMADoL (ULTRAM) 50 mg tablet Take 1 tablet (50 mg total) by mouth 3 (three) times a day as neededfor pain. No current facility-administered medications for this visit. No chief complaint on file. History of Present Illness Patient presents for evaluation of atrial flutter he is a 68-year-old male [facility] it was constant sharp when he takes deep breath or bends over it was more positional in nature he ruled out for significant he was found to be in a flutter at that time he came back with chest discomfort but is enzymes continue to be negative he was admitted to [facility] for evaluation but it was a weekend. He was started on metoprolol 25 mg p.o. b.i.d. and apixaban subsequently the chest discomfort has gone away and he presents today. Echo showed overall preserved function with no major valvular disease with mildly elevated right heart pressures. He is a long-time smoker Past Medical History: Diagnosis Date Back pain Hyperlipidemia Hypertension Visual impairment glasses No data recorded No data recorded No data recorded Past Surgical History: Procedure Laterality Date COLONOSCOPY AND POLYPECTOMY 05/31/2017 Performed by Brennan Ball MD at [facility] HERNIA REPAIR Right inguinal REPAIR HERNIA INGUINAL Left 03/06/2023 Performed by Scooter Ortez DO at [facility] Family History Problem Relation Age of Onset Heart disease Mother No Known Problems Father Social History Socioeconomic History Marital status: Spouse name: Not on file Number of children: Not on file Years of education: Not on file Highest education level: Not on file Occupational History Not on file Tobacco Use Smoking status: Every Day Current packs/day: 1.00 Average packs/day: 1 pack/day for 79.9 years (79.9 ttl pk-yrs) Types: Cigarettes Start date: 1979 Smokeless tobacco: Never Vaping Use Vaping status: Never Used Substance and Sexual Activity Alcohol use: Not Currently Alcohol/week: 27.0 standard drinks of alcohol Types: 27 Cans of beer per week Drug use: Not Currently Sexual activity: Yes Partners: Female Other Topics Concern Not on file Social History Narrative Not on file Social Drivers of Health Financial Resource Strain: Low Risk (03/10/2023) Overall Financial Resource Strain (CARDIA) Difficulty of Paying Living Expenses: Not hard at all Food Insecurity: No Food Insecurity (04/15/2024) Hunger Screening Food Insecurity - Worry: Never True Food Insecurity - Inability: Never True Transportation Needs: No Transportation Needs (03/22/2024) PRAPARE - Transportation Lack of Transportation (Medical): No Lack of Transportation (Non-Medical): No Physical Activity: Sufficiently Active (03/10/2023) Exercise Vital Sign Days of Exercise per Week: 7 days Minutes of Exercise per Session: 30 min Stress: No Stress Concern Present (03/10/2023) [place] [employer] - Occupational Stress Questionnaire Feeling of Stress : Not at all Social Connections: Moderately Integrated (03/10/2023) Social Connection and Isolation Panel [NHANES] Frequency of Communication with Friends and Family: Twice a week Frequency of Social Gatherings with Friends and Family: Twice a week Attends Christianity Services: Never Active Member of Clubs or Organizations: Yes Attends Club or Organization Meetings: Never Marital Status: Recent Concern: Social Connections - Moderately Isolated (12/27/2022) [facility] Social Connection and Isolation Panel [NHANES] Frequency of Communication with Friends and Family: More than three times a week Frequency of Social Gatherings with Friends and Family: More than three times a week Attends Christianity Services: Never Active Member of Clubs or Organizations: No Attends Club or Organization Meetings: Never Marital Status: Interpersonal Safety: Not At Risk (03/22/2024) Humiliation, Afraid, Rape, and Kick questionnaire Fear of Current or Ex-Partner: No Emotionally Abused: No Physically Abused: No Sexually Abused: No Housing Instability: Low Risk (03/22/2024) Housing Instability Housing Instability: No Review of Systems Review of Systems Constitutional: Negative for decreased appetite. HENT: Negative for congestion. Eyes: Negative for blurred vision. Cardiovascular: Positive for chest pain. Respiratory: Negative for cough. Endocrine: Negative for heat intolerance. Musculoskeletal: Negative for back pain. Gastrointestinal: Negative for constipation. Genitourinary: Negative for dysuria. Neurological: Negative for dizziness. CARDIOVASCULAR: Please review HPI. Physical Examination General appearance: Alert, oriented and cooperative. In no acute distress. Skin: Warm and dry to touch. Head: Normocephalic, without obvious abnormality, atraumatic. Ears, Nose, Mouth, Throat: Throat clear without erythema or exudate. Dentition intact. Eyes: Conjunctivae unremarkable, EOM intact. Neck: No JVD, No carotid bruit. Neck supple, trachea midline. Respiratory: Clear to auscultation bilaterally, no use of accessory muscles. Cardiovascular: Irregular Gastrointestinal: Soft, non-tender. Bowel sounds normal. Musculoskeletal: No peripheral edema. Neurologic: Oriented to time, person and place, affect appropriate. No focal/major motor defects noted. Psychiatric: Appropriate mood, memory and judgement. VITAL SIGNS: There were no vitals taken for this visit. No orders of the defined types were placed in this encounter. There are no discontinued medications. IMPRESSIONS/PLAN 1. Atrial flutter, unspecified type ([facility] - [facility] [place], [place] 2. Bilateral carotid artery stenosis 1. Atypical chest discomfort seems more musculoskeletal it is positional he had negative enzymes 2. New onset atrial flutter 3. Smoker Lexiscan nuclear study rule out the presence coronary disease patient was on beta-ari I do not want to stop this prior to the study so will do a Lexiscan Thyroid function studies Continue with rate control and anticoagulation Further recommendations depending on the results of the stress test Smoking cessation TODAYS ORDERS No orders of the defined types were placed in this encounter. FOLLOW UP No follow-ups on file. PCP: Shona Elliott MD Referring Physician: Farrukh Phelan MD [address] [place] [address] documented in this encounterCincinnati Children's Hospital Medical CenterSticher [facility] [id number] Miscellaneous Notes* Telephone Encounter - Natalie Rangel CMA - 04/30/2024 10:34 AM EST Phoned pt in regards to appt scheduled for 05/01/2024, appt cancelled due to insurance being OON with provider. Spoke with and advised of this, verbalized understanding and will call pt at a later date and time to reschedule appt. [facility] Telephone encounter Note* Telephone Encounter - Natalie Rangel CMA - 04/30/2024 10:34 AM EST Phoned pt in regards to appt scheduled for 05/01/2024, appt cancelled due to insurance being OON with provider. Spoke with and advised of this, verbalized understanding and will call pt at a later date and time to reschedule appt. [facility]10-30-2024 Telephone encounter Note* Telephone Encounter - Carli Stewart NP - 04/23/2024 5:14 PM EDT Spoke with pt/ about US results-Bosniak 1-simple cyst, do not need to worry about it, we can watch over time. We did contact the GI office and did get EGD/Colonoscopy from GI and they were done 06/02/21. PVU and appreciated the call. Study Result Narrative & Impression THIS EXAM WAS PERFORMED AT [facility] Clinical history:Abnormal finding on diagnostic [...] with a Bosniak 1 cyst. No additional follow-upimaging recommended. No renal collecting system dilatation. Finalized by Scooter Hector MD on 04/22/2024 3:42 PM [id number] Miscellaneous Notes* Telephone Encounter - Carli Stewart NP - 04/23/2024 5:14 PM EDT Spoke with pt/ about US results-Bosniak 1-simple cyst, do not need to worry about it, we can watch over time. We did contact the GI office and did get EGD/Colonoscopy from GI and they were done 06/02/21. PVU and appreciated the call. Study Result Narrative & Impression THIS EXAM WAS PERFORMED AT [facility] Clinical history:Abnormal finding on diagnostic [...] with a Bosniak 1 cyst. No additional follow-upimaging recommended. No renal collecting system dilatation. Finalized by Scooter Hector MD on 04/22/2024 3:42 PM documented in this encounterColumbia Regional [id number] History of Present illness Narrative* Luanne Gordon MD - 04/15/2024 2:45 PM EDT Images from the original note were not included. [address] [place] [address] A [facility] [address] [facility] [id number] Patient: Erich Jensen August Date of : 1955 Encounter Date: 04/15/2024 History of Present Illness: The patient is a 68 y.o. male, an established patient, and is here for follow- up. He previously sawalexa SHEARER after having urinary retention after hernia surgery in 2022. He is maintained on tamsulosin.Had passed a void trial. Reports he is continuing to do well with the use of the medication. He hada normal PSA as outlined below. A routine [...] past medical history, past social history, past surgicalhistory and problem list. Past Medical History: Diagnosis Date Back pain Hyperlipidemia Hypertension Visual impairment glasses Past Surgical History: Procedure Laterality Date COLONOSCOPY AND POLYPECTOMY 05/31/2017 Performed by Brennan Ball MD at [facility] HERNIA REPAIR Right inguinal REPAIR HERNIA INGUINAL Left 03/06/2023 Performed by Scooter Ortez DO at [facility] Family History Problem Relation Age of [...] mouth 3 (three) times a day as neededfor pain. No current facility-administered medications for this [...] you for your understanding. documented in this encounterC[facility]10-22-2024 Miscellaneous Notes* Addendum Note - Luanne Gordon MD - 04/15/2024 2:45 PM EDTAddended by: LUANNE GORDON on: 04/15/2024 02:48 PM Modules accepted: Orders documented in this encounterC[facility]10-22-2024 Note* Addendum Note - Luanne Gordon MD - 04/15/2024 2:45 PM EDTAddended by: LUANNE GORDON on: 04/15/2024 02:48 PM Modules accepted: Orders [facility]10-21-20[facility] History of Present illness Narrative* Carli Stewart, LISBET - 04/14/2024 1:00 PM EDT Images from the original note were not included. Subjective Patient ID: Erich Lopez is a 68 y.o. male who presents for Follow-up (Every once in awhile getssome chest pressure and has brief episodes of pain in one spot. The most severe time happened this past Sunday while mowing yard. ). HPI: As above. Was in ER 03/21/24. No SOB, fatigue pretty much back to normal now. Had been dizzy before the ER, but none now. Still holding the Lisinopril - hydrochlorothiazide and ASA. Taking Eliquisand Metoprolol routinely. Sees Cardiology next Sunday. Still smoking 1 PPD, I know I need to quit, but my mind is not ready . Had trouble urinating after hernia repair 03/17, had catheter for almost2 weeks, then it was taken out and doing ok. Saw urology and has 1 year F/U Urology appt tomorrow. Did lab for PSA last weekend. Review of Systems Constitutional: Positive for fatigue. Negative for appetite change, chills and fever. Slight or really back to normal now HENT: WNL Respiratory: Positive for cough. Negative for shortness of breath. 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 See See Gastrointestinal: Negative for abdominal pain and blood in stool. No change in bowels , no GERD Genitourinary: Negative for difficulty urinating and dysuria. Sees Urology, appt next month, Flomax helps Musculoskeletal: Negative for arthralgias. Skin: Negative for rash. Neurological: Negative for dizziness, light-headedness and headaches. Psychiatric/Behavioral: Slept better since home. Mood is ok Objective Physical Exam Vitals and nursing note reviewed. Constitutional: General: He is not in acute distress. HENT: Ears: Comments: Sl-mod cerumen, enc to have pt let the shower water get in ear and bend over Nose: Nose normal. No rhinorrhea. Mouth/Throat: Mouth: Mucous membranes are moist. Pharynx: Oropharynx is clear. No posterior oropharyngeal erythema. Eyes: Extraocular Movements: Extraocular movements intact. Neck: Vascular: No carotid bruit. Cardiovascular: Rate and Rhythm: Normal rate and regular rhythm. Comments: No edema Pulmonary: Effort: Pulmonary effort is normal. Breath sounds: Normal breath sounds. Comments: No cough during appt Abdominal: General: Bowel sounds are normal. Palpations: Abdomen is soft. Tenderness: There is no abdominal tenderness. Musculoskeletal: Comments: Normal gait Lymphadenopathy: Cervical: No cervical adenopathy. Skin: General: Skin is warm. Findings: No rash. Neurological: Mental Status: He is alert and oriented to person, place, and time. Psychiatric: Comments: Calm and cooperative, well groomed. Here alone today 12/19/2021 12:00 PM 12/27/2022 9:38 AM 11/21/2023 2:13 PM 01/10/2024 3:27 PM 02/11/2024 2:41 PM 03/24/2024 1:39 PM 04/14/2024 1:05 PM Vitals BMI 21.2 kg/m2 20.47 kg/m2 21.13 kg/m2 20.62 kg/m2 21.44 kg/m2 20.74 kg/m2 20.99 kg/m2 BSA (m2) 1.86 m2 1.83 m2 1.84 m2 1.81 m2 1.85 m2 1.82 m2 1.83 m2 Systolic 130 124 120 120 104 106 110 Diastolic 70 76 62 60 54 58 54 Heart Rate 72 54 68 80 84 80 SpO2 96 % 99 % Temp 97.2 F Resp 18 Height (in) 5' 11 5' 11 5' 10.5 5' 10.5 Weight (lb) 152 146.8 149.4 145.8 151.6 146.6 148.4 Visit Report Report Report Report Report Report Report I have reviewed and reconciled the history and medication list with the patient today. Assessment/Plan Diagnoses and all orders for this visit: Atrial flutter, unspecified type (CMS/HCC) Comments: Pt is on Eliquis 5mg BID and metoprolol 25mg BID. Pt is to do echocardiogram- order is in, has an appt to do it next Sunday. He has upcoming appt with Cardiology Primary hypertension (CMS/HCC) Comments: Lisinopril-HCTZ are on hold Coronary artery calcification (CMS/HCC) Comments: Severe atherosclerotic calcifications in the aorta noted on CT Angiogram. Pt is on 80mg of statin, enc no smoking. He will be seeing Cardiology, enc to discuss with them Stage 3a chronic kidney disease (HCC) (CMS/HCC) Comments: Last BUN 35 (was 41, 52), crea 1.09 (was 1.25, 1.51), GFR 74 (was 63, 50). Pt declined repeating lab today, prefers to do in few months Mixed hyperlipidemia (CMS/HCC) Comments: Last LDL 40 in December. Pt is on Atorvastatin 80mg RBBB (right bundle branch block) Comments: Noted on recent EKG Pulmonary nodule, right Comments: Noted on CT will need to monitor over time. Plan to repeat CT in 1 year Cigarette smoker Comments: Strongly enc no smoking. Pt is not ready to quit Abnormal complete blood count: WBC 8.1/ Hgb 11.1/Hematocrit 32.6, platelets 126 (prior 141) Mar 23 Bilateral carotid artery stenosis: Last U/S 12/16 mild, not hemodynamically significant Hyperglycemia: Glucose was 105 (prior 118) on last lab in Feb (not sure that pt was fasting) Abnormal finding on diagnostic imaging of right kidney: Per CT angiogram. Pt agreeable to doing U/Srenal complete Tubular adenoma: Last scope 2017, per Betty Hammond who spoke with after appt- Pt had seen GI [id number] if scopes were done. I will have Yuly look into this. If due plan to refer to Dr Ortez F/U 3 months for recheck for HTN, sooner if concerns. PVU documented in this encounterColumbia Regional [id number] Miscellaneous Notes* Telephone Encounter - Rhiannon Mansfield LPN - 04/11/2024 3:26 PM EDT Contacted the Pt. To remind him to get his PSA drawn for his appt with MD Brien on Sunday. Pt. Stated he would get that done. documented in this encounterC[facility]10-18-2024 Telephone encounter Note* Telephone Encounter - Rhiannon Mansfield LPN - 04/11/2024 3:26 PM EDT Contacted the Pt. To remind him to get his PSA drawn for his appt with MD Brien on Sunday. Pt. Stated he would get that done. [facility]10-[facility] Telephone encounter Note* Telephone Encounter - Malika Love - 03/31/2024 12:38 PM EDT Patient left a voicemail saying he forgot to take his heart medication today at 9am and wants to know if he should take it now, or if he will be ok to skip today and take it tomorrow. Please advise. Thank you [facility] [id number] Miscellaneous Notes* Telephone Encounter - Malika Love - 03/31/2024 12:38 PM EDT Patient left a voicemail saying he forgot to take his heart medication today at 9am and wants to know if he should take it now, or if he will be ok to skip today and take it tomorrow. Please advise. Thank you documented in this encounterColumbia Regional [id number] History of Present illness Narrative* Carli Stewart, LISBET - 03/24/2024 1:30 PM EDT Images from the original note were not included. Subjective Patient ID: Erich Lopez is a 68 y.o. male who presents for Follow-up (Hosp - Went to ER Sunday night for chest pain and then went back again Sunday morning and was kept over night. No CP since discharge.). HPI: As above. Hasn't been feeling well for awhile, has been more tired. Had chest pain at work. Went to the ER 03/21/24, pt had EKG-atrial flutter/fib RBBB, CXR-No evidence for acute pulmonary process. Lab: WBC 8.6, Hgb 11.1/Hematocrit 32.6. Platelets 140. BUN 52, Crea 1.51, GFR 50, Glucose 110, Troponin and D- dimer WNL. Pt was given Rxs for Eliquis and Metoprolol but did not get them filled thatday. He went back 03/22/24 with chest pain. Initially thought EKG showed MA, but cardiology did not think so. He was admitted and kept him overnight. He was negative for Flu/RSV and covid. CT angiogram No acute aortic abnormality, no PE, Emphysematous changes and pulmonary nodule noted. Severe atherosclerotic calcifications (and coronary artery). Pt is taking Eliquis 5mg BID and Metoprolol BID. Hestopped his ASA and Lisinopril hydrochlorothiazide as instructed by the ER. called Cardiology,they can't get him in until May 01 with [facility]. He is supposed to do echocardiogram this week per ER note, but pt stated he didn't have an order. Pt smokes approx 1 PPD, not ready to quit. Pt is retired, but works at [employer], goes through literature, no hard physcial labor. He is wondering if he can go back Review of Systems Constitutional: Positive for fatigue. Negative for appetite change, chills and fever. 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 Gastrointestinal: Negative for abdominal pain and blood in stool. No change in bowels , no GERD Genitourinary: Negative for difficulty urinating and dysuria. Sees Urology, appt next month, Flmax helps Skin: Negative for rash. Neurological: Negative for dizziness, light-headedness and headaches. Psychiatric/Behavioral: Slept better since home. Mood is ok- alittle frustrated yesterday, better today Objective Physical Exam Vitals and nursing note reviewed. Constitutional: General: He is not in acute distress. HENT: Ears: Comments: Sl-mod cerumen, enc to have pt let the shower water get in ear and bend over Nose: Nose normal. No rhinorrhea. Mouth/Throat: Mouth: Mucous membranes are moist. Pharynx: Oropharynx is clear. No posterior oropharyngeal erythema. Eyes: Extraocular Movements: Extraocular movements intact. Neck: Vascular: No carotid bruit. Cardiovascular: Rate and Rhythm: Normal rate and regular rhythm. Comments: No edema Pulmonary: Effort: Pulmonary effort is normal. Breath sounds: Normal breath sounds. Comments: No cough during appt Abdominal: General: Bowel sounds are normal. Palpations: Abdomen is soft. Tenderness: There is no abdominal tenderness. Musculoskeletal: Comments: Normal gait Lymphadenopathy: Cervical: No cervical adenopathy. Skin: General: Skin is warm. Findings: No rash. Neurological: Mental Status: He is alert and oriented to person, place, and time. Psychiatric: Comments: Calm and cooperative, well groomed here with 06/14/2021 12:00 PM 12/19/2021 12:00 PM 12/27/2022 9:38 AM 11/21/2023 2:13 PM 01/10/2024 3:27 PM 02/11/2024 2:41 PM 03/24/2024 1:39 PM Vitals BMI 21.34 kg/m2 21.2 kg/m2 20.47 kg/m2 21.13 kg/m2 20.62 kg/m2 21.44 kg/m2 20.74 kg/m2 BSA (m2) 1.86 m2 1.86 m2 1.83 m2 1.84 m2 1.81 m2 1.85 m2 1.82 m2 Systolic 130 130 124 120 120 104 106 Diastolic 78 70 76 62 60 54 58 Heart Rate 72 54 68 80 84 SpO2 96 % 99 % Temp 97.2 F Resp 18 Height (in) 5' 11 5' 11 5' 11 5' 10.5 5' 10.5 Weight (lb) 153 152 146.8 149.4 145.8 151.6 146.6 Visit Report Report Report Report Report Report Assessment/Plan Diagnoses and all orders for this visit: Atrial flutter, unspecified type (CMS/HCC): Reviewed ER report-see HPI. Continue Eliquis 5mg BID and Metoprolol 25mg BID. Pt was told to hold ASA. Keep appt with Cardiology. ER note said to do echocardiogram this week. Pt does not have an order. I will have the staff put order in and have pt do at [facility] Primary hypertension (CMS/HCC): Pt is to hold lisinopril-hydrochlorothiazide Coronary artery calcification(CMS/HCC): Per CT in ER Mixed hyperlipidemia (CMS/HCC): Last LDL 40 in December. Pt is on Atorvastain 80mg Stage 3a chronic kidney disease (HCC) (CMS/HCC): Last BUN 52 , Crea 1.51, GFR 50 03/21/24 Cigarette smoker: Enc no smoking. Discussed Tx ie Patches, gum, . Pt declined. I need to wrap my head aroud it first . Enc to watch -800-Quit now, or why [email or web address]. PVU Pulmonary nodule, right: noted on CT, will need to monitor over time (plan 12 months) RBBB (right bundle branch block): Noted recent on EKG F/U 2-3 weeks for atrial flutter, sooner if concerns. PVU and and agree with plan 45 in review of ER notes, test results, plan/medication review. Order Echo documented in this encounterColumbia Regional [id number] History of Present illness Narrative* Angeles Montes NP - 02/11/2024 2:30 PM EDT Images from the original note were not included. Erich Lopez is a 68 y.o. male presents with chief complaint of Follow-up (Pt has been trying toeat more often. Pt did put on 6 lbs since his last visit. Pt is feeling better in the last week andfeels like he is getting his strength back) HPI: HPI As above. He is 3 meals a day during the week and he is drinking boost. He is feeling better. His appetite is improving and he is starting to feel hunger sensations again. No medical concerns. SUBJECTIVE: MEDICATIONS: Current Outpatient Medications Medication Instructions aspirin 325 MG tablet Every 24 hours atorvastatin (Lipitor) 80 MG tablet TAKE 1 TABLET BY MOUTH EVERY DAY FOR 90 DAYS cholecalciferol (VITAMIN D-3) 2,000 Units, Oral, Daily gabapentin (Neurontin) 300 MG capsule TAKE 1 CAPSULE BY MOUTH EVERYDAY AT BEDTIME lisinopril-hydroCHLOROthiazide 20-12.5 MG tablet TAKE 1 TABLET BY MOUTH EVERY DAY FOR 90 DAYS tamsulosin (FLOMAX) 0.4 mg, Oral, Nightly traMADol (ULTRAM) 50 mg, Oral, 3 times daily PRN ALLERGIES: Allergies Allergen Reactions Penicillin G Unknown History: Past Medical History: Diagnosis Date Abnormal radiographic examination 12/27/2022 Acute kidney injury (CMS/HCC) 03/10/2023 Adenomatous polyp Carpal tunnel syndrome of right wrist 12/27/2022 Cigarette smoker Colon polyps 2017 colon polyps Condyloma acuminata COPD (chronic obstructive pulmonary disease) [facility] COVID-19 COVID-19 12/27/2022 degeneration of lumbar and thoracic , thoracolumbar intervertebral discs, with sciatica Diverticulosis Erectile dysfunction Gastric wall thickening Hemoglobin A1c above reference range History of alcoholism (CMS/HCC) 1987 Hypertension (CMS/HCC) Low back pain Mixed hyperlipidemia (CMS/HCC) Postoperative abdominal pain 03/10/2023 Prediabetes Renal cyst, right Right carotid bruit Spasm of muscle of lower back Unexplained weight loss 12/27/2022 Urinary retention 03/10/2023 03/21/23: Retention following left inguinal hernia repair. We will continue with Flomax, could increased to 0.8 mg if needed. Void trial next week. 04/18/23: Doing well on Flomax 0.4 mg nightly. PVR 56. LING benign Last Assessment & Plan: He is unable to Past Surgical History: Procedure Laterality Date COLONOSCOPY W/ POLYPECTOMY 05/2017 9adenomotous/repeat 5 yrs FINGER AMPUTATION 1982 Partial finger amputation-left third,work HERNIA REPAIR 2004 HERNIA REPAIR 02/2023 IR INJECTION EPIDURAL STEROID series of 3 - [id number] Family History Problem Relation Name Age of Onset Other (pacemaker) Mother Diabetes Mother Hypertension Mother Other (parkinsons disease) Father Dementia Father Diabetes Maternal Grandmother Colon cancer Maternal Grandfather Other (coronary stent) Paternal Grandmother Heart disease Paternal Grandmother Suicidality Mother's Brother Social History Socioeconomic History Marital status: Spouse name: Not on file Number of children: Not on file Years of education: Not on file Highest education level: Not on file Occupational History Not on file Tobacco Use Smoking status: Every Day Current packs/day: 1.00 Average packs/day: 1 pack/day for 49.6 years (49.6 ttl pk-yrs) Types: Cigarettes Start date: 1974 Passive exposure: Current Smokeless tobacco: Never Tobacco comments: Smokes 5 mins after waking up Vaping Use Vaping status: Never Used Substance and Sexual Activity Alcohol use: Not Currently Comment: caffeine: 1-2 cups per day Drug use: Never Sexual activity: Not on file Other Topics Concern Not on file Social History Narrative Not on file Social Determinants of Health Financial Resource Strain: Low Risk (03/10/2023) [facility] Overall Financial Resource Strain (CARDIA) Difficulty of Paying Living Expenses: Not hard at all Food Insecurity: No Food Insecurity (04/16/2023) [facility], [facility] Hunger Screening Within the past 12 months we worried whether our food would run out before we got money to buy more.: Never True Within the past 12 months the food we bought just didn't last and we didn't have money to get more.: Never True Transportation Needs: No Transportation Needs (03/10/2023) [facility] PRAPARE - Transportation Lack of Transportation (Medical): No Lack of Transportation (Non-Medical): No Physical Activity: Sufficiently Active (03/10/2023) Received from [facility] Exercise Vital Sign Days of Exercise per Week: 7 days Minutes of Exercise per Session: 30 min Stress: No Stress Concern Present (03/10/2023) Received from [facility], [facility] [place] of Occupational Health - Occupational Stress Questionnaire Feeling of Stress : Not at all Social Connections: Moderately Integrated (03/10/2023) Received from [facility] Social Connection and Isolation Panel [NHANES] Frequency of Communication with Friends and Family: Twice a week Frequency of Social Gatherings with Friends and Family: Twice a week Attends Christianity Services: Never Active Member of Clubs or Organizations: Yes Attends Club or Organization Meetings: Never Marital Status: Recent Concern: Social Connections - Moderately Isolated (12/27/2022) Social Connection and Isolation Panel [NHANES] Frequency of Communication with Friends and Family: More than three times a week Frequency of Social Gatherings with Friends and Family: More than three times a week Attends Christianity Services: Never Active Member of Clubs or Organizations: No Attends Club or Organization Meetings: Never Marital Status: Intimate Partner Violence: Not At Risk (12/27/2022) Humiliation, Afraid, Rape, and Kick questionnaire Fear of Current or Ex-Partner: No Emotionally Abused: No Physically Abused: No Sexually Abused: No Housing Stability: Low Risk (03/10/2023) [facility] Housing Instability Are you worried or concerned that in the next two months you may not have stable housing that you own, rent or stay in as a part of a household?: No REVIEW OF SYMPTOMS: Review of Systems Constitutional: Negative. Negative for fatigue and fever. HENT: Negative. Negative for congestion, ear discharge, ear pain, postnasal drip, rhinorrhea, sinuspressure, sinus pain, sneezing, sore throat and trouble swallowing. Eyes: Negative. Respiratory: Negative for cough, shortness of breath and wheezing. Cardiovascular: Negative. Negative for chest pain, palpitations and leg swelling. Gastrointestinal: Negative. Negative for abdominal distention, abdominal pain, blood in stool, diarrhea and nausea. Genitourinary: Negative. Musculoskeletal: Negative. Skin: Negative. Negative for rash. Neurological: Negative. Psychiatric/Behavioral: Negative. OBJECTIVE: 03/30/2021 12:00 PM 06/14/2021 12:00 PM 12/19/2021 12:00 PM 12/27/2022 9:38 AM 11/21/2023 2:13 PM 01/10/2024 3:27 PM 02/11/2024 2:41 PM Vitals BMI 21.39 kg/m2 21.34 kg/m2 21.2 kg/m2 20.47 kg/m2 21.13 kg/m2 20.62 kg/m2 21.44 kg/m2 BSA (m2) 1.87 m2 1.86 m2 1.86 m2 1.83 m2 1.84 m2 1.81 m2 1.85 m2 Systolic 136 130 130 124 120 120 104 Diastolic 66 78 70 76 62 60 54 Heart Rate 72 54 68 80 SpO2 96 % Temp 97.2 F Resp 18 Height (in) 5' 11 5' 11 5' 11 5' 11 5' 10.5 5' 10.5 Weight (lb) 153.4 153 152 146.8 149.4 145.8 151.6 Visit Report Report Report Report Report Physical Exam Vitals and nursing note reviewed. Constitutional: General: He is not in acute distress. Appearance: Normal appearance. He is normal weight. He is not ill-appearing, toxic-appearing or diaphoretic. HENT: Head: Normocephalic. Mouth/Throat: Mouth: Mucous membranes are moist. Cardiovascular: Rate and Rhythm: Normal rate and regular rhythm. Pulses: Normal pulses. Heart sounds: Normal heart sounds. No murmur heard. No friction rub. No gallop. Pulmonary: Effort: Pulmonary effort is normal. No respiratory distress. Breath sounds: Normal breath sounds. No wheezing, rhonchi or rales. Abdominal: General: Bowel sounds are normal. Musculoskeletal: General: No swelling or deformity. Normal range of motion. Cervical back: Normal range of motion and neck supple. Skin: General: Skin is warm and dry. Capillary Refill: Capillary refill takes less than 2 seconds. Neurological: General: No focal deficit present. Mental Status: He is alert and oriented to person, place, and time. Mental status is at baseline. Motor: No weakness. Gait: Gait normal. Psychiatric: Mood and Affect: Mood normal. Behavior: Behavior normal. Thought Content: Thought content normal. Judgment: Judgment normal. ASSESSMENT AND PLAN: Assessment/Plan Diagnoses and all orders for this visit: Weight loss He is slowly gaining some weight. Praised for diet and weight gain. Will recheck in 1-2 months. To continue doing what he is doing. His goal weight is 160. - CBC and differential; Future Abnormal complete blood count Hx of lower hgb. Will recheck CBC. Suspect ALEX from inadequate oral intake. Discussed high iron foods. - CBC and differential; Future Elevated PSA Follows with urology. Last PSA a month ago was up to over 9 from 3.3. will check urine and repeat PSA. - PSA; Future - POCT Urinalysis dipstick Hematuria, unspecified type Recent Results (from the past 24 hour(s)) POCT Urinalysis dipstick Collection Time: 02/11/24 3:21 PM Result Value Ref Range Color, UA Yellow Clarity, UA Clear Glucose, UA Negative Negative - 2000(110) ++++ mg/dL Bilirubin, UA Negative Negative - 4(70) +++ mg/dL Ketones, UA Negative Negative - 160(16) ++++ mg/dL Spec Grav, UA 1.015 1 - 1.03 Blood, UA Positive Negative - 50 Yo/mcL pH, UA 5.0 5 - 9 Protein, UA Negative Negative - 2000(20) ++++ mg/dL Urobilinogen, UA 1.0 0.2 - 12 mg/dL Leukocytes, UA Negative Negative - 500+++ Abdulaziz/mcL Nitrite, UA Negative Negative - Positive Will send for c/s, r/o prostatitis. - Urine culture (clean catch); Future Follow up in 1-2 months for weight check. documented in this encounterColumbia Regional [id number] NoteCONSULTATION CONSULTATION DATE: 05/25/2022 HISTORY OF PRESENT ILLNESS: [...] subarachnoid space. 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 The [...] procedure, will be followed in the clinic thereafter.[facility] [id number] Note CONSULTATION CONSULTATION DATE: 02/23/2022 HISTORY OF [...] up in three months' time unless otherwise indicated.[facility] [id number] Evaluation note * Encounter Date Diagnosis Assessment Notes Treatment Notes Treatment Clinical Notes Dec, Abnormal weight loss (ICD-10 - R63.4) PT ADVISED TO INCREASE PROTEIN RTO 6 MONTHS [facility] Other 05-24-2022 NoteCONSULTATION CONSULTATION DATE: 11/15/2021 CHIEF COMPLAINT: Mid back pain. HISTORY OF PRESENT ILLNESS: This is a 65-year-old gentleman who has thoracic pain, thoracic degenerative disc disease, thoracic spondylosis. 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 Unfortunately, [place] will not allow us to proceed with [...] will be following up in three months. [facility] Signed and Approved by: DR MARCY BERGER . 11/29/2021 11:41:00[facility]04-05-2022 Evaluation note* Encounter Date Diagnosis Assessment Notes Treatment Notes Treatment Clinical Notes Sep, Abnormal weight loss (ICD-10 - R63.4) INCREASE PROTEIN TO 80 GRAMS DAILY DRINK ENSURE/BOOST 3-4 TIMES A DAY RTO 3 MONTHS [facility] Other 11-22-2021 Evaluation note* Encounter Date Diagnosis Assessment Notes Treatment Notes Treatment Clinical Notes Apr, Abnormal weight loss (ICD-10 - R63.4) PATIENT STATES 20 POUND WEIGHT LOSS IN 4-6 MONTHS 22 Nov, 2021 Gastric wall thickening (ICD-10 - K31.89) [facility] Other Evaluation note* Diagnosis Urinary retention- Primary Unspecified retention of urine Urinary retention- Primary Unspecified retention of urine Prostate cancer screening Special screening for malignant neoplasm of prostate Elevated PSA- Primary Elevated prostate specific antigen (PSA) Urinary retention Unspecified retention of urine documented in this encounter [facility]* Diagnosis Atrial flutter, unspecified type (CMS/HCC)- Primary Primary hypertension (CMS/HCC) Unspecified essential hypertension Coronary artery calcification (CMS/HCC) Stage 3a chronic kidney disease (HCC) (CMS/HCC) Chest pain, unspecified type Mixed hyperlipidemia (CMS/HCC) Mixed hyperlipidemia RBBB (right bundle branch block) Right bundle branch block Pulmonary nodule, right Other diseases of lung, not elsewhere classified Cigarette smoker Tobacco use disorder Abnormal complete blood count Other abnormal blood chemistry Bilateral carotid artery stenosis Occlusion and stenosis of carotid artery without mention of cerebral infarction Hyperglycemia Other abnormal glucose Abnormal finding on diagnostic imaging of right kidney Tubular adenoma Benign neoplasm of unspecified site documented in this encounter [facility]* Diagnosis Urinary retention- Primary Unspecified retention of urine Urinary retention- Primary Unspecified retention of urine Prostate cancer screening Special screening for malignant neoplasm of prostate Bilateral carotid artery stenosis- Primary Occlusion and stenosis of carotid artery without mention of cerebral infarction Atrial flutter, unspecified type (CMS-HCC) documented in this encounter [facility]* Diagnosis Urinary retention- Primary Unspecified retention of urine Urinary retention- Primary Unspecified retention of urine Prostate cancer screening Special screening for malignant neoplasm of prostate Typical atrial flutter (CMS-HCC)- Primary Coronary artery calcification RBBB (right bundle branch block) Right bundle branch block documented in this encounter [facility]* Diagnosis Weight loss- Primary Loss of weight Abnormal complete blood count Other abnormal blood chemistry Elevated PSA Elevated prostate specific antigen (PSA) Hematuria, unspecified type documented in this encounter [facility] HealthcareEvaluation note* Diagnosis Iron deficiency anemia secondary to inadequate dietary iron intake- Primary documented in this encounter [facility] note* Diagnosis Mixed hyperlipidemia (CMS/HCC) Mixed hyperlipidemia Primary hypertension (CMS/HCC) Unspecified essential hypertension documented in this encounter [facility]* Diagnosis Atrial flutter, unspecified type (CMS/HCC)- Primary Chest pain, unspecified type Primary hypertension (CMS/HCC) Unspecified essential hypertension Coronary artery calcification (CMS/HCC) Mixed hyperlipidemia (CMS/HCC) Mixed hyperlipidemia Stage 3a chronic kidney disease (HCC) (CMS/HCC) Cigarette smoker Tobacco use disorder Bilateral carotid artery stenosis Occlusion and stenosis of carotid artery without mention of cerebral infarction Prediabetes Other abnormal glucose Pulmonary nodule, right Other diseases of lung, not elsewhere classified RBBB (right bundle branch block) Right bundle branch block documented in this encounter [facility]* Diagnosis Other chest pain- Primary Primary hypertension (CMS/HCC) Unspecified essential hypertension Coronary artery calcification (CMS/HCC) Atrial flutter, unspecified type (CMS/HCC) Cigarette smoker Tobacco use disorder Mixed hyperlipidemia (CMS/HCC) Mixed hyperlipidemia documented in this encounter [facility]* Diagnosis Urinary retention- Primary Unspecified retention of urine Urinary retention- Primary Unspecified retention of urine Prostate cancer screening Special screening for malignant neoplasm of prostate Typical atrial flutter (CMS-HCC)- Primary Primary hypertension Unspecified essential hypertension Mixed hyperlipidemia [facility] Diagnosis Urinary retention- Primary Unspecified retention of urine Urinary retention- Primary Unspecified retention of urine Prostate cancer screening Special screening for malignant neoplasm of prostate Typical atrial flutter (CMS-HCC)- Primary RBBB (right bundle branch block) Right bundle branch block Stage 3a chronic kidney disease (CMS-HCC) Mixed hyperlipidemia [facility] - Reported* Type Description Date Surgical History hernia Sharalike Other History general Narrative - Reported* Type Description Date Medical History Hypertension Medical History hyperlipidemia Surgical History hernia Sharalike Other InstructionsNot on filedocumented in this encounter [...] Health SystemInstructionsNot on filedocumented in this encounter [facility] N[facility] Consultation (Routine) - Pending Review Specialty Diagnoses / Procedures Referred By Debi greene Referred To Contact Cardiology Diagnoses Atrial flutter, unspecified type ([facility]) Farrukh Phelan MD [address] [place] [address] Phone: tel: fax: [facility] [address] [place] [address] Phone: tel: fax: Referral ID Status Reason Start Date Expiration Date Visits Requested Visits Authorized [id number] Pending Review Specialty Services Required 03/21/2024 03/21/2025 1 1 [facility] [email or web address] 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 anation Durable Power of Multimedia Producer 03/28/2023 12:39 PM Living Will 03/28/2023 12:38 PM Latest Code Status on File Code Status Date Activated Date Inactivated Comments Full Code 03/10/2023 8:50 AM 03/10/2023 5:50 PM Date Activated Date Inactivated Comments 03/22/2024 1:08 PM 03/23/2024 3:16 PM Date Activated Date Inactivated Comments 03/10/2023 8:50 AM 03/10/2023 5:50 PM Documents on File Type Date Recorded 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 anation Durable Power of Multimedia Producer 03/28/2023 12:39 PM Living Will 03/28/2023 12:38 PM Date Activated Date Inactivated Comments 03/22/2024 1:08 PM 03/23/2024 3:16 PM Date Activated Date Inactivated Comments 03/10/2023 8:50 AM 03/10/2023 5:50 PM Additional Source Comments (unrecognized sect ion and content) No Status Records FoundNo Status Records FoundNo Status Records FoundNo Status Records FoundNo Status Records FoundNo Status Records Found INFORMATION SOURCE (unrecogn ized section and content) DATE CREATED AUTHOR 09/12/2021 [facility] DATE CREATED AUTHOR AUTHOR'S ORGANIZ ATION 10/23/2022 [facility] DATE CREATED AUTHOR AUTHOR'S ORGANIZ ATION 07/18/2023 [facility] DATE CREATED AUTHOR AUTHOR'S ORGANIZ ATION 05/04/2024 [facility] DATE CREATED AUTHOR AUTHOR'S ORGANIZ ATION 06/19/2024 [facility] EPIC DATE CREATED AUTHOR AUTHOR'S ORGANIZ ATION 07/03/2024 [facility] REASON FOR VISIT (unrecogniz ed section and content) Reason Comments Med Refill Reason Comments Follow-up Reason Comments Follow-up Every once in awhile gets some chest pressure and has brief episodes of pain in one spot. The most severe time happened this past Sunday while mowing yard. Reason Onset Date Comments Med Refill 05/19/2024 Reason Comments Follow-up EST PT F/U ADD ON EA RLY FOR ABN STRESS Reason Comments Follow-up Pt has been trying t o eat more often. Pt did put on 6 lbs since his last visit. Pt is feeling better in the last week and feels like he is getting his strength back Reason Comments Follow-up Hosp - Went to ER Fr night for chest pain and then went back again Sunday morning and was kept over night. No CP since discharge. Reason Comments ER Follow-up Chest pain, doing go od Reason Comments Follow-up EST PT 1 MO CATH L/S RBP s/p cdvn 12/ TTH-OK Reason Comments Follow-up DISCUSS AFIB PER LLD AND S/P CDVN Reason Comments Hypertension Care Teams (unrecognized sec tion and content) House Detective Relationship Specialty Start Date End Date No P[place] [address] PCP - General Family Medicine 07/04/23 House Detective Relationship Specialty Start Date End Date Jesús Simon PCP - Devoted 11/23/21 Shona Elliott MD [address] [place] [address] PCP - General Family Medicine 11/21/23 Angeles Montes NP [address] [place] [address] Family Medicine 11/21/23 House Detective Relationship Specialty Start Date End Date Shona Elliott MD [address] [place] [address] PCP - General Family Medicine 03/21/24 House Detective Relationship Specialty Start Date End Date Jesús Simon PCP - Devoted 11/23/21 Shona Elliott MD [address] [facility] [place] [address] PCP - General Family Medicine 11/21/23 Angeles Montes NP [address] [place] [address] Family Medicine 11/21/23 Nasrin Teixeira, MARGI [address] [facility] [place] [address] Registered Nurse Family Medicine 03/31/24 House Detective Relationship Specialty Start Date End Date Shona Ellitot MD [address] [facility] [place] [address] PCP - General Family Medicine 03/21/24 House Detective Relationship Specialty Start Date End Date Shoan Elliott MD [address] [facility] [place] [address] PCP - General Family Medicine 03/21/24 House Detective Relationship Specialty Start Date End Date Jesús Simon NP PCP - Devoted 11/23/21 Shona Elliott MD [address] [facility] [place] [address] PCP - General Family Medicine 11/21/23 Angeles Montes NP [address] [place] [address] Family Medicine 11/21/23 Nasrin Teixeira, RN [address] [facility] [place] [address] Registered Nurse Family Medicine 03/31/24 House Detective Relationship Specialty Start Date End Date Jesús Simon NP PCP - Devoted 11/23/21 Shona Elliott MD [address] [place] [address] PCP - General Family Medicine 11/21/23 Angeles Montes NP [address] [place] [id number] Family Medicine 11/21/23 Nasrin Teixeira, RN [address] [facility] [place] [address] Registered Nurse Family Medicine 03/31/24 House Detective Relationship Specialty Start Date End Date Shona Elliott MD [facility] [place] [address] PCP - General Family Medicine 03/21/24 House Detective Relationship Specialty Start Date End Date Shona Elliott MD [address] [facility] [place] [address] PCP - General Family Medicine 03/21/24 House Detective Relationship Specialty Start Date End Date Shona Elliott MD [address] [place] [address] PCP - General Family Medicine 03/21/24 House Detective Relationship Specialty Start Date End Date Jesús Simon PCP - Devoted 11/23/21 Shona Elliott MD [address] [place] [address] PCP - General Family Medicine 11/21/23 Angeles Montes NP [address] [place] [address] Family Medicine 11/21/23 House Detective Relationship Specialty Start Date End Date Jesús Simon PCP - Devoted 11/23/21 Shona Elliott MD [address] [place] [address] PCP - General Family Medicine 11/21/23 Angeles Montes NP [address] [place] [address] Family Medicine 11/21/23 House Detective Relationship Specialty Start Date End Date Jesús Simon PCP - Devoted 11/23/21 Shona Elliott MD [address] [place] [address] PCP - General Family Medicine 11/21/23 Angeles Montes NP [address] [place] [address] Family Medicine 11/21/23 House Detective Relationship Specialty Start Date End Date Jesús Simon PCP - Devoted 11/23/21 Shona Elliott MD [address] [place] [address] PCP - General Family Medicine 11/21/23 Angeles Montes NP [address] [place] [address] Family Medicine 11/21/23 House Detective Relationship Specialty Start Date End Date Jesús Simon NP PCP - Devoted 11/23/21 Shona Elliott MD [address] [place] [address] PCP - General Family Medicine 11/21/23 Angeles Montes NP [address] [place] [address] Family Medicine 11/21/23 Nasrin Teixeira RN [address] [place] [address] Registered Nurse Family Medicine 03/31/24 House Detective Relationship Specialty Start Date End Date Jesús Simon NP PCP - Devoted 11/23/21 Shona Elliott MD [address] [place] [address] PCP - General Family Medicine 11/21/23 Angeles Montes NP [address] [place] [address] Family Medicine 11/21/23 Nasrin Teixeira RN [address] [place] [address] Registered Nurse Family Medicine 03/31/24 House Detective Relationship Specialty Start Date End Date Shona Elliott MD [address] [place] [address] PCP - General Family Medicine 03/21/24 House Detective Relationship Specialty Start Date End Date Shona Elliott MD [address] [place] [address] PCP - General Family Medicine 03/21/24 House Detective Relationship Specialty Start Date End Date Shona Elliott MD [address] [place] [address] PCP - General Family Medicine 11/21/23 Angeles Montes NP [address] [place] [address] Family Medicine 11/21/23 Nasrin Teixeira, RN [address] [place] [address] Registered Nurse Family Medicine 03/31/24 FOR RECORDS PERTAINING TO PATIENTS WHO ARE [...] BE BASED ON THE PRIMARY CLINICAL RECORDS. [facility] [employer] [facility]. provides no warranty or guarantee of the accuracy or completeness of information in this document.
== END 2024-07-23 14:02 | disposition home or self-care (01) ==
PROVIDERS: Visit Provider Nurse Practitioner
DX: M54.14 Radiculopathy, thoracic region (principal); M47.814 Spondylosis without myelopathy or radiculopathy, thoracic region; Z79.891 Long term (current) use of opiate analgesic
CPT/HCPCS: G0463

== ENCOUNTER 2024-10-16 13:05 | Outpatient (OUT) | payer MEDICARE, SELFPAY ==
--- NOTE | 2024-10-16 13:36 | P.CN_ITS ---
Consult Note: HPI Data of Consult Patient: known to practice within the last 3 years Requesting Physician: Karen Castro NP Primary Care Provider: JESÚS GUZMAN Consult Narrative Reason for consult: f/u Narrative: Erich Lopez a pleasant 68 year old male presents for evaluation and management of left sided upper back pain. Patient reporting pain 2-3/10 aching, increasing to 5-6/10. pt utilizing gabapentin 300mg HS< amitriptyline 10mg once daily, and tramadol 50-100mg BID PRN moderate to severe pain. Pain well controlled since last visit, functional score stable at 20%. denies falls or injury. continues to f/u with cardiology, on eliquis cannot take NSAIDs and recently underwent cardiac blation. cc:: CC: Karen Castro NP Review of Systems ROS Status of ROS 10 or more systems reviewed and unremark able except as noted in history and below Musculoskeletal Reports: back pain PFSH PFS Medical History (Updated 07/05/23 @ 08:52 by Lisset Martinez) Low back pain ?M54.50 - Low back pain, unspecified (ICD-10) High cholesterol ?E78.00 - Pure hypercholesterolemia, unspecified (ICD-10) Hypertension ?I10 - Essential (primary) hypertension (ICD-10) Surgical History H/O hernia repair ?Z98.890 - Other specified postprocedural states (ICD-10) ?Z87.19 - Personal history of other diseases of the digestive system (ICD-10) Meds Home Medications and Allergies Home Medications ?Medication ?Instructions ?Recorded ?Confirmed ?Type atorvastatin 80 mg tablet (Lipitor) 80 mg PO DAILY 05/22/23 07/09/23 History lisinopril 2.5 mg tablet 2.5 mg PO DAILY 05/22/23 07/09/23 History tamsulosin 0.4 mg capsule (Flomax) 0.4 mg PO DAILY 05/28/23 07/09/23 History gabapentin 300 mg capsule 300 mg PO .hs #30 caps 05/14/24 Rx tramadol 50 mg tablet See Rx Instructions .Route 05/14/24 Rx .COMPLEX PRN pain #120 tabs naloxone 4 mg/actuation nasal 4 mg intranasal Q3M PRN opioid 05/16/24 Rx spray (Narcan) overdose #2 ea tramadol 50 mg tablet 100 mg (2 x 50 mg) PO BID PRN pain 06/12/24 Rx #120 tabs gabapentin 300 mg capsule 300 mg PO .hs #30 caps 07/14/24 Rx tramadol 50 mg tablet See Rx Instructions .Route 07/14/24 Rx .COMPLEX PRN pain #120 tabs gabapentin 300 mg capsule 300 mg PO DAILY #30 caps 08/12/24 Rx tramadol 50 mg tablet 50 mg PO QID PRN pain #120 tabs 08/12/24 Rx gabapentin 300 mg capsule 300 mg PO DAILY #30 caps 09/16/24 Rx tramadol 50 mg tablet 50 mg PO QID PRN pain #120 tabs 09/16/24 Rx Allergies Allergy/AdvReac Type Severity Reaction Status Date / Time Penicillins Allergy Verified 07/09/23 07:00 Exam Constitutional Documenting provider has reviewed patient's vital signs: yes Common normals: no apparent distress, oriented x3, healthy appearing, alert and well nourished General appearance: cooperative HENMT Common normals: normocephalic, hearing grossly normal bilaterally and moist oral mucous membranes Head and scalp: normocephalic Eye Common normals: PERRL Pupil: PERRL Neck & C-Spine Common normals: full ROM General: normal visual inspection Chest Common normals: inspection of chest normal Respiratory Common normals: normal respiratory effort, no retractions and no use of accessory muscles Back & Pelvis Thoracic spine/upper back: pain with ROM, thoracic spinal tenderness and paraspinal muscle tenderness; no paraspinal muscle spasm Neuro Common normals: oriented x3 Sensorium/orientation: alert Motor exam: strength 5/5 throughout and no movement abnormalities noted Psych Common normals: mental status grossly normal, thought process normal, cooperative, affect normal, speech normal and activity/motor behavior normal Speech: normal speech Thought process: normal thought process Results Additional Findings Additional findings: If on a controlled substance or opioids, I have checked an OARRS report on this patient and there are no aberrancies noted in the prescribing history.??If on a controlled substance or opioid a drug screen was completed and reviewed within the last year, and if there has not been a drug screen completed we ordered one today to monitor higher risk, state monitored pain medication use. As part of providing excellent, safe, comprehensive care, the following was completed at our patient's visit: 1. A medication reconciliation and review to ensure accurate knowledge of current/active medications, including asking our patients to inform us about any eiem-won-rpzatuo medications or herbal remedies/nutritional supplements/alternative remedies. 2. A review to specifically ensure our patients have had annual screening for screening for depression, screening for tobacco use, and screening for unhealthy alcohol use. For concerning screenings had a discussion with the patient, provided patient education, and recommended follow-up with primary care provider when appropriate. If patient noted with a risk of falling, they received education on strength, gait, and balance training to prevent future risk of falling. Portions of this note may have been carried over from the previous visit and updated as appropriate. Please note this office utilizes paper charting in addition to the electronic medical record. A list of current medications, vitals, and PMH is available there as the clinical staff outside of myself do not have access to [employer] charting during the clinic day operations. As part of providing quality comprehensive care the current medications, vitals, and PMH were reviewed in the paper chart. Assessment and Plan Assessment and Plan (1) Thoracic neuritis: (2) Thoracic spondylosis: (3) Chronic prescription opiate use: Assessment and Plan: I feel these medications are improving the patient's quality of life and allow them to tolerate activities of daily living as well as participate in recreational activity.? The patient does not report intolerable side effects. The patient is NOT opioid naive and non-pharmacologic and non-opioid treatment has failed to significantly relieve the patient's pain and improve functionality. The patient has a diagnosis that is related to a somatic or visceral pain etiology. ? ?? I reviewed with the patient the potential risks and side effects with the use of? opioid medications including but not limited to respiratory depression,? sedation, and even . Within the last 12 months I have verified the patient has access to naloxone should? these effects occur. The patient was advised to let? their family know they had Naloxone in case they would need to administer? the medication. I advised the patient to avoid the use of any other? sedation substances including alcohol, THC, and benzodiazepines while? taking opioid medications due to the risk of compounding side effects and? detrimental outcomes. within the last 12 months I have reviewed the CONTINUOUS PROCESS ROTARY DRUM TANNER, pain treatment agreement and urine drug screen.? ?? A drug screen was completed within the last year, and no aberrancies were noted regarding their use of controlled substances. The patient understands they are subject to the terms and conditions of the pain contract that they have signed. ? ?? I have checked an OARRS report on this patient today and there are no aberrancies noted in the prescribing history.? Plan continue current medications, risks vs benefits reviewed and denies side effects continue HEP as tolerated f/u 3 months, sooner if needed
== END 2024-10-16 13:06 | disposition home or self-care (01) ==
PROVIDERS: Visit Provider Nurse Practitioner
DX: M54.14 Radiculopathy, thoracic region (principal); M47.814 Spondylosis without myelopathy or radiculopathy, thoracic region; Z79.891 Long term (current) use of opiate analgesic
CPT/HCPCS: G0463

== ENCOUNTER 2025-01-07 13:12 | Outpatient (OUT) | payer MEDICARE, SELFPAY ==
--- NOTE | 2025-01-07 13:19 | PM.CN ---
Consult Note: HPI Data of Consult Patient: known to practice within the last 3 years Requesting Physician: Karen Castro NP Primary Care Provider: JESÚS GUZMAN Consult Narrative Reason for consult: f/u Narrative: Erich Lopez a pleasant 69 year old male presents for evaluation and management of left sided upper back pain. Patient reporting pain 2-3/10 aching, increasing to 5-6/10. pt utilizing gabapentin 300mg HS, and tramadol 50-100mg BID PRN moderate to severe pain. Pain well controlled since last visit, functional score stable at 28%. denies falls or injury. continues to f/u with cardiology, on eliquis cannot take NSAIDs and pending cardiac monitoring for 30 days. cc:: CC: Karen Castro NP Review of Systems ROS Status of ROS 10 or more systems reviewed and unremarkable except as noted in history and below Musculoskeletal Reports: back pain [facility] Medical History (Updated 07/05/23 @ 08:52 by Lisset Martinez) Low back pain �M54.50 - Low back pain, unspecified (ICD-10) High cholesterol �E78.00 - Pure hypercholesterolemia, unspecified (ICD-10) Hypertension �I10 - Essential (primary) hypertension (ICD-10) Surgical History H/O hernia repair �Z98.890 - Other specified postprocedural states (ICD-10) �Z87.19 - Personal history of other diseases of the digestive system (ICD-10) Meds Home Medications and Allergies Home Medications �Medication �Instructions �Recorded �Confirmed �Type atorvastatin 80 mg tablet (Lipitor) 80 mg PO DAILY 05/22/23 07/09/23 History lisinopril 2.5 mg tablet 2.5 mg PO DAILY 05/22/23 07/09/23 History tamsulosin 0.4 mg capsule (Flomax) 0.4 mg PO DAILY 05/28/23 07/09/23 History gabapentin 300 mg capsule 300 mg PO .hs #30 caps 05/14/24 Rx tramadol 50 mg tablet See Rx Instructions .Route 05/14/24 Rx .COMPLEX PRN pain #120 tabs naloxone 4 mg/actuation nasal 4 mg intranasal Q3M PRN opioid 05/16/24 Rx spray (Narcan) overdose #2 ea tramadol 50 mg tablet 50 mg PO QID PRN pain #120 tabs 09/16/24 Rx gabapentin 300 mg capsule 300 mg PO HS #30 caps 10/16/24 Rx tramadol 50 mg tablet See Rx Instructions .Route 10/16/24 Rx .COMPLEX PRN pain #120 tabs gabapentin 300 mg capsule 300 mg PO .qhs PRN thoracic pain 12/16/24 Rx #30 caps tramadol 50 mg tablet 100 mg (2 x 50 mg) PO BID PRN pain 12/16/24 Rx #120 tabs Allergies Allergy/AdvReac Type Severity Reaction Status Date / Time Penicillins Allergy Verified 07/09/23 07:00 Exam Constitutional Documenting provider has reviewed patient's vital signs: yes Common normals: no apparent distress, oriented x3, healthy appearing, alert and well nourished General appearance: cooperative HENMT Common normals: normocephalic, hearing grossly normal bilaterally and moist oral mucous membranes Head and scalp: normocephalic Eye Common normals: PERRL Pupil: PERRL Neck & C-Spine Common normals: full ROM General: normal visual inspection Chest Common normals: inspection of chest normal Respiratory Common normals: normal respiratory effort, no retractions and no use of accessory muscles Back & Pelvis Thoracic spine/upper back: pain with ROM; no thoracic spinal tenderness, no paraspinal muscle tenderness and no paraspinal muscle spasm Neuro Common normals: oriented x3 Sensorium/orientation: alert Motor exam: strength 5/5 throughout and no movement abnormalities noted Psych Common normals: mental status grossly normal, thought process normal, cooperative, affect normal, speech normal and activity/motor behavior normal Speech: normal speech Thought process: normal thought process Results Additional Findings Additional findings: If on a controlled substance or opioids, I have checked an OARRS report on this patient and there are no aberrancies noted in the prescribing history.��If on a controlled substance or opioid a drug screen was completed and reviewed within the last year, and if there has not been a drug screen completed we ordered one today to monitor higher risk, state monitored pain medication use. As part of providing excellent, safe, comprehensive care, the following was completed at our patient's visit: 1. A medication reconciliation and review to ensure accurate knowledge of current/active medications, including asking our patients to inform us about any eqgm-yti-opszbya medications or herbal remedies/nutritional supplements/alternative remedies. 2. A review to specifically ensure our patients have had annual screening for screening for depression, screening for tobacco use, and screening for unhealthy alcohol use. For concerning screenings had a discussion with the patient, provided patient education, and recommended follow-up with primary care provider when appropriate. If patient noted with a risk of falling, they received education on strength, gait, and balance training to prevent future risk of falling. Portions of this note may have been carried over from the previous visit and updated as appropriate. Please note this office utilizes paper charting in addition to the electronic medical record. A list of current medications, vitals, and PMH is available there as the clinical staff outside of myself do not have access to [employer] charting during the clinic day operations. As part of providing quality comprehensive care the current medications, vitals, and PMH were reviewed in the paper chart. Assessment and Plan Assessment and Plan (1) Thoracic neuritis: (2) Thoracic spondylosis: (3) Chronic prescription opiate use: Assessment and Plan: I feel these medications are improving the patient's quality of life and allow them to tolerate activities of daily living as well as participate in recreational activity.� The patient does not report intolerable side effects. The patient is NOT opioid naive and non-pharmacologic and non-opioid treatment has failed to significantly relieve the patient's pain and improve functionality. The patient has a diagnosis that is related to a somatic or visceral pain etiology. � �� I reviewed with the patient the potential risks and side effects with the use of� opioid medications including but not limited to respiratory depression,� sedation, and even . Within the last 12 months I have verified the patient has access to naloxone should� these effects occur. The patient was advised to let� their family know they had Naloxone in case they would need to administer� the medication. I advised the patient to avoid the use of any other� sedation substances including alcohol, THC, and benzodiazepines while� taking opioid medications due to the risk of compounding side effects and� detrimental outcomes. within the last 12 months I have reviewed the CULTURAL HISTORIAN, pain treatment agreement and urine drug screen.� �� A drug screen was completed within the last year, and no aberrancies were noted regarding their use of controlled substances. The patient understands they are subject to the terms and conditions of the pain contract that they have signed. � �� I have checked an OARRS report on this patient today and there are no aberrancies noted in the prescribing history.� Plan continue current medications, risks vs benefits reviewed and denies side effects continue HEP as tolerated f/u 3 months, sooner if needed
== END 2025-01-07 13:13 ==
LOC: PM 13:13
PROVIDERS: Visit Provider Nurse Practitioner
DX: M54.14 Radiculopathy, thoracic region (principal); M47.814 Spondylosis without myelopathy or radiculopathy, thoracic region; Z79.891 Long term (current) use of opiate analgesic
CPT/HCPCS: G0463

== ENCOUNTER 2025-04-09 12:33 | Outpatient (OUT) | payer MEDICARE, SELFPAY ==
--- OUTSIDE RECORDS SUMMARY | 2025-04-09 12:36 | XMS_ITS | Encounter Summary ---
Author Organization [facility] Address [address] [place] [address] Care Team Providers Care Supervisor [employer]oder Farm Name Role Phone Torsten Simon DIESEL PILE HAMMER OPERATOR Unavailable [phone] Felisha Keller DO Primary Care Provider [phone] Shona Paul MD Primary Care Provider Angeles Montes DIESEL PILE HAMMER OPERATOR Unavailable Nasrin Teixeira RN Unavailable [phone] Osmani Titus MD Primary Care Provider [phone] Encounter Details Date Type Department Care Team (Late st Contact Info) Description 05/12/2023 Abstract [facility] Family Medicine [address] [place] [id number] Felisha Keller DO [address] [facility] [address] [place] [address] Social History Tobacco Use Types Packs/Day Years Used Date Smoking Tobacco: Every Day Cigarettes Smokeless Tobacco: Never Comments:Smokes 5 mins after waking up Alcohol Use Standard Drinks/Week Comments Yes 4 (1 standard drink = 0.6 oz pur e alcohol) caffeine: 1-2 cups per day Humiliation, Afraid, Rape, and Kick questionnair e Answer Date Recorded Within the last year, have y ou been afraid of your partner or ex-partner? No 12/27/2022 Within the last year, have y ou been humiliated or emotionally abused in other ways by your partner or ex-partner? No Within the last year, have y ou been kicked, hit, slapped, or otherwise physically hurt by your partner or ex-partner? No 12/27/2022 Within the last year, have y ou been raped or forced to have any kind of sexual activity by your partner or ex-partner? No 12/27/2022 Social Connection and Isolation Panel Answer Date Recorded In a typical week, how many times do you talk on the phone with family, friends, or neighbors? More than three times a week 12/27/2022 How often do you get togethe r with friends or relatives? More than three times a week 12/27/2022 How often do you attend chur or shinto services? Never 12/27/2022 Do you belong to any clubs o r organizations such as episcopal groups, unions, fraternal or athletic groups, or school groups? No 12/27/2022 How often do you attend meet ings of the clubs or organizations you belong to? Never 12/27/2022 Are you , , di vorced, , never , or living with a partner? 12/27/2022 AUDIT-C Answer Date Recorded Q1: How often do you have a drink containing alc ohol? Monthly or less 12/27/2022 Q2: How many drinks containi ng alcohol do you have on a typical day when you are drinking? 1 or 2 12/27/2022 Q3: How often do you have si x or more drinks on one occasion? Never 12/27/2022 Overall Financial Resource Strain (CARDIA) Answe r Date Recorded How hard is it for you to pa y for the very basics like food, housing, medical care, and heating? Not hard at all 12/27/2022 PHQ-2 Answer Date Recorded Patient Health Questionnaire-2 Score 0 12/27/2022 [facility] Occupat ional Health - Occupational Stress Questionnaire Answer Date Recorded Do you feel stress - tense, restless, nervous, or anxious, or unable to sleep at night because your mind is troubled all the time - these days? Not at all 12/27/2022 Exercise Vital Sign Answer Date Recorde d On average, how many days pe r week do you engage in moderate to strenuous exercise (like a brisk walk)? 7 days 12/27/2022 On average, how many minutes do you engage in exercise at this level? 60 min 12/27/2022 Hunger Vital Sign Answer Date Recorded Within the past 12 months, y ou worried that your food would run out before you got the money to buy more. Never true 12/28/19 23 Within the past 12 months, t he food you bought just didn't last and you didn't have money to get more. Never true 12/27/2022 PRAPARE - Transportation Answer Date Re corded In the past 12 months, has l ack of transportation kept you from medical appointments or from getting medications? No 10/2022 In the past 12 months, has l ack of transportation kept you from meetings, work, or from getting things needed for daily living? No 12/27/2022 Housing Stability Vital Sign Answer Jose e Recorded In the last 12 months, was t here a time when you were not able to pay the mortgage or rent on time? No 12/27/2022 In the last 12 months, how many places have you lived? 1 12/27/2022 In the last 12 months, was t here a time when you did not have a steady place to sleep or slept in a fdc (including now)? No 12/27/2022 Sex and Gender Information Value Date Recorded Sex Assigned at Not on file Legal Sex Male 7:34 PM EDT Gender Identity Not on file Sexual Orientation Not on file documented as of this encounter Plan of Treatment Upcoming Encounters Date Type Department Care Team (Late st Contact Info) Description 07/23/2025 1:00 PM EST Office Visit [facility] [address] [place] [address] Pascale Barahona NP [address], [place] [id number] documented as of this encounter Visit Diagnoses Not on filedocumented in this encounter Care Teams Supervisor Brooder Farm Relationship Specialty Start Date End Date Torsten Simon NP PCP - Devoted 11/23/21 06/24/24 Felisha Keller DO PCP - General Family Medicine 12/27/22 11/20/23 Shona Paul MD PCP - General Family Medicine 11/21/23 03/04/25 Osmani Titus MD [address] [place] [address] PCP - General Family Medicine 03/05/25 Angeles Montes NP Family Medicine 11/21/23 Nasrin Teixeira, MARGI [address] [place] [address] Registered Nurse Family Medicine 03/31/24 documented as of this encounter
--- OUTSIDE RECORDS SUMMARY | 2025-04-09 12:36 | XMS_ITS | Encounter Summary ---
Author Organization [facility] Address [address] [place] [address] Care Team Providers Care Cured Meat Packing Supervisor Name Role Phone Torsten Simon SCALLOP DREDGER Unavailable [phone] Shona Paul MD Primary Care Provider [phone] Angeles Montes NP Unavailable Nasrin Teixeira RN Unavailable [phone] Osmani Titus MD Primary Care Provider [phone] Encounter Details Date Type Department Care Team (Late st Contact Info) Description 04/22/2024 External Result Encounter [facility] Family Medicine [address] [place] [address] Carli Stewart SCALLOP DREDGER Social History Tobacco Use Types Packs/Day Years Used Date Smoking Tobacco: Every Day Cigarettes 1 50.8 Started: 1973 Passive Smoke Exposure: Current Smokeless Tobacco: Never Comments:Smokes 5 mins after waking up Alcohol Use Standard Drinks/Week Comments Not Currently 0 (1 standard drink = 0.6 oz pur [...] How often do you attend chur or presybeterian services? Never 12/27/2022 Do you belong to any clubs o r organizations such as sikh groups, unions, fraternal or athletic groups, or [...] Recorded Patient Health Questionnaire-2 Score 0 12/27/2022 [facility] - Occupational Stress Questionnaire Answer [...] place to sleep or slept in a care home (including now)? No 12/27/2022 Sex and Gender Information Value Date Recorded Sex Assigned at Not on file Legal Sex Male 7:34 PM EDT Gender Identity Not on file Sexual Orientation Not on file documented as of this encounter Plan of Treatment Upcoming Encounters Date Type Department Care Team (Late st Contact Info) Description 07/23/2025 1:00 PM EST [facility] [address] [place] [address] Pascale Barahona NP [address] [place] [address] documented as of this encounter Procedures Procedure Name Priority Date/Time Associated Diagnosis Comments US RETROPERITONEUM 04/22/2024 3: 43 PM EDT documented in this encounter Results * US retroperitoneum (04/22/2024 3:43 PM EDT) Anatomical Region Laterality Modality Abdomen Ultrasound 04/22/2024 3:43 PM EDT Narrative 04/22/2024 3:42 PM EDT THIS EXAM WAS PERFORMED AT [facility] RETROPERITONEAL COMPLETE Clinical history:Abnormal finding on diagnostic [...] Scooter Hector MD on 04/22/2024 3:42 PM Procedure Note Radiology, Radiologist, MD - 04/22/2024 THIS EXAM WAS PERFORMED AT [facility] COMPLETE Clinical history:Abnormal finding on diagnostic imaging of right kidneyrenal mass. Abnormal CT Comparison: None. Findings: Real-time sonographic evaluation of the kidneys and bladder performed. ] Measures 11.8 x 9.8 x 6.8 cm. Left kidney measures 11.2 x 6.0 x 6.8 cm. No renal collecting system dilatation. There is a right renal cyst measuring 1.0 x 1.8 x 2.4 cm with a singlethin septation. The spleen is noted to have multiple calcified granulomas. Urinary bladder is unremarkable. 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 No additional follow-up imaging recommended. No renal collecting system dilatation. Finalized by Scooter Hector MD on 04/22/2024 3:42 PM us Carli Stewart NP IMG US PROCEDURES Final Res ult documented in this encounter Visit Diagnoses Not on filedocumented in this encounter Care Teams Cured Meat Packing Supervisor Relationship Specialty Start Date End Date Torsten Simon NP PCP - Devoted 11/23/21 06/24/24 Shona Paul MD PCP - General Family Medicine 11/21/23 03/04/25 Osmani Titus MD [address] [place] [address] PCP - General Family Medicine 03/05/25 Angeles Motnes NP Family Medicine 11/21/23 Nasrin Teixeira, MARGI [address] [place] [address] Registered Nurse Family Medicine 03/31/24 documented as of this encounter
--- OUTSIDE RECORDS SUMMARY | 2025-04-09 12:36 | XMS_ITS | Encounter Summary ---
Author Organization [facility] Address [address] [place] [address] Care Team Providers Care Front Window Cashier Name Role Phone Torsten Simon EXTRACORPOREAL TECHNICIAN Unavailable [phone] Felisha Keller DO Primary Care Provider [phone] Shona Paul MD Primary Care Provider [phone] Angeles Montes EXTRACORPOREAL TECHNICIAN Unavailable Nasrin Teixeira RN Unavailable [phone] Osmani Titus MD Primary Care Provider [phone] Reason for Referral * Consultation (Routine) - Closed Specialty Diagnoses / Procedures Referred By Debi greene Referred To Contact General Surgery Diagnoses Left inguinal hernia Procedures [place] OFFICE/OUTPATIENT [facility] MDM 60-74 MINUTES Felisha Keller DO Phone: tel: fax: Scooter Ortez DO Phone: tel: fax: Referral ID Status Reason Start Date Expiration Date V isits Requested Visits Authorized [id number] Closed Specialty Services Required 01/08/2023 07/07/2023 1 1 Encounter Details Date Type Department Care Team (Late st Contact Info) Description 01/08/2023 Orders Only [facility] Family Medicine [address] [place] [address] Felisha Keller DO [address] [facility] [address] [place] [address] Left inguinal hernia (Primary Dx) Social History Tobacco Use Types Packs/Day Years [...] How often do you attend chur or yazidism services? Never 12/27/2022 Do you belong to any clubs o r organizations such as jew groups, unions, fraternal or athletic groups, or [...] Recorded Patient Health Questionnaire-2 Score 0 12/27/2022 [facility] - Occupational Stress Questionnaire Answer Date Recorded [...] place to sleep or slept in a senior living (including now)? No 12/27/2022 Sex and Gender Information Value Date Recorded Sex Assigned at Not on file Legal Sex Male 7:34 PM EDT Gender Identity Not on file Sexual Orientation Not on file documented as of this encounter Plan of Treatment Upcoming Encounters Date Type Department Care Team (Late st Contact Info) Description 07/23/2025 1:00 PM EST Office Visit [facility] [address] [place] [address] Pascale Barahona NP [address] [facility] [address] [place], [place] [id number] Scheduled Referrals Name Type Priority Associated Diagnoses Order Schedule Ambulatory referral to General Surgery Outpatient Referral Routine Left inguinal hernia Expected: 01/08/2023 (Approximate), Expires: 07/11/2023 documented as of this encounter Visit Diagnoses Diagnosis Left inguinal hernia- Primary Inguinal hernia without mention of obstruction or gangrene, unilateral or unspecified, (not specified as recurrent) documented in this encounter Care Teams Front Window Cashier Relationship Specialty Start Date End Date Torsten Simon NP PCP - Devoted 11/23/21 06/24/24 Felisha Keller DO PCP - General Family Medicine 12/27/22 11/20/23 Shona Paul MD PCP - General Family Medicine 11/21/23 03/04/25 Osmani Titus MD [address] [facility] [address] [place], [place] [id number] PCP - General Family Medicine 03/05/25 Angeles Montes NP Family Medicine 11/21/23 Nasrin Teixeira, MARGI [address] [place], [place] [id number] Registered Nurse Family Medicine 03/31/24 documented as of this encounter
--- OUTSIDE RECORDS SUMMARY | 2025-04-09 12:37 | XMS_ITS | Encounter Summary ---
Author Organization [facility] Address [address] [place] [address] Care Team Providers Care Service Assistant Name Role Phone Torsten Simon CARPENTER HELPER [employer]ING Unavailable [phone] Shona Paul MD Primary Care Provider [phone] Angeles Montes CARPENTER HELPER [employer]ORING Unavailable Nasrin Teixeira RN Unavailable [phone] Osmani Titus MD Primary Care Provider [phone] Encounter Details Date Type Department Care Team (Late st Contact Info) Description 03/24/2024 Orders Only [facility] Family Medicine [address] [place] [address] Unallocated, Frank Bonilla MD [address] [place], [place] [id number] Social History Tobacco Use Types Packs/Day Years [...] 12/27/2022 How often do you attend chur ch or faith services? Never 12/27/2022 Do you belong to any clubs o r organizations such as congregational groups, unions, fraternal or athletic groups, or [...] Recorded Patient Health Questionnaire-2 Score 0 12/27/2022 [facility] - Occupational Stress Questionnaire [...] place to sleep or slept in a fpc (including now)? No 12/27/2022 Sex and Gender Information Value Date Recorded Sex Assigned at Not on file Legal Sex Male 7:34 PM EDT Gender Identity Not on file Sexual Orientation Not on file documented as of this encounter Plan of Treatment Upcoming Encounters Date Type Department Care Team (Late st Contact Info) Description 07/23/2025 1:00 PM EST Office Visit [facility] [address] [place] [id number] Pascale Barahona NP [address] [place] [address] documented as of this encounter Procedures Procedure Name Priority Date/Time Associated Diagnosis Comments ECG 12-LEAD Routine 03/22/2024 10:47 AM EDT documented in this encounter Results * ECG 12 lead (03/22/2024 10:47 AM EDT) us [facility] Provider Unallocated ECG ORDERABLES Fin al Result documented in this encounter Visit Diagnoses Not on filedocumented in this encounter Care Teams Service Assistant Relationship Specialty Start Date End Date Torsten Simon NP PCP - Devoted 11/23/21 06/24/24 Shona Paul MD PCP - General Family Medicine 11/21/23 03/04/25 Osmani Titus MD [address] [place] [address] PCP - General Family Medicine 03/05/25 Angeles Montes NP Family Medicine 11/21/23 Nasrin Teixeira, RN [address] [place] [address] Registered Nurse Family Medicine 03/31/24 documented as of this encounter
--- OUTSIDE RECORDS SUMMARY | 2025-04-09 12:37 | XMS_ITS | Clinical Summary ---
Author Organization [facility] Address [address], [address] [place] [address] Care Team Providers Care Raw Silk Grader Name Role Phone Dimas Hutchins MD Primary Care Provider Unav ailable Allergies Active Allergy Reactions Criticality Noted Date Comments Penicillins 08/16/2018 Medications aspirin 325 MG tablet Take 325 mg by mouth daily Active atorvastatin (LIPITOR) 80 MG tablet Take 80 mg by mouth daily Active lisinopril (PRINIVIL;ZESTR IL) 2.5 MG tablet Take 2.5 mg by mouth daily Active tiZANidine (ZANAFLEX) 4 MG tablet Take 1 tablet by mouth 3 times daily 40 tablet 09/24/2018 Active gabapentin (NEURONTIN) 100 MG capsule Take 1 capsule by mouth 3 times daily for 90 days. 270 capsule 3 07/14/2020 Active diclofenac (VOLTAREN) 50 MG EC tablet Take 1 tablet by mouth 3 times daily 270 tablet 3 07/14/2020 Active Active Problems No known active problems Family History Medical History Relation Name Comments High Blood Pressure Father Diabetes Mother Heart Disease Mother High Blood Pressure Mother Relation Name Status Comments Father Mother Social History Tobacco Use Types Packs/Day Years Used Date Smoking Tobacco: Every Day Smokeless Tobacco: Never Sex and Gender Information Value Date Recorded Sex Assigned at Not on file Legal Sex Male 10:08 AM EST Gender Identity Not on file Sexual Orientation Not on file Last Filed Vital Signs Vital Sign Reading Time Taken Comments Blood Pressure - - Pulse - - Temperature 36.8 C (98.2 F) 11/12/2020 1:15 PM EDT Respiratory Rate - - Oxygen Saturation - - Inhaled Oxygen Concentration - - Weight 74.8 kg (165 lb) 11/12/2020 1:15 PM EDT Height 182.9 cm (6') 11/12/2020 1:15 PM EDT Body Mass Index 22.38 11/12/2020 1:15 PM EDT Plan of Treatment Not on file Insurance BC Care Teams Raw Silk Grader Relationship Specialty Start Date End Date Dimas Hutchins MD PCP - General Family Medicine 08/20/18
--- OUTSIDE RECORDS SUMMARY | 2025-04-09 12:37 | XMS_ITS | Encounter Summary ---
Author Organization [facility] Address [address], [address] [place] [address] Care Team Providers Care Automotive Fuel Injection Servicer Name Role Phone Dimas Hutchins MD Primary Care Provider Unav ailable Reason for Visit * Reason Comments Medication Refill Encounter Details Date Type Department Care Team (Late st Contact Info) Description 04/16/2020 Refill [facility] [address], [address] [place], [place] [id number] Dipesh Martinez MD Medication Refill Social History Tobacco Use Types Packs/Day Years Used Date Smoking Tobacco: Every Day Smokeless Tobacco: Never Sex and Gender Information Value Date Recorded Sex Assigned at Not on file Legal Sex Male 10:08 AM EST Gender Identity Not on file Sexual Orientation Not on file documented as of this encounter Plan of Treatment Not on file documented as of this encounter Visit Diagnoses Not on filedocumented in this encounter Care Teams Automotive Fuel Injection Servicer Relationship Specialty Start Date End Date Dimas Hutchins MD PCP - General Family Medicine 08/20/18 documented as of this encounter
--- OUTSIDE RECORDS SUMMARY | 2025-04-09 12:37 | XMS_ITS | Encounter Summary ---
Author Organization [facility] Address [address], [address] [place] [address] Care Team Providers Care Building Inspector Name Role Phone Dimas Hutchins MD Primary Care Provider Unav ailable Reason for Visit * Reason Comments Medication Refill Encounter Details Date Type Department Care Team (Late st Contact Info) Description 05/04/2020 Refill [facility] [address] [place], [place] [id number] Dipesh Martinez MD Medication Refill Social History [...] on filedocumented in this encounter Care Teams Building Inspector Relationship Specialty Start Date End Date Dimas Hutchins MD PCP - General Family Medicine 08/20/18 documented as of this encounter
--- OUTSIDE RECORDS SUMMARY | 2025-04-09 12:37 | XMS_ITS | Clinical Summary ---
Author Organization [facility] Address [address] [place] [address] Care Team Providers Care Club Attendant Name Role Phone Pump, Angeles ROASTERMAN Unavailable Nasrin Teixeira RN Unavailable [phone] sOmani Titus MD Primary Care Provider [phone] Allergies Active Allergy Reactions Criticality Noted Date Comments Penicillin G Unknown 12/27/2022 Medications traMADol (Ultram) 50 MG tablet Take 50 mg by mouth 3 (three) times a day as needed. Active gabapentin (Neurontin) 300 MG capsule TAKE 1 CAPSULE BY MOUTH EVERYDAY AT BEDTIME 4 Active cholecalciferol (Vitamin D-3) 50 MCG (1999) tablet Take 2,000 Units by mouth Daily Active atorvastatin (Lipitor) 80 MG tabletIndications:M ixed hyperlipidemia TAKE 1 TABLET BY MOUTH EVERY DAY 90 tablet 3 4 Active apixaban (Eliquis) 5 MG tablet Take 5 mg by mouth in the morning and 5 mg in the evening. 4 Active tamsulosin (Flomax) 0.4 MG 24 hr capsule TAKE 1 CAPSULE BY MOUTH NIGHTLY FOR 180 DAYS. 4 Active Active Problems Problem Noted Date Diagnosed Date Hiatal hernia 04/23/2024 Overview (04/23/2024): Small per EGD 2020 Other hemorrhoids 04/23/2024 Elevated PSA 04/15/2024 Overview (01/16/2025): 04/15/2024: Elevated PSA of 4.57. Discussed findings with he and his . Plan to recheck his PSA in about a month. If it remains elevated would recommend 3 antonio MRI to evaluate for targetable lesions. Atrial flutter 03/24/2024 Coronary artery calcification 03/24/2024 Pulmonary nodule, right 03/24/2024 RBBB (right bundle branch block) 03/24/2024 Tubular adenoma 12/27/2022 Cigarette smoker 12/27/2022 Degeneration of intervertebral disc of lumbar re gion 12/27/2022 Degeneration of intervertebral disc of thoracolu mbar region 12/27/2022 Gastric wall thickening 12/27/2022 Hyperglycemia 12/27/2022 Male erectile dysfunction, unspecified Mixed hyperlipidemia 12/27/2022 Prediabetes 12/27/2022 Primary hypertension 12/27/2022 Renal cyst 12/27/2022 Right carotid bruit 12/27/2022 Sigmoid diverticulosis 12/27/2022 Stage 3a chronic kidney disease 12/27/2022 Stress at home 12/27/2022 Bilateral carotid artery stenosis 01/31/2021 Resolved Problems Problem Noted Date Diagnosed Date Resolved Date Chest pain 03/22/2024 01/20/2025 Acute kidney injury 03/10/2023 11/21/19 24 Postoperative abdominal pain 03/10/2023 11/21/2023 Urinary retention 03/10/2023 11/21/2023 Overview (11/20/2023): 03/21/23: Retention following left inguinal hernia repair. We will continue with Flomax, could increased to 0.8 mg if needed. Void trial next week. 04/18/23: Doing well on Flomax 0.4 mg nightly. PVR 56. LING benign Last Assessment & Plan: He is unable to void in the office today. He will drop off a urine specimen within a month. We will also check PSA at that time. We will call with the results. Assuming that looks good, we will see him back in 1 year Abnormal complete blood count 12/27/2022 01/20/2025 Abnormal radiographic examination 12/27/2022 01/10/2024 Carpal tunnel syndrome of right wrist 12/27/2022 11/21/2023 COVID-19 12/27/2022 11/21/2023 Spasm of back muscles 12/27/20222024 Unexplained weight loss 12/27/202210/24 Encounters Date Type Department Care Team Description 04/01/2025 Patient Outreach [place] [address] [place] [address] Nasrin Teixeira RN 03/05/2025 Patient Outreach [place] [address] [place] [address] Nasrin Teixeira RN 02/25/2025 Results Follow-Up [facility] [address] [place] [address] lung screening low dose 02/17/2025 1:00 PM EDT Ancillary Procedure [facility] [address] [facility] [address] [place] [address] Pulmonary nodule, right; Cigarette smoker; Encounter for Medicare annual wellness exam 02/17/2025 Patient Outreach [place] [address] [place] [address] Nasrin Teixeira RN 02/17/2025 Travel 02/02/2025 Patient Outreach [place] [address] [place] [address] Nasrin Teixeira RN 01/20/2025 1:00 PM EDT Office Visit [facility] [address] [place] [address] Pascale Barahona NP Encounter for Medicare annual wellness exam (Primary Dx); Pulmonary nodule, right; Hiatal hernia; Right carotid bruit; RBBB (right bundle branch block); Primary hypertension ; Other hemorrhoids; Coronary artery calcification ; Bilateral carotid artery stenosis; Atrial flutter, unspecified type (HCC); Sigmoid diverticulosis; Gastric wall thickening; Stage 3a chronic kidney disease (CMS-HCC); Elevated PSA; Renal cyst; Degeneration of intervertebral disc of thoracolumbar region; Degeneration of intervertebral disc of lumbar region, unspecified whether pain present; Prediabetes; Tubular adenoma; Mixed hyperlipidemia ; Hyperglycemia; Cigarette smoker 01/20/2025 Tavia flowsheet [facility] [address] [place] [address] Pascale Barahona NP 01/20/2025 Travel from Last 3 Months Immunizations Immunization Administration Dates Next Due Influenza, Seasonal, Quadrivalent, Adjuvanted ,04/23/2022 Influenza, injectable, quadrivalent, preservativ e free 04/28/2021,05/05/2020 Pfizer Purple Cap SARS-CoV-2 Vaccination 021,09/20/2020 Pneumococcal Conjugate PCV 20 01/10/2024 Zoster, Recombinant 02/25/2023 Family History Medical History Relation Name Comments Dementia Father parkinsons disease Father Colon cancer Maternal Grandfather Diabetes Maternal Grandmother Diabetes Mother Hypertension Mother pacemaker Mother Suicidality Mother's Brother Heart disease Paternal Grandmother coronary stent Paternal Grandmother Relation Name Status Comments Father Maternal Grandfather Maternal Grandmother Mother Alive Mother's Brother Paternal Grandmother Social History Tobacco Use Types Packs/Day Years Used Date Smoking Tobacco: Every Day Cigarettes 1 50.8 Started: 1974 Passive Smoke Exposure: Current Smokeless Tobacco: Never Tobacco Cessation:Ready to Q uit: Not Asked; Counseling Given: Not Answered Comments:Smokes 5 mins after waking up Alcohol [...] often do you attend chur ch or mormonism services? Never 12/27/2022 Do you belong to [...] often do you have a drink containing alcohol? Never 06/17/2024 Q2: How many drinks containi ng alcohol do you have on a typical day when you are drinking? Patient does not drink Q3: How often do you have si x or more drinks on one occasion? Never 06/17/2024 Overall Financial Resource Strain (CARDIA) Answe r Date Recorded How hard is it for you to pa y for the very basics like food, housing, medical care, and heating? Not hard at all 12/27/2022 PHQ-2 Answer Date Recorded Patient Health Questionnaire-2 Score 0 01/20/2025 [facility] - Occupational Stress [...] place to sleep or slept in a long term (including now)? No 12/27/2022 Sex and Gender Information Value Date Recorded Sex Assigned at Not on file Legal Sex Male 7:34 PM EDT Gender Identity Not on file Sexual Orientation Not on file Last Filed Vital Signs Vital Sign Reading Time Taken Comments Blood Pressure 142/70 01/20/2025 1:06 PM EDT Pulse 80 01/20/2025 1:06 PM EDT Temperature 36.2 C (97.2 F) 12/27/2022 9:38 AM EDT Respiratory Rate 18 12/27/2022 9:38 AM EDT Oxygen Saturation 96% 06/17/2024 8:5 4 AM EST on room air Inhaled Oxygen Concentration - - Weight 70.6 kg (155 lb 9.6 oz) 01/21/20 25 1:06 PM EDT Height 179.1 cm (5' 10.5 ) 01/20/2025 1 :06 PM EDT Body Mass Index 22.01 01/20/2025 1:06 PM EDT Plan of Treatment Upcoming Encounters Date Type Department Care Team (Late st Contact Info) Description 07/23/2025 1:00 PM EST Office Visit [facility] [address] [place] [place] [address] Pascale Barahona NP [address] [place] [address] Health Maintenance Due Date Last Done Comments CT Colonography 1956 FIT-DNA 1955 FIT 1955 Lung Cancer Screening Shared Decision Making 1955 Sigmoidoscopy 1955 FOBT 02/14/2025 02/15/2024 Influenza Vaccine (#1) 2025 3, 04/23/2022, 04/28/2021, Additional history exists Medicare Annual Wellness (AWV) 01/20/2026 0 01/20/2025, 01/20/2025, 01/10/2024, Additional history exists Colonoscopy 06/02/2031 06/02/2021, 02/2021, 05/31/2017, Additional history exists Colorectal Cancer Screening 06/02/2031 Pneumococcal Vaccine: 65+ Years Completed 4 Procedures Procedure Name Priority Date/Time Associated Diagnosis Comments CT LUNG SCREENING LOW DOSE Routine 02/17/2025 1:11 PM EDT Pulmonary nodule, right Cigarette smoker Encounter for Medicare annual wellness exam OCCULT BLOOD X 1, STOOL Routine 02/15/2024 11:48 PM EDT Low hemoglobin HM COLONOSCOPY Routine 06/02/2021 9:47 AM EST from Last 3 Months or Most Recently Relevant to Health Maintenance Results * CT lung screening low dose (02/17/2025 1:11 PM EDT) Anatomical Region Laterality Modality Lung Computed Tomogra phy 02/17/2025 1:39 PM EDT Impressions 02/17/2025 1:46 PM EDT Lung Rads: LUNGRADS 2 - Benign Follow-up Recommendation: LDCT 1 Year Lung Rads categories: Category 0: Incomplete Additional Imaging Categories 1 & 2: Negative/Benign Continue annual screening Category 3: Probable benign 6 month f/u CT Chest wo Category 3s: Clinically significant or potentially clinically significant findings Category 4A/B Suspicious 4A: [address] Chest wo; PET/CT when > 8mm solid nodule component exists 4B: Chest w/ contrast; PET/CT and/or biopsy Category 5: Highly suspicious for Nodules with strong evidence of malignancy, requiring malignancy. immediate biopsy. Category 6: Incomplete Insufficient Information All CT scans at this facility use dose modulation, iterative reconstruction, and/or weight based dosing when appropriate to reduce radiation dose to as low as reasonably achievable. TRANSCRIBED BY: ELECTRONICALLY SIGNED BY: David Bowen MD Narrative 02/17/2025 1:[address]OW DOSE [address] IMAGING OF THE CHEST WITHOUT INTRAVENOUS CONTRAST MEDIUM. HISTORY: Tobacco use. TECHNICAL FACTORS: Without IV contrast axial helical 1.25mm slice thickness low dose images of the chest performed for lung cancer screening. FINDINGS: Comparison prior exam December 06, 2023 No suspicious lung nodule, mass, or parenchymal consolidation. Biapical emphysematous centrilobular changes. No significant mediastinal or hilar lymphadenopathy. No pleural or pericardial effusion. Punctate hepatic and splenic calcified granulomas. Procedure Note David Bowen MD - 02/17/[address] IMAGING OF THE CHEST WITHOUT INTRAVENOUS CONTRAST MEDIUM. HISTORY: Tobacco use. TECHNICAL FACTORS: Without IV contrast axial helical 1.25mm slice thickness low dose imagesof the chest performed for lung cancer screening. FINDINGS: Comparison prior exam December 06, 2023 No suspicious lung nodule, mass, or parenchymal consolidation. Biapicalemphysematous centrilobular changes. No significant mediastinal or hilarlymphadenopathy. No pleural or pericardial effusion. Punctate hepatic and splenic calcified granulomas. IMPRESSION: Lung Rads: LUNGRADS 2 - Benign Follow-up Recommendation: LDCT 1 Year Lung Rads categories: Category 0: Incomplete Additional Imaging Categories 1 & 2: Negative/Benign Continue annual screening Category 3: Probable benign 6 month f/u CT Chest wo Category 3s: Clinicallysignificant or potentially clinically significant findings Category 4A/B Suspicious 4A: [address] Chest wo;PET/CT when > 8mm solid nodulecomponent exists 4B: Chestw/ contrast; PET/CT and/or biopsy Category 5: Highly suspicious for Nodules with strong evidenceof malignancy, requiring malignancy. immediatebiopsy. Category 6: Incomplete Insufficient Information All CT scans at this facility use dose modulation, iterativereconstruction, and/or weight based dosing when appropriate to reduceradiation dose to as low as reasonably achievable. TRANSCRIBED BY: ELECTRONICALLY SIGNED BY: David Bowen MD us Pascale Barahona ROASTERMAN IMG CT PROCEDURES Final Re sult * Occult blood x 1, stool (02/15/2024 11:48 PM EDT) MICRO NUMBER [id number] [facility] SPECIMEN QUALITY Adequate [facility] SOURCE INSURE (TM) FOBT TEST CARD [facility] STATUS FINAL [facility] FECAL GLOBIN RESULT SEE NOTE [facility] Comment: Not Detected Test results may be invalid as no date of collection was provided. Specimens are stable for 14 days. Test results may be invalid as no date of collection was provided. Specimens are stable for 30 days. NO COLLECTION DATE RECEIVED. WE HAVE USED THE DATE THE SPECIMEN WAS RECEIVED BY THIS LABORATORY THE COLLECTION DATE. IF THIS IS INCORRECT, PLEASE CONTACT CLIENT SERVICES. PHONE NUMBER: [phone] Stool Rectal contents / Unknown 02/14/2024 4:03 PM EDT Narrative [facility] - 02/15/2024 11:48 PM EDT SPLIT 02/14/2024 FROM [id number] Resulting Agency Comment Performing Organization Information Site ID: [id number] Name: [employer] [facility] Address: [address] [place] [address], [address] [place] [id number] Director: Noah Garcia MD us Angeles Montes NP LAB BODY FLUIDS AND STOOLS ORDER TIM Final Result [facility] * Hm Colonoscopy (06/02/2021 9:47 AM EST) Anatomical Region Laterality Modality Other us Sushil Valentine MD HEALTH MAINTENANCE Final R esult from Last 3 Months or Most Recently Relevant to Health Maintenance Insurance [employer] Care Teams Club Attendant Relationship Specialty Start Date End Date Osmani Titus MD [address] [place] [address] PCP - General Family Medicine 03/05/25 Angeles Montes NP Family Medicine 11/21/23 Nasrin Teixeira, MARGI [address] [facility] [place] [address] Registered Nurse Family Medicine 03/31/24
--- OUTSIDE RECORDS SUMMARY | 2025-04-09 12:37 | XMS_ITS | Encounter Summary ---
Author Organization [facility] Address [address] [facility], [address] [place] [address] Care Team Providers Care Planning Management It Specialist Name Role Phone Dimas Hutchins MD Primary Care Provider Unav ailable Reason for Visit * Reason Comments Medication Refill Encounter Details Date Type Department Care Team (Late st Contact Info) Description 06/30/2020 Refill [facility] [address], [address] [place], [place] [id number] Dipesh Martinez MD Medication Refill Social History [...] on filedocumented in this encounter Care Teams Planning Management It Specialist Relationship Specialty Start Date End Date Dimas Hutchins MD PCP - General Family Medicine 08/20/18 documented as of this encounter
--- OUTSIDE RECORDS SUMMARY | 2025-04-09 12:37 | XMS_ITS ---
Author Organization [facility] Address [address] [place] [address] Care Team Providers Care Heavy Truck Technician Name Role Phone Angeles Montes DUPLICATION SPECIALIST Unavailable Nasrin Teixeira RN Unavailable [phone] Osmani Titus MD Primary Care Provider [phone] Chronic Care Management (CCM) Status:Enrolled (Active) Start date:03/31/2024 Enrollment date:03/31/2024 Enrollment reason:Identified as hospital admit Overview Please assess for Care Management needs. 03/31/24, 1:53 PM - Nasrin Teixeira RN- Patient gives verbal consent to be enrolled in CCM Program and understands there could be a bill for this service. Pt is a risk schore 5, ccm bill no, devoted health insurance. Case Team Name Relationship Phone Nasrin Teixeira RN(Responsible Staff) Registered Nurse [phone] Continued Care and Services Coordination
--- OUTSIDE RECORDS SUMMARY | 2025-04-09 12:37 | XMS_ITS | Encounter Summary ---
Author Organization [facility] Address [address] [place] [address] Care Team Providers Care Email Manager Name Role Phone Angeles Montes NP Unavailable Nasrin Teixeira RN Unavailable [phone] Osmani Titus MD Primary Care Provider [phone] Encounter Details Date Type Department Care Team (Late st Contact Info) Description 04/01/2025 Patient Outreach [facility] [address] [place] [id number] Nasrin Teixeira, RN [address] [place] [address] Social History Tobacco Use Types Packs/Day Years [...] How often do you attend chur or denominational services? Never 12/27/2022 Do you belong to any clubs o r organizations such as bahai groups, unions, fraternal or athletic groups, or [...] Recorded Patient Health Questionnaire-2 Score 0 01/20/2025 [facility] - Occupational Stress Questionnaire Answer Date [...] on file documented as of this encounter Progress Notes * Nasrin Teixeira RN - 04/01/2025 8:50 AM EDT Chart reviewed, called pt number, spoke to spouse. States pt was at work at time of call. States ptis looking for new job, currently he has to drive to [employer] every day. She states pt has not beenhaving any cardiac symptoms, last appt with cardio was in December with plan to fu in 1y. Pt continues to smoke and does not have a desire to stop. Questioned regarding home bp readings, she reports pt hubbard not been checking his bp. Pt needs to schedule with instrument specialist, she states he has cataracts that need treatment. Denies any medication concerns. Pt is scheduled with kimberly this month, and Byron in Jun. Plans to get flu vac from pharmacy. Encouraged to call ccm as needed. documented in this encounter Plan of Treatment Upcoming Encounters Date Type Department Care Team (Late st Contact Info) Description 07/23/2025 1:00 PM EST Office Visit [facility] [address] [place] [address] Pascale Barahona NP [address] [place], [place] [id number] documented as of this encounter Visit Diagnoses Diagnosis Primary hypertension- Primary Unspecified essential hypertension Stage 3a chronic kidney disease ([facility]) documented in this encounter Care Teams Email Manager Relationship Specialty Start Date End Date Osmani Titus MD [address] [place], [place] [id number] PCP - General Family Medicine 03/05/25 Angeles Montes NP Family Medicine 11/21/23 Nasrin Teixeira, MARGI [address] [place] [address] Registered Nurse Family Medicine 03/31/24 documented as of this encounter
--- OUTSIDE RECORDS SUMMARY | 2025-04-09 12:37 | XMS_ITS | Encounter Summary ---
Author Organization [facility] Address [address] [place] [address] Care Team Providers Care Informatica Mdm Developer Name Role Phone Torsten Simon BLADE WORKER Unavailable [phone] Shona Paul MD Primary Care Provider [phone] Angeles Montes BLADE WORKER Unavailable Nasrin Teixeira RN Unavailable Osmani Titus MD Primary Care Provider [phone] Encounter Details Date Type Department Care Team (Late st Contact Info) Description 04/18/2024 Orders Only [facility] [address] [place] [address] Sushil Valentine MD [address] [place] [address] [address] [place] [address] Social History Tobacco Use Types Packs/Day Years [...] How often do you attend chur or hindu services? Never 12/27/2022 Do you belong to any clubs o r organizations such as adventist groups, unions, fraternal [...] Recorded Patient Health Questionnaire-2 Score 0 12/27/2022 [facility] - Occupational Stress Questionnaire [...] 07/23/2025 1:00 PM EST Office Visit [facility] [address] [facility] [place] [id number] Pascale Barahona NP [address] [place] [address] documented as of this encounter Procedures Procedure Name Priority Date/Time Associated Diagnosis Comments COLONOSCOPY Routine 06/02/2021 9:47 AM EST documented in this encounter Results * Hm Colonoscopy (06/02/2021 9:47 AM EST) Anatomical Region Laterality Modality Other Sushil Valentine MD HEALTH MAINTENANCE Final R esult documented in this encounter Visit Diagnoses Not on filedocumented in this encounter Care Teams Informatica Mdm Developer Relationship Specialty Start Date End Date Torsten Simon NP PCP - Devoted 11/23/21 06/24/24 Shona Paul MD PCP - General Family Medicine 11/21/23 03/04/25 Osmani Titus MD [address] [facility] [place] [address] PCP - General Family Medicine 03/05/25 Angeles Montes NP Family Medicine 11/21/23 Nasrin Teixeira, MARGI [address] [place] [address] Registered Nurse Family Medicine 03/31/24 documented as of this encounter
--- OUTSIDE RECORDS SUMMARY | 2025-04-09 12:40 | XMS_ITS | CCD ---
Author Organization 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 Name Role Phone Sushil Sorto Unavailable EDWARDS ., CYRIL Consulting Unavailable ROSIPKO, JESÚS Primary Care Unavailable BERGER ., DR MARCY Blanc Admitting Unavailable BERGER ., DR MARCY Blanc Attending Unavailable GIEDRAITIS, ANDRI Admitting Unavailable GIEDRAITIS, ANDLISSETHUS Attending Unavailable ROSIPKO, JESÚS Primary Care Unavailable [...] JESÚS Primary Care Unavailable BERGER ., DR MRACY Blanc Attending Unavailable BERGER ., DR MARCY Blanc Admitting Unavailable EDWARDS ., CYRIL Consulting Unavailable ROSIPKO, JESÚS Primary Care Unavailable BERGER ., DR MARCY Blanc Admitting Unavailable BERGER ., DR MARCY Blanc Attending Unavailable Christian TAPIA, Mary Jane Rust Attending Unavailable Gimargarito TAPIA, Mary Jane Rust Attending Unavailable Giedlatasha TAPIA, Andleonora Rust Attending Unavailable Rosipko, Jesús K Unavailable Unavailable Shona Elliott MD Primary Care Provider Pump CHIEF ANALYTICS OFFICER, Angeles Unavailable Unavailable Shona Elliott MD Primary Care Provider Lluvia RN, Crystal Unavailable Rosolivia CHIEF ANALYTICS OFFICER, Jesús K Unavailable DESIREE NIEVES Attending Unavailable FARRUKH PHELAN Referring Unavailable SHONA ELLIOTT Primary Care Unavailable Shona Elliott MD Primary Care Provider Shona Elliott MD Primary Care Provider No Pcp, No Pcp Primary Care Provider Unavailchioma e Beverly TAPIA Shona Rose Primary Care Provider KAHALY, ROGELIO R Attending Unavailable KAHALY, ROGELIO R Referring Unavailable WONDERLY, SHONA B Primary Care Unavailable KAHALY, ROGELIO R Admitting Unavailable KAHALY, ROGELIO R Attending Unavailable WONDERLY, SHONA B Primary Care Unavailable KAHALY, ROGELIO R Attending Unavailable WONDERLY, SHONA B Referring Unavailable WONDERLY, SHONA B Primary Care Unavailable KAHALY, ROGELIO R Referring Unavailable WONDERLY, SHNOA B Primary Care Unavailable WonderShona boothe MD Primary Care Provider Pump CHIEF ANALYTICS OFFICER, [place] Unavailable Lluvia KISER, Crystal Unavailable WONDERLY, SHONA B Primary Care Unavailable FARRUKH PHELAN Attending Unavailable WONDERLY, SHONA B Primary Care Unavailable CHARIS MARIE Attending Unavailable HELDER WILDER Admitting Unavailable CARDIOLOGY, [facility] Consulting Unavailable SERA MANZO I Referring Unavailable WONDERLY, SHONA B Primary [...] Unavailable WONDERLY, SHONA B Primary Care Unavailable KAHALY, ROGELIO R Referring Unavailable WONDERLY, SHONA B Primary Care Unavailable WONDERLY, SHONA B Primary Care Unavailable ANGELINA BRANDON Attending Unavailable CARLI STEWART Attending Unavailable PASCALE NAVARRO Attending Unavailable CARLI STEWART Attending Unavailable CARLI STEWART Attending Unavailable PASCALE NAVARRO Attending Unavailable PASCALE NAVARRO Referring Unavailable Allergies Allergy Classification Reported Allergen(s) Allergy Type Date of Onset Reaction(s) Facility (20 sources) Penicillin G Drug Allergy 3 Unknown [facility] (1 source) Penicillin Drug Allergy [facility] Repository (20 sources) Penicillins; Translations: [PENICILLINS] Propensity to adverse reactions to drug (disorder) 7 Hives, Other (See Comments) [facility] Repository Medications Current Medications Medication Drug Class(es) Dates Sig (Normalized) Sig (Original) apixaban 5 mg oral tablet (20 sources) Factor Xa Inhibitor Start: 11-14-2024 take 1 tablet by mouth at bedtime ELIQUIS 5 mg tablet TAKE 1 TABLET (5 MG TOTAL) BY MOUTH IN THE MORNING AND BEFORE BEDTIME 180 tablet 2 11/14/2024 Active Start: 03-23-2024 End: 05-19-2024 take 1 tablet by mouth in the morning apixaban (Eliquis) 5 MG tablet Take 5 mg by mouth in the morning and 5 mg in the evening. 03/23/2024 Active atorvastatin 80 mg oral tablet (20 sources) HMG-CoA Reductase Inhibitor Start: 02-23-2023 End: 02-20-2024 take 1 tablet by mouth once daily atorvastatin (Lipitor) 80 MG tablet Indications: Mixed hyperlipidemia TAKE 1 TABLET BY MOUTH EVERY [...] Daily Active gabapentin 300 mg oral capsule (20 [...] source) Angiotensin Converting Enzyme Inhibitor Lisinopril Active methylPREDNISolone (1 source) Corticosteroid Start: 2024 methylPREDNISolone (MEDROL, DIAN,) 4 mg tablet follow package directions 21 tablet 02/13/2025 Active naloxone hydrochloride 40 mg/ml nasal spray (1 source) Opioid Antagonist Start: 2022 naloxone (NARCAN) 4 mg/actuation spray,non-aerosol nasal spray Please see attached for detailed directions 0 02/08/2023 Active tamsulosin hydrochloride 0.4 mg oral capsule (20 sources) alpha-Adrenergic Ari Start: 2023 End: 2023 take 1 capsule by mouth every twenty-four [...] mg oral tablet (20 sources) Opioid Agonist Start: 12-17-2024 take 1 tablet by mouth three times daily as needed traMADoL (ULTRAM) 50 mg tablet Take 1 tablet (50 mg total) by mouth. Three times a day prn 12/17/2024 Active take 1 tablet by silvio th [...] at discharge) Aspirin 325 mg A ctive metoprolol tartrate 25 mg oral tablet (20 sources) beta-Adrenergic Ari Start: 05-02-2024 End: 01-20-2025 take 1 tablet by mouth in the morning metoprolol tartrate (Lopressor) 25 MG tablet Take 25 mg by mouth in the morning and 25 mg in the evening. 05/19/2024 01/20/2025 Discontinued (Discontinued by another clinician) Start: 03-23-2024 End: 04-22-2024 take 1 tablet by mouth in the morning metoprolol tartrate (Lopressor) 25 MG tablet Take 25 mg by mouth in the morning and 25 mg in the evening. 03/23/2024 04/22/2024 Problems Active Problems Problem Classification Problem Date Documented Da te Episodic/Chronic Abdominal hernia (18 sources) Hiatal hernia; Translations: [Diaphragmatic hernia without obstruction or gangrene] Onset: 04-23-2024 04-23-2024 Episodic Adjustment disorders (20 sources) Family tension; Translations: [Reaction to severe stress, unspecified] Onset: 12-27-2022 12-27-2022 Chronic Allergic reactions (1 source) Allergic contact dermatitis due to plants, except food; Translations: [Allergic contact dermatitis due to plants, except food] Onset: 02-13-2025 Episodic Cardiac dysrhythmias (20 sources) Atrial flutter; Translations: [...] coronary artery; Translations: [Atherosclerotic heart disease of [place] coronary artery without angina pectoris] Onset: 03-24-2024 03-24-2024 Chronic Disorders of lipid metabolism (20 sources) Mixed hyperlipidemia; Translations: [Mixed hyperlipidemia] Onset: 12-27-2022 12-27-2022 Chronic Diverticulosis and diverticulitis (20 sources) Diverticular disease of colon; Translations: [Diverticulosis of intestine, part unspecified, without perforation or abscess without bleeding] Onset: 12-27-2022 12-27-2022 Chronic Essential hypertension (20 sources) Essential hypertension; Translations: [Essential (primary) hypertension] Onset: 08-22-2021 12-27-2022 Chronic Hemorrhoids (16 sources) Hemorrhoids; Translations: [Unspecified hemorrhoids] Onset: 04-23-2024 04-23-2024 Episodic Occlusion or stenosis of precerebral arteries (20 sources) Bilateral stenosis of carotid arteries; Translations: [Occlusion and stenosis of bilateral carotid arteries] Onset: 01-31-2021 12-27-2022 Chronic Other diseases of kidney and ureters (20 sources) Cyst of kidney; Translations: [Cyst of kidney, acquired] Onset: 12-27-2022 12-27-2022 Episodic Other disorders of stomach and duodenum (4 sources) Other diseases of stomach and duodenum; Translations: [Gastric wall thickening] Onset: 05-16-2021 Resolved: 05-16-2021 Episodic Other disorders of stomach and duodenum (20 sources) Disorder of stomach; Translations: [Other diseases of stomach and duodenum] Onset: 12-27-2022 12-27-2022 Episodic Other male genital disorders (20 sources) Male erectile dysfunction, unspecified; Translations: [Impotence [...] weight loss; Translations: [Abnormal weight loss] Episodic Spondylosis; intervertebral disc disorders; other back problems (20 sources) Spondylosis without myelopathy or radiculopathy, thoracic region; Translations: [Other intervertebral disc degeneration, thoracic region] Onset: 11-15-2021 Chronic Substance-related disorders (20 sources) Nicotine dependence, cigarettes, uncomplicated; Translations: [Cigarette smoker ] Onset: 08-22-2021 12-27-2022 Chronic Unclassified (1 source) LOW BACK PAIN, UNSPECIFIED; Translations: [LOW BACK PAIN, UNSPECIFIED] Onset: 03-03-2022 Unclassified (1 source) i48.3 Onset: 09-04-2024 Unclassified (2 sources) Patient encounter status 01-25-2025 Unclassified (1 source) Rash Onset: 02-13-2025 Past or Other Problems Problem Classification Problem Date Documented Date Episodic/Chronic Abdominal pain (20 sources) Postoperative abdominal pain; Translations: [Unspecified abdominal pain] Onset: 03-10-2023 Resolved: 11-21-2023 11-21-2023 Episodic Acute and unspecified renal failure (20 sources) Acute renal failure syndrome; Translations: [Acute kidney failure, unspecified] Onset: 03-10-2023 Resolved: 11-21-2023 11-21-2023 Episodic Deficiency and other anemia (1 source) Iron deficiency anemia secondary to inadequate dietary iron intake; Translations: [Other iron deficiency anemias] 02-18-2024 Episodic Diabetes mellitus without complication (20 sources) Hyperglycemia; Translations: [Hyperglycemia, unspecified] Onset: 12-27-2022 12-27-2022 Episodic Genitourinary symptoms and ill-defined conditions (20 sources) Retention of urine; Translations: [Retention of urine, unspecified] Onset: 03-10-2023 Resolved: 11-21-2023 11-21-2023 Episodic Mood disorders (20 sources) Mood disorders Onset: 03-10-2023 03-10-2023 Nonspecific chest pain (20 sources) Chest pain; Translations: [Chest pain, unspecified] Onset: 03-21-2024 Resolved: 01-20-2025 04-11-2024 Episodic Other and unspecified benign neoplasm (8 sources) Polyp ; Translations: [Benign neoplasm, unspecified site] Onset: 12-27-2022 12-27-2022 Episodic Other and unspecified benign neoplasm (20 sources) Tubular adenoma ; Translations: [Benign neoplasm, unspecified site] Onset: 12-27-2022 04-14-2024 Episodic Other circulatory disease (20 sources) Carotid bruit; Translations: [Other specified symptoms and signs involving the circulatory and respiratory systems] Onset: 01-31-2021 12-27-2022 Episodic Other connective tissue disease (1 source) Muscle wasting and atrophy, not elsewhere classified, unspecified site; Translations: [MUSCLE WASTING ATROPHY NEC UNS SITE] Onset: 11-17-2021 Episodic Other lower respiratory disease (20 sources) Nodule of lung; Translations: [Solitary pulmonary nodule] Onset: 03-24-2024 03-24-2024 Episodic Other nervous system disorders (20 sources) Carpal tunnel syndrome of right wrist; Translations: [Carpal tunnel syndrome, right upper limb] Onset: 12-27-2022 Resolved: 11-21-2023 11-21-2023 Chronic Other nutritional; endocrine; and metabolic disorders (3 sources) Abnormal weight loss Onset: 05-16-2021 Resolved: 12-28-2021 Episodic Other nutritional; endocrine; and metabolic disorders (20 sources) Unexplained weight loss ; Translations: [Abnormal weight loss] Onset: 12-27-2022 Resolved: 11-21-2023 11-21-2023 Episodic Other nutritional; endocrine; and metabolic disorders (2 sources) Weight loss; Translations: [Abnormal weight loss] 02-11-2024 Episodic Other screening for suspected conditions (not mental disorders or infectious disease) (20 sources) Radiology result abnormal; Translations: [Abnormal findings on diagnostic imaging of other specified body structures] Onset: 12-27-2022 Resolved: 01-10-2024 01-10-2024 Chronic Other screening for suspected conditions (not mental disorders or infectious disease) (20 sources) Full blood count abnormal; Translations: [Other specified abnormal findings of blood chemistry] Onset: 12-27-2022 Resolved: 01-20-2025 12-27-2022 Episodic Spondylosis; intervertebral disc disorders; other back problems (20 sources) Pain in thoracic spine; Translations: [Spasm of back muscles] Onset: 05-30-2022 Resolved: 01-20-2025 12-27-2022 Episodic Viral infection (20 sources) Disease caused by 2019-nCoV; Translations: [COVID-19] Onset: 12-27-2022 Resolved: 11-21-2023 11-21-2023 Episodic Results Test Name Value Interpretation Reference Range Facility CT LUNG SCREENING LOW DOSEon 02-17-2025 CT LUNG SCREENING LOW DOSE This is [...] BY: David Bowen MD Normal Not Available [facility] BASIC METABOLIC PANLon 08-28 Anion gap [Moles/Vol] 9 mmol/L Normal 5-15 [facility] Comment on above: Performed By: #### C BCA, 56081-2, BMP, 90195-0 #### [facility] ([id number]) [address] [place] [address] 34786 Calcium [Mass/Vol] 9.6 mg/dL Normal 8.5-10.5 [facility] Comment on above: Performed By: #### C BCA, 17364-5, BMP, 43472-0 #### [facility] ([id number]) [address] [place] [address] 04752 Chloride [Moles/Vol] 106 mmol/L Normal 98-109 [facility] Comment on above: Performed By: #### C BCA, 39248-1, BMP, 63445-3 #### [facility] ([id number]) [address] [place] [address] 65045 CO2 [Moles/Vol] 25 mmol/L Normal 22-32 [facility] Comment on above: Performed By: #### C JASKARAN, 23881-5, BMP, 84663-1 #### [facility] ([id number]) [address] [place] [address] 38605 Creatinine [Mass/Vol] 1.11 mg/dL Normal 0.60-1.30 [facility] Comment on above: Result Comment: METH OD TRACEABLE TO IDMS STANDARD Performed By: #### C JASKARAN, 61957-8, BMP, 63709-3 #### [facility] ([id number]) [address] [place] [address] 83504 GFR/1.73 sq M.predicted among non-blacks MDRD (S/P/Bld) [Vol rate/Area] 73 mL/min/{1.73_m2} Normal >59 [facility] Comment on above: Result Comment: Reported eGFR is based on the CKD-EPI 2020 equation that does not use a race coefficient. Performed By: #### C BCA, 53504-1, BMP, 41331-7 #### [facility] ([id number]) [address] [place] [address] 33290 Glucose [Mass/Vol] 82 mg/dL Normal 65-99 [facility] Comment on above: Performed By: #### Nasima JESSICA, 64819-9, BMP, 77302-4 #### [facility] ([id number]) [address] [place] [address] 78624 Potassium [Moles/Vol] 4.2 mmol/L Normal 3.5-5.0 [facility] Comment on above: Performed By: #### Nasima JESSICA, 85385-7, BMP, 83405-6 #### [facility] ([id number]) [address] [place] [address] 43161 Sodium [Moles/Vol] 140 mmol/L Normal 134-146 [facility] Comment on above: Performed By: #### Nasima JESSICA, 72964-6, BMP, 22518-1 #### [facility] ([id number]) [address] [place] [address] 53210 Urea nitrogen [Mass/Vol] 30 mg/dL High 5-27 [facility] Comment on above: Performed By: #### Nasima JESSICA, 71985-6, BMP, 07221-6 #### [facility] ([id number]) [address] [place] [address] 13464 CBC AND AUTO DIFFon -06-20 25 ABSOLUTE BASOPHIL 0.0 X10E9/L Normal 0.0-0.2 [facility] Comment on above: Performed By: #### Nasima JESSICA, 33976-8, BMP, 19253-0 #### [facility] ([id number]) [address] [place] [address] 03538 ABSOLUTE NEUTROPHIL 2.8 X10E9/L Normal 1.5-6.6 [facility] Comment on above: Performed By: #### Nasima JESSICA, 57950-1, BMP, 70497-4 #### [facility] ([id number]) [address] [place] [address] 68003 Basophils/100 WBC (Bld) 0.5 % Normal [facility] Comment on above: Performed By: #### C JASKARAN, 18449-3, BMP, 34446-1 #### [facility] ([id number]) [address] [place] [address] 65406 Eosinophils (Bld) [#/Vol] 0.1 10*3/uL Normal 0.0-0.4 [facility] Comment on above: Performed By: #### C JASKARAN, 02257-9, BMP, 33834-5 #### [facility] ([id number]) [address] [place] [address] 00087 Eosinophils/100 WBC (Bld) 2.5 % Normal [facility] Comment on above: Performed By: #### Nasima JESSICA, 69632-2, BMP, 32563-2 #### [facility] ([id number]) [address] [place] [address] 20113 Erythrocyte distribution width (RBC) [Ratio] 16.1 % High 11.5-15.0 [facility] Comment on above: Performed By: #### Nasima JESSICA, 62393-6, BMP, 55651-8 #### [facility] ([id number]) [address] [place] [address] 51401 Hematocrit (Bld) [Volume fraction] 40.8 % Normal 39-49 [facility] Comment on above: Performed By: #### Nasima JESSICA, 91829-8, BMP, 73955-4 #### [facility] ([id number]) [address] [place] [address] 81140 Hemoglobin (Bld) [Mass/Vol] 14.0 g/dL Normal 13.0-17.0 [facility] Comment on above: Performed By: #### Nasima JESSICA, 94980-9, BMP, 39653-2 #### [facility] ([id number]) [address] [place] [address], [place] [address] Lymphocytes (Bld) [#/Vol] 1.8 10*3/uL Normal 1.0-3.5 [facility] Comment on above: Performed By: #### Nasima JESSICA, 53231-4, BMP, 97545-0 #### [facility] ([id number]) [address] [place] [address] 69134 Lymphocytes/100 WBC (Bld) 33.4 % Normal [facility] Comment on above: Performed By: #### Nasima JESSICA, 64063-3, BMP, 20830-6 #### [facility] ([id number]) [address] [place] [address] 14418 MCH (RBC) [Entitic mass] 29.4 pg Normal 27-34 [facility] Comment on above: Performed By: #### Nasima JESSICA, 85004-6, BMP, 01018-5 #### [facility] ([id number]) [address] [place] [address] 31579 MCHC (RBC) [Mass/Vol] 34.3 g/dL Normal 32-36 [facility] Comment on above: Performed By: #### Nasima JESSICA, 25693-0, BMP, 15141-3 #### [facility] ([id number]) [address] [place] [address] 11753 MCV (RBC) [Entitic vol] 86 fL Normal 80-100 [facility] Comment on above: Performed By: #### Nasima JESSICA, 92360-3, BMP, 10240-3 #### [facility] ([id number]) [address] [place] [address] 06183 Monocytes (Bld) [#/Vol] 0.6 10*3/uL Normal 0-0.9 [facility] Comment on above: Performed By: #### Nasima JESSICA, 35279-0, BMP, 60788-3 #### [facility] ([id number]) [address] [place] [address] 68705 Monocytes/100 WBC (Bld) 10.8 % Normal [facility] Comment on above: Performed By: #### Nasima JESSICA, 62663-0, BMP, 52954-9 #### [facility] ([id number]) [address] [place] [address] 37348 Neutrophils/100 WBC (Bld) 52.8 % Normal [facility] Comment on above: Performed By: #### Nasima JESSICA, 03950-2, BMP, 94455-8 #### [facility] ([id number]) [address] [place] [address] 23027 Platelet mean volume (Bld) [Entitic vol] 9.7 fL Normal 7-12 [facility] Comment on above: Performed By: #### Nasima JESSICA, 65180-2, BMP, 74894-8 #### [facility] ([id number]) [address] [place] [address] 58524 Platelets (Bld) [#/Vol] 123 10*3/uL Low 150-450 [facility] Comment on above: Performed By: #### Nasima JESSICA, 10067-8, BMP, 27637-3 #### [facility] ([id number]) [address] [place] [address] 15248 RBC COUNT 4.77 X10E12/L Normal 4.10-5.70 [facility] Comment on above: Performed By: #### Nasima JESSICA, 84432-5, BMP, 27327-6 #### [facility] ([id number]) [address] [place] [address] 56143 WBC (Bld) [#/Vol] 5.3 10*3/uL Normal 4.0-11.0 [facility] Comment on above: Performed By: #### Nasima JESSICA, 33407-9, BMP, 71741-8 #### [facility] ([id number]) [address] [place] [address] 88789 MAGNESIUMon 08-28-2024 Magnesium [Mass/Vol] 2.1 mg/dL Normal 1.8-2.6 [facility] Comment on above: Performed By: #### Nasima JESSICA, 02804-1, BMP, 90371-6 #### [facility] ([id number]) [address] [place] [address] 89157 HbA1c (Bld) [Mass fraction]o n 07-22-2024 [facility] - Hematology and Cell countson 07-22-2024 HbA1c (Bld) [Mass fraction] 6.1 % [facility] POCT EKGon 07-02-2024 [facility] POCT EKGon 06-26-2024 [facility] CBC AND AUTO DIFFon 06-15-20 ABSOLUTE BASOPHIL 0.1 X10E9/L Normal 0.0-0.2 [facility] Comment on above: Performed By: #### Nasima JESSICA, 61847-7, BMP, 85145-8 #### [facility] ([id number]) [address] [place] [address] 13872 ABSOLUTE NEUTROPHIL 8.9 X10E9/L High 1.5-6.6 [facility] Comment on above: Performed By: #### Nasima JESSICA, 30542-1, BMP, 89081-6 #### [facility] ([id number]) [address] [place] [address] 63734 Basophils/100 WBC (Bld) 0.7 % Normal [facility] Comment on above: Performed By: #### Nasima JESSICA, 57609-8, BMP, 45503-7 #### [facility] ([id number]) [address] [place] [address] 24708 Eosinophils (Bld) [#/Vol] 0.0 10*3/uL Normal 0.0-0.4 [facility] Comment on above: Performed By: #### Nasima JESSICA, 89610-4, BMP, 97853-5 #### [facility] ([id number]) [address] [place] [address] 06061 Eosinophils/100 WBC (Bld) 0.3 % Normal [facility] Comment on above: Performed By: #### Nasima JESSICA, 52702-9, BMP, 17641-2 #### [facility] ([id number]) [address] [place] [address] 69224 Erythrocyte distribution width (RBC) [Ratio] 14.4 % Normal 11.5-15.0 [facility] Comment on above: Performed By: #### Nasima JESSICA, 22434-6, BMP, 62422-5 #### [facility] ([id number]) [address] [place] [address] 91099 Hematocrit (Bld) [Volume fraction] 39.7 % Normal 39-49 [facility] Comment on above: Performed By: #### Nasima JESSICA, 20711-1, BMP, 95382-7 #### [facility] ([id number]) [address] [place] [address] 39721 Hemoglobin (Bld) [Mass/Vol] 13.5 g/dL Normal 13.0-17.0 [facility] Comment on above: Performed By: #### Nasima JESSICA, 72639-1, BMP, 18070-8 #### [facility] ([id number]) [address] [place] [address] 69764 Lymphocytes (Bld) [#/Vol] 0.8 10*3/uL Low 1.0-3.5 [facility] Comment on above: Performed By: #### Nasima JESSICA, 16650-8, BMP, 01533-7 #### [facility] ([id number]) [address] [place] [address] 34479 Lymphocytes/100 WBC (Bld) 7.0 % Normal [facility] Comment on above: Performed By: #### Nasima JESSICA, 21659-0, BMP, 21908-8 #### [facility] ([id number]) [address] [place] [address] 84854 MCH (RBC) [Entitic mass] 29.2 pg Normal 27-34 [facility] Comment on above: Performed By: #### Nasima JESSICA, 42911-7, BMP, 63301-8 #### [facility] ([id number]) [address] [place] [address] 25277 MCHC (RBC) [Mass/Vol] 34.1 g/dL Normal 32-36 [facility] Comment on above: Performed By: #### Nasima JESSICA, 66197-4, BMP, 30810-9 #### [facility] ([id number]) [address] [place] [address] 89064 MCV (RBC) [Entitic vol] 86 fL Normal 80-100 [facility] Comment on above: Performed By: #### Nasima JESSICA, 96372-0, BMP, 36235-0 #### [facility] ([id number]) [address] [place] [address] 78306 Monocytes (Bld) [#/Vol] 1.2 10*3/uL High 0-0.9 [facility] Comment on above: Performed By: #### Nasima JESSICA, 87330-7, BMP, 65413-8 #### [facility] [facility] ([id number]) [address] [place] [address] 59578 Monocytes/100 WBC (Bld) 10.7 % Normal [facility] Comment on above: Performed By: #### Nasima JESSICA, 04145-5, BMP, 44354-9 #### [facility] ([id number]) [address] [place] [address] 03188 Neutrophils/100 WBC (Bld) 81.3 % Normal [facility] Comment on above: Performed By: #### Nasima JESSICA, 65019-9, BMP, 52138-5 #### [facility] ([id number]) [address] [place] [address] 90388 Platelet mean volume (Bld) [Entitic vol] 9.1 fL Normal 7-12 [facility] Comment on above: Performed By: #### Nasima JESSICA, 89606-1, BMP, 80445-6 #### [facility] ([id number]) [address] [place] [address] 88524 Platelets (Bld) [#/Vol] 165 10*3/uL Normal 150-450 [facility] Comment on above: Performed By: #### Nasima JESSICA, 53917-0, BMP, 57609-3 #### [facility] ([id number]) [address] [place] [address] 50907 RBC COUNT 4.64 X10E12/L Normal 4.10-5.70 [facility] Comment on above: Performed By: #### Nasima JESSICA, 41891-2, BMP, 14906-0 #### [facility] ([id number]) [address] [place] [address] 72408 WBC (Bld) [#/Vol] 11.0 10*3/uL Normal 4.0-11.0 [facility] Comment on above: Performed By: #### Nasima JESSICA, 66878-3, BMP, 38982-3 #### [facility] ([id number]) [address] [place] [address] 60691 COMPREHENSIVE METABOLIC PANE Brent 06-15-2024 Albumin [Mass/Vol] 3.8 g/dL Normal 3.2-5.3 [facility] Comment on above: Performed By: #### Nasima JESSICA, 22334-2, BMP, 25574-8 #### [facility] ([id number]) [address] [place] [address], [place] [address] ALP [Catalytic activity/Vol] 70 U/L Normal 39-130 [facility] Comment on above: Performed By: #### C BCA, 44617-1, BMP, 81378-5 #### [facility] ([id number]) [address] [place] [address] 39121 ALT [Catalytic activity/Vol] 18 U/L Normal 0-40 [facility] Comment on above: Performed By: #### C BCA, 91906-6, BMP, 08544-0 #### [facility] ([id number]) [address] [place] [address] 85382 Anion gap [Moles/Vol] 12 mmol/L Normal 5-15 [facility] Comment on above: Performed By: #### C BCA, 34504-1, BMP, 12636-8 #### [facility] ([id number]) [address] [place] [address] 00258 AST [Catalytic activity/Vol] 19 U/L Normal 0-41 [facility] Comment on above: Performed By: #### C BCA, 24549-2, BMP, 21378-3 #### [facility] ([id number]) [address] [place] [address] 43912 Bilirubin [Mass/Vol] 0.8 mg/dL Normal 0.3-1.2 [facility] Comment on above: Performed By: #### C BCA, 84161-2, BMP, 82742-1 #### [facility] ([id number]) [address] [place] [address] 95718 Calcium [Mass/Vol] 8.7 mg/dL Normal 8.5-10.5 [facility] Comment on above: Performed By: #### C BCA, 13742-6, BMP, 28994-7 #### [facility] ([id number]) [address] [place] [address] 71055 Chloride [Moles/Vol] 103 mmol/L Normal 98-109 [facility] Comment on above: Performed By: #### C JASKARAN, 30489-1, BEHZAD, 70658-0 #### [facility] ([id number]) [address] [place] [address] 47938 CO2 [Moles/Vol] 21 mmol/L Low 22-32 [facility] Comment on above: Performed By: #### C JASKARAN, 32033-4, BEHZAD, 31722-1 #### [facility] ([id number]) [address] [place] [address] 33576 Creatinine [Mass/Vol] 1.09 mg/dL Normal 0.70-1.20 [facility] Comment on above: Result Comment: METH OD TRACEABLE TO IDMS STANDARD Performed By: #### C JASKARAN, 75545-3, BEHZAD, 55353-5 #### [facility] ([id number]) [address] [place] [address] 30223 GFR/1.73 sq M.predicted among non-blacks MDRD (S/P/Bld) [Vol rate/Area] 74 mL/min/{1.73_m2} Normal >59 [facility] Comment on above: Result Comment: Reported eGFR is based on the CKD-EPI 2020 equation that does not use a race coefficient. Performed By: #### C JASKARAN, 96650-2, BEHZAD, 33617-7 #### [facility] ([id number]) [address] [place] [address] 30138 Glucose [Mass/Vol] 129 mg/dL High 65-99 [facility] Comment on above: Performed By: #### C JASKARAN, 15226-8, BEHZAD, 51192-5 #### [facility] ([id number]) [address] [place] [address] 53343 Potassium [Moles/Vol] 3.9 mmol/L Normal 3.5-5.0 [facility] Comment on above: Performed By: #### C BCA, 09093-3, BMP, 31462-0 #### [facility] ([id number]) [address] [place] [address] 19523 Protein [Mass/Vol] 7.1 g/dL Normal 6.0-8.0 [facility] Comment on above: Performed By: #### C BCA, 00617-9, BMP, 49947-9 #### [facility] ([id number]) [address] [place] [address] 71486 Sodium [Moles/Vol] 136 mmol/L Normal 134-146 [facility] Comment on above: Performed By: #### C BCA, 41052-7, BMP, 58770-0 #### [facility] ([id number]) [address] [place] [address] 81563 Urea nitrogen [Mass/Vol] 26 mg/dL Normal 5-27 [facility] Comment on above: Performed By: #### C JASKARAN, 80610-2, BMP, 33243-1 #### [facility] ([id number]) [address] [place] [address] 39148 MAGNESIUMon 06-15-2024 Magnesium [Mass/Vol] 1.9 mg/dL Normal 1.8-2.6 [facility] Comment on above: Performed By: #### C BCA, 12898-9, BMP, 81563-6 #### [facility] ([id number]) [address] [place] [address] 97204 Troponin I.cardiac High sens itivity method [Mass/Vol]on 06-15-2024 1 HOUR TROP I, HIGH SENSITIVITY 3 ng/L Normal <21 [facility] Comment on above: Performed By: #### C BCA, 88639-0, BMP, 82437-0 #### [facility] ([id number]) [address] [place] [address] [place] [address] TROPONIN I, HIGH SENSITIVITY 3 ng/L Normal <21 [facility] Comment on above: Performed By: #### C JASKARAN, 62275-0, BEHZAD, 13344-0 #### [facility] ([id number]) [address] [place] [address] XR CHEST 1 VWon 06-15-2024 XR CHEST [...] Scooter Moore on 06/15/2024 6:29 AM Normal [facility] Potassium (Bld) [Moles/Vol]o n 05-29-2024 Potassium [Moles/Vol] 4.1 mmol/L Normal 3.5-5.0 [facility] Comment on above: Performed By: #### 6 298-4 #### [facility] ([id number]) [address] [place] [address] Prostate specific Ag [Mass/V ol]on 05-15-2024 PROSTATIC SPEC ANT 3.30 ng/mL Normal 0.00-4.00 [facility] Comment on above: Result Comment: The method used for this test is Paul Nassawadox DXI chemiluminescent immunoassay. Values obtained by different assay methods cannot be used interchangeably. Performed By: #### C JASKARAN, 93356-3, BEHZAD, 02659-2 #### [facility] ([id number]) [address] [place] [address] 69354 THYROID PROFILEon 05-15-2024 Free T4 [Mass/Vol] 0.80 ng/dL Normal 0.61-1.60 [facility] Comment on above: Performed By: #### C JASKARAN, 18023-8, BEHZAD, 13019-2 #### [facility] ([id number]) [address] [place] [address] 36847 TSH 1.90 uIU/mL Normal 0.49-4.67 [facility] Comment on above: Performed By: #### C JASKARAN, 82287-6, BEHZAD, 78964-6 #### [facility] ([id number]) [address] [place] [address] 41805 US RETROPERITONEAL COMPLETEo n 04-22-2024 US RETROPERITONEAL [...] Hector MD on 04/22/2024 3:42 PM Normal [facility] Prostate specific Ag [Mass/V ol]on 04-12-2024 PROSTATIC SPEC ANT 4.57 ng/mL High 0.00-4.00 [facility] Comment on above: Result Comment: The method used for this test is Paul Johnny DXI chemiluminescent immunoassay. Values obtained by different assay methods cannot be used interchangeably. Performed By: #### C JASKARAN, 16637-8, BEHZAD, 63913-2 #### [facility] ([id number]) [address] [place] [address] 06978 CBC AND AUTO DIFFon 03-23-20 24 ABSOLUTE BASOPHIL 0.0 X10E9/L Normal 0.0-0.2 [facility] Comment on above: Performed By: #### C JASKARAN, 92616-7, BMP, 86992-9 #### [facility] ([id number]) [address] [place] [address] 90462 ABSOLUTE NEUTROPHIL 5.6 X10E9/L Normal 1.5-6.6 [facility] Comment on above: Performed By: #### Nasima JESSICA, 17599-7, BMP, 86425-4 #### [facility] ([id number]) [address] [place] [address] 47940 Basophils/100 WBC (Bld) 0.5 % Normal [facility] Comment on above: Performed By: #### Nasima JESSICA, 10374-9, BMP, 46182-9 #### [facility] ([id number]) [address] [place] [address] 40674 Eosinophils (Bld) [#/Vol] 0.2 10*3/uL Normal 0.0-0.4 [facility] Comment on above: Performed By: #### Nasima JESSICA, 27155-4, BMP, 85343-4 #### [facility] ([id number]) [address] [place] [address] 83977 Eosinophils/100 WBC (Bld) 2.0 % Normal [facility] Comment on above: Performed By: #### Nasima JESSICA, 54165-0, BMP, 32470-9 #### [facility] ([id number]) [address] [place] [address] 49106 Erythrocyte distribution width (RBC) [Ratio] 14.7 % Normal 11.5-15.0 [facility] Comment on above: Performed By: #### Nasima JESSICA, 93934-3, BMP, 24443-4 #### [facility] ([id number]) [address] [place] [address] 55539 Hematocrit (Bld) [Volume fraction] 32.6 % Low 39-49 [facility] Comment on above: Performed By: #### Nasima JESSICA, 72823-2, BMP, 36751-0 #### [facility] ([id number]) [address] [place] [address] 85884 Hemoglobin (Bld) [Mass/Vol] 11.1 g/dL Low 13.0-17.0 [facility] Comment on above: Performed By: #### Nasima JESSICA, 94191-7, BMP, 58291-4 #### [facility] ([id number]) [address] [place] [address] 32635 Lymphocytes (Bld) [#/Vol] 1.2 10*3/uL Normal 1.0-3.5 [facility] Comment on above: Performed By: #### Nasima JESSICA, 64421-6, BMP, 44147-2 #### [facility] ([id number]) [address] [place] [address] 27196 Lymphocytes/100 WBC (Bld) 15.3 % Normal [facility] Comment on above: Performed By: #### Nasima JESSICA, 97660-9, BMP, 68829-8 #### [facility] ([id number]) [address] [place] [address] 24726 MCH (RBC) [Entitic mass] 29.3 pg Normal 27-34 [facility] Comment on above: Performed By: #### Nasima JESSICA, 47005-9, BMP, 95713-0 #### [facility] ([id number]) [address] [place] [address] 71740 MCHC (RBC) [Mass/Vol] 33.9 g/dL Normal 32-36 [facility] Comment on above: Performed By: #### Nasima JESSICA, 89926-0, BMP, 09759-3 #### [facility] ([id number]) [address] [place] [address] 79649 MCV (RBC) [Entitic vol] 86 fL Normal 80-100 [facility] Comment on above: Performed By: #### Nasima JESSICA, 23783-2, BMP, 00770-6 #### [facility] ([id number]) [address] [place] [address] 52120 Monocytes (Bld) [#/Vol] 1.0 10*3/uL High 0-0.9 [facility] Comment on above: Performed By: #### Nasima JESSICA, 91859-5, BMP, 47404-9 #### [facility] ([id number]) [address] [place] [address] 26563 Monocytes/100 WBC (Bld) 12.7 % Normal [facility] Comment on above: Performed By: #### Nasima JESSICA, 12890-4, BMP, 65739-9 #### [facility] ([id number]) [address] [place] [address] 92566 Neutrophils/100 WBC (Bld) 69.5 % Normal [facility] Comment on above: Performed By: #### Nasima JESSICA, 82159-5, BMP, 46631-4 #### [facility] ([id number]) [address] [place] [address] 58097 Platelet mean volume (Bld) [Entitic vol] 9.6 fL Normal 7-12 [facility] Comment on above: Performed By: #### Nasima JESSICA, 64566-7, BMP, 43654-2 #### [facility] ([id number]) [address] [place] [address] 44596 Platelets (Bld) [#/Vol] 126 10*3/uL Low 150-450 [facility] Comment on above: Performed By: #### Nasima JESSICA, 45783-8, BMP, 68076-0 #### [facility] ([id number]) [address] [place] [address] 60474 RBC COUNT 3.78 X10E12/L Low 4.10-5.70 [facility] Comment on above: Performed By: #### C BCA, 70473-4, BMP, 53840-9 #### [facility] ([id number]) [address] [place] [address] 38937 WBC (Bld) [#/Vol] 8.1 10*3/uL Normal 4.0-11.0 [facility] Comment on above: Performed By: #### C BCA, 24226-3, BMP, 51449-1 #### [facility] ([id number]) [address] [place] [address] 57106 COMPREHENSIVE METABOLIC PANE Brent 03-23-2024 Albumin [Mass/Vol] 3.5 g/dL Normal 3.2-5.3 [facility] Comment on above: Performed By: #### Nasima JESSICA, 77810-5, BMP, 11201-7 #### [facility] ([id number]) [address] [place] [address] 44875 ALP [Catalytic activity/Vol] 68 U/L Normal 39-130 [facility] Comment on above: Performed By: #### Nasima JESSICA, 17486-0, BMP, 17504-1 #### [facility] ([id number]) [address] [place] [address] 93153 ALT [Catalytic activity/Vol] 17 U/L Normal 0-40 [facility] Comment on above: Performed By: #### C BCA, 53259-4, BMP, 40826-5 #### [facility] ([id number]) [address] [place] [address] 99230 Anion gap [Moles/Vol] 9 mmol/L Normal 5-15 [facility] Comment on above: Performed By: #### C BCA, 90063-3, BMP, 69879-0 #### [facility] ([id number]) [address] [place] [address] 06124 AST [Catalytic activity/Vol] 16 U/L Normal 0-41 [facility] Comment on above: Performed By: #### C BCA, 84405-1, BMP, 64631-0 #### [facility] ([id number]) [address] [place] [address] 68598 Bilirubin [Mass/Vol] 0.9 mg/dL Normal 0.3-1.2 [facility] Comment on above: Performed By: #### C BCA, 41814-9, BMP, 55315-7 #### [facility] ([id number]) [address] [place] [address] 68389 Calcium [Mass/Vol] 9.0 mg/dL Normal 8.5-10.5 [facility] Comment on above: Performed By: #### C BCA, 54484-4, BMP, 91953-7 #### [facility] ([id number]) [address] [place] [address] 18922 Chloride [Moles/Vol] 107 mmol/L Normal 98-109 [facility] Comment on above: Performed By: #### C BCA, 37985-0, BMP, 84126-0 #### [facility] ([id number]) [address] [place] [address] 89294 CO2 [Moles/Vol] 22 mmol/L Normal 22-32 [facility] Comment on above: Performed By: #### C BCA, 37724-6, BMP, 25366-9 #### [facility] ([id number]) [address] [place] [address] 26885 Creatinine [Mass/Vol] 1.09 mg/dL Normal 0.70-1.20 [facility] Comment on above: Result Comment: METH OD TRACEABLE TO IDMS STANDARD Performed By: #### C BCA, 59024-6, BMP, 84709-6 #### [facility] ([id number]) [address] [place] [address] 37255 GFR/1.73 sq M.predicted among non-blacks MDRD (S/P/Bld) [Vol rate/Area] 74 mL/min/{1.73_m2} Normal >59 [facility] Comment on above: Result Comment: Reported eGFR is based on the CKD-EPI 2020 equation that does not use a race coefficient. Performed By: #### C JASKARAN, 64906-4, BMP, 52641-6 #### [facility] ([id number]) [address] [place] [address] 85503 Glucose [Mass/Vol] 105 mg/dL High 65-99 [facility] Comment on above: Performed By: #### C JASKARAN, 59979-6, BMP, 48153-0 #### [facility] ([id number]) [address] [place] [address] 65653 Potassium [Moles/Vol] 4.2 mmol/L Normal 3.5-5.0 [facility] Comment on above: Performed By: #### C JASKARAN, 07973-4, BMP, 61972-2 #### [facility] ([id number]) [address] [place] [address] 18892 Protein [Mass/Vol] 6.4 g/dL Normal 6.0-8.0 [facility] Comment on above: Performed By: #### C JASKARAN, 47055-6, BMP, 19996-6 #### [facility] ([id number]) [address] [place] [address] 46967 Sodium [Moles/Vol] 138 mmol/L Normal 134-146 [facility] Comment on above: Performed By: #### C BCA, 98239-7, BMP, 73569-8 #### [facility] ([id number]) [address] [place] [address] 51629 Urea nitrogen [Mass/Vol] 35 mg/dL High 5-27 [facility] Comment on above: Performed By: #### C JASKARAN, 89877-2, BMP, 65011-7 #### [facility] ([id number]) [address] [place] [address] 82381 MAGNESIUMon 03-23-2024 Magnesium [Mass/Vol] 2.0 mg/dL Normal 1.8-2.6 [facility] Comment on above: Performed By: #### C JASKARAN, 51051-9, BMP, 59348-8 #### [facility] ([id number]) [address] [place] [address] 63507 CBC AND AUTO DIFFon 03-22-20 ABSOLUTE BASOPHIL 0.0 X10E9/L Normal 0.0-0.2 [facility] Comment on above: Performed By: #### C JASKARAN, CMP, 3040-3, 89971-5, 24792-9 #### [facility] ([id number]) [address] [place] [address] 00422 ABSOLUTE NEUTROPHIL 8.1 X10E9/L High 1.5-6.6 [facility] Comment on above: Performed By: #### C BCA, CMP, 3040-3, 74402-1, 21430-5 #### [facility] ([id number]) [address] [place] [address] 99170 Basophils/100 WBC (Bld) 0.1 % Normal [facility] Comment on above: Performed By: #### C BCA, CMP, 3040-3, 07260-8, 64843-4 #### [facility] ([id number]) [address] [place] [address] 63182 Eosinophils (Bld) [#/Vol] 0.0 10*3/uL Normal 0.0-0.4 [facility] Comment on above: Performed By: #### C BCA, CMP, 3040-3, 18907-4, 98519-9 #### [facility] ([id number]) [address] [place] [address] 17435 Eosinophils/100 WBC (Bld) 0.1 % Normal [facility] Comment on above: Performed By: #### C JASKARAN CMP, 0-3, 83954-7, 74591-6 #### [facility] ([id number]) [address] [place] [address] 86132 Erythrocyte distribution width (RBC) [Ratio] 14.6 % Normal 11.5-15.0 [facility] Comment on above: Performed By: #### C JASKARAN, [facility], 3, , 23485-9 #### [facility] ([id number]) [address] [place] [address] 01515 Hematocrit (Bld) [Volume fraction] 35.7 % Low 39-49 [facility] Comment on above: Performed By: #### C JASKARAN, [facility], 3, , 75103-3 #### [facility] ([id number]) [address] [place] [address] 72021 Hemoglobin (Bld) [Mass/Vol] 12.1 g/dL Low 13.0-17.0 [facility] Comment on above: Performed By: #### Nasima JESSICA CMP, 3, , 97541-0 #### [facility] ([id number]) [address] [place] [address] 08345 Lymphocytes (Bld) [#/Vol] 0.9 10*3/uL Low 1.0-3.5 [facility] Comment on above: Performed By: #### C JASKARAN, CMP, 0-3, , 16825-2 #### [facility] ([id number]) [address] [place] [address] 89039 Lymphocytes/100 WBC (Bld) 8.9 % Normal [facility] Comment on above: Performed By: #### C BCA, CMP, 3040-3, 70275-4, 11335-2 #### [facility] ([id number]) [address] [place] [address] 76259 MCH (RBC) [Entitic mass] 29.3 pg Normal 27-34 [facility] Comment on above: Performed By: #### C BCA, CMP, 3040-3, , 59496-6 #### [facility] ([id number]) [address] [place] [address] 65379 MCHC (RBC) [Mass/Vol] 34.0 g/dL Normal 32-36 [facility] Comment on above: Performed By: #### C BCA, CMP, 3040-3, , 88047-1 #### [facility] ([id number]) [address] [place] [address] 48024 MCV (RBC) [Entitic vol] 86 fL Normal 80-100 [facility] Comment on above: Performed By: #### C BCA, CMP, 0-3, , 56199-3 #### [facility] ([id number]) [address] [place] [address] 90916 Monocytes (Bld) [#/Vol] 1.3 10*3/uL High 0-0.9 [facility] Comment on above: Performed By: #### C BCA, CMP, 3040-3, , 33401-9 #### [facility] ([id number]) [address] [place] [address] 84888 Monocytes/100 WBC (Bld) 12.8 % Normal [facility] Comment on above: Performed By: #### C BCA, CMP, 3040-3, , 99980-7 #### [facility] ([id number]) [address] [place] [address] 16009 Neutrophils/100 WBC (Bld) 78.1 % Normal [facility] Comment on above: Performed By: #### C JASKARAN, CMP, 3040-3, , 98646-9 #### [facility] ([id number]) [address] [place] [address] 16542 Platelet mean volume (Bld) [Entitic vol] 9.3 fL Normal 7-12 [facility] Comment on above: Performed By: #### C BCA, CMP, 3040-3, , 33460-9 #### [facility] ([id number]) [address] [place] [address] 53771 Platelets (Bld) [#/Vol] 141 10*3/uL Low 150-450 [facility] Comment on above: Performed By: #### C JASKARAN, CMP, 3039-3, , 14697-3 #### [facility] ([id number]) [address] [place] [address] 53528 RBC COUNT 4.14 X10E12/L Normal 4.10-5.70 [facility] Comment on above: Performed By: #### C BCA, CMP, 0-3, , 50921-0 #### [facility] ([id number]) [address] [place] [address] 84781 WBC (Bld) [#/Vol] 10.4 10*3/uL Normal 4.0-11.0 [facility] Comment on above: Performed By: #### C BCA, CMP, 3040-3, , 20673-1 #### [facility] ([id number]) [address] [place] [address] 08607 COMPREHENSIVE METABOLIC PANE Brent 03-22-2024 Albumin [Mass/Vol] 4.3 g/dL Normal 3.2-5.3 [facility] Comment on above: Performed By: #### C BCA, CMP, 3040-3, 58104-3, 35290-4 #### [facility] ([id number]) [address] [place] [address] 63063 ALP [Catalytic activity/Vol] 87 U/L Normal 39-130 [facility] Comment on above: Performed By: #### C BCA, CMP, 3040-3, 19255-0, 20362-3 #### [facility] ([id number]) [address] [place] [address] 54656 ALT [Catalytic activity/Vol] 20 U/L Normal 0-40 [facility] Comment on above: Performed By: #### C BCA, CMP, 3040-3, 13715-3, 76185-2 #### [facility] ([id number]) [address] [place] [address] 64727 Anion gap [Moles/Vol] 9 mmol/L Normal 5-15 [facility] Comment on above: Performed By: #### C BCA, CMP, 3040-3, , 17124-1 #### [facility] ([id number]) [address] [place] [address] 03153 AST [Catalytic activity/Vol] 19 U/L Normal 0-41 [facility] Comment on above: Performed By: #### C BCA, CMP, 3040-3, 31648-4, 34842-3 #### [facility] ([id number]) [address] [place] [address] 13459 Bilirubin [Mass/Vol] 0.9 mg/dL Normal 0.3-1.2 [facility] [facility] Comment on above: Performed By: #### C BCA, CMP, 3040-3, 18591-8, 36975-5 #### [facility] ([id number]) [address] [place] [address] 76967 Calcium [Mass/Vol] 9.5 mg/dL Normal 8.5-10.5 [facility] Comment on above: Performed By: #### C GIULIANA JESSICA, 3040-3, 53580-0, 31824-5 #### [facility] ([id number]) [address] [place] [address] 15083 Chloride [Moles/Vol] 105 mmol/L Normal 98-109 [facility] Comment on above: Performed By: #### C JASKARAN, GIULIANA, 3040-3, , 45576-1 #### [facility] ([id number]) [address] [place] [address] 46434 CO2 [Moles/Vol] 23 mmol/L Normal 22-32 [facility] Comment on above: Performed By: #### C GIULIANA JESSICA, 0-3, , 29435-4 #### [facility] ([id number]) [address] [place] [address] 53263 Creatinine [Mass/Vol] 1.25 mg/dL High 0.70-1.20 [facility] Comment on above: Result Comment: METH OD TRACEABLE TO IDMS STANDARD Performed By: #### C GIULIANA JESSICA, 3040-3, , 64037-1 #### [facility] ([id number]) [address] [place] [address] 39231 GFR/1.73 sq M.predicted among non-blacks MDRD (S/P/Bld) [Vol rate/Area] 63 mL/min/{1.73_m2} Normal >59 [facility] Comment on above: Result Comment: Reported eGFR is based on the CKD-EPI 2020 equation that does not use a race coefficient. Performed By: #### C JASKARAN, CMP, 3040-3, 54086-0, 27004-0 #### [facility] ([id number]) [address] [place] [address] 73704 Glucose [Mass/Vol] 118 mg/dL High 65-99 [facility] Comment on above: Performed By: #### C BCA, CMP, 3040-3, 15313-0, 44595-7 #### [facility] ([id number]) [address] [place] [address] 46623 Potassium [Moles/Vol] 4.2 mmol/L Normal 3.5-5.0 [facility] Comment on above: Performed By: #### C BCA, CMP, 3040-3, 48897-2, 87508-1 #### [facility] ([id number]) [address] [place] [address] 68246 Protein [Mass/Vol] 7.3 g/dL Normal 6.0-8.0 [facility] Comment on above: Performed By: #### C BCA, CMP, 3040-3, 69400-3, 63871-6 #### [facility] ([id number]) [address] [place] [address] 25085 Sodium [Moles/Vol] 137 mmol/L Normal 134-146 [facility] Comment on above: Performed By: #### C BCA, CMP, 3040-3, 89748-8, 41272-9 #### [facility] ([id number]) [address] [place] [address] 00716 Urea nitrogen [Mass/Vol] 41 mg/dL High 5-27 [facility] Comment on above: Performed By: #### C BCA, CMP, 3040-3, 57072-1, 13279-5 #### [facility] ([id number]) [address] [place] [address] CTA CHESTon 03-22-2024 CT CTA CHEST [...] Arthur MD on 03/22/2024 11:33 AM Normal [facility] LIPASEon 03-22-2024 Lipase [Catalytic activity/Vol] 24 U/L Normal 17-40 [facility] Comment on above: Performed By: #### C JASKARAN [facility], 3040-3, 86405-3, 78084-2 #### [facility] ([id number]) [address] [place] [address] 10468 MAGNESIUMon 03-22-2024 Magnesium [Mass/Vol] 1.9 mg/dL Normal 1.8-2.6 [facility] Comment on above: Performed By: #### C JASKARAN, CMP, 3040-3, 04381-8, 33660-0 #### [facility] ([id number]) [address] [place] [address] 34412 SARS/FLU A+B/RSV by NAAT/Mol ecularon 03-22-2024 SARS/FLU [...] operators who are performing tests using either [employer] or [employer] Choice systems and is limited to laboratories that [...] repeat. Fact Sheet for Healthcare Providers: https://www.fda.gov/medi a/595957/download Fact Sheet for Patients: https://www.fda.gov/medi a/894041/download Normal [facility] Comment on above: Performed By: #### C JASKARAN, 29935-1, [facility], 66718-2 #### [facility] ([id number]) [address] [place] [address], [place] [address] Troponin I.cardiac High sens itivity method [Mass/Vol]on 03-22-2024 1 HOUR TROP I, HIGH SENSITIVITY 5 ng/L Normal <21 [facility] Comment on above: Performed By: #### C BCA, 29826-3, BMP, 03737-2 #### [facility] ([id number]) [address] [place] [address] 62548 TROPONIN I, HIGH SENSITIVITY 4 ng/L Normal <21 [facility] Comment on above: Performed By: #### C BCA, 18824-4, BMP, 59964-7 #### [facility] ([id number]) [address] [place] [address] 77526 BASIC METABOLIC PANLon 03-21 Anion gap [Moles/Vol] 8 mmol/L Normal 5-15 [facility] Comment on above: Performed By: #### C BCA, 90860-3, BMP, 65715-0 #### [facility] ([id number]) [address] [place] [address] 52041 Calcium [Mass/Vol] 9.1 mg/dL Normal 8.5-10.5 [facility] Comment on above: Performed By: #### C BCA, 72458-7, BMP, 69884-3 #### [facility] ([id number]) [address] [place] [address] 66579 Chloride [Moles/Vol] 104 mmol/L Normal 98-109 [facility] Comment on above: Performed By: #### C BCA, 81841-8, BMP, 04292-5 #### [facility] ([id number]) [address] [place] [address] 64901 CO2 [Moles/Vol] 24 mmol/L Normal 22-32 [facility] Comment on above: Performed By: #### C BCA, 92209-2, BMP, 58784-0 #### [facility] ([id number]) [address] [place] [address] 20999 Creatinine [Mass/Vol] 1.51 mg/dL High 0.70-1.20 [facility] Comment on above: Result Comment: METH OD TRACEABLE TO IDMS STANDARD Performed By: #### C JASKARAN, 58930-4, BMP, 15498-3 #### [facility] ([id number]) [address] [place] [address] 40698 GFR/1.73 sq M.predicted among non-blacks MDRD (S/P/Bld) [Vol rate/Area] 50 mL/min/{1.73_m2} Low >59 [facility] Comment on above: Result Comment: Reported eGFR is based on the CKD-EPI 2020 equation that does not use a race coefficient. Performed By: #### C JASKARAN, 21678-5, BMP, 63421-4 #### [facility] ([id number]) [address] [place] [address] 68910 Glucose [Mass/Vol] 110 mg/dL High 65-99 [facility] Comment on above: Performed By: #### C JASKARAN, 43783-6, BMP, 58867-2 #### [facility] ([id number]) [address] [place] [address] 59311 Potassium [Moles/Vol] 4.2 mmol/L Normal 3.5-5.0 [facility] Comment on above: Performed By: #### C BCA, 59739-9, BMP, 53860-3 #### [facility] ([id number]) [address] [place] [address] 73988 Sodium [Moles/Vol] 136 mmol/L Normal 134-146 [facility] Comment on above: Performed By: #### C BCA, 64706-2, BMP, 40552-4 #### [facility] ([id number]) [address] [place] [address] 11148 Urea nitrogen [Mass/Vol] 52 mg/dL High 5-27 [facility] Comment on above: Performed By: #### Nasima JESSICA, 44113-0, BMP, 81754-6 #### [facility] ([id number]) [address] [place] [address] 97242 CBC AND AUTO DIFFon 03-21-20 24 ABSOLUTE BASOPHIL 0.0 X10E9/L Normal 0.0-0.2 [facility] Comment on above: Performed By: #### Nasima JESSICA, 88753-2, BMP, 68621-8 #### [facility] ([id number]) [address] [place] [address] 32375 ABSOLUTE NEUTROPHIL 5.5 X10E9/L Normal 1.5-6.6 [facility] Comment on above: Performed By: #### Nasima JESSICA, 40593-7, BMP, 22627-1 #### [facility] ([id number]) [address] [place] [address] 31818 Basophils/100 WBC (Bld) 0.3 % Normal [facility] Comment on above: Performed By: #### Nasima JESSICA, 78162-6, BMP, 95872-6 #### [facility] ([id number]) [address] [place] [address] 29679 Eosinophils (Bld) [#/Vol] 0.3 10*3/uL Normal 0.0-0.4 [facility] Comment on above: Performed By: #### Nasima JESSICA, 41375-9, BMP, 95041-8 #### [facility] ([id number]) [address] [place] [address] 03754 Eosinophils/100 WBC (Bld) 3.1 % Normal [facility] Comment on above: Performed By: #### Nasima JESSICA, 60443-8, BMP, 01753-6 #### [facility] ([id number]) [address] [place] [address] 41153 Erythrocyte distribution width (RBC) [Ratio] 14.5 % Normal 11.5-15.0 [facility] Comment on above: Performed By: #### Nasima JESSICA, 68223-5, BMP, 16639-3 #### [facility] ([id number]) [address] [place] [address] 83271 Hematocrit (Bld) [Volume fraction] 32.6 % Low 39-49 [facility] Comment on above: Performed By: #### Nasima JESSICA, 75087-5, BMP, 96072-5 #### [facility] ([id number]) [address] [place] [address] 67227 Hemoglobin (Bld) [Mass/Vol] 11.1 g/dL Low 13.0-17.0 [facility] Comment on above: Performed By: #### Nasima JESSICA, 28577-2, BMP, 47332-1 #### [facility] ([id number]) [address] [place] [address] 60466 Lymphocytes (Bld) [#/Vol] 1.6 10*3/uL Normal 1.0-3.5 [facility] Comment on above: Performed By: #### Nasima JESSICA, 31132-6, BMP, 42693-1 #### [facility] ([id number]) [address] [place] [address] 71213 Lymphocytes/100 WBC (Bld) 19.1 % Normal [facility] Comment on above: Performed By: #### Nasima JESSICA, 83458-8, BMP, 54040-2 #### [facility] ([id number]) [address] [place] [address] 40445 MCH (RBC) [Entitic mass] 29.7 pg Normal 27-34 [facility] Comment on above: Performed By: #### Nasima JESSICA, 49622-9, BMP, 83556-8 #### [facility] ([id number]) [address] [place] [address] 98006 MCHC (RBC) [Mass/Vol] 34.2 g/dL Normal 32-36 [facility] Comment on above: Performed By: #### Nasima JESSICA, 33492-7, BMP, 13392-3 #### [facility] ([id number]) [address] [place] [address] 94039 MCV (RBC) [Entitic vol] 87 fL Normal 80-100 [facility] Comment on above: Performed By: #### Nasima JESSICA, 54053-0, BMP, 84344-7 #### [facility] ([id number]) [address] [place] [address] 34476 Monocytes (Bld) [#/Vol] 1.1 10*3/uL High 0-0.9 [facility] Comment on above: Performed By: #### Nasima JESSICA, 72566-8, BMP, 50218-5 #### [facility] ([id number]) [address] [place] [address] 08959 Monocytes/100 WBC (Bld) 13.1 % Normal [facility] Comment on above: Performed By: #### Nasima JESSICA, 08585-3, BMP, 28571-7 #### [facility] ([id number]) [address] [place] [address] 47772 Neutrophils/100 WBC (Bld) 64.4 % Normal [facility] Comment on above: Performed By: #### Nasima JESSICA, 20731-8, BMP, 04094-8 #### [facility] ([id number]) [address] [place] [address] 01696 Platelet mean volume (Bld) [Entitic vol] 9.4 fL Normal 7-12 [facility] Comment on above: Performed By: #### Nasima JESSICA, 68975-2, BMP, 00932-2 #### [facility] ([id number]) [address] [place] [address] 18373 Platelets (Bld) [#/Vol] 140 10*3/uL Low 150-450 [facility] Comment on above: Performed By: #### Nasima JESSICA, 77513-9, BMP, 96227-6 #### [facility] ([id number]) [address] [place] [address] 17728 RBC COUNT 3.75 X10E12/L Low 4.10-5.70 [facility] Comment on above: Performed By: #### Nasima JESSICA, 12490-1, BEHZAD, 48783-0 #### [facility] ([id number]) [address] [place] [address] 79174 WBC (Bld) [#/Vol] 8.6 10*3/uL Normal 4.0-11.0 [facility] Comment on above: Performed By: #### Nasima JESSCIA, 29747-3, BEHZAD, 31783-8 #### [facility] ([id number]) [address] [place] [address] 93478 Fibrin D-dimer DDU (PPP) [Ma ss/Vol]on 03-21-2024 D DIMER 187 ng/mL DDU Normal <255 [facility] Comment on above: Result Comment: Results <255 ng/mL DDU: The presence of a VTE can safely be excluded with a negative D-Dimer result and Wells score. A negative result doesn't exclude the possibility of DIC. The test be repeated along with other diagnostic tests if the patient's symptoms persist or worsen. [email or web address] Performed By: #### Nasima JESSICA, 92253-3, BMP, 25626-1 #### [facility] ([id number]) [address] [place] [address] 47911 Troponin I.cardiac High sens itivity method [Mass/Vol]on 03-21-2024 1 HOUR TROP I, HIGH SENSITIVITY 4 ng/L Normal <21 [facility] Comment on above: Performed By: #### 8 9579-7 #### [facility] ([id number]) [address] [facility], [place] [address] TROPONIN I, HIGH SENSITIVITY 5 ng/L Normal <21 [facility] Comment on above: Performed By: #### C BCA, 78705-2, BMP, 93492-9 #### [facility] ([id number]) [address] [facility], [place] [address] XR CHEST 1 VWon 03-21-2024 XR CHEST [...] Thapa MD on 03/21/2024 8:51 PM Normal [facility] Urinalysis macro (dipstick) panel (U)on 02-11-2024 Bilirubin, UA Negative Negative - 4(70) +++ mg/dL [facility] Blood, UA Positive Negative - 50 Yo/mcL [facility] Comment on above: trace Clarity, UA Clear [facility] Color, UA Yellow [facility] Glucose, UA Negative Negative - 2000(110) ++++ mg/dL [facility] Ketones, UA Negative Negative - 160(16) ++++ mg/dL [facility] Leukocytes, UA Negative Negative - 500+++ Abdulaziz/mcL [facility] Nitrite, UA Negative Negative - Positive [facility] pH, UA 5.0 5 - 9 [facility] Protein, UA Negative Negative - 1999(20) ++++ mg/dL [facility] Spec Grav, UA 1.015 1 - 1.03 [facility] Urobilinogen, UA 1.0 0.2 - 12 mg/dL [facility] 06-02-2021 L ---- Specimen: [id number] Received: 06/02/21 Status: LEI Rivera Num: [id number] Spec Type: Surgical Subm Dr: Sushil Sorto MD Tissues: A Duodenum - Biopsy (DUODENAL) B Stomach - Biopsy/Polyp (ANTRUM) C Colon Biopsy (COLITIS BX) Procedures: HE Stain/6, Gross/Micro L4/3 Patient Age/Sex Location Account Attending Physician Efraín Lopez/Chavez [id number] Sushil Sorto MD SPEC NUM: [id number] RECD: 06/02/21 STATUS: ELI RIVERA NUM: [id number] JABIER: 06/02/21- [facility] DR: Sushil Sorto MD ENTERED: 06/02/21-[address] [facility] [address]: SPEC TYPE: Surgical DEPT: S ORDERED: [...] with the patient's name, number and Specimen: [id number] Received: 06/02/21 Status: ELI Rivera Num: [id number] Spec Type: Surgical Subm Dr: Sushil Sorto MD Tissues: A Duodenum - Biopsy (DUODENAL) B Stomach - Biopsy/Polyp (ANTRUM) C Colon Biopsy (COLITIS BX) Procedures: HE Stain/6, Gross/Micro L4/3 Patient: JessicaEfraín Jensen [id number] (Continued) Specimen: [id number] Received: 06/02/21 (Continued) Gross Description (Continued) Signed (signature on file) Marcia Knight MD 06/03/21 1726 Specimen: [id number] Received: 06/02/21 Status: ELI Lexa Num: [id number] Spec Type: Surgical Subm Dr: Sushil Sorto MD Tissues: A Duodenum - Biopsy (DUODENAL) B Stomach - Biopsy/Polyp (ANTRUM) C Colon Biopsy (COLITIS BX) Procedures: HE Stain/6, Gross/Micro L4/3 Patient: Efraín Lopez [id number] (Continued) Specimen: [id number] Received: 06/02/21-1230 (Continued) Gross Description (Continued) antrum rule out H. pylori is a 0.3 cm go tissue fragment. Entirely submitted in one cassette labeled B1. (/JS) C. Received in 10% neutral buffered formalin [...] microscopic findings support the above pathologic diagnosis. 01569, 13126 The use of one or more reagents in the above tests is regulated as an analyte specific reagent (ASR). The performance characteristics were determined by the [facility] of [facility]. Immunohistochemistry assays have not been validated on decalcified tissue. Results should be interpreted with caution given the possibility of false negative results on decalcified specimens. They have not been cleared by the [place] Food and Drug Administration. The FDA has determined that such (more content not included)... Normal [facility] Ammoniaon 05-31-2021 Ammonia (P) [Mass/Vol] ug/dL Low 11-35 [facility] Comment on above: Result Comment: PERF ORMED BY: [facility] [address] [place] [address] PATHOLOGIST ELEMENTARY ESL TEACHER MARCIA KNIGHT M.D. Performed By: #### A MM, PT, CMP, CBC #### [facility] [address] COVID-19 FRon 05-31-2021 SARS-CoV-2 (COVID-19) RNA JESSE+probe Ql (Unsp spec) Negative Normal Negative [facility] Comment on above: Order Comment: Healt hcare Worker?: N Result Comment: Testing for SARS-CoV-2 by RT-PCR This test was developed and its performance characteristics determined by [employer] and validated at the [facility]. This test has not been FDA cleared [...] is terminated or revoked sooner. PERFORMED BY: [place] [address] PATHOLOGIST ELEMENTARY ESL TEACHER MARCIA KNIGHT M.D. Performed By: #### C OVID 19 [facility] #### [address] Complete Blood Count Auto Di ffon 05-31-2021 Basophils (Bld) [#/Vol] 0.0 10*3/uL Normal 0.0-0.2 [facility] Comment on above: Result Comment: PERF ORMED BY: [place] [address] PATHOLOGIST ELEMENTARY ESL TEACHER MARCIA KNIGHT M.D. Performed By: #### A MM, PT, CMP, CBC #### [address] Basophils/100 WBC (Bld) 0.4 % Normal . [facility] Comment on above: Performed By: #### A MM, PT, CMP, CBC #### [address] Eosinophils (Bld) [#/Vol] 0.1 10*3/uL Normal 0.0-0.45 [facility] Comment on above: Performed By: #### A MM, PT, CMP, CBC #### [address] Eosinophils/100 WBC (Bld) 1.1 % Normal . [facility] Comment on above: Performed By: #### A MM, PT, CMP, CBC #### [address] Erythrocyte distribution width (RBC) [Ratio] 14.3 % Normal 12.0-14.8 [facility] Comment on above: Performed By: #### A MM, PT, CMP, CBC #### [address] Hematocrit (Bld) [Volume fraction] 42.5 % Normal 38.8-50.0 [facility] Comment on above: Performed By: #### A MM, PT, CMP, CBC #### [address] Hemoglobin (Bld) [Mass/Vol] 14.1 g/dL Normal 13.0-17.0 [facility] Comment on above: Performed By: #### A MM, PT, CMP, CBC #### [address] Lymphocytes (Bld) [#/Vol] 1.4 10*3/uL Normal 1.00-4.8 [facility] Comment on above: Performed By: #### A MM, PT, CMP, CBC #### [place] [address] [place] Lymphocytes/100 WBC (Bld) 17.3 % Normal . [facility] Comment on above: Performed By: #### A MM, PT, CMP, CBC #### [facility] [address] MCH (RBC) [Entitic mass] 29.6 pg Normal 27.5-35.2 [facility] Comment on above: Performed By: #### A MM, PT, CMP, CBC #### [address] MCV (RBC) [Entitic vol] 89.1 fL Normal 83.5-101 [facility] Comment on above: Performed By: #### A MM, PT, CMP, CBC #### [address] Mean Corpuscular HGB Conc 33.2 g/dL Normal 32.5-35.6 [facility] Comment on above: Performed By: #### A MM, PT, CMP, CBC #### [address] Monocytes (Bld) [#/Vol] 0.7 10*3/uL Normal 0.0-0.8 [facility] Comment on above: Performed By: #### A MM, PT, CMP, CBC #### [address] Monocytes/100 WBC (Bld) 9.2 % Normal . [facility] Comment on above: Performed By: #### A MM, PT, CMP, CBC #### [address] Neutrophils (Bld) [#/Vol] 5.8 10*3/uL Normal 1.8-7.7 [facility] Comment on above: Performed By: #### A MM, PT, CMP, CBC #### [address] Neutrophils/100 WBC (Bld) 72.0 % Normal . [facility] Comment on above: Performed By: #### A MM, PT, CMP, CBC #### [address] Nucleated RBC/100 WBC (Bld) [Ratio] 0.0 % Normal 0-0.5 [facility] Comment on above: Performed By: #### A MM, PT, CMP, CBC #### [address] Platelet mean volume (Bld) [Entitic vol] 7.8 fL Normal 6.6-10.1 [facility] Comment on above: Performed By: #### A MM, PT, CMP, CBC #### [address] Platelets (Bld) [#/Vol] 194 10*3/uL Normal 150-450 [facility] Comment on above: Performed By: #### A MM, PT, CMP, CBC #### [address] RBC (Bld) [#/Vol] 4.77 10*6/uL Normal 3.90-5.60 [facility] Comment on above: Performed By: #### A MM, PT, CMP, CBC #### [address] WBC (Bld) [#/Vol] 8.0 10*3/uL Normal 4.5-11.0 [facility] Comment on above: Performed By: #### A MM, PT, CMP, CBC #### [address] Comprehensive Metabolic Pane brent 05-31-2021 Albumin [Mass/Vol] 4.1 g/dL Normal 3.2-5.5 [facility] Comment on above: Performed By: #### A MM, PT, CMP, CBC #### [address] Albumin/Globulin [Mass ratio] 1.5 {ratio} Normal [facility] Comment on above: Performed By: #### A MM, PT, CMP, CBC #### [address] ALP [Catalytic activity/Vol] 70 U/L Normal 32-92 [facility] Comment on above: Result Comment: PERF ORMED BY: [place] [address] PATHOLOGIST ELEMENTARY ESL TEACHER MARCIA KNIGHT M.D. Performed By: #### A MM, PT, CMP, CBC #### [address] ALT [Catalytic activity/Vol] 22 U/L Normal 10-60 [facility] Comment on above: Performed By: #### A MM, PT, CMP, CBC #### [address] AST [Catalytic activity/Vol] 20 U/L Normal 10-42 [facility] Comment on above: Performed By: #### A MM, PT, CMP, CBC #### [address] Bilirubin [Mass/Vol] 0.9 mg/dL Normal 0.3-1.2 [facility] Comment on above: Performed By: #### A MM, PT, CMP, CBC #### [address] Calcium [Mass/Vol] 9.5 mg/dL Normal 8.2-10.2 [facility] Comment on above: Performed By: #### A MM, PT, CMP, CBC #### [place] [address] [place] Chloride [Moles/Vol] 102 mmol/L Normal 95-114 [facility] Comment on above: Performed By: #### A MM, PT, CMP, CBC #### [place] [address] [place] CO2 [Moles/Vol] 23.2 mmol/L Normal 22.0-30.0 [place] Comment on above: Performed By: #### A MM, PT, CMP, CBC #### [address] Creatinine [Mass/Vol] 0.91 mg/dL Normal 0.64-1.27 [facility] Comment on above: Performed By: #### A MM, PT, CMP, CBC #### [address] [place] [address] [place] Estimated GFR ( Corinne > 60 Normal [facility] Comment on above: Result Comment: GFR estimated reference range: According to KDOQI guidelines, <60 ml/min/1.73m2 is sufficient to diagnose a patient with chronic kidney disease. Performed By: #### A MM, PT, CMP, CBC #### [address] Estimated GFR (Non- Am > 60 Normal [facility] Comment on above: Performed By: #### A MM, PT, CMP, CBC #### [address] Globulin (S) [Mass/Vol] 2.8 g/dL Normal [facility] Comment on above: Performed By: #### A MM, PT, CMP, CBC #### [address] Glucose [Mass/Vol] 101 mg/dL High 70-100 [facility] Comment on above: Result Comment: [place] Glucose Reference Range is dependent on time and content of last meal. Glucose of more than 200 mg/dL in a nonstressed, ambulatory subject supports the diagnosis of Diabetes Mellitus. ADA recommended reference range Performed By: #### A MM, PT, CMP, CBC #### [address] Potassium [Moles/Vol] 4.2 mmol/L Normal 3.5-5.1 [facility] Comment on above: Performed By: #### A MM, PT, CMP, CBC #### [place] [address] [place] Protein [Mass/Vol] 6.9 g/dL Normal 6.1-7.9 [facility] Comment on above: Performed By: #### A MM, PT, CMP, CBC #### [address] Sodium [Moles/Vol] 136 mmol/L Normal 136-146 [facility] Comment on above: Performed By: #### A MM, PT, CMP, CBC #### [facility] [address] [place] [address] Urea nitrogen [Mass/Vol] 15 mg/dL Normal 9-23 [facility] Comment on above: Performed By: #### A MM, PT, CMP, CBC #### [facility] [address] [place] [address] [place] Prothrombin Time INRon 05-31 INR Coag (PPP) [Relative time] 1.0 {INR} Normal [facility] Comment on above: Result Comment: INR Therapeutic [...] heart valves: 3 - 4.5 PERFORMED BY: [place] [address] PATHOLOGIST ELEMENTARY ESL TEACHER MARCIA KNIGHT M.D. Performed By: #### A MM, PT, CMP, CBC #### [facility] [address] [place] [address] PT Coag (PPP) [Time] 10.8 s Normal 9.0-12.9 [facility] Comment on above: Performed By: #### A MM, PT, CMP, CBC #### [facility] [address] [place] [address] US liveron 05-31-2021 US liver [facility] [place] [address] Ultrasound Report Signed Patient: Efraín Lopez MR#: [id number] : [id number] Acct:[id number] Age/Sex: 65 / M ADM Date: 05/31/21 Loc: Room: [facility] Attending Dr: Sushil Sorto MD Ordering Provider: [...] Marilee Ramirez M.D.05/31/2021 2:24 PM Dictation Location: [place] [address] Tech: Sophie El Transcribed By: MARCUS 05/31/21 1424 Dictated By: Marilee Ramirez MD 05/31/21 1421 Signed By: 05/31/21 1424 [facility] Vital Signs Date Time Vital Sign Value Performing Clinician Facility 01-20-2025 13:06-0400 Body height 179.1 cm Pascale Navarro NP Work Phone: [facility] 01-20-2025 13:06-0400 Body mass index (BMI) [Ratio] 22.01 kg/m2 Pascale Navarro NP Work Phone: [facility] 01-20-2025 13:06-0400 Body weight 70.58 kg Pascale Navarro NP Work Phone: [facility] 01-20-2025 13:06-0400 Diastolic blood pressure 70 mm[Hg] Pascale Navarro NP Work Phone: [facility] 01-20-2025 13:06-0400 Heart rate 80 /min Pascale Navarro NP Work Phone: [facility] 01-20-2025 13:06-0400 Systolic blood pressure 142 mm[Hg] Pascale Navarro NP Work Phone: [facility] 01-05-2025 14:40-0400 Body height 182.9 cm Rogelio Viera MD Work Phone: [facility] 01-05-2025 14:40-0400 Body mass index (BMI) [Ratio] 20.89 kg/m2 Rogelio Viera MD Work Phone: [facility] 01-05-2025 14:40-0400 Body weight 69.85 kg Rogelio Viera MD Work Phone: [facility] 01-05-2025 14:40-0400 Diastolic blood pressure 78 mm[Hg] Rogelio Viera MD Work Phone: [facility] 01-05-2025 14:40-0400 Heart rate 48 /min Rogelio Viera MD Work Phone: [facility] 01-05-2025 14:40-0400 SaO2% (BldA) [Mass fraction] 97 % Rogelio Viera MD Work Phone: [facility] 01-05-2025 14:40-0400 Systolic blood pressure 130 mm[Hg] Rogelio Viera MD Work Phone: [facility] 07-22-2024 14:01-0500 Body mass index (BMI) [Ratio] 21.56 kg/m2 Carli Stewart CHIEF ANALYTICS OFFICER Work Phone: [facility] 07-22-2024 14:01-0500 Body weight 69.13 kg Carli Stewart CHIEF ANALYTICS OFFICER Work Phone: [facility] 07-22-2024 14:01-0500 Diastolic blood pressure 70 mm[Hg] Carli Stewart CHIEF ANALYTICS OFFICER Work Phone: [facility] 07-22-2024 14:01-0500 Heart rate 88 /min Carli Stewart CHIEF ANALYTICS OFFICER Work Phone: [facility] 07-22-2024 14:01-0500 Systolic blood pressure 124 mm[Hg] Carli Stewart CHIEF ANALYTICS OFFICER Work Phone: [facility] 07-02-2024 07:24-0500 Body height 182.9 cm Tee Dodson [employer] Work Phone: [facility] [email or web address] [facility] 07-02-2024 07:24-0500 Body mass index (BMI) [Ratio] 21.02 kg/m2 Tee West [employer] Work Phone: [facility] [email or web address] [facility] 07-02-2024 07:24-0500 Body weight 70.31 kg Tee Dodson [employer] Work Phone: [facility] [email or web address] [facility] 07-02-2024 07:24-0500 Diastolic blood pressure 60 mm[Hg] Tee Dodson [employer] Work Phone: [facility] [email or web address] [facility] 07-02-2024 07:24-0500 Heart rate 73 /min Tee Dodson [employer] Work Phone: [facility] [email or web address] [facility] 07-02-2024 07:24-0500 SaO2% (BldA) [Mass fraction] 99 % Tee Dodson [employer] Work Phone: [facility] [email or web address] [facility] 07-02-2024 07:24-0500 Systolic blood pressure 132 mm[Hg] Tee Dodson [employer] Work Phone: [facility] [email or web address] [facility] 06-26-2024 14:44-0500 Body height 182.9 cm Ashley Duran MD Work Phone: [facility] [email or web address] [facility] 06-26-2024 14:44-0500 Body mass index (BMI) [Ratio] 20.75 kg/m2 Ashley [facility] 06-26-2024 14:44-0500 Body weight 69.4 kg Ashley Duran MD Work Phone: [facility] [email or web address] [facility] 06-26-2024 14:44-0500 Diastolic blood pressure 76 mm[Hg] Ashley Duran MD Work Phone: [facility] [employer] 06-26-2024 14:44-0500 Heart rate 90 /min Ashley Duran MD Work Phone: [facility] 06-26-2024 14:44-0500 SaO2% (BldA) [Mass fraction] 99 % Ashley Duran MD Work Phone: [facility] 06-26-2024 14:44-0500 Systolic blood pressure 126 mm[Hg] Ashley Duran MD Work Phone: [facility] 06-17-2024 08:54-0500 Heart rate 104 /min Pascale Navarro CHIEF ANALYTICS OFFICER Work Phone: [facility] Comment on above: has not taken metoprolol yet this mello davies 06-17-2024 08:54-0500 SaO2% (BldA) [Mass fraction] 96 % Pascale Navarro NP Work Phone: [facility] Comment on above: on room air 06-17-2024 08:34-0500 Body mass index (BMI) [Ratio] 21.22 kg/m2 Pascale Navarro NP Work Phone: [facility] 06-17-2024 08:34-0500 Body weight 68.04 kg Pascale Navarro CHIEF ANALYTICS OFFICER Work Phone: [facility] 06-17-2024 08:34-0500 Diastolic blood pressure 70 mm[Hg] Pascale Navarro CHIEF ANALYTICS OFFICER Work Phone: [facility] 06-17-2024 08:34-0500 Systolic blood pressure 136 mm[Hg] Pascale Navarro CHIEF ANALYTICS OFFICER Work Phone: [facility] 05-26-2024 11:45-0500 Body height 182.9 cm Shakir Smith MD Work Phone: [facility] 05-26-2024 11:45-0500 Body mass index (BMI) [Ratio] 20.86 kg/m2 Shakir Smith MD Work Phone: [facility] 05-26-2024 11:45-0500 Body weight 69.76 kg Shakir Smith MD Work Phone: [facility] [email or web address] [facility] 05-26-2024 11:45-0500 Diastolic blood pressure 78 mm[Hg] Shakir Smith MD Work Phone: [facility] 05-26-2024 11:45-0500 Heart rate 80 /min Shakir Smith MD Work Phone: [facility] 05-26-2024 11:45-0500 SaO2% (BldA) [Mass fraction] 100 % Shakir Smith MD Work Phone: [facility] 05-26-2024 11:45-0500 Systolic blood pressure 142 mm[Hg] Shakir Smith MD Work Phone: [facility] 05-02-2024 14:03-0500 Body mass index (BMI) [Ratio] 20.07 kg/m2 Desiree Nieves MD Work Phone: [facility] 05-02-2024 14:03-0500 Body weight 67.13 kg Desiree Nieves MD Work Phone: [facility] 05-02-2024 14:03-0500 Diastolic blood pressure 70 mm[Hg] Desiree Nieves MD Work Phone: [facility] 05-02-2024 14:03-0500 Heart rate 80 /min Desiree Nieves MD Work Phone: [facility] 05-02-2024 14:03-0500 Systolic blood pressure 120 mm[Hg] Desiree Nieves MD Work Phone: [facility] 04-15-2024 14:35-0400 Body height 182.9 cm Luanne Gordon MD Work Phone: [facility] [email or web address] [facility] 04-15-2024 14:35-0400 Body mass index (BMI) [Ratio] 20.07 kg/m2 Luanne Gordon MD Work Phone: [facility] [email or web address] [facility] 04-15-2024 14:35-0400 Body weight 67.13 kg Luanne Gordon MD Work Phone: [facility] 04-15-2024 14:35-0400 Diastolic blood pressure 74 mm[Hg] Luanne Gordon MD Work Phone: [facility] 04-15-2024 14:35-0400 Heart rate 102 /min Luanne Gordon MD Work Phone: [facility] 04-15-2024 14:35-0400 Systolic blood pressure 120 mm[Hg] Luanne Gordon MD Work Phone: [facility] 04-14-2024 13:05-0400 Body mass index (BMI) [Ratio] 20.99 kg/m2 Carli Terry CHIEF ANALYTICS OFFICER Work Phone: [facility] 04-14-2024 13:05-0400 Body weight 67.31 kg Carli Terry CHIEF ANALYTICS OFFICER Work Phone: [facility] 04-14-2024 13:05-0400 Diastolic blood pressure 54 mm[Hg] Carli Terry CHIEF ANALYTICS OFFICER Work Phone: [facility] 04-14-2024 13:05-0400 Heart rate 80 /min Carli Terry CHIEF ANALYTICS OFFICER Work Phone: [facility] 04-14-2024 13:05-0400 Systolic blood pressure 110 mm[Hg] Carli Terry CHIEF ANALYTICS OFFICER Work Phone: [facility] 03-24-2024 13:39-0400 Body mass index (BMI) [Ratio] 20.74 kg/m2 Carli Terry CHIEF ANALYTICS OFFICER Work Phone: [facility] 03-24-2024 13:39-0400 Body weight 66.5 kg Carli Terry CHIEF ANALYTICS OFFICER Work Phone: [facility] 03-24-2024 13:39-0400 Diastolic blood pressure 58 mm[Hg] Carli Terry CHIEF ANALYTICS OFFICER Work Phone: [facility] 03-24-2024 13:39-0400 Heart rate 84 /min Carli Terry CHIEF ANALYTICS OFFICER Work Phone: [facility] 03-24-2024 13:39-0400 SaO2% (BldA) [Mass fraction] 99 % Carli Stewart CHIEF ANALYTICS OFFICER Work Phone: [facility] Comment on above: room air, resting 03-24-2024 13:39-0400 Systolic blood pressure 106 mm[Hg] Carli Stewart CHIEF ANALYTICS OFFICER Work Phone: [facility] 02-11-2024 14:41-0400 Body mass index (BMI) [Ratio] 21.44 kg/m2 Angeles Pump CHIEF ANALYTICS OFFICER Work Phone: [facility] 02-11-2024 14:41-0400 Body weight 68.77 kg Angeles Pump CHIEF ANALYTICS OFFICER Work Phone: [facility] 02-11-2024 14:41-0400 Diastolic blood pressure 54 mm[Hg] Angeles Pump CHIEF ANALYTICS OFFICER Work Phone: [facility] 02-11-2024 14:41-0400 Heart rate 80 /min Angeles Pump CHIEF ANALYTICS OFFICER Work Phone: [facility] Comment on above: pulse irreg 02-11-2024 14:41-0400 Systolic blood pressure 104 mm[Hg] Angeles Pump CHIEF ANALYTICS OFFICER Work Phone: [facility] 12-28-2021 12:00-0400 Body height 182.88 cm Sushil Sorto Other [facility] Other 12-28-2021 12:00-0400 Body mass index (BMI) [Ratio] 20.34 kg/m2 Sushil Sorto Other [facility] Other 12-28-2021 12:00-0400 Body weight 68.04 kg Sushil Sorto Other [facility] Other 12-28-2021 12:00-0400 Diastolic blood pressure 71 mm[Hg] Sushil Sorto Other [facility] Other 12-28-2021 12:00-0400 Systolic blood pressure 133 mm[Hg] Sushil Sorto Other [facility] Other 09-27-2021 16:00-0400 Body height 182.88 cm Sushil Sorto Other [facility] Other 09-27-2021 16:00-0400 Body mass index (BMI) [Ratio] 20.34 kg/m2 Sushil Sorto Other [facility] Other 09-27-2021 16:00-0400 Body weight 68.04 kg Sushil Sorto Other [facility] Other 09-27-2021 16:00-0400 Diastolic blood pressure 91 mm[Hg] Sushil Sorto Other [facility] Other 09-27-2021 16:00-0400 Respiratory rate 18 /min Sushil Sorto Other [facility] Other 09-27-2021 16:00-0400 SaO2% (BldA) [Mass fraction] 96 % Sushil Sorto Other [facility] Other 09-27-2021 16:00-0400 Systolic blood pressure 158 mm[Hg] Sushil Sorto Other [facility] Other 05-16-2021 10:30-0500 Body weight 69.4 kg Sushil Sorto Other [facility] Other Encounters Encounter Date Encounter Type Care Provider Facility Start: 02-18-2025 End: 02-19-2025 Follow-up encounter Leti Salazar RN [facility] Comment on above: Wireless Telemetry ( In Office) Start: 02-17-2025 End: 02-17-2025 ambulatory PASCALE NAVARRO Not Available Start: 02-13-2025 End: 02-13-2025 Emergency department patient visit SHONA ELLIOTT [facility] Start: 01-20-2025 End: 01-20-2025 Bamboo flowsheet Pascale Navarro CHIEF ANALYTICS OFFICER Work Phone: [facility] Start: 01-20-2025 End: 01-20-2025 Bamboo flowsheet Pascale Navarro CHIEF ANALYTICS OFFICER Work Phone: [facility] Start: 01-20-2025 End: 01-20-2025 ambulatory PASCALE NAVARRO Not Available Start: 01-20-2025 End: 01-20-2025 Patient encounter procedure Pascale Navarro CHIEF ANALYTICS OFFICER Work Phone: [facility] Comment on above: Encounter for Medica re annual wellness exam (Primary Dx); Pulmonary nodule, [...] adenoma; Mixed hyperlipidemia ; Hyperglycemia; Cigarette smoker Start: 01-16-2025 End: 01-19-2025 Telephone encounter Pat King RN [facility] Start: 01-06-2025 ambulatory ROGELIO VIERA [facility] Start: 01-05-2025 End: 01-05-2025 Office outpatient visit 25 minutes Rogelio Viera MD Work Phone: [facility] Comment on above: Typical atrial flutt er (CMS-HCC) (Primary Dx) Start: 01-05-2025 End: 01-05-2025 ambulatory ROGELIO VIERA [facility] Start: 01-02-2025 End: 01-02-2025 Telephone encounter Esther Whitt STRATEGIC PLANNING SPECIALIST [facility] Start: 09-08-2024 End: 09-08-2024 Telephone encounter Torrie Yu RN [facility] Comment on above: Return to work Start: 09-04-2024 End: 09-04-2024 [facility] Start: 08-28-2024 End: 08-28-2024 Telephone encounter Mary Nunez LPN [facility] Comment on above: PRE OP REMINDER CALL Start: 08-28-2024 End: 08-28-2024 [facility] Start: 08-08-2024 End: 08-08-2024 Telephone encounter Roxy Rodriguez STRATEGIC PLANNING SPECIALIST [facility] Comment on above: EP surgery (PT Educa tion) Start: 08-04-2024 End: 08-05-2024 Telephone encounter Bertha Fields RN [facility] Start: 07-22-2024 End: 07-22-2024 Bamboo Ask Ziggyheet Carli Stewart CHIEF ANALYTICS OFFICER Work Phone: [facility] Start: 07-22-2024 End: 07-22-2024 Bamboo flowsheet Carli Stewart CHIEF ANALYTICS OFFICER Work Phone: [facility] Start: 07-22-2024 End: 07-22-2024 Office outpatient visit [...] cyst; Pulmonary nodule, right; Hiatal hernia Start: 07-22-2024 End: 07-22-2024 ambulatory CARLI STEWART Not Available Start: 07-02-2024 End: 07-02-2024 Office outpatient visit 25 minutes Tee Dodson [employer] Work Phone: [facility] Comment on above: Typical atrial flutt er (CMS-HCC) (Primary Dx); RBBB (right bundle branch block); Stage 3a chronic kidney disease (CMS-HCC); Mixed hyperlipidemia Start: 07-02-2024 End: 07-02-2024 ambulatory TEE DODSON [facility] Start: 07-01-2024 End: 07-01-2024 Telephone encounter Natalie Rangel [facility] Start: 06-26-2024 End: 06-26-2024 Office outpatient visit 15 minutes Ashley Duran MD Work Phone: [facility] Comment on above: Typical atrial flutt er (CMS-HCC) (Primary Dx); Primary hypertension; Mixed hyperlipidemia Start: 06-26-2024 End: 06-26-2024 ambulatory ASHLEY DURAN [facility] Start: 06-24-2024 End: 06-24-2024 Telephone encounter Betty Rodriguez [facility] Start: 06-17-2024 End: 06-17-2024 Bamboo flowsheet Pascale Navarro NP Work Phone: [facility] Start: 06-17-2024 End: 06-17-2024 Bamboo flowsheet Pascale Navarro NP Work Phone: [facility] Start: 06-17-2024 End: 06-17-2024 Office outpatient visit 25 minutes Pascale Navarro NP Work Phone: [facility] Comment on above: Other chest pain (Pr imary Dx); Primary hypertension (CMS/HCC); Coronary artery calcification (CMS/HCC); Atrial flutter, unspecified type (CMS/HCC); Cigarette smoker; Mixed hyperlipidemia (CMS/HCC) Start: 06-17-2024 End: 06-17-2024 ambulatory PASCALE Drake NAVARRO Not Available Start: 06-15-2024 End: 06-15-2024 Emergency department patient visit SHONA ELLIOTT [facility] Start: 06-02-2024 End: 07-11-2024 Telephone encounter Mandeep Carmona CMA [facility] Start: 05-29-2024 End: 05-29-2024 [facility] Start: 05-26-2024 End: 05-26-2024 Office outpatient visit 25 minutes Shakir Smith MD Work Phone: [facility] Comment on above: Typical atrial flutt er ([facility]-HCC) (Primary Dx); Coronary artery calcification; RBBB (right bundle branch block) Start: 05-26-2024 End: 05-26-2024 ambulatory SHAKIR [facility] Start: 05-21-2024 End: 05-21-2024 ambulatory [facility] Start: 05-21-2024 End: 05-21-2024 ambulatory [facility] Start: 05-19-2024 End: 05-19-2024 Refill Huyen Helms RN [facility] Comment on above: Med Refill Start: 05-15-2024 End: 05-15-2024 ambulatory [facility] Start: 05-02-2024 End: 05-02-2024 Office outpatient visit 15 minutes Farrukh Phelan MD Work Phone: [facility] Comment on above: Bilateral carotid ar sonali stenosis (Primary Dx); Atrial flutter, unspecified type ([facility]-HCC) Start: 05-02-2024 End: 05-02-2024 ambulatory [facility] Start: 04-30-2024 End: 04-30-2024 Telephone encounter Natalie Rangel CMA [facility] Start: 04-23-2024 End: 04-23-2024 Chart abstracting Arnoldo Sorenson MD Work Phone: [facility] Start: 04-23-2024 End: 04-23-2024 Telephone encounter Carli Stewart CHIEF ANALYTICS OFFICER Work Phone: [facility] Start: 04-22-2024 End: 04-22-2024 ambulatory SHONA ELLIOTT [facility] Start: 04-15-2024 End: 04-15-2024 Office outpatient visit 25 minutes Luanne Gordon MD Work Phone: [facility] Comment on above: Elevated PSA (Primar y Dx); Urinary retention Start: 04-14-2024 End: 04-14-2024 Bamboo flowsheet Carli Stewart CHIEF ANALYTICS OFFICER Work Phone: [facility] Start: 04-14-2024 End: 04-14-2024 Bamboo flowsheet Carli Stewart CHIEF ANALYTICS OFFICER Work Phone: [facility] Start: 04-14-2024 End: 04-14-2024 Office outpatient visit 25 minutes Carli Stewart CHIEF ANALYTICS OFFICER Work Phone: [facility] Comment on [...] Tubular adenoma Start: 04-14-2024 End: 04-14-2024 ambulatory CARLI STEWART Not Available Start: 04-12-2024 End: 04-12-2024 ambulatory SERA MANZO [facility] Start: 04-11-2024 End: 04-11-2024 Telephone encounter Rhiannon Mansfield LPN [facility] Start: 03-31-2024 End: 03-31-2024 Telephone encounter Shona Elliott MD Work Phone: [facility] Start: 03-24-2024 End: 03-24-2024 Office outpatient visit 40 minutes Carli Stewart CHIEF ANALYTICS OFFICER Work Phone: [facility] Comment on [...] Not Available Start: 03-22-2024 End: 03-23-2024 ambulatory [facility] Start: 03-21-2024 End: 03-21-2024 Emergency department patient visit [facility] Start: 02-20-2024 End: 02-20-2024 Refill Felisha Keller DO Work Phone: [facility] Comment on above: Mixed hyperlipidemia (CMS/HCC); Primary hypertension (CMS/HCC) Start: 02-18-2024 End: 02-18-2024 Orders Only Angeles Pump CHIEF ANALYTICS OFFICER Work Phone: [facility] Comment on above: Iron deficiency anem ia secondary to inadequate dietary iron intake (Primary Dx) Start: 02-11-2024 End: 02-11-2024 Office outpatient visit 25 minutes Angeles Pump CHIEF ANALYTICS OFFICER Work Phone: [facility] Comment on above: Weight loss (Primary Dx); Abnormal complete blood count; Elevated PSA; Hematuria, unspecified type Start: 09-26-2023 Refill [facility]era SHEARER [facility] Start: 07-09-2023 End: 07-10-2023 ambulatory Mary Jane Gonzales MD Facility:[facility] Start: 05-28-2023 End: 05-29-2023 ambulatory Mary Jane Gonzales MD Facility:[facility] Start: 04-09-2023 End: 04-10-2023 ambulatory Mary Jane Gonzales MD Facility:[facility] Start: 11-10-2022 ambulatory ANDRIUS GIEDRAITIS Faci lity:[facility] Start: 07-27-2022 End: 07-28-2022 ambulatory JESÚS DICKERSONOLIVIA Facility:[facility] Start: 06-27-2022 End: 06-27-2022 ambulatory JESÚS SIMON Facility:[facility] Start: 05-25-2022 End: 05-26-2022 ambulatory CYRIL EDWARDS . Facility:[facility] Start: 02-23-2022 End: 02-24-2022 ambulatory CYRIL EDWARDS . Facility:[facility] Start: 12-28-2021 End: 12-28-2021 ambulatory Sushil Sorto Other [facility] Other Start: 12-28-2021 Office outpatient vi sit 15 minutes Sushil Sorto [facility] Start: 11-15-2021 End: 11-16-2021 ambulatory CYRIL EDWARDS . Facility: Start: 09-27-2021 End: 09-27-2021 ambulatory Sushil Sorto Other [facility] Other Start: 09-27-2021 Office outpatient vi sit 15 minutes Sushil Sorto [facility] Start: 05-16-2021 End: 05-16-2021 ambulatory Sushil Sorto Other [facility] Other Start: 05-16-2021 Office outpatient ne w 45 minutes Sushil Sorto [facility] Procedures Date Procedure Procedure Detail Performing Clinician Start: 01-05-2025 Ecg routine ecg w/le ast 12 lds w/i&r Rogelio Viera MD Work Phone: Start: 01-05-2025 Follow-up visit Follow-up ROGELIO VIERA Start: 07-22-2024 Hemoglobin glycosyla afshan a1c Carli Stewart CHIEF ANALYTICS OFFICER Work Phone: Start: 07-02-2024 Ecg routine ecg w/le ast 12 lds w/i&r Tee Dodson [employer] Work Phone: Start: 06-26-2024 Ecg routine ecg w/le ast 12 lds w/i&r Ashley Duran MD Work Phone: Start: 05-26-2024 Follow-up visit Follow-up SHAKIR Rose SMITH Start: 02-11-2024 Urnls dip stick/tabl et rgnt non-auto w/o micrscp Angeles Pump CHIEF ANALYTICS OFFICER Work Phone: Start: 03-10-2023 Adult depression scr eening assessment Sera SHEARER Work Phone: Start: 06-02-2021 Colonoscopy Carli Stewart CHIEF ANALYTICS OFFICER Work Phone: Start: 05-31-2017 Colonoscopy Angeles Pump CHIEF ANALYTICS OFFICER Work Phone: Plan of Treatment Date Care Activity Detail Author Start: 06-02-2031 Screening for malignant neoplasm of colon [facility] Start: 05-31-2027 Screening for malignant neoplasm of colon [facility] Start: 02-13-2026 Adult BMI Screening Adult BMI Screening [facility] Start: 02-13-2026 Tobacco Screening Tobacco Screening [facility] Start: 01-05-2026 Adult BMI Screening Adult BMI Screening [facility] Start: 01-05-2026 Tobacco Screening Tobacco Screening [facility] Start: 09-04-2025 Adult BMI Screening Adult BMI Screening [facility] Start: 07-23-2025 End: 07-23-2025 Patient encounter procedure 07/23/2025 1:00 PM EST Office Visit [facility] [address] [place] [address] Pascale Navarro NP [address] [place] [address] [facility] Start: 07-02-2025 Adult BMI Screening Adult BMI [...] Office Visit [facility] [address] [place] [address] [place] [phone] Luanne Gordon MD [address] [place] [address] [facility] Start: 03-22-2025 Adult BMI Screening Adult BMI Screening [facility] Start: 03-22-2025 Tobacco Screening Tobacco Screening [facility] Start: 02-23-2025 Influenza [facility] Start: 02-14-2025 Screening for malignant neoplasm of colon [facility] Start: 01-30-2025 End: 01-30-2025 Professional / ancillary services management 01/30/2025 1:30 PM EDT Ancillary Procedure [facility] [address] [place] [phone] [facility] Start: 01-20-2025 End: 01-20-2026 Comprehensive metabolic 2000 panel - Serum or Plasma Comprehensive metabolic panel Lab Routine Primary hypertension Coronary artery calcification Encounter for Medicare annual wellness exam Expected: 01/20/2025 (Approximate), Expires: 01/20/2026 [facility] Comment on above: Expected: 01/20/2025 (Approximate), Expi res: 01/20/2026 Start: 01-20-2025 End: 01-20-2026 CT Chest for screening WO contrast CT lung screening low dose Imaging Routine Pulmonary nodule, right Cigarette smoker Encounter for Medicare annual wellness exam Expected: 01/20/2025, Expires: 01/20/2026 [facility] Comment on above: Expected: 01/20/2025, Expires: Start: 01-20-2025 End: 01-20-2026 Hemoglobin A1c/Hemoglobin.total in Blood Hemoglobin A1c Lab Routine Prediabetes Hyperglycemia Encounter for Medicare annual wellness exam Expected: 01/20/2025 (Approximate), Expires: 01/20/2026 [facility] Comment on above: Expected: 01/20/2025 (Approximate), Expi res: 01/20/2026 Start: 01-20-2025 End: 01-20-2026 Lipid 1996 panel - Serum or Plasma Lipid panel Lab Routine Coronary artery calcification Mixed hyperlipidemia Encounter for Medicare annual wellness exam Expected: 01/20/2025 (Approximate), Expires: 01/20/2026 [facility] Work Phone: Comment on above: Expected: 01/20/2025 (Approximate), Expi res: 01/20/2026 Start: 01-20-2025 End: 01-20-2025 Patient encounter procedure 01/20/2025 1:00 PM EDT Office Visit [facility] [address] [place] [phone] Pascale Navarro NP [address] [place] [address] [facility] Start: 01-09-2025 Medicare Annual Wellness (AWV) Medicare Annual Wellness (AWV) [facility] Start: 01-05-2025 End: 01-05-2025 Patient encounter procedure 01/05/2025 2:45 PM EDT Office Visit [facility] [address] [place] [address] Rogelio Viera MD [address] [place] [address] [facility] Start: 01-05-2025 End: 01-05-2026 Wireless Telemetry (In Office) Wireless Telemetry (In Office) Cardiac Services Routine Typical atrial flutter ([facility]-HCC) Expected: 01/05/2025, Expires: 01/05/2026 [facility] Work Phone: Comment on above: Expected: 01/05/2025, Expires: Start: 09-04-2024 End: 09-04-2024 Admission to same day surgery center 09/04/2024 3:30 PM EDT - 09/04/2024 5:30 PM EDT Surgery [facility] [place] [address] [place] [phone] Rogelio Viera MD [address] [place] [address] Typical - CARTO, ICE [27166 (CPT )] [facility] [place] Comment on above: Typical - CARTO, ICE [42390 (CPT )] Start: 09-04-2024 Subsequent hospital visit by physician 09/04/2024 3:30 PM EDT Hospital Encounter [facility] [place] [address] [place] [address] Rogelio Viera MD [address] [place] [address] Typical atrial flutter ([facility]-HCC) [facility] [place] Comment on above: Typical atrial flutter (CMS-HCC) Start: 08-12-2024 Influenza vaccination Influenza Vaccine (#1) [facility] Comment on above: Postponed from 02/24/2024 (Patient Refus ed) Start: 07-22-2024 End: 07-22-2024 Patient encounter procedure 07/22/2024 2:00 PM EST Office Visit [facility] [address] [place] [phone] Carli Stewart NP [address] [place] [address] Atrial flutter, unspecified type (CMS/HCC) (Primary Dx); Coronary artery calcification (CMS/HCC); Stage 3a chronic kidney disease (HCC) (CMS/HCC); Primary hypertension (CMS/HCC); Mixed hyperlipidemia (CMS/HCC); RBBB (right bundle branch block); Prediabetes; Bilateral carotid artery stenosis; Degeneration of intervertebral disc of thoracolumbar region; Degeneration of intervertebral disc of lumbar region with discogenic back pain; Hyperglycemia; Tubular adenoma; Stress at home; Cigarette smoker; Abnormal complete blood count; Sigmoid diverticulosis; Other male erectile dysfunction; Renal cyst; Pulmonary nodule, right; Hiatal hernia [facility] Comment on above: Atrial flutter, unspecified type (CMS/HC C) (Primary Dx); Coronary artery calcification (CMS/HCC); Stage 3a chronic kidney disease (HCC) (CMS/HCC); Primary hypertension (CMS/HCC); Mixed hyperlipidemia (CMS/HCC); RBBB (right bundle branch block); Prediabetes; Bilateral carotid artery stenosis; Degeneration of intervertebral disc of thoracolumbar region; Degeneration of intervertebral disc of lumbar region with discogenic back pain; Hyperglycemia; Tubular adenoma; Stress at home; Cigarette smoker; Abnormal complete blood count; Sigmoid diverticulosis; Other male erectile dysfunction; Renal cyst; Pulmonary nodule, right; Hiatal hernia Start: 07-15-2024 End: 07-15-2024 Patient encounter procedure 07/15/2024 1:00 PM EST Office Visit [facility] [address] [place] [address] Carli Stewart NP [address] [place] [address] [facility] Start: 07-02-2024 End: 07-02-2024 Patient encounter procedure 07/02/2024 7:30 AM EST Office Visit [facility] [address] [place] [phone] Tee Dodson, [employer] [address] [place] [address] [facility] Start: 06-26-2024 End: 06-26-2024 Patient encounter procedure 06/26/2024 2:30 PM EST Office Visit [facility] [address] [place] [phone] Ashley Duran MD [address] [place] [address] [facility] Start: 06-17-2024 End: 06-17-2024 Patient encounter procedure 06/17/2024 8:30 AM EST Office Visit [facility] [address] [place] [phone] Pascale Navarro NP [address] [place] [address] Arrived [facility] Comment on above: Arrived Start: 06-10-2024 End: 06-10-2024 Patient encounter procedure 06/10/2024 1:45 PM EST Office Visit [facility] [address] [place] [address] [place] [phone] Luanne Gordon MD [address] [place] [address] [facility] Start: 05-21-2024 End: 05-21-2024 Patient encounter procedure [facility] Start: 05-16-2024 End: 04-15-2025 Prostatic specific antigen, diagnostic Prostatic specific antigen, diagnostic Lab Routine Elevated PSA Expected: 05/16/2024 (Approximate), Expires: 04/15/2025 [facility] Work Phone: Comment on above: Expected: 05/16/2024 (Approximate), Expi res: 04/15/2025 Start: 05-02-2024 End: 05-02-2025 NM Heart Perfusion W stress and W radionuclide IV Nuc stress Lexiscan Cardiac Services Routine Atrial flutter, unspecified type ([facility]-HCC) Bilateral carotid artery stenosis Expected: 05/02/2024, Expires: 05/02/2025 [facility] Work Phone: Comment on above: Expected: 05/02/2024, Expires: Start: 05-01-2024 End: 05-01-2024 Patient encounter procedure 05/01/2024 9:45 AM EST Office Visit [facility] [address] [place] [address] Farrukh Phelan MD [address] [place] [address] Arnoldo Sorenson MD [address] [place], [place] [phone] [facility] Start: 04-22-2024 End: 04-22-2024 Patient encounter procedure 04/22/2024 8:30 AM EDT Appointment [facility] [address] [place] [phone] Rob Saavedra, [employer] [address] [place] [address] [facility] Start: 04-18-2024 Adult BMI Screening Adult BMI Screening [facility] Start: 04-18-2024 Tobacco Screening Tobacco Screening [facility] Start: 04-15-2024 End: 04-15-2024 Patient encounter procedure 04/15/2024 2:45 PM EDT Office Visit [facility] [address] [place] [address] [place] [address] Luanne Gordon MD [address] [place] [address] [facility] Start: 04-14-2024 End: 04-14-2025 US Kidney US renal complete Imaging Routine Abnormal finding on diagnostic imaging of right kidney Expected: 04/14/2024, Expires: 04/14/2025 [facility] Work Phone: Comment on above: Expected: 04/14/2024, [...] iron intake Expected: 03/20/2024 (Approximate), Expires: 02/17/2025 [facility] Work Phone: Comment on above: Expected: 03/20/2024 (Approximate), Expi res: 02/17/2025 Start: 03-10-2024 Depression Screening Depression Screening [facility] Start: 02-24-2024 COVID-19 Vaccine () COVID-19 Vaccine () [facility] Start: 02-24-2024 COVID-19 Vaccine () COVID-19 Vaccine () [facility] Start: 02-24-2024 Influenza vaccination [facility] Start: 02-11-2024 End: 02-10-2025 Bacteria identified in Urine by Culture Urine culture (clean catch) Microbiology Routine Hematuria, unspecified type Expected: 02/11/2024 (Approximate), Expires: 02/10/2025 [facility] Comment on above: Expected: 02/11/2024 (Approximate), Expi res: 02/10/2025 Start: 02-11-2024 End: 02-10-2025 CBC W Auto Differential panel - Blood CBC and differential Lab Routine Weight loss Abnormal complete blood count Expected: 02/11/2024 (Approximate), Expires: 02/10/2025 [facility] Work Phone: Comment on above: Expected: 02/11/2024 (Approximate), Expi res: 02/10/2025 Start: 02-11-2024 End: 02-10-2025 Prostate specific Ag [Mass/volume] in Serum or Plasma PSA Lab Routine Elevated PSA Expected: 02/11/2024 (Approximate), Expires: 02/10/2025 [facility] Comment on above: Expected: 02/11/2024 (Approximate), Expi res: 02/10/2025 Start: 04-22-2023 Administration of varicella zoster vaccine Zoster (Shingles) Vaccine (2 of 2) [facility] Start: 02-23-2023 COVID-19 Vaccine ( season) COVID-19 Vaccine ( season) [facility] Start: 2021 Abdominal aortic aneurysm screening Abdominal Aortic Aneurysm (AAA) Screen [facility] Start: 2021 Fall Risk Screening Fall Risk Screening [facility] Start: 12-15-1975 DTaP,Tdap and Td Vaccines (1 - Tdap) DTaP,Tdap and Td Vaccines (1 - Tdap) [facility] Start: 1956 Medicare Annual Wellness Visit Medicare Annual Wellness Visit [facility] Start: 1955 Screening for malignant neoplasm of colon [facility] Start: 1956 Statin Use: Cardiovascular Statin Use: Cardiovascular [facility] Start: 1956 Tobacco Counseling Tobacco Counseling [facility] tem End: 05-02-2025 Thyroid profile includes TSH FT4 Thyroid profile includes TSH FT4 Lab Routine Atrial flutter, unspecified type ([facility]) Bilateral carotid artery stenosis 1 Occurrences starting 05/02/2024 until 05/02/2025 [facility] Comment on above: 1 Occurrences starting 05/02/2024 until 05/02/2025 Immunizations Immunization Date Immunization Notes Care Provider Emre marte 01-10-2024 Pneumococcal Conjuga te PCV 20 [employer] Work Phone: [facility] 02-25-2023 Influenza, Seasonal, Quadrivalent, Adjuvanted [employer]IC[employer] Work Phone: [facility] 02-25-2023 zoster vaccine recombinant [employer]ICER Work Phone: [facility] 02-25-2023 influenza virus vaccine, unspecified formulation [employer] OFFICER Work Phone: [facility] 02-25-2023 zoster vaccine, unspecified formulation Sera Manzo PA Work Phone: [facility] 04-23-2022 Influenza, Seasonal, Quadrivalent, Adjuvanted [employer] OFFICER Work Phone: [facility] 04-28-2021 influenza, injectabl e, quadrivalent, preservative free [employer] OFFICER Work Phone: [facility] 10-12-2020 Pfizer Purple Cap SARS-CoV-2 Vaccination [employer] OFFICER Work Phone: [facility] 09-20-2020 Pfizer Purple Cap SARS-CoV-2 Vaccination [employer] OFFICER Work Phone: [facility] 05-05-2020 influenza, injectabl e, quadrivalent, preservative free [employer] OFFICER Work Phone: [facility] Payers Date Payer Category Payer Unknown [id number] 2021 Medicare 2021 Medicare (Managed Care) 1.2. [id number] 2021 Medicare HMO [id number] 2021 Unknown [id number]. [id number] 2020 Unknown [id number] 2.16.840 .1.952374.19 2020 Unknown [id number] 1959 Blue Cross Blue Shield [id number] 2.16.840.1.785726.19 1956 Unknown [id number] 2.16.84 0.1.437371.3.579.2.593 1956 Unknown [id number] 2.16.84 0.1.901332.3.579.2.593 1956 Unknown [id number] 2.16.84 0.1.259350.3.579.2.593 1956 Unknown [id number] 2.16.84 0.1.973884.3.579.2.593 1956 Unknown [id number] 2.16.84 0.1.615232.3.579.2.593 1956 Unknown [id number] 2.16.84 0.1.970437.3.579.2.593 1956 Unknown [id number] 2.16. 840.1.609418.3.579.2.196 1956 Unknown [id number] 2.16. 840.1.422477.3.579.2.196 1956 Unknown [id number] 2.16. 840.1.548366.3.579.2.196 1956 Unknown [id number] 2.16.8 40.1.019588.3.579.2.1286 1956 Unknown [id number] 2.16. 840.1.703969.3.579.2.1286 1956 Unknown [id number] 2.16. 840.1.702320.3.579.2.1285 1956 Unknown [id number] 2.16. 840.1.891106.3.579.2.1285 1956 Unknown [id number] 2.16.8 40.1.132605.3.579.2.1285 1956 Unknown [id number] 2.16. 840.1.183087.3.579.2.1285 1956 Unknown [id number] 2.16. 840.1.256330.3.579.2.1285 1956 Unknown [id number] 2.16. 840.1.373952.3.579.2.1285 1956 Unknown [id number] 2.16. 840.1.418885.3.579.2.1285 1956 Unknown [id number] 2.16.8 40.1.134071.3.579.2.1285 1956 Unknown [id number] 2.16.8 40.1.054787.3.579.2.1285 1956 Unknown [id number] 2.16.8 40.1.946832.3.579.2.1285 1956 Unknown [id number] 2.16.8 40.1.624994.3.579.2.1285 1956 Unknown [id number] 2.16.8 40.1.458687.3.579.2.1285 1956 Unknown [id number] 2.16.8 40.1.550277.3.579.2.1285 1956 Unknown [id number] 2.16.8 40.1.854810.3.579.2.1285 1956 Unknown [id number] 2.16.8 40.1.924887.3.579.2.1285 1956 Unknown [id number] 2.16.8 40.1.228804.3.579.2.1286 1956 Unknown [id number] 2.16.8 40.1.339490.3.579.2.1285 1956 Unknown [id number] 2.16.8 40.1.024811.3.579.2.6 1956 Unknown [id number] 2.16.8 40.1.165812.3.579.2.1285 1956 Unknown [id number] 2.16.8 40.1.960327.3.579.2.1259 1956 Unknown [id number] 2.16.8 40.1.242577.3.579.2.1258 1956 Unknown [id number] 2.16.84 0.1.288988.3.579.2.9 1956 Unknown [id number] 2.16.84 0.1.581889.3.579.2.1258 1956 Unknown [id number] 2.16.84 0.1.870669.3.579.2.1259 1956 Unknown [id number] 2.16.84 0.1.263708.3.579.2.1259 Social History Date Type Detail Facility Start: 12-27-2022 End: 03-10-2023 Sex Assigned At [facility] Start: 06-25-1979 End: 03-22-2024 Tobacco smoking status [facility] Smokes tobacco daily [facility] Start: 06-25-1974 History of tobacco use Cigarette Smoker [facility] Start: 03-10-2023 End: 11-21-2023 Cigarettes smoked current (pack per day) - Reported 1 [facility] History of tobacco use Passive smoker [facility] Start: 11-21-2023 End: 03-22-2024 Tobacco use and exposure Smokeless tobacco non-user [facility] Start: 03-24-2024 End: 02-13-2025 Alcoholic beverage intake Ex-drinker (finding) [facility] Within the last year , have you been afraid of your partner or ex-partner? No [facility] Are you now , , , , never or living with a partner? [facility] How often to you hav e a drink containing alcohol? Monthly or less [facility] How many standard dr inks containing alcohol do you have on a typical day? 1 or 2 [facility] How often do you hav e 6 or more drinks on 1 occasion? Never [facility] How hard is it for y ou to pay for the very basics like food, housing, medical care, and heating Not hard at all [facility] Do you feel stress - tense, restless, nervous, or anxious, or unable to sleep at night because your mind is troubled all the time - these days [OSQ] Not at all [facility] (I/We) worried wheth er (my/our) food would run out before (I/we) got money to buy more. Never true [facility] Start: 12-25-2022 Tobacco Comment Smokes 5 mins after waking up [facility] Start: 12-25-2022 Alcohol Comment caffeine: 1-2 cups per day [facility] Start: 1955 Sex assigned at Not on file [facility] Do you belong to any clubs or organizations such as jainism groups, unions, fraternal or athletic groups, or school groups? Yes [facility] How often to you hav e a drink containing alcohol? 4 or more times a week [facility] How many standard dr inks containing alcohol do you have on a typical day? 3 or 4 [facility] Start: 01-28-2015 Sex Male (finding) [facility] Medical Equipment Procedure Code Equipment Code Equipment Origin al Text Equipment Identifier Dates Mesh 1in Med Pp Srgpro Nabsb Knit Plg Srg Strl Clr Hrn Rpl [id number] - [id number] - [id number], [id number] FDA Start: 03-06-2023 Functional Status Date Assessment Result Facility 01-20-2025 Patient Health Quest ionnaire 2 item (PHQ-2) [Reported] [facility] Clinical Notes 05-16-2021 to 01-20-2025 Pascale Navarro NP - 01/20/2025 1:00 PM EDTTelephone Encounter - Pat King RN - 01/16/2025 9:17 AM EDTTelephone Encounter - Rogelio Viera MD - 01/16/2025 9:17 AM EDT Note Date & Type Note Facility 01-20-2025 History of Present illness Narrative Images from the original note were not included. Erich Lopez is a 69 y.o. male presents with chief complaint of Medicare Annual Wellness Visit Subsequent HPI: HPI History of Present Illness Over the past 2 weeks, how often have you been bothered by any of the following problems? Little interest or pleasure in doing things: Not at all Feeling down, depressed, or hopeless: Not at all Patient Health Questionnaire-2 Score: 0 Allen Fall Risk History of Falling, Immediate or Within 3 Months: No Ambulatory Aid: Walks without aid/bedrest/nurse assist Intravenous Therapy/Heparin Lock: No Gait/Transferring: Normal/bedrest/immobile Mental Status: Oriented to own ability Health Risk Assessment Form Do you need help eating, bathing, using the toilet, dressing, or getting around your home?: No Can you prepare your own meals?: Yes Can you do your own housework without help?: Yes Can you shop for groceries or clothes without help?: Yes Do you exercise for about 20 minutes 3 or more days a week?: No How confident are you that you can control and manage most of your health problems?: Very confident Can you mange your money, credit cards and accounts, pay bills and taxes?: Yes Cognitive Screening Three Word Registration: Leader, Season, Table Clock Drawing: Normal Clock - 2 Three Word Recall: 0 words correct - 0 Total Score (0-5 Points): 2 Pain Assessment Pain Score: 3 The patient is a 69-year-old male here for his Medicare wellness visit. He reports feeling well overall and has no recent illnesses, cough, or fever. He does not experience depression or anxiety. He does not have any memory issues. He has received the pneumonia vaccine and plans to get the RSV vaccine. His last colonoscopy was in 2020, with a repeat scheduled in 5 years. He is not fasting today. He has new glasses and dentures but reports no dental issues. He does not need any medication refills at this time. He does not experience changes in bowel movements, constipation, urinary issues, blood in urine, hernia-related issues, eating difficulties, or belching. He sleeps well at night. He does not experience difficulty swallowing or choking while eating. He has used Debrox drops for ear wax removal in the past. He monitors his blood pressure at home, which typically ranges from 160 to 170 systolic and 50 to 70 diastolic. He does not experience ankle swelling. He was previously on metoprolol 25 mg for blood pressure control. He experiences daily back pain, which is managed with tramadol and gabapentin prescribed by pain management. The severity of his back pain depends on his workload. He is under the care of a primary care nurse and underwent an ablation procedure in 08/2024. He is currently on Eliquis and has a heart monitor in place for 30 days. He occasionally experiences mild chest pain that resolves spontaneously. He will follow up with his primary care nurse after the 30-day monitoring period. He has lung nodules in his right upper and left upper lobes. He is under the care of Dr. Lagos, a urologist, who monitors his PSA levels. SUBJECTIVE: MEDICATIONS: Current Outpatient Medications Medication Instructions apixaban (ELIQUIS) 5 mg, 2 times daily atorvastatin (LIPITOR) 80 mg, Oral, Daily cholecalciferol (VITAMIN D-3) 2,000 Units, Daily gabapentin (Neurontin) 300 MG capsule TAKE 1 CAPSULE BY MOUTH EVERYDAY AT BEDTIME tamsulosin (Flomax) 0.4 MG 24 hr capsule TAKE 1 CAPSULE BY MOUTH NIGHTLY FOR 180 DAYS. traMADol (ULTRAM) 50 mg, 3 times daily PRN ALLERGIES: Allergies Allergen Reactions Penicillin G Unknown History: Past Medical History: Diagnosis Date Abnormal radiographic examination 12/27/2022 Acute kidney injury 03/10/2023 Adenomatous polyp Carpal tunnel syndrome of right wrist 12/27/2022 Cigarette smoker Colon polyps 2017 colon polyps Condyloma acuminata COPD (chronic obstructive pulmonary disease) ([facility] COVID-19 COVID-19 12/27/2022 degeneration of lumbar and thoracic , thoracolumbar intervertebral discs, with sciatica Diverticulosis Erectile dysfunction Gastric wall thickening Hemoglobin A1c above reference range History of alcoholism ([facility]) 1987 Hypertension Low back pain Mixed hyperlipidemia Postoperative abdominal pain 03/10/2023 Prediabetes Renal cyst, [...] INJECTION EPIDURAL STEROID series of 3 - [id number] Family History Problem Relation Name Age of [...] packs/day: 1.00 Average packs/day: 1 pack/day for 50.6 years (50.6 ttl pk-yrs) Types: Cigarettes Start date: 1973 [...] Resource Strain: Low Risk (03/10/2023) Received from [employer] [facility] Overall Financial Resource Strain (CARDIA) Difficulty of Paying Living Expenses: Not hard at all Food Insecurity: No Food Insecurity (07/02/2024) Received from [facility] Hunger Screening Within the past 12 months we worried whether our food would run out before we got money to buy more.: Never True Within the past 12 months the food we bought just didn't last and we didn't have money to get more.: Never True Transportation Needs: No Transportation Needs (03/22/2024) Received from [facility] PRAPARE - Transportation Lack of Transportation (Medical): No Lack of Transportation (Non-Medical): No Physical Activity: Sufficiently Active (03/10/2023) [facility] Exercise Vital Sign Days of Exercise per Week: 7 days Minutes of Exercise per Session: 30 min Stress: No Stress Concern Present (03/10/2023) Received from [facility] [place] [employer] Occupational Health - Occupational Stress Questionnaire Feeling of Stress : Not at all Social Connections: Moderately Integrated (03/10/2023) Received from [facility] Social Connection and Isolation Panel [NHANES] Frequency of Communication with Friends and Family: Twice a week Frequency of Social Gatherings with Friends and Family: Twice a week Attends Buddhist Services: Never Active Member of Clubs or Organizations: Yes Attends Club or Organization Meetings: Never Marital Status: Recent Concern: Social Connections - Moderately Isolated (12/27/2022) Social Connection and Isolation Panel [NHANES] Frequency of Communication with Friends and Family: More than three times a week Frequency of Social Gatherings with Friends and Family: More than three times a week Attends Buddhist Services: Never Active Member of Clubs or Organizations: No Attends Club or Organization Meetings: Never Marital Status: Intimate Partner Violence: Not At Risk (12/27/2022) Humiliation, Afraid, Rape, and Kick questionnaire Fear of Current or Ex-Partner: No Emotionally Abused: No Physically Abused: No Sexually Abused: No Housing Stability: Low Risk (03/22/2024) Received from [facility] Housing Instability Are you worried or concerned [...] change, rash and wound. Psychiatric/Behavioral: Negative. OBJECTIVE: Results 02/11/2024 2:41 PM 03/24/2024 1:39 PM 04/14/2024 1:05 PM 06/17/2024 8:34 AM 06/17/2024 8:54 AM 07/22/2024 2:01 PM 01/20/2025 1:06 PM Vitals BMI 21.44 kg/m2 20.74 kg/m2 20.99 kg/m2 21.22 kg/m2 21.56 kg/m2 22.01 kg/m2 BSA (m2) 1.85 m2 1.82 m2 1.83 m2 1.84 m2 1.85 m2 1.87 m2 Systolic 104 106 110 136 124 142 Diastolic 54 58 54 70 70 70 Heart Rate 80 84 80 84 104 88 80 SpO2 99 % 96 % Height (in) 5' 10.5 Weight (lb) 151.6 146.6 148.4 150 152.4 155.6 Visit Report Report Report Report Report Report Report Report Physical Exam Constitutional: General: He is not in acute distress. Appearance: Normal appearance. He is not ill-appearing, toxic-appearing or diaphoretic. HENT: Right Ear: Tympanic membrane, ear canal and external ear normal. Left Ear: Tympanic membrane, ear canal and external ear normal. Nose: Nose normal. No congestion or rhinorrhea. Mouth/Throat: Pharynx: Oropharynx is clear. No posterior oropharyngeal erythema. Eyes: Extraocular Movements: Extraocular movements intact. Conjunctiva/sclera: Conjunctivae normal. Pupils: Pupils are equal, round, and reactive to light. Neck: Vascular: Carotid bruit (right) present. Cardiovascular: Rate and Rhythm: Normal rate. Rhythm irregular. Heart sounds: No murmur heard. Pulmonary: Effort: No respiratory distress. Breath sounds: Normal breath sounds. No wheezing, rhonchi or rales. Abdominal: General: Bowel sounds are normal. There is no distension. Palpations: Abdomen is soft. Tenderness: There is no abdominal tenderness. Musculoskeletal: General: Normal range of motion. Cervical back: Normal range of motion and neck supple. No tenderness. Right lower leg: No edema. Left lower leg: No edema. Lymphadenopathy: Cervical: No cervical adenopathy. Skin: General: Skin is warm and dry. Coloration: Skin is not pale. Findings: No erythema or rash. Neurological: General: No focal deficit present. Mental Status: He is alert and oriented to person, place, and time. Motor: No weakness. Psychiatric: Mood and Affect: Mood normal. Behavior: Behavior normal. Thought Content: Thought content normal. Judgment: Judgment normal. Physical Exam ASSESSMENT AND PLAN: Assessment/Plan Diagnoses and all orders for this visit: Encounter for Medicare annual wellness exam - Lipid panel; Future - Comprehensive metabolic panel; Future - Hemoglobin A1c; Future - CT lung screening low dose; Future Pulmonary nodule, right - CT lung screening low dose; Future Hiatal hernia Right carotid bruit RBBB (right bundle branch block) Primary hypertension - Comprehensive metabolic panel; Future Other hemorrhoids Coronary artery calcification - Lipid panel; Future - Comprehensive metabolic panel; Future Bilateral carotid artery stenosis Atrial flutter, unspecified type ([facility]) Sigmoid diverticulosis Gastric wall thickening Stage 3a chronic kidney disease ([facility]) Elevated PSA Renal cyst Degeneration of intervertebral disc of thoracolumbar region Degeneration of intervertebral disc of lumbar region, unspecified whether pain present Prediabetes - Hemoglobin A1c; Future Tubular adenoma Mixed hyperlipidemia - Lipid panel; Future Hyperglycemia - Hemoglobin A1c; Future Cigarette smoker - CT lung screening low dose; Future Assessment & Plan 1. Medicare wellness visit. - His weight remains stable. He has received the pneumonia vaccine and plans to get the RSV vaccine. - His last colonoscopy was in 2020, with a repeat scheduled in 5 years. - A comprehensive metabolic panel and cholesterol panel will be ordered. He is advised to fast for 6 to 8 hours prior to the test, but may consume black coffee, water, tea, or take his medication. - A CT scan of the chest will be ordered to monitor the lung nodule. He is advised to use Debrox drops at home for ear wax removal. -Discussed height, weight and BMI. Encouraged healthy diet and regular exercise. Discussed vaccines and encouraged yearly flu shot. Reviewed preventative wellness plan with patient and discussed in detail. Scanned into chart. Updated patient problem list and reviewed all current medications with patient. Given time to ask questions. 2. Hypertension. - His blood pressure readings have been elevated, ranging from 160 to 170 systolic and 50 to 70 diastolic. Today's reading was 142/70. - He is at increased risk for stroke and heart attack due to his high blood pressure, cardiac history, and smoking habit. - He is advised to monitor his blood pressure at home for the next few weeks and maintain a log. The goal is to achieve a reading of less than 130/90. - Crystal will contact him next week to check on his progress. If there is no improvement, amlodipine will be initiated. 3. Back pain. - He experiences daily back pain but manages it with tramadol and gabapentin prescribed by pain management. - The pain varies depending on his activity level. - He reports that the medications help manage the pain. - No changes to the current pain management plan. 4. Atrial flutter. - He is currently wearing a heart monitor for 30 days to ensure everything is stable. - If the results are good, his primary care nurse may take him off Eliquis. - No episodes of palpitations or chest pain reported. - Follow-up with primary care nurse after the monitoring period. -Strongly encouraged to quit smoking. 5. Lung nodule. - A CT scan of the chest will be ordered to monitor the lung nodule in his right upper and left upper lobe. - Yearly CT screenings are recommended. - No changes in symptoms related to the lung nodule. - The patient agrees to the CT scan. -This patient has participated in a shared decision making session during which potential risks and benefits of CT Lung Screening were discussed. This patient was informed of the importance of adherence to annual screening, impact of comorbidities, and ability/willingness to undergo diagnosis and treatment. This patient was informed of the importance of smoking cessation and/or maintaining smoking abstinence. If applicable, this patient was offered information on smoking cessation counseling services. 6. Prostate cancer screening. - He follows up with Dr. Lagos, the urologist, for PSA checks. - No issues with urination or blood in urine reported. - No changes to the current follow-up plan with urology. - PSA monitoring will continue as scheduled. 7. Diverticulosis -Denies recent flare up, due for colonoscopy next year. 8. Right Carotid bruit - Seeing cardiology. 9. Prediabetes. -Encouraged eating a heart healthy diet to help reduce total cholesterol and LDLc, lower blood sugars and triglycerides, and lower blood pressure. Encouraged to eat fruits, vegetables, whole grains, and lean animal protein and fish. Avoid/Limit intake of trans fats, red meats, processed meats, refined carbohydrates (white bread, white rice), baked goods and sweetened beverages. 10. HLD -Continue statin. Will come back for labs. Follow-up: The patient will follow up in 6 months. Follow up in about 6 months (around 07/23/2025) for 6 month follow up. documented in this encounter [facility] 01-16-2025 Miscellaneous Notes Images from the original note were not included. Received a [facility] urgent report fax from [employer]. New onset atrial fibrillation, HR 134. [employer] Val[employer] Repairer attempted to call patient had to leave a message. Patient has history of a flutter, currently taking eliquis. Yeah we were looking to see if he had any atrial fibrillation. I would continue Eliquis for now. If he is not experiencing any symptoms I would continue to monitor for now. Thanks, OK Let message for patient to call office. [facility] Telephone encounter Note Images from the original note were not included. Received a [facility] urgent report fax from [employer]. New onset atrial fibrillation, HR 134. Air Val[employer] Repairer attempted to call patient had to leave a message. Patient has history of a flutter, currently taking eliquis. [facility] Telephone encounter Note Yeah we were looking to see if he had any atrial fibrillation. I would continue Eliquis for now. If he is not experiencing any symptoms I would continue to monitor for now. Thanks, OK [employer] Work Phone: 01-16-2025 Telephone encounter Note Let message for patient to call office. [employer] 01-05-2025 History of Present illness Narrative Erich Jensen August Date of visit: 01/05/2025 Date of : 1955 Age: 69 y.o. Patient Active Problem List Diagnosis Bilateral carotid artery stenosis Right carotid bruit Primary hypertension Cigarette smoker Postoperative abdominal pain Urinary retention Acute kidney injury Chest pain Mixed hyperlipidemia Prediabetes Atrial flutter ([facility]) Stage 3a chronic kidney disease ([facility]) Elevated PSA Coronary artery calcification Pulmonary nodule, right RBBB (right bundle branch block) Tubular adenoma Allergies Allergen Reactions Penicillins Hives and Other (See Comments) Current Outpatient Medications Medication Sig Dispense Refill atorvastatin (LIPITOR) 80 mg tablet Take 1 tablet (80 mg total) by mouth nightly. cholecalciferol, vitamin D3, 2,000 units tablet Take 1 tablet (2,000 Units total) by mouth in the morning. ELIQUIS 5 mg tablet TAKE 1 TABLET (5 MG TOTAL) BY MOUTH IN THE MORNING AND BEFORE BEDTIME 180 tablet 2 gabapentin (NEURONTIN) 300 mg capsule Take 1 capsule (300 mg total) by mouth once daily at bedtime. tamsulosin (FLOMAX) 0.4 mg capsule Take 1 capsule (0.4 mg total) by mouth nightly. 90 capsule 3 traMADoL (ULTRAM) 50 mg tablet Take 1 tablet (50 mg total) by mouth. Three times a day prn No current facility-administered medications for this visit. Chief Complaint Patient presents with Follow-up ov s/p abln 09/05/24 TT-OK jaxon w pt Chest Pain History of Present Illness Erich Lopez is a 69 y.o. male with a past medical history of typical atrial flutter, neuropathy, benign prostatic hypertrophy and essential hypertension who [facility] routine management regarding his atrial flutter. I know the patient well, I performed typical atrial flutter ablation on 09/04/2024. Since then he has not noticed any issues. Overall he feels well enough. He does have underlying sinus bradycardia and current heart rate is 48 beats per minute. Past Medical History: Diagnosis Date Back pain Hyperlipidemia Hypertension Visual impairment glasses No data recorded No data recorded No data recorded Past Surgical History: Procedure Laterality Date COLONOSCOPY AND POLYPECTOMY 05/31/2017 Performed by Brennan Ball MD at [facility] EP Invasive N/A 09/04/2024 Performed by Rogelio Viera MD at [facility] () HERNIA REPAIR Right inguinal REPAIR HERNIA INGUINAL Left 03/06/2023 Performed by Scooter Ortez DO at [facility] Typical - CARTO N/A 09/04/2024 Performed by Rogelio Viera MD at [facility] () Family History Problem Relation Age of Onset Heart disease Mother No Known Problems Father Social History Socioeconomic History Marital status: Spouse name: Not on file Number of children: Not on file Years of education: Not on file Highest education level: Not on file Occupational History Not on file Tobacco Use Smoking status: Every Day Current packs/day: 1.00 Average packs/day: 1 pack/day for 80.5 years (80.5 ttl pk-yrs) Types: Cigarettes Start date: 1979 [...] min Stress: No Stress Concern Present (03/10/2023) [place] [employer] - Occupational Stress Questionnaire Feeling of Stress : Not at all Social Connections: Moderately Integrated (03/10/2023) Social Connection and Isolation Panel [NHANES] Frequency of Communication with Friends and Family: Twice a week Frequency of Social Gatherings with Friends and Family: Twice a week Attends Buddhist Services: Never Active Member of Clubs or Organizations: Yes Attends Club or Organization Meetings: Never Marital Status: Recent Concern: Social Connections - Moderately Isolated (12/27/2022) Received from [facility] Social Connection and Isolation Panel [NHANES] Frequency of Communication with Friends and Family: More than three times a week Frequency of Social Gatherings with Friends and Family: More than three times a week Attends Buddhist Services: Never Active Member of Clubs or [...] Review of Systems Constitutional: Negative for decreased appetite, malaise/fatigue, weight gain and weight loss. HENT: Negative for congestion and nosebleeds. Eyes: Negative for blurred vision and double vision. Cardiovascular: Negative for chest pain, leg swelling, near-syncope, palpitations and syncope. Respiratory: Negative for cough, shortness of breath and wheezing. Endocrine: Negative for cold intolerance and heat intolerance. Hematologic/Lymphatic: Does not bruise/bleed easily. Skin: Negative for flushing and rash. Musculoskeletal: Negative for falls, joint pain, joint swelling, muscle cramps and muscle weakness. Gastrointestinal: Negative for bloating, abdominal pain, constipation, diarrhea, heartburn, nausea and vomiting. Genitourinary: Negative for dysuria and hematuria. Neurological: Negative for dizziness, headaches, light-headedness and vertigo. Psychiatric/Behavioral: Negative for depression. The patient does not have insomnia and is not nervous/anxious. Vascular: Negative for claudication and lower extremity wounds or ulcers. CARDIOVASCULAR: Please review HPI. Physical Examination General [...] mood, memory and judgement. VITAL SIGNS: BP 130/78 Pulse (!) 48 Ht 182.9 cm (6') Wt 69.9 kg (154 lb) SpO2 97% BMI 20.89 kg/m Orders Placed or Reconciled This Encounter Medications traMADoL (ULTRAM) 50 mg tablet Sig: Take 1 tablet (50 mg total) by mouth. Three times a day prn Medications Discontinued During This Encounter Medication Reason metoprolol tartrate (LOPRESSOR) 25 mg tablet Therapy completed Visit Related Diagnoses 1. Typical atrial flutter ([facility]) - POCT EKG - Wireless Telemetry (In Office); Future Imaging and Procedures (I personally reviewed all cardiac testing, procedures and images) EC01/05/2025 Sinus bradycardia; RBBB TTE: 04/22/2024 Left Ventricle: Left ventricle appears normal [...] valve stenosis. RVSP calculated at 41 mmHg. WARREN 37 mL/m2 Pharmacological Nuclear Stress test: 05/21/2024 Baseline ECG indicates atrial flutter. There were no arrhythmias during stress. The stress ECG was negative. Perfusion Defect: There is a left ventricular function defect that is moderate to large in size with moderate reduction in uptake present in the apical to basal inferior and inferoseptal location(s) that is fixed. The defect appears to be infarction. Stress Function Comments: Stress ejection fraction is 55%. Perfusion Comments: Left ventricular perfusion is abnormal. Based on the perfusion study data, risk of cardiovascular events is intermediate risk. The study is consistent with myocardial infarction. Assessment and Plan Erich Lopez is a 69 y.o. male who presented with the following diagnoses Typical atrial flutter The patient had a successful ablation back in August of 2024. No recurrence of atrial flutter that we know of. I will discontinue his metoprolol given relative bradycardia. He was told to keep an eye on his blood pressure and if his blood pressure consistently was greater than 130/90 mmHg I would prescribe amlodipine. Will order 30 day monitor to assess for any atrial fibrillation. If there was no atrial fibrillation Eliquis may be discontinued Annual follow-up in my clinic otherwise. Rogelio Viera MD, [facility] Cardiac [facility]rophysiology [facility] Pager: TODAYS ORDERS Orders Placed This Encounter Procedures Wireless Telemetry (In Office) POCT EKG FOLLOW UP No follow-ups on file. PCP: Shona Elliott MD Referring Physician: Shona Elliott MD [address] [place] [address] documented in this encounter [facility] 01-02-2025 Miscellaneous Notes Left message for patient to remind them to bring their most current medication list with them to their appointment. documented in this encounter [facility] 01-02-2025 Telephone encounter Note Left message for patient to remind them to bring their most current medication list with them to their appointment. [facility] 09-08-2024 Miscellaneous Notes Received p/c from pt. Had Ablation 09/04/24 w/ [facility]. Wants to know if can return to work tomorrow. Pt not having any problems w/ groin site. Will message [facility]K Yes, may return to work. Thanks, OK Response called to pt. Pt doesn't require a RTW letter documented in this encounter [facility] 09-08-2024 Telephone encounter Note Received p/c from pt. Had Ablation 09/04/24 w/ [facility]. Wants to know if can return to work tomorrow. Pt not having any problems w/ groin site. Will message [facility] 09-08-2024 Telephone encounter Note Yes, may return to work. Thanks, OK [employer] [facility] Work Phone: 09-08-2024 Telephone encounter Note Response called to pt. Pt doesn't require a RTW letter [facility] 08-28-2024 Miscellaneous Notes Called and spoke with Janelle (HIPAA) pts to provide pre op reminder call Procedure: typical Date: 09/04 Location - [facility] Entrance C Arrive @ 1400 Fasting - NPO after mn Medications to hold - eliquis x 2 doses New SGLT2 - NA LABS - advised to complete Pre op test - NA Vendor confirmed - YES Anesthesia added to case - NA [x] Janelle v/u of all discussed [] Left message with details (identified VM) - Advised pt to call with any questions or to review pre op instructions [] Left message without details (unidentified VM) - Advised to call with any questions or to review pre op instructions [] Unable to leave message [facility] 08-28-2024 Telephone encounter Note Called and spoke with Janelle (HIPAA) pts to provide pre op reminder call Procedure: typical Date: 09/04 Location - [facility] Entrance C Arrive @ 1400 Fasting - NPO after mn Medications to hold - eliquis x 2 doses New SGLT2 - NA LABS - advised to complete Pre op test - NA Vendor confirmed - YES Anesthesia added to case - NA [x] Janelle v/u of all discussed [] Left message with details (identified VM) - Advised pt to call with any questions or to review pre op instructions [] Left message without details (unidentified VM) - Advised to call with any questions or to review pre op instructions [] Unable to leave message [facility] 08-08-2024 Miscellaneous Notes Images from the original note were not included. [facility] Cardiology: Ablation Procedures YOUR PROCEDURE: Typical aflutter ablation YOUR DOCTOR: Dr. Rogelio Viera DATE/TIME OF YOUR PROCEDURE: 09/04 @ 3:30 pm - ARRIVE AT 2 pm LOCATION OF YOUR PROCEDURE: [address] [address] Arrive to Entrance C, check in at the registration desk Please see the map on the last page for directions PRE OP REQUIREMENTS BELOW MUST BE COMPLETED PRIOR TO YOUR PROCEDURE OR IT MAY RESULT IN A DELAY OR CANCELLATION OF YOUR PROCEDURE PRE OP TESTING: NONE PRE OP LABS: You MUST complete your labs before your procedure. Draw pre op labs on or after 08/28 at any [facility], no paper orders are required, your orders are already in the system. NO FASTING REQUIRED FASTING: No FOOD after midnight, the night before your procedure. It's ok for clear liquids (water, tea, apple juice, jello, popsicles, broth) 6 hours prior to your procedure, then nothing at all after 9:30 am MEDICATIONS: HOLD the following medications before your procedure: Eliquis Hold 2 doses, DO NOT TAKE NIGHT BEFORE OR MORNING OF If you were instructed to hold medications, you may take all your other medications as prescribed with sips of water. We recommend holding any over the counter supplements or vitamins the morning of your procedure. If you are started on any of these GLP-1/SGLT-2 medications after your procedure has been scheduled, call our office IMMEDIATELY: Jardiance (empaglifloxin), Farxiga (dapaglifloxin), Invokana (canaglifloxin), Steglatro (ertuglifloxin), Brenzavvy (bexaglifloxin), Inpefa (sotagliflozin), Byetta/Bydureon (exenatide), Victoza/saxenda (liraglutide), Soliqua (lixisenatide), Trulicity (dulaglutide), Ozempic, Wegovy, Rybelsus (semaglutide), Mounjaro, Zepbound (tirzepatide) IMPORTANT INFORMATION PLEASE BE ADVISED! Dates and times of procedures are subject to change, at times due to emergencies with the hospital or physician. You will be notified as soon as possible if/when these changes may occur by the nurse at the office The automated [employer] messages about your procedure can be incorrect. Please do NOT follow any automated [employer] messages as these can provide incorrect information about your procedure time, arrival time or pre op instructions. Please follow the instructions provided by the nurse in the office at the time of your visit, in the mail or through a separate [employer] message labeled pre-op instructions . If you are unsure, please call the Surgery office [phone] WHAT TO BRING WITH YOU TO THE HOSPITAL: Bring your photo ID, insurance card and a current list of all your medications (including over the counter medications, vitamins, and supplements) There may be a chance you will have to stay overnight. Bring with you an overnight bag with a change of clothes, ALL of your prescription medications in their original containers from the pharmacy and any medical equipment you may need during your stay. You MUST have a stunt driver to take you home after your procedure. You MAY NOT use a driving service (Taxi, Uber, Lyft, etc) and must be driven home by a family member or friend. You may have up to TWO visitors for your procedure CALL THE SURGERY OFFICE AT [phone] IMMEDIATELY IF: You have any illness, infection or tested positive for COVID in the last 5 days. You are unable to come to your procedure, please provide at least a 24 business hour notice You if were instructed to take your blood thinner and MISSED A DOSE YOU HAVE STARTED ANY NEW MEDICATIONS AFTER YOUR PROCEDURE HAS BEEN SCHEDULED If you had an allergy to contrast dye and it was NOT addressed during your office visit. You did not complete your required pre op testing, pre op labs or follow the medication instructions as listed above. This may result in a delay or cancellation of your procedure POST OP - AFTER YOUR PROCEDURE: You MUST have a stunt driver to drive you home after your procedure, even if you stay overnight You will have an incision(s), follow the instructions provided by the hospital at your discharge on how to properly care for your incision and when to remove your dressing. If you are unsure or were not instructed, ask the post op staff at the hospital or call the [facility] Cardiology office at [phone], Option 7, Nurses Inspect your incision(s) every day. Call immediately if you have any swelling, redness, bumps, drainage, your skin around your incision feels warm/hot or if you have a fever. ACTIVITY RESTRICTIONS: NO DRIVING FOR 24 HOURS AFTER YOUR PROCEDURE Do not lift anything heavier than 10 pounds or do any strenuous activity for a minimum of 1 week. You may experience some mild to moderate bruising to your incision area after your procedure. You may also notice a small lump or bump, this is from the closure devices and/or manual pressure to stop the bleeding after the procedure is complete. Bruising and lump/bumps are normal however if you notice any redness, swelling, pain, drainage or the bruising is worsening please call the office at any time at [phone]. Call your doctor if you have any signs of illness (fever 100 degrees or higher, chills, shivering, nausea, vomiting, discharge from your incision. FOLLOW UP APPOINTMENTS: You will have a follow up appointment after your procedure with your physician, approximately 4 months post op. You will have this appointment scheduled at your office visit or at the time of scheduling your surgery by the nurse. If this has not been scheduled, call [phone] and select the option for EP scheduling documented in this encounter [facility] [facility] 08-08-2024 Telephone encounter Note Images from the original note were not included. [facility] Cardiology: Ablation Procedures YOUR PROCEDURE: Typical aflutter ablation YOUR DOCTOR: Dr. Rogelio Viera DATE/TIME OF YOUR PROCEDURE: 09/04 @ 3:30 pm - ARRIVE AT 2 pm LOCATION OF YOUR PROCEDURE: [facility] [address] [facility] [place] [address] Arrive to Entrance C, check in at the registration desk Please see the map on the last page for directions PRE OP REQUIREMENTS BELOW MUST BE COMPLETED PRIOR TO YOUR PROCEDURE OR IT MAY RESULT IN A DELAY OR CANCELLATION OF YOUR PROCEDURE PRE OP TESTING: NONE PRE OP LABS: You MUST complete your labs before your procedure. Draw pre op labs on or after 08/28 at any [facility] Lab, no paper orders are required, your orders are already in the system. NO FASTING REQUIRED FASTING: No FOOD after midnight, the night before your procedure. It's ok for clear liquids (water, tea, apple juice, jello, popsicles, broth) 6 hours prior to your procedure, then nothing at all after 9:30 am MEDICATIONS: HOLD the following medications before your procedure: Eliquis Hold 2 doses, DO NOT TAKE NIGHT BEFORE OR MORNING OF If you were instructed to hold medications, you may take all your other medications as prescribed with sips of water. We recommend holding any over the counter supplements or vitamins the morning of your procedure. If you are started on any of these GLP-1/SGLT-2 medications after your procedure has been scheduled, call our office IMMEDIATELY: Jardiance (empaglifloxin), Farxiga (dapaglifloxin), Invokana (canaglifloxin), Steglatro (ertuglifloxin), Brenzavvy (bexaglifloxin), Inpefa (sotagliflozin), Byetta/Bydureon (exenatide), Victoza/saxenda (liraglutide), Soliqua (lixisenatide), Trulicity (dulaglutide), Ozempic, Wegovy, Rybelsus (semaglutide), Mounjaro, Zepbound (tirzepatide) IMPORTANT INFORMATION PLEASE BE ADVISED! Dates and times of procedures are subject to change, at times due to emergencies with the hospital or physician. You will be notified as soon as possible if/when these changes may occur by the nurse at the office The automated Wordeo messages about your procedure can be incorrect. Please do NOT follow any automated Wordeo messages as these can provide incorrect information about your procedure time, arrival time or pre op instructions. Please follow the instructions provided by the nurse in the office at the time of your visit, in the mail or through a separate Wordeo message labeled pre-op instructions . If you are unsure, please call the Surgery office [phone] WHAT TO BRING WITH YOU TO THE HOSPITAL: Bring your photo ID, insurance card and a current list of all your medications (including over the counter medications, vitamins, and supplements) There may be a chance you will have to stay overnight. Bring with you an overnight bag with a change of clothes, ALL of your prescription medications in their original containers from the pharmacy and any medical equipment you may need during your stay. You MUST have a stunt driver to take you home after your procedure. You MAY NOT use a driving service (Taxi, Uber, Lyft, etc) and must be driven home by a family member or friend. You may have up to TWO visitors for your procedure CALL THE SURGERY OFFICE AT [phone] IMMEDIATELY IF: You have any illness, infection or tested positive for COVID in the last 5 days. You are unable to come to your procedure, please provide at least a 24 business hour notice You if were instructed to take your blood thinner and MISSED A DOSE YOU HAVE STARTED ANY NEW MEDICATIONS AFTER YOUR PROCEDURE HAS BEEN SCHEDULED If you had an allergy to contrast dye and it was NOT addressed during your office visit. You did not complete your required pre op testing, pre op labs or follow the medication instructions as listed above. This may result in a delay or cancellation of your procedure POST OP - AFTER YOUR PROCEDURE: You MUST have a stunt driver to drive you home after your procedure, even if you stay overnight You will have an incision(s), follow the instructions provided by the hospital at your discharge on how to properly care for your incision and when to remove your dressing. If you are unsure or were not instructed, ask the post op staff at the hospital or call the [facility] Cardiology office at [phone], Option 7, Nurses Inspect your incision(s) every day. Call immediately if you have any swelling, redness, bumps, drainage, your skin around your incision feels warm/hot or if you have a fever. ACTIVITY RESTRICTIONS: NO DRIVING FOR 24 HOURS AFTER YOUR PROCEDURE Do not lift anything heavier than 10 pounds or do any strenuous activity for a minimum of 1 week. You may experience some mild to moderate bruising to your incision area after your procedure. You may also notice a small lump or bump, this is from the closure devices and/or manual pressure to stop the bleeding after the procedure is complete. Bruising and lump/bumps are normal however if you notice any redness, swelling, pain, drainage or the bruising is worsening please call the office at any time at [phone]. Call your doctor if you have any signs of illness (fever 100 degrees or higher, chills, shivering, nausea, vomiting, discharge from your incision. FOLLOW UP APPOINTMENTS: You will have a follow up appointment after your procedure with your physician, approximately 4 months post op. You will have this appointment scheduled at your office visit or at the time of scheduling your surgery by the nurse. If this has not been scheduled, call [phone] and select the option for EP scheduling [facility] [facility] 08-04-2024 Miscellaneous Notes Tee: Dr. Elliott's office nurse Crystal calls, asking about scheduling an ablation for patient. I see that you mentioned that was pending. Please advise. Looks like OK saw pt in the past. Thank you, Bertha Dr. Viera, I thought I had followed up with you regarding recurrence of typical atrial flutter on the gentleman you did cardioversion in May. He would like to move forward with ablation that you did recommend. Able to place orders to coordinate? thank you Let's schedule typical atrial flutter ablation. BMP, Mg. Carto, ICE Hold Eliquis x 2 doses. Moderate sedation. Thanks, OK Lm for pt to return call to schedule ablation. documented in this encounter [facility] [facility] 08-04-2024 Telephone encounter Note Tee: Dr. Elliott's office nurse Crystal calls, asking about scheduling an ablation for patient. I see that you mentioned that was pending. Please advise. Looks like OK saw pt in the past. Thank you, Bertha [facility] 08-04-[address] Viera, I thought I had followed up with you regarding recurrence of typical atrial flutter on the gentleman you did cardioversion in May. He would like to move forward with ablation that you did recommend. Able to place orders to coordinate? thank you [facility] Work Phone: 08-04-2024 Telephone encounter Note Let's schedule typical atrial flutter ablation. BMP, Mg. Carto, ICE Hold Eliquis x 2 doses. Moderate sedation. Thanks, OK [facility] [facility] Work Phone: 08-04-2024 Telephone encounter Note Lm for pt to return call to schedule ablation. [facility] [facility] [employer] [facility] 07-23-2024 Evaluation note Diagnosis Atrial flutter, unspecified [...] obstruction or gangrene documented in this encounter [id number] History of Present illness Narrative* Carli Stewart, CHIEF ANALYTICS OFFICER - 07/22/2024 2:00 PM EST Images from [...] hear anything by next week. Hehad a Lexiscan. No chest pain now but has occ. [...] of breath. Negative for chest tightness. Rare CHIEF ANALYTICS OFFICER cough. See HPI Cardiovascular: Positive for chest pain. See See Gastrointestinal: Negative for abdominal pain and blood in stool. No change in bowels, no GERD Genitourinary: Negative for difficulty urinating and dysuria. Sees Urology yearly March, [place] helps. PSA was good at last visit [...] appt, sooner if concerns documented in this encounterThree Rivers [id number] History of Present illness Narrative* Tee Dodson, PANCHO-MOLDER FITTING - 07/02/2024 7:30 AM EST Erich Jensen August Date of visit: 07/02/2024 Date of : 1955 Age: 68 y.o. Patient Active Problem List Diagnosis Bilateral carotid artery stenosis Right carotid bruit Primary hypertension Cigarette smoker Postoperative abdominal pain Urinary retention Acute kidney injury (CMS-HCC) Chest pain Mixed hyperlipidemia Prediabetes Atrial flutter (CMS-HCC) Stage 3a chronic kidney disease ([facility]-HCC) Elevated PSA Coronary artery calcification Pulmonary nodule, [...] chest discomfort in April. Appropriately placed on beta-ari and blood thinner. This led to cardioversion [...] 05/31/2017 Performed by Brennan Ball MD at [facility] HERNIA REPAIR Right inguinal REPAIR HERNIA INGUINAL Left 03/06/2023 Performed by Scooter Ortez DO at [facility] Family History Problem Relation Age of [...] min Stress: No Stress Concern Present (03/10/2023) [place] [employer] - Occupational Stress Questionnaire Feeling of Stress : Not at all Social Connections: Moderately Integrated (03/10/2023) Social Connection and Isolation Panel [NHANES] Frequency of Communication with Friends and Family: Twice a week Frequency of Social Gatherings with Friends and Family: Twice a week Attends Buddhist Services: Never Active Member of Clubs or Organizations: Yes Attends Club or Organization Meetings: Never Marital Status: Recent Concern: Social Connections - Moderately Isolated (12/27/2022) Received from [facility] Healthcare, [facility] Healthcare Social Connection and Isolation Panel [NHANES] Frequency of Communication with Friends and Family: More than three times a week Frequency of Social Gatherings with Friends and Family: More than three times a week Attends Buddhist Services: Never Active Member of Clubs or [...] Referring Physician: Shona Elliott MD [address] [place] [address] CHASE Holloway 07/02/24 0802 documented in this encounterMercy Health Fairfield HospitalPlaycez Holland [id number] Instructions* Patient Instructions* Natalie Rangel, [facility] - 07/02/2024 7:30 AM EST Are You Ready To Kick The Habit? Free Tobacco Cessation Resources [facility] Tobacco Treatment Center Services [facility] Tobacco Treatment Centers provide all employees with free tobacco cessation services that include: Counseling to understand nicotine addiction Education about medications that can help you successfully quit Assistance with developing a plan to quit Call to set up an individual appointment or find out when group classes will be held: [facility]: [phone] [facility]: [phone] [facility]: [phone] [facility]: [phone] Quit Smoking Action Plan and Resources [facility] offers an eight-week, online smoking cessation plan to all [facility] employees, regardless of whether [place] is your medical insurance provider. Go to [email or web address] and click the Health Risk Assessment and Resources link to get started. In the [employer] menu, click Action Plans instead of Health Risk Assessment to access the Quit Smoking Action Plan. Additional smoking cessation resources are also available to all [facility] employees on the [employer] web page at [email or web address]. [place] Tobacco Cessation Program If [employer] [place] is your medical insurance provider, there are more free resources available to you, including: No copays or deductibles on local tobacco cessation counseling services to help you quit Prescription assistance for tobacco cessation medications to help you quit For details about the tobacco cessation program available to [place] members, go to www.[employer] (Search: Tobacco Cessation Program). [place] Tobacco Quit Line 7-304-LEVS-NOW ( ) is a toll-free, telephonic service that helps [place] residents quit smoking and using tobacco. It is staffed by experts who tailor a quit plan for you and provide you with advice. [place] Tobacco Quit Line 9-323-CFUZ-NOW ( ) is a toll-free, telephonic service that helps [place] residents quit smoking and using tobacco. It is staffed by experts who tailor a quit plan for you and provide you with advice. Two weeks of nicotine replacement therapy may be provided at no charge, if needed. Additional Resources These national organizations also offer free information and resources to help you quit tobacco: [place] Cancer [employer]--www.cancer.org/healthy/stayawayfromtobacco [place] Heart Association--www.heart.org (Search: Quit Smoking) Centers for Disease Control and Prevention--www.cdc.gov/tobacco [place] Lung Association--www.lungusa.org documented in this encounterMount Ascutney HospitalSurIDx01-07-2025 Miscellaneous Notes* Telephone Encounter - Natalie Rangel CMA - 07/01/2024 10:01 AM EST Left message for patient to remind them to bring their most current medication list with them to their appointment. documented in this encounterMercy Health Fairfield HospitalPlaycez Holland HospitalZtbkbt39-75-4091 Telephone encounter Note* Telephone Encounter - Natalie Rangel CMA - 07/01/2024 10:01 AM EST Left message for patient to remind them to bring their most current medication list with them to their appointment. 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 He helps to care for his mother. [...] 05/31/2017 Performed by Brennan Ball MD at [facility] HERNIA REPAIR Right inguinal REPAIR HERNIA INGUINAL Left 03/06/2023 Performed by Scooter Ortez DO at [facility] Family History Problem Relation Age of [...] min Stress: No Stress Concern Present (03/10/2023) [place] [employer] - Occupational Stress Questionnaire Feeling of Stress : Not at all Social Connections: Moderately Integrated (03/10/2023) Social Connection and Isolation Panel [NHANES] Frequency of Communication with Friends and Family: Twice a week Frequency of Social Gatherings with Friends and Family: Twice a week Attends Buddhist Services: Never Active Member of Clubs or Organizations: Yes Attends Club or Organization Meetings: Never Marital Status: Recent Concern: Social Connections - Moderately Isolated (12/27/2022) Received from [facility] Healthcare, [facility] Social Connection and Isolation Panel [NHANES] Frequency of Communication with Friends and Family: More than three times a week Frequency of Social Gatherings with Friends and Family: More than three times a week Attends Buddhist Services: Never Active Member of Clubs or [...] Elliott MD Referring Physician: Shona Elliott MD [address] [place] [address] documented in this encounterMount Ascutney HospitalSurIDx01-02-2025 Instructions* Patient Instructions* Betty Rodriguez CMA - 06/26/2024 2:30 PM EST Are You Ready To Kick The Habit? Free Tobacco Cessation Resources [facility] Tobacco Treatment Center Services [facility] Tobacco Treatment Centers provide all employees with free tobacco cessation services that include: Counseling to understand nicotine addiction Education about medications that can help you successfully quit Assistance with developing a plan to quit Call to set up an individual appointment or find out when group classes will be held: Luis jackman [facility]: [phone] [facility]: [phone] [facility]: [phone] [facility]: [phone] Quit Smoking Action Plan and Resources [facility] offers an eight-week, online smoking cessation plan to all [facility] employees, regardless of whether [place] is your medical insurance provider. Go to [email or web address] and click the Health Risk Assessment and Resources link to get started. In the [employer] menu, click Action Plans instead of Health Risk Assessment to access the Quit Smoking Action Plan. Additional smoking cessation resources are also available to all [facility] employees on the Ssodh[employer]Lvsvwh web page at [email or web address]. [place] Tobacco Cessation Program If [place] is your medical insurance provider, there are more free resources available to you, including: No copays or deductibles on local tobacco cessation counseling services to help you quit Prescription assistance for tobacco cessation medications to help you quit For details about the tobacco cessation program available to [place] members, go to www.[employer] (Search: Tobacco Cessation Program). [place] Tobacco Quit Line 4-607-PKPP-NOW ( ) is a toll-free, telephonic service that helps [place] residents quit smoking and using tobacco. It is staffed by experts who tailor a quit plan for you and provide you with advice. [place] Tobacco Quit Line 1-133-JHCY-NOW ( ) is a toll-free, telephonic service that helps [place] residents quit smoking and using tobacco. It is staffed by experts who tailor a quit plan for you and provide you with advice. Two weeks of nicotine replacement therapy may be provided at no charge, if needed. Additional Resources These national organizations also offer free information and resources to help you quit tobacco: [place] [employer]--www.cancer.org/healthy/stayawayfromtobacco [place] Heart Association--www.heart.org (Search: Quit Smoking) Centers for Disease Control and Prevention--www.cdc.gov/tobacco [place] Lung Association--www.lungusa.org documented in this encounterSelect [facility] [place] Miscellaneous Notes* Telephone Encounter - Betty Rodriguez CMA - 06/24/2024 9:46 AM EST Called patient to remind them to bring their most current copy of their medication list with them to their appt. Patient verbalizes understanding. documented in this encounterSelect [facility] [place]12-[facility]24 Telephone encounter Note* Telephone Encounter - Betty Rodriguez CMA - 06/24/2024 9:46 AM EST Called patient to remind them to bring their most current copy of their medication list with them to their appt. Patient verbalizes understanding. [facility] [id number] History of Present illness Narrative* Pascale Navarro [...] INJECTION EPIDURAL STEROID series of 3 - [id number] Family History Problem Relation Name Age of [...] Resource Strain: Low Risk (03/10/2023) Received from [facility] [facility], [employer] Overall Financial Resource Strain (CARDIA) Difficulty of Paying Living Expenses: Not hard at all Food Insecurity: No Food Insecurity (06/15/2024) Received from [employer] Hunger Screening Within the past 12 months we worried whether our food would run out before we got money to buy more.: Never True Within the past 12 months the food we bought just didn't last and we didn't have money to get more.: Never True Transportation Needs: No Transportation Needs (03/22/2024) Received from [facility] [facility] PRAPARE - Transportation Lack of Transportation (Medical): No Lack of Transportation (Non-Medical): No Physical Activity: Sufficiently Active (03/10/2023) Received from [employer], [facility] [email or web address] [facility] Exercise Vital Sign Days of Exercise per Week: 7 days Minutes of Exercise per Session: 30 min Stress: No Stress Concern Present (03/10/2023) Received from [employer], [facility] [place] [employer] - Occupational Stress Questionnaire Feeling of Stress : Not at all Social Connections: Moderately Integrated (03/10/2023) Received from [employer] [facility], [facility] Social Connection and Isolation Panel [NHANES] Frequency of Communication with Friends and Family: Twice a week Frequency of Social Gatherings with Friends and Family: Twice a week Attends Buddhist Services: Never Active Member of Clubs or Organizations: Yes Attends Club or Organization Meetings: Never Marital Status: Recent Concern: Social Connections - Moderately Isolated (12/27/2022) Social Connection and Isolation Panel [NHANES] Frequency of Communication with Friends and Family: More than three times a week Frequency of Social Gatherings with Friends and Family: More than three times a week Attends Buddhist Services: Never Active Member of Clubs or Organizations: No Attends Club or Organization Meetings: Never Marital Status: Intimate Partner Violence: Not At Risk (12/27/2022) Humiliation, Afraid, Rape, and Kick questionnaire Fear of Current or Ex-Partner: No Emotionally Abused: No Physically Abused: No Sexually Abused: No Housing Stability: Low Risk (03/22/2024) [facility]ceived from [facility] Housing Instability Are you worried or [...] for Next scheduled follow-up. documented in this encounterThree Rivers [id number] Miscellaneous Notes* Telephone Encounter - Mandeep Carmona [...] a year (around 04/15/2025). Pleaseadvise, thank you [phone] * Telephone Encounter - Luanne Gordon MD - 06/02/2024 1:57 PM EST He doesn't need to come back in a month. Can see him next year * Telephone Encounter - Mandeep Carmona CMA - 06/02/2024 1:57 PM EST Thank you Dr. Gordon. Pt verbalized understanding and was transferred to scheduling to assist in rescheduling his appointment. [facility] [place] Telephone encounter Note* Telephone Encounter - Mandeep Carmona CMA - 06/02/2024 1:[address] Grodon, Pt calls stating that he saw you [...] a year (around 04/15/2025). Pleaseadvise, thank you [phone] [facility]12-09-2024 Telephone encounter Note* Telephone Encounter - Luanne Gordon MD - 06/02/2024 1:57 PM EST He doesn't need to come back in a month. Can see him next year [facility]12-09-2024 Telephone encounter Note* Telephone Encounter - Mandeep Carmona CMA - 06/02/2024 1:[address] EST [address] you Dr. Gordon. Pt verbalized understanding and was transferred to scheduling to assist in rescheduling his appointment. [facility]12-02-2024 History of Present illness Narrative* Shakir Smith [...] 05/31/2017 Performed by Brennan Ball MD at [facility] HERNIA REPAIR Right inguinal REPAIR HERNIA INGUINAL Left 03/06/2023 Performed by Scooter Ortez DO at [facility] Family History Problem Relation Age of [...] min Stress: No Stress Concern Present (03/10/2023) [place] [employer] - Occupational Stress Questionnaire Feeling of Stress : Not at all Social Connections: Moderately Integrated (03/10/2023) Social Connection and Isolation Panel [NHANES] Frequency of Communication with Friends and Family: Twice a week Frequency of Social Gatherings with Friends and Family: Twice a week Attends Buddhist Services: Never Active Member of Clubs or Organizations: Yes Attends Club or Organization Meetings: Never Marital Status: Recent Concern: Social Connections - Moderately Isolated (12/27/2022) Received from [facility] Social Connection and Isolation Panel [NHANES] Frequency of Communication with Friends and Family: More than three times a week Frequency of Social Gatherings with Friends and Family: More than three times a week Attends Buddhist Services: Never Active Member of Clubs or [...] Elliott MD Referring Physician: Shona Elliott MD [address] [place] [address] documented in this encounterMount Ascutney HospitalSurIDx12-02-2024 Instructions* Patient Instructions* Betty Rodriguez CMA - 05/26/2024 12:00 PM EST Are You Ready To Kick The Habit? Free Tobacco Cessation Resources [facility] Services [facility] Tobacco Treatment Centers provide all employees with free tobacco cessation services that include: Counseling to understand nicotine addiction Education about medications that can help you successfully quit Assistance with developing a plan to quit Call to set up an individual appointment or find out when group classes will be held: [facility]: [phone] [facility]: [phone] [facility]: [phone] [facility]: [phone] Quit Smoking Action Plan and Resources [facility] offers an eight-week, online smoking cessation plan to all [facility] employees, regardless of whether [employer] is your medical insurance provider. Go to [email or web address] and click the Health Risk Assessment and Resources link to get started. In the [employer] menu, click Action Plans instead of Health Risk Assessment to access the Quit Smoking Action Plan. Additional smoking cessation resources are also available to all [facility] employees on the [employer] web page at [email or web address]. [employer] [place] Tobacco Cessation Program If [employer] is your medical insurance provider, there are more free resources available to you, including: No copays or deductibles on local tobacco cessation counseling services to help you quit Prescription assistance for tobacco cessation medications to help you quit For details about the tobacco cessation program available to [employer] members, go to www.[employer] (Search: Tobacco Cessation Program). [place] Tobacco Quit Line 3-882-MCQJ-NOW ( ) is a toll-free, telephonic service that helps [place] residents quit smoking and using tobacco. It is staffed by experts who tailor a quit plan for you and provide you with advice. [place] Tobacco Quit Line 2-206-ISSF-NOW ( ) is a toll-free, telephonic service that helps [place] residents quit smoking and using tobacco. It is staffed by experts who tailor a quit plan for you and provide you with advice. Two weeks of nicotine replacement therapy may be provided at no charge, if needed. Additional Resources These national organizations also offer free information and resources to help you quit tobacco: [place] [employer]--www.cancer.org/healthy/stayawayfromtobacco [place] Heart [employer]--www.heart.org (Search: Quit Smoking) Centers for Disease Control and Prevention--www.cdc.gov/tobacco [place] Lung Association--www.lungusa.org documented in this encounterSelect [facility] [place]24 Miscellaneous Notes* Telephone Encounter - Huyen Helms RN - 05/19/2024 10:46 AM EST Last OV 05/02/24 Last CBC,CMP 03/23/24.slm documented in this encounterSelect [facility] [place]24 Telephone encounter Note* Telephone Encounter - Huyen Helms RN - 05/19/2024 10:46 AM EST Last OV 05/02/24 Last CBC,CMP 03/23/24.slm [facility]11-08-2024 History of Present illness Narrative* Desiree Nieves [...] a 68-year-old male [facility] it was constant sharp when he takes deep breath or bends over it was more positional in nature he ruled out for significant he was found to be in a flutter at that time he came back with chest discomfort but is enzymes continue to be negative he was admitted to [facility] for evaluation but it was a weekend. [...] 05/31/2017 Performed by Brennan Ball MD at [facility] HERNIA REPAIR Right inguinal REPAIR HERNIA INGUINAL Left 03/06/2023 Performed by Scooter Ortez DO at [facility] Family History Problem Relation Age of [...] min Stress: No Stress Concern Present (03/10/2023) [place] [employer] Health - Occupational Stress Questionnaire Feeling of Stress : Not at all Social Connections: Moderately Integrated (03/10/2023) Social Connection and Isolation Panel [NHANES] Frequency of Communication with Friends and Family: Twice a week Frequency of Social Gatherings with Friends and Family: Twice a week Attends Buddhist Services: Never Active Member of Clubs or Organizations: Yes Attends Club or Organization Meetings: Never Marital Status: Recent Concern: Social Connections - Moderately Isolated (12/27/2022) [facility] Social Connection and Isolation Panel [NHANES] Frequency of Communication with Friends and Family: More than three times a week Frequency of Social Gatherings with Friends and Family: More than three times a week Attends Buddhist Services: Never Active Member of Clubs or [...] medications. IMPRESSIONS/PLAN 1. Atrial flutter, unspecified type ([facility]-HCC) - [facility] - [place], [place] 2. Bilateral carotid artery stenosis 1. [...] Referring Physician: Farrukh Phelan MD [address] [place] [address] documented in this encounterSelect [facility] [place]-06-2024 Miscellaneous Notes* Telephone Encounter - Natalie Rangel CMA - 04/30/2024 10:34 AM EST Phoned pt in regards to appt scheduled for 05/01/2024, appt cancelled due to insurance being OON with provider. Spoke with and advised of this, verbalized understanding and will call pt at a later date and time to reschedule appt. documented in this encounterSelect [facility] [place]-2024 Telephone encounter Note* Telephone Encounter - Natalie Rangel CMA - 04/30/2024 10:34 AM EST Phoned pt in regards to appt scheduled for 05/01/2024, appt cancelled due to insurance being OON with provider. Spoke with and advised of this, verbalized understanding and will call pt at a later date and time to reschedule appt. [facility]10-30-2024 Telephone encounter Note* Telephone Encounter - Carli [...] & Impression THIS EXAM WAS PERFORMED AT [facility] COMPLETE Clinical history:Abnormal finding on diagnostic imaging [...] Scooter Hector MD on 04/22/2024 3:42 PM [facility] [id number] Miscellaneous Notes* Telephone Encounter - Carli Stewart [...] & Impression THIS EXAM WAS PERFORMED AT [facility] COMPLETE Clinical history:Abnormal finding on [...] on 04/22/2024 3:42 PM documented in this encounterThree Rivers He[id number] History of Present illness Narrative* Luanne Gordon MD - 04/15/2024 2:45 PM EDT Images from the original note were not included. [address] [place] [address] A [facility] [id number] Patient: Erich Jensen August Date of : 1955 Encounter Date: 04/15/2024 History of Present Illness: The patient is a 68 y.o. male, an established patient, and is here for follow[facility]. [facility] [...] 05/31/2017 Performed by Brennan Ball MD at [facility] HERNIA REPAIR Right inguinal REPAIR HERNIA INGUINAL Left 03/06/2023 Performed by Scooter Ortez DO at [facility] Family History Problem Relation Age of [...] you for your understanding. documented in this encounterSelect Medical [facility] [place]10-22-2024 Miscellaneous Notes* Addendum Note - Luanne Gordon MD - 04/15/2024 2:45 PM EDTAddended by: LUANNE GORDON on: 04/15/2024 02:48 PM Modules accepted: Orders documented in this encounterSelect Medical [facility] [place]10-22-2024 Note* Addendum Note - Luanne Gordon MD - 04/15/2024 2:45 PM EDTAddended by: LUANNE GORDON on: 04/15/2024 02:48 PM Modules accepted: Orders [facility]10-21-2024 History of Present illness Narrative* Carli Stewart NP - 04/14/2024 1:00 PM EDT Images from [...] cough. Negative for shortness of breath. 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 See See [...] with after appt- Pt had seen GI [id number] sure if scopes were done. I will have Yuly look into this. If due plan to refer to Dr Ortez F/U 3 months for recheck for HTN, sooner if concerns. PVU documented in this encounterThree Rivers HealthcareBnvnbhygdy15-36-1788 Miscellaneous Notes* Telephone Encounter - Rhiannon Mansfield LPN - 04/11/2024 3:26 PM EDT Contacted the Pt. To remind him to get his PSA drawn for his appt with MD Brien on Sunday. Pt. Stated he would get that done. documented in this encounterSelect [facility] [place]-2024 Telephone encounter Note* Telephone Encounter - Rhiannon Mansfield LPN - 04/11/2024 3:26 PM EDT Contacted the Pt. To remind him to get his PSA drawn for his appt with MD Brien on Sunday. Pt. Stated he would get that done. [facility]10-07-2024 Telephone encounter Note* Telephone Encounter - Malika Love - 03/31/2024 12:38 PM EDT Patient left a voicemail saying he forgot to take his heart medication today at 9am and wants to know if he should take it now, or if he will be ok to skip today and take it tomorrow. Please advise. Thank you [facility] [id number] Miscellaneous Notes* Telephone Encounter - Malika Love - 03/31/2024 12:38 PM EDT Patient left a voicemail saying he forgot to take his heart medication today at 9am and wants to know if he should take it now, or if he will be ok to skip today and take it tomorrow. Please advise. Thank you documented in this encounterThree Rivers He[id number] History of Present illness Narrative* Carli Mikey Terry, CHIEF ANALYTICS OFFICER - 03/24/2024 1:30 PM EDT Images from [...] with chest pain. Initially thought EKG showed LA, but cardiology did not think so. He [...] HENT: WNL Respiratory: Positive for cough. Rare CHIEF ANALYTICS OFFICER, occ clear Cardiovascular: Negative for chest pain. [...] order in and have pt do at [facility] Primary hypertension (CMS/HCC): Pt is to hold [...] aroud it first . Enc to watch -Quit now, or why [email or web address]. PVU Pulmonary nodule, right: noted on CT, will need to monitor over time (plan 12 months) RBBB (right bundle branch block): Noted recent on EKG F/U 2-3 weeks for atrial flutter, sooner if concerns. PVU and and agree with plan 45 in review of ER notes, test results, plan/medication review. Order Echo documented in this encounterThree Rivers HealthcareOasthzkrgy20-30-0435 History of Present illness Narrative* Angeles Montes [...] right wrist 12/27/2022 Cigarette smoker Colon polyps 2016 colon polyps Condyloma acuminata COPD (chronic obstructive pulmonary disease) ([facility] COVID-19 COVID-19 12/27/2022 degeneration of lumbar and thoracic , thoracolumbar intervertebral discs, with sciatica Diverticulosis Erectile dysfunction Gastric wall thickening Hemoglobin A1c above reference range History of alcoholism ([facility]) 1987 Hypertension ([facility]/HCC) Low back pain Mixed hyperlipidemia ([facility]) Postoperative abdominal pain 03/10/2023 Prediabetes Renal cyst, [...] INJECTION EPIDURAL STEROID series of 3 - [id number] Family History Problem Relation Name Age of [...] Resource Strain: Low Risk (03/10/2023) Received from [facility], [facility] Overall Financial Resource Strain (CARDIA) Difficulty of Paying Living Expenses: Not hard at all Food Insecurity: No Food Insecurity (04/16/2023) Received from [facility], [facility] Hunger Screening Within the past 12 months we worried whether our food would run out before we got money to buy more.: Never True Within the past 12 months the food we bought just didn't last and we didn't have money to get more.: Never True Transportation Needs: No Transportation Needs (03/10/2023) Received from [facility], [facility] PRAPARE - Transportation Lack of Transportation (Medical): No Lack of Transportation (Non-Medical): No Physical Activity: Sufficiently Active (03/10/2023) Received from [facility], [facility] Exercise Vital Sign Days of Exercise per Week: 7 days Minutes of Exercise per Session: 30 min Stress: No Stress Concern Present (03/10/2023) Received from [facility], [facility] [employer] [place] [employer] - Occupational Stress Questionnaire Feeling of Stress : Not at all Social Connections: Moderately Integrated (03/10/2023) Received from [employer] Social Connection and Isolation Panel [NHANES] Frequency of Communication with Friends and Family: Twice a week Frequency of Social Gatherings with Friends and Family: Twice a week Attends Buddhist Services: Never Active Member of Clubs or Organizations: Yes Attends Club or Organization Meetings: Never Marital Status: Recent Concern: Social Connections - Moderately Isolated (12/27/2022) Social Connection and Isolation Panel [NHANES] Frequency of Communication with Friends and Family: More than three times a week Frequency of Social Gatherings with Friends and Family: More than three times a week Attends Buddhist Services: Never Active Member of Clubs or Organizations: No Attends Club or Organization Meetings: Never Marital Status: Intimate Partner Violence: Not At Risk (12/27/2022) Humiliation, Afraid, Rape, and Kick questionnaire Fear of Current or Ex-Partner: No Emotionally Abused: No Physically Abused: No Sexually Abused: No Housing Stability: Low Risk (03/10/2023) [facility] Housing Instability Are you worried or [...] - 9 Protein, UA Negative Negative - 1999(20) ++++ mg/dL Urobilinogen, UA 1.0 0.2 - 12 mg/dL Leukocytes, UA Negative Negative - 500+++ Abdulaziz/mcL Nitrite, UA Negative Negative - Positive Will send for c/s, r/o prostatitis. - Urine culture (clean catch); Future Follow up in 1-2 months for weight check. documented in this encounterThree Rivers He[id number] NoteCONSULTATION CONSULTATION DATE: 05/25/2022 HISTORY OF PRESENT [...] subarachnoid space. 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 The [...] will be followed in the clinic thereafter.[facility] [id number] Note CONSULTATION CONSULTATION DATE: 02/23/2022 HISTORY OF [...] in three months' time unless otherwise indicated.[facility] HospitalZmxmtlsq70-53-2745 Evaluation note * Encounter Date Diagnosis Assessment Notes Treatment Notes Treatment Clinical Notes Dec, Abnormal weight loss (ICD-10 - R63.4) PT ADVISED TO INCREASE PROTEIN RTO 6 MONTHS [facility] Other 05-24-2022 NoteCONSULTATION CONSULTATION DATE: 11/15/2021 CHIEF COMPLAINT: Mid back pain. HISTORY OF PRESENT ILLNESS: This is a 65-year-old gentleman who has thoracic pain, thoracic degenerative disc disease, thoracic spondylosis. 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 Unfortunately, [place] will not allow us to proceed with [...] will be following up in three months. [facility] Signed and Approved by: DR MARCY BERGER . 11/29/2021 11:41:00[facility]04-05-2022 Evaluation note* Encounter Date Diagnosis Assessment Notes Treatment Notes Treatment Clinical Notes Sep, Abnormal weight loss (ICD-10 - R63.4) INCREASE PROTEIN TO 80 GRAMS DAILY DRINK ENSURE/BOOST 3-4 TIMES A DAY RTO 3 MONTHS [facility] Other 11-22-2021 Evaluation note* Encounter Date Diagnosis Assessment Notes Treatment Notes Treatment Clinical Notes Apr, Abnormal weight loss (ICD-10 - R63.4) PATIENT STATES 20 POUND WEIGHT LOSS IN 4-6 MONTHS Apr, Gastric wall thickening (ICD-10 - K31.89) [facility] Other Evaluation note* Diagnosis Atrial flutter, unspecified type (CMS/HCC)- [...] of unspecified site documented in this encounter [facility] Healthcare[facility]* Diagnosis Weight loss- Primary Loss of weight Abnormal complete blood count Other abnormal blood chemistry Elevated PSA Elevated prostate specific antigen (PSA) Hematuria, unspecified type documented in this encounter [facility] HealthcareEvaluation note* Diagnosis Iron deficiency anemia secondary to inadequate dietary iron intake- Primary documented in this encounter [facility] Healthcare[facility]* Diagnosis Mixed hyperlipidemia (CMS/HCC) Mixed hyperlipidemia Primary hypertension (CMS/HCC) Unspecified essential hypertension documented in this encounter [facility] Healthcare[facility]* Diagnosis Atrial flutter, unspecified [...] bundle branch block documented in this encounter [facility]* Diagnosis Other chest pain- Primary Primary hypertension (CMS/HCC) Unspecified essential hypertension Coronary artery calcification (CMS/HCC) Atrial flutter, unspecified type (CMS/HCC) Cigarette smoker Tobacco use disorder Mixed hyperlipidemia (CMS/HCC) Mixed hyperlipidemia documented in this encounter [facility] Healthcare[facility]* Diagnosis Urinary retention- Primary Unspecified retention of urine Urinary retention- Primary Unspecified retention of urine Prostate cancer screening Special screening for malignant neoplasm of prostate Typical atrial flutter (CMS-HCC)- Primary Primary hypertension Unspecified essential hypertension Mixed hyperlipidemia documented [facility] encounter [facility]* Diagnosis Urinary retention- Primary Unspecified retention of urine Urinary retention- Primary Unspecified retention of urine Prostate cancer screening Special screening for malignant neoplasm of prostate Typical atrial flutter (CMS-HCC)- Primary RBBB (right bundle branch block) Right bundle branch block Stage 3a chronic kidney disease (CMS-HCC) Mixed hyperlipidemia documented in [facility] encounter [facility]* Diagnosis Urinary retention- Primary Unspecified retention of urine Urinary retention- Primary Unspecified retention of urine Prostate cancer screening Special screening for malignant neoplasm of prostate Elevated PSA- Primary Elevated prostate specific antigen (PSA) Urinary retention Unspecified retention of urine [facility] Diagnosis Urinary retention- Primary Unspecified retention of urine Urinary retention- Primary Unspecified retention of urine Prostate cancer screening Special screening for malignant neoplasm of prostate Bilateral carotid artery stenosis- Primary Occlusion and stenosis of carotid artery without mention of cerebral infarction Atrial flutter, unspecified type (CMS-HCC) documented in this encounter [facility]* Diagnosis Urinary retention- Primary Unspecified retention of urine Urinary retention- Primary Unspecified retention of urine Prostate cancer screening Special screening for malignant neoplasm of prostate Typical atrial flutter (CMS-HCC)- Primary Coronary artery calcification RBBB (right bundle branch block) Right bundle branch block documented in this encounter [facility]* Diagnosis Urinary retention- Primary Unspecified retention of urine Urinary retention- Primary Unspecified retention of urine Prostate cancer screening Special screening for malignant neoplasm of prostate Typical atrial flutter (CMS-HCC)- Primary documented in this encounter [facility]* Diagnosis Encounter for Medicare annual wellness exam- Primary Pulmonary nodule, right Other diseases of lung, not elsewhere classified Hiatal hernia Diaphragmatic hernia without mention of obstruction or gangrene Right carotid bruit RBBB (right bundle branch block) Right bundle branch block Primary hypertension Unspecified essential hypertension Other hemorrhoids Coronary artery calcification Bilateral carotid artery stenosis Occlusion and stenosis of carotid artery without mention of cerebral infarction Atrial flutter, unspecified type (HCC) Sigmoid diverticulosis Gastric wall thickening Stage 3a chronic kidney disease (CMS-HCC) Elevated PSA Elevated prostate specific antigen (PSA) Renal cyst 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 Degeneration of intervertebral disc of lumbar region, unspecified whether pain present Prediabetes Other abnormal glucose Tubular adenoma Benign neoplasm of unspecified site Mixed hyperlipidemia Mixed hyperlipidemia Hyperglycemia Other abnormal glucose Cigarette smoker Tobacco use disorder documented in this encounter [facility] HealthcareHistory general Narrative - Reported* Type Description Date Surgical History hernia Wandoujia Other History general Narrative - Reported* Type Description Date Medical History Hypertension Medical History hyperlipidemia Surgical History hernia [place]oujia Other InstructionsNot on filedocumented in this encounter [...] SystemInstructionsNot on filedocumented in this encounter [facility] SystemReason for visit Narrative* Consultation (Routine) - Pending Review Specialty Diagnoses / Procedures Referred By Debi greene Referred To Contact Cardiology Diagnoses Atrial flutter, unspecified type ([facility]) Farrukh Phelan MD [address] [place] [address] Phone: tel: fax: [facility] [address] [address] Phone: tel: fax: Referral ID Status Reason Start Date Expiration Date Visits Requested Visits Authorized [id number] Pending Review Specialty Services Required 03/21/2024 03/21/2025 1 1 [facility] Summary Purpose Family History No Family History Records FoundNo Family History Records FoundNo Family History Records FoundNo Family History Records FoundNo Family History Records FoundNo Family History Records FoundNo Family History Records Found Advance Directives No Advanced Directives Records FoundDocuments on File Type Date 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 03/28/2023 12:39 PM Living Will 03/28/2023 12:38 PM Date Activated Date Inactivated Comments 03/22/2024 1:08 PM 03/23/2024 3:16 PM Date Activated Date Inactivated Comments 03/10/2023 8:50 AM 03/10/2023 5:50 PM Latest Code Status on File Code Status Date Activated Date Inactivated Comments Full Code 03/10/2023 8:50 AM 03/10/2023 5:50 PM Documents on File Type Date 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 03/28/2023 12:39 PM Living Will 03/28/2023 12:38 PM Date Activated Date Inactivated Comments 03/22/2024 1:08 PM 03/23/2024 3:16 PM Date Activated Date Inactivated Comments 03/10/2023 8:50 AM 03/10/2023 5:50 PM Date Activated Date Inactivated Comments 09/04/2024 4:20 PM 09/04/2024 8:21 PM Date Activated Date Inactivated Comments 03/22/2024 1:08 PM 03/23/2024 3:16 PM Date Activated Date Inactivated Comments 03/10/2023 8:50 AM 03/10/2023 5:50 PM Date Activated Date Inactivated Comments 09/04/2024 4:20 PM 09/04/2024 8:21 PM Date Activated Date Inactivated Comments 03/22/2024 [...] and content) DATE CREATED AUTHOR 09/12/2021 [facility] DATE CREATED AUTHOR AUTHOR'S ORGANIZ ATION 10/23/2022 [facility] DATE CREATED AUTHOR AUTHOR'S ORGANIZ ATION 07/18/2023 [facility] DATE CREATED AUTHOR AUTHOR'S ORGANIZ ATION 05/04/2024 [facility] DATE CREATED AUTHOR AUTHOR'S ORGANIZ ATION 01/09/2025 [facility] DATE CREATED AUTHOR AUTHOR'S ORGANIZ ATION 02/16/2025 [facility] DATE CREATED AUTHOR AUTHOR'S ORGANIZ ATION 02/22/2025 [facility] EPIC REASON FOR VISIT (unrecogniz ed section and content) Reason Comments Follow-up Every once in awhile gets some chest pressure and has brief episodes of pain in one spot. The most severe time happened this past Sunday while mowing yard. Reason Comments Follow-up Pt has been trying t o eat more often. Pt did put on 6 lbs since his last visit. Pt is feeling better in the last week and feels like he is getting his strength back Reason Comments Med Refill Reason Comments Follow-up Hosp - Went to ER Fr ida night for chest pain and then went back again Sunday morning and was kept over night. No CP since discharge. Reason Comments ER Follow-up Chest pain, doing go od Reason Comments Follow-up EST PT 1 MO CATH L/S RBP s/p cdvn 05/29 [facility] Reason Comments Follow-up DISCUSS AFIB PER LLD AND S/P CDVN Reason Comments Hypertension Reason Onset Date Comments EP surgery (PT Education) 08/08/2024 Reason Comments Follow-up Reason Onset Date Comments Med Refill 05/19/2024 Reason Comments Follow-up EST PT F/U ADD ON EA RLY FOR ABN STRESS Reason Onset Date Comments PRE OP REMINDER CALL 08/28/2024 Reason Onset Date Comments Return to work 09/08/2024 Reason Comments Follow-up ov s/p abln 09/05/24 [facility] jaxon w pt Chest Pain Reason Comments Medicare Annual Wellness Visit Subsequen t Care Teams (unrecognized sec tion and content) 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 Relationship Specialty Start Date End Date Jesús Simon PCP - Devoted 11/23/21 Shona Elliott MD [address] [facility] [address] [place], [place] [id number] PCP - General Family Medicine 11/21/23 Angeles Montes NP [address] [place] [address] Family Medicine 11/21/23 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 Relationship Specialty Start Date End Date Jesús Simon NP PCP - Devoted 11/23/21 Shona Elliott MD [facility] [place] [address] PCP - General Family Medicine 11/21/23 Angeles Montes NP [address] [place] [address] Family Medicine 11/21/23 Nasrin Teixeira RN [address] [place] [address] Registered Nurse Family Medicine 03/31/24 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 Relationship Specialty Start Date End Date Jesús Simon PCP - Devoted 11/23/21 Shona Elliott MD [address] [place] [place] [address] PCP - General Family Medicine 11/21/23 Angeles Montes NP [address] [place] [address] Family Medicine 11/21/23 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 Relationship Specialty Start Date End Date Jesús Simon PCP - Devoted 11/23/21 Shona Elliott MD [address] [place] [address] PCP - General Family Medicine 11/21/23 Angeles Montes NP [address] [place] [address] Family Medicine 11/21/23 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 Relationship Specialty Start Date End Date Jesús Simon PCP - Devoted 11/23/21 Shona Elliott MD [address] [place] [address] PCP - General Family Medicine 11/21/23 Angeles Montes NP [address] [place] [address] Family Medicine 11/21/23 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 Relationship Specialty Start Date End Date Shona Elliott MD [address] [place] [address] PCP - General Family Medicine 03/21/24 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 Relationship Specialty Start Date End Date Shona Elliott MD [address] [place] [address] PCP - General Family Medicine 03/21/24 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 Relationship Specialty Start Date End Date Shona Elliott MD [address] [place] [address] PCP - General Family Medicine 03/21/24 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 Relationship Specialty Start Date End Date Shona Elliott MD [facility] [place] [address] PCP - General Family Medicine 03/21/24 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 Relationship Specialty Start Date End Date Shona Elliott MD [facility] [place] [address] PCP - General Family Medicine 03/21/24 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 Relationship Specialty Start Date End Date Shona Elliott MD [address] [place] [address] PCP - General Family Medicine 03/21/24 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 Relationship Specialty Start Date End Date Shona Elliott MD [facility] [place] [address] PCP - General Family Medicine 03/21/24 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 [address] Registered Nurse Family Medicine 03/31/24 FOR RECORDS [...] BE BASED ON THE PRIMARY CLINICAL RECORDS. [facility] [employer] provides no warranty or guarantee of the accuracy or completeness of information in this document.
--- NOTE | 2025-04-09 12:43 | PM.CN ---
Consult Note: HPI Data of Consult Patient: known to practice within the last 3 years Requesting Physician: Karen Castro NP Primary Care Provider: JESÚS GUZMAN Consult Narrative Reason for consult: f/u Narrative: Erich Lopez a pleasant 69 year old male presents for evaluation and management of left sided upper back pain. Patient reporting pain 3/10 aching, increasing to 5-6/10. pt utilizing gabapentin 300mg HS, and tramadol 50-100mg BID PRN moderate to severe pain. Pain well controlled since last visit, functional score stable at 28%. denies falls or injury. continues to f/u with cardiology, on eliquis cannot take NSAIDs. previously failed thoracic RFAs and noted less than 80% improvement from intercostal nerve blocks hence we did not proceed with RFA. cc:: CC: Karen Castro NP Review of Systems ROS Status of ROS 10 or more systems reviewed and unremarkable except as noted in history and below Musculoskeletal Reports: back pain PFSH PFSH Medical History (Updated 07/05/23 @ 08:52 by Lisset Martinez) Low back pain ?M54.50 - Low back pain, unspecified (ICD-10) High cholesterol ?E78.00 - Pure hypercholesterolemia, unspecified (ICD-10) Hypertension ?I10 - Essential (primary) hypertension (ICD-10) Surgical History H/O hernia repair ?Z98.890 - Other specified postprocedural states (ICD-10) ?Z87.19 - Personal history of other diseases of the digestive system (ICD-10) Meds Home Medications and Allergies Home Medications ?Medication ?Instructions ?Recorded ?Confirmed ?Type atorvastatin 80 mg tablet (Lipitor) 80 mg PO DAILY 05/22/23 07/09/23 History lisinopril 2.5 mg tablet 2.5 mg PO DAILY 05/22/23 07/09/23 History tamsulosin 0.4 mg capsule (Flomax) 0.4 mg PO DAILY 05/28/23 07/09/23 History naloxone 4 mg/actuation nasal 4 mg intranasal Q3M PRN opioid 05/16/24 Rx spray (Narcan) overdose #2 ea tramadol 50 mg tablet 50 mg PO QID PRN pain #120 tabs 09/16/24 Rx gabapentin 300 mg capsule 300 mg PO HS #30 caps 10/16/24 Rx amitriptyline 10 mg tablet 10 mg PO DAILY 01/07/25 01/07/25 History apixaban 5 mg tablet (Eliquis) 5 mg PO BID 01/07/25 01/07/25 History gabapentin 300 mg capsule 300 mg PO .qhs #30 caps 01/13/25 Rx tramadol 50 mg tablet See Rx Instructions .Route 01/13/25 Rx .COMPLEX PRN pain #120 tabs gabapentin 300 mg capsule 300 mg PO DAILY #30 caps 02/16/25 Rx tramadol 50 mg tablet See Rx Instructions .Route 02/16/25 Rx .COMPLEX PRN pain #120 tabs gabapentin 300 mg capsule 300 mg PO DAILY #30 caps 03/16/25 Rx tramadol 50 mg tablet 100 mg (2 x 50 mg) PO BID PRN pain 03/16/25 Rx #120 tabs Allergies Allergy/AdvReac Type Severity Reaction Status Date / Time Penicillins Allergy Verified 07/09/23 07:00 Exam Constitutional Documenting provider has reviewed patient's vital signs: yes Common normals: no apparent distress, oriented x3, healthy appearing, alert and well nourished General appearance: cooperative HENCO Common normals: normocephalic, hearing grossly normal bilaterally and moist oral mucous membranes Head and scalp: normocephalic Eye Common normals: PERRL Pupil: PERRL Neck & C-Spine Common normals: full ROM General: normal visual inspection Chest Common normals: inspection of chest normal Respiratory Common normals: normal respiratory effort, no retractions and no use of accessory muscles Back & Pelvis Thoracic spine/upper back: pain with ROM; no thoracic spinal tenderness, no paraspinal muscle tenderness and no paraspinal muscle spasm Neuro Common normals: oriented x3 Sensorium/orientation: alert Motor exam: strength 5/5 throughout and no movement abnormalities noted Psych Common normals: mental status grossly normal, thought process normal, cooperative, affect normal, speech normal and activity/motor behavior normal Speech: normal speech Thought process: normal thought process Results Additional Findings Additional findings: If on a controlled substance or opioids, I have checked an [place]AR[place] report on this patient and there are no aberrancies noted in the prescribing history.??If on a controlled substance or opioid a drug screen was completed and reviewed within the last year, and if there has not been a drug screen completed we ordered one today to monitor higher risk, state monitored pain medication use. As part of providing excellent, safe, comprehensive care, the following was completed at our patient's visit: 1. A medication reconciliation and review to ensure accurate knowledge of current/active medications, including asking our patients to inform us about any [id number] medications or herbal remedies/nutritional supplements/alternative remedies. 2. A review to specifically ensure our patients have had annual screening for screening for depression, screening for tobacco use, and screening for unhealthy alcohol use. For concerning screenings had a discussion with the patient, provided patient education, and recommended follow-up with primary care provider when appropriate. If patient noted with a risk of falling, they received education on strength, gait, and balance training to prevent future risk of falling. Portions of this note may have been carried over from the previous visit and updated as appropriate. Please note this office utilizes paper charting in addition to the electronic medical record. A list of current medications, vitals, and PMH is available there as the clinical staff outside of myself do not have access to [employer] charting during the clinic day operations. As part of providing quality comprehensive care the current medications, vitals, and PMH were reviewed in the paper chart. Assessment and Plan Assessment and Plan (1) Thoracic neuritis: (2) Thoracic spondylosis: (3) Chronic prescription opiate use: Assessment and Plan: I feel these medications are improving the patient's quality of life and allow them to tolerate activities of daily living as well as participate in recreational activity.? The patient does not report intolerable side effects. The patient is NOT opioid naive and non-pharmacologic and non-opioid treatment has failed to significantly relieve the patient's pain and improve functionality. The patient has a diagnosis that is related to a somatic or visceral pain etiology. ? ?? I reviewed with the patient the potential risks and side effects with the use of? opioid medications including but not limited to respiratory depression,? sedation, and even . Within the last 12 months I have verified the patient has access to naloxone should? these effects occur. The patient was advised to let? their family know they had Naloxone in case they would need to administer? the medication. I advised the patient to avoid the use of any other? sedation substances including alcohol, THC, and benzodiazepines while? taking opioid medications due to the risk of compounding side effects and? detrimental outcomes. within the last 12 months I have reviewed the FOOD SAFETY SCIENTIST, pain treatment agreement and urine drug screen.? ?? A drug screen was completed within the last year, and no aberrancies were noted regarding their use of controlled substances. The patient understands they are subject to the terms and conditions of the pain contract that they have signed. ? ?? I have checked an OARRS report on this patient today and there are no aberrancies noted in the prescribing history.? Plan continue current medications, can trial gabapentin 300mg AM instead of HS to see if pain throughout the day improves, risks vs benefits reviewed and denies side effects continue HEP as tolerated f/u 3 months, sooner if needed
== END 2025-04-09 12:34 | disposition home or self-care (01) ==
LOC: PM 12:34
PROVIDERS: Visit Provider Nurse Practitioner
DX: M54.14 Radiculopathy, thoracic region (principal); M47.814 Spondylosis without myelopathy or radiculopathy, thoracic region; Z79.891 Long term (current) use of opiate analgesic
CPT/HCPCS: G0463